=== PATIENT | female | born 1960 | race Caucasian/White ===

== ENCOUNTER 2017-03-23 19:05 | Inpatient (IN) | payer MEDICARE ==
[~2017-03-23] VITALS: Ht 157.5 cm; Wt 137.7 kg
[2017-03-23 19:13] VITALS: BP 172/90; PULSE 138; RESP 24; TEMP 102.1; O2SAT 93
[2017-03-23] MEDS ORDERED: SODIUM CHLOR 0.9% 1000 ML INJ 1,000 ML IV ONE ×3 (19:24)
[2017-03-23 19:26] VITALS: BP 145/75; PULSE 113; RESP 34; O2SAT 95
[2017-03-23] MEDS ORDERED: ACETAMINOPHEN 325 MG TAB PO ONE (19:30)
--- NOTE | 2017-03-23 19:32 | PD ---
HPI Chief Complaint: fever Time Seen by Provider: 19:15 Travel History International Travel<30 days: No Contact w/Intl Traveler<30days: No Traveled to known affect area: No History of Present Illness HPI the patient is a 57-year-old female who presents to the emergency department with her for fever and altered mental status. The states the patient symptoms started on Tuesday with lethargy, sleeping, and fever. The patient also had one episode of vomiting with several episodes of diarrhea. The states she has been no recent international travel, hospitalizations, or history of chronic infections. She did have similar symptoms 2 years ago per the 's report with the patient had low oxygen levels and had altered mental status. The patient does have a history of scleroderma and thyroid disorder. The patient also has a history of chronic pain secondary to scleroderma and chronic back pain for which she takes morphine and Dilaudid. The patient is seen by pain management as well as her primary physician who is located in [place], [place]. The states the patient's mental status seems to wax and wane over the last several days, she' ll be awake and alert, and that she will fall asleep and be slightly lethargic and confused. The patient denies any chest pain or shortness of breath. She does complain of abdominal pain over the skin secondary to her scleroderma. She also has a history of an open lesion secondary to scleroderma of the lateral left thigh which has been present for several years per the 's report. She denies any dysuria or frequency. Symptoms are moderate without any alleviating or exacerbating factors. [facility] Past Medical History Narrative Medical Scleroderma, thyroid disorder, chronic pain Past Surgical History Narrative Surgical Splenectomy Social History Tobacco Use: No (quit several years ago) Allergies-Medications (Allergen,Severity, Reaction): Coded Allergies: shellfish derived (Verified Allergy, Intermediate, 03/23/17) Review of Systems ROS Limitations: Clinical Condition Except as stated in HPI: all other systems reviewed are Neg General / Constitutional: Positive: Fever, Chills HENT: No: Headaches Cardiovascular: No: Chest Pain or Discomfort Respiratory: Positive: Shortness of Breath, No: Cough Gastrointestinal: Positive: Nausea, Vomiting, Diarrhea, Abdominal Pain Genitourinary: No: Dysuria Musculoskeletal: Positive: Weakness Skin: Positive Other (scleroderma with chronic draining wounds) Neurologic: Positive: Weakness Physical Exam Exam Limitations: Clinical Condition Narrative GENERAL: Awake, alert, slightly confused 57-year-old female appears her stated age and is in no acute respiratory distress. SKIN: Focused skin assessment warm/dry. Multiple circular scaly lesions on the lower external is bilateral. An open wound over the left lateral superior thigh with well demarcated age and tenderness. The patient's skin creases over the upper thighs and lower abdomen consistent with tinea. HEAD: Atraumatic. Normocephalic. EYES: Pupils equal and round. 3 mm bilateral and reactive. ENT: No nasal bleeding or discharge. Mucous membranes pink and moist. NECK: Trachea midline. No JVD. CARDIOVASCULAR: Regular, tachycardic with a heart rate 115. RESPIRATORY: No accessory muscle use. Diminished breath sounds in the bases bilateral. GASTROINTESTINAL: Abdomen soft, obese, no pinpoint tenderness, several subcutaneous nodules noted on exam. MUSCULOSKELETAL: No obvious deformities. No clubbing. No cyanosis. No edema. NEUROLOGICAL: Awake and alert. No obvious cranial nerve deficits. Motor grossly within normal limits. Normal speech. Patient is oriented to person, place, and , but does not know the current month or year. PSYCHIATRIC: Appears confused with delirium. Data Data Last Documented VS Vital Signs Date Time Temp Pulse Resp B/P (MAP) Pulse Ox O2 Delivery O2 Flow Rate FiO2 03/23/17 21:03 100 28 135/66 (89) 96 Nasal Cannula 2.00 03/23/17 19:13 102.1 Orders Orders Sepsis Workup Initiated (03/23/17 ) Electrocardiogram (03/23/17 19:24) Complete Blood Count With Diff (03/23/17 19:24) Comprehensive Metabolic Panel (03/23/17 19:24) Lactic Acid Sepsis Protocol (03/23/17 19:24) Magnesium (Mg) (03/23/17 19:24) Lipase (03/23/17 19:24) Ckmb (Isoenzyme) Profile (03/23/17 19:24) Troponin I (03/23/17 19:24) Urinalysis - C+S If Indicated (03/23/17 19:24) Influenzae A/B Antigen (03/23/17 19:24) Blood Culture (03/23/17 19:24) Chest, Single Ap (03/23/17 19:24) Blood Gas Venous (Vbg) (03/23/17 19:24) Blood Glucose (03/23/17 19:24) Ecg Monitoring (03/23/17 19:24) Iv Access Insert/Monitor (03/23/17 19:24) Cath For Specimen (03/23/17 19:24) Oximetry (03/23/17 19:24) Oxygen Administration (03/23/17 19:24) Acetaminophen (Tylenol) (03/23/17 19:30) Ct Abd/Pel W/O Iv Contrast (03/23/17 19:24) Ct Brain W/O Iv Contrast(Rout) (03/23/17 19:24) Sodium Chlor 0.9% 1000 Ml Inj (Ns 1000 M (03/23/17 19:24) Sodium Chlor 0.9% 1000 Ml Inj (Ns 1000 M (03/23/17 19:24) Sodium Chlor 0.9% 1000 Ml Inj (Ns 1000 M (03/23/17 19:24) C Diff Toxin Pcr (03/23/17 19:34) Enteric Path (Stool) (03/23/17 19:34) Piperacil-Tazo 4.5 Gm Premix (Zosyn 4.5 (03/23/17 20:30) Vancomycin Inj (Vancomycin Inj) (03/23/17 20:30) CKMB (03/23/17 19:45) CKMB% (03/23/17 19:45) Aspirin (Aspirin) (03/23/17 20:30) Urine Culture (03/23/17 19:58) Urinary Catheter Insert/Apply (03/23/17 21:51) Labs Laboratory Tests Test 03/23/17 19:45 03/23/17 19:58 03/23/17 20:04 White Blood Count 19.8 TH/MM3 Red Blood Count 5.16 MIL/MM3 Hemoglobin 14.1 GM/DL Hematocrit 44.0 % Mean Corpuscular Volume 85.2 FL Mean Corpuscular Hemoglobin 27.3 PG Mean Corpuscular Hemoglobin Concent 32.0 % Red Cell Distribution Width 14.8 % Platelet Count 163 TH/MM3 Mean Platelet Volume 10.5 FL Neutrophils (%) (Auto) 92.4 % Lymphocytes (%) (Auto) 4.2 % Monocytes (%) (Auto) 2.5 % Eosinophils (%) (Auto) 0.8 % Basophils (%) (Auto) 0.1 % Neutrophils # (Auto) 18.3 TH/MM3 Lymphocytes # (Auto) 0.8 TH/MM3 Monocytes # (Auto) 0.5 TH/MM3 Eosinophils # (Auto) 0.2 TH/MM3 Basophils # (Auto) 0.0 TH/MM3 CBC Comment AUTO DIFF Differential Total Cells Counted 100 Neutrophils % (Manual) 76 % Band Neutrophils % 18 % Lymphocytes % 1 % Monocytes % 4 % Neutrophils # (Manual) 18.8 TH/MM3 Metamyelocytes 1 % Differential Comment FINAL DIFF MANUAL Toxic Vacuolation PRESENT Dohle Bodies PRESENT Platelet Estimate NORMAL Platelet Morphology Comment ENLARGED [place]afa[place] Bodies PRESENT Blood Urea Nitrogen 37 MG/DL Creatinine 1.73 MG/DL Random Glucose 128 MG/DL Total Protein 10.2 GM/DL Albumin 1.8 GM/DL Calcium Level 8.5 MG/DL Magnesium Level 2.1 MG/DL Alkaline Phosphatase 130 U/L Aspartate Amino Transf (AST/SGOT) 322 U/L Alanine Aminotransferase (ALT/SGPT) 83 U/L Total Bilirubin 1.6 MG/DL Sodium Level 125 MEQ/L Potassium Level 4.1 MEQ/L Chloride Level 90 MEQ/L Carbon Dioxide Level 17.8 MEQ/L Anion Gap 17 MEQ/L Estimat Glomerular Filtration Rate 31 ML/MIN Lactic Acid Level 9.8 mmol/L Total Creatine Kinase 2170 U/L Creatine Kinase MB 26.1 NG/ML Creatine Kinase MB % 1.2 % Troponin I 15.20 NG/ML Lipase 442 U/L Urine Color DARK-YELLOW Urine Turbidity HAZY Urine pH 6.0 Urine Specific [place] 1.021 Urine Protein 100 mg/dL Urine Glucose (UA) NEG mg/dL Urine Ketones NEG mg/dL Urine Occult Blood LARGE Urine Nitrite NEG Urine Bilirubin NEG Urine Urobilinogen 2.0 MG/DL Urine Leukocyte Esterase TRACE Urine RBC 3 /hpf Urine WBC 12 /hpf Urine Squamous Epithelial Cells 1 /hpf Urine Bacteria RARE /hpf Urine Hyaline Casts 1 /lpf Urine Mucus FEW /lpf Microscopic Urinalysis Comment CULTURE INDICATED Blood Gas Puncture Site IV Blood Gas Patient Temperature 98.6 Venous Blood pH 7.35 Venous Blood Partial Pressure CO2 35 mmHg Venous Blood Partial Pressure O2 46 mmHg Venous Blood HCO3 19 mmol/L Venous Blood Oxygen Saturation 71 % Venous Blood Oxygen Content 13.2 Vol % Venous Blood Base Excess -6.0 mmol/L Oxygen Delivery Device NASAL CANNULA Blood Gas Liter Flow 3 L/M MDM Medical Decision Making Medical Screen Exam Complete: Yes Emergency Medical Condition: Yes Medical Record Reviewed: Yes Interpretation(s) EKG reveals sinus tachycardia with a heart rate of 113. Inverted T wave noted in lead 3. Chest x-ray reveals the lungs are clear. Cardiomegaly. Last Impressions Head CT 03/23/[id number] Signed Impressions: Service Date/Time: Thursday, March 23, 2017 20:45 - CONCLUSION: No acute findings in the brain. David Weiss MD Chest X-Ray 03/23/[id number] Signed Impressions: Service Date/Time: Thursday, March 23, 2017 19:49 - CONCLUSION: Cardiomegaly. The lungs are clear. David Weiss MD CT the abdomen and pelvis reveals multiple gallstones, some which are noncalcified. Spleen is not identified. Mildly prominent left inguinal nodes measuring up to 2 cm. Laboratory Tests Test 03/23/17 19:45 03/23/17 19:58 03/23/17 20:04 White Blood Count 19.8 TH/MM3 Red Blood Count 5.16 MIL/MM3 Hemoglobin 14.1 GM/DL Hematocrit 44.0 % Mean Corpuscular Volume 85.2 FL Mean Corpuscular Hemoglobin 27.3 PG Mean Corpuscular Hemoglobin Concent 32.0 % Red Cell Distribution Width 14.8 % Platelet Count 163 TH/MM3 Mean Platelet Volume 10.5 FL Neutrophils (%) (Auto) 92.4 % Lymphocytes (%) (Auto) 4.2 % Monocytes (%) (Auto) 2.5 % Eosinophils (%) (Auto) 0.8 % Basophils (%) (Auto) 0.1 % Neutrophils # (Auto) 18.3 TH/MM3 Lymphocytes # (Auto) 0.8 TH/MM3 Monocytes # (Auto) 0.5 TH/MM3 Eosinophils # (Auto) 0.2 TH/MM3 Basophils # (Auto) 0.0 TH/MM3 CBC Comment AUTO DIFF Differential Total Cells Counted 100 Neutrophils % (Manual) 76 % Band Neutrophils % 18 % Lymphocytes % 1 % Monocytes % 4 % Neutrophils # (Manual) 18.8 TH/MM3 Metamyelocytes 1 % Differential Comment FINAL DIFF MANUAL Toxic Vacuolation PRESENT Dohle Bodies PRESENT Platelet Estimate NORMAL Platelet Morphology Comment ENLARGED Mustafa-[place] Bodies PRESENT Blood Urea Nitrogen 37 MG/DL Creatinine 1.73 MG/DL Random Glucose 128 MG/DL Total Protein 10.2 GM/DL Albumin 1.8 GM/DL Calcium Level 8.5 MG/DL Magnesium Level 2.1 MG/DL Alkaline Phosphatase 130 U/L Aspartate Amino Transf (AST/SGOT) 322 U/L Alanine Aminotransferase (ALT/SGPT) 83 U/L Total Bilirubin 1.6 MG/DL Sodium Level 125 MEQ/L Potassium Level 4.1 MEQ/L Chloride Level 90 MEQ/L Carbon Dioxide Level 17.8 MEQ/L Anion Gap 17 MEQ/L Estimat Glomerular Filtration Rate 31 ML/MIN Lactic Acid Level 9.8 mmol/L Total Creatine Kinase 2170 U/L Creatine Kinase MB 26.1 NG/ML Creatine Kinase MB % 1.2 % Troponin I 15.20 NG/ML Lipase 442 U/L Urine Color DARK-YELLOW Urine Turbidity HAZY Urine pH 6.0 Urine Specific [place] 1.021 Urine Protein 100 mg/dL Urine Glucose (UA) NEG mg/dL Urine Ketones NEG mg/dL Urine Occult Blood LARGE Urine Nitrite NEG Urine Bilirubin NEG Urine Urobilinogen 2.0 MG/DL Urine Leukocyte Esterase TRACE Urine RBC 3 /hpf Urine WBC 12 /hpf Urine Squamous Epithelial Cells 1 /hpf Urine Bacteria RARE /hpf Urine Hyaline Casts 1 /lpf Urine Mucus FEW /lpf Microscopic Urinalysis Comment CULTURE INDICATED Blood Gas Puncture Site IV Blood Gas Patient Temperature 98.6 Venous Blood pH 7.35 Venous Blood Partial Pressure CO2 35 mmHg Venous Blood Partial Pressure O2 46 mmHg Venous Blood HCO3 19 mmol/L Venous Blood Oxygen Saturation 71 % Venous Blood Oxygen Content 13.2 Vol % Venous Blood Base Excess -6.0 mmol/L Oxygen Delivery Device NASAL CANNULA Blood Gas Liter Flow 3 L/M Differential Diagnosis Differential diagnosis includes sepsis, pneumonia, UTI, infected wound, cellulitis, encephalitis, meningitis, dehydration, electrolyte abnormality, intra-abdominal process, influenza, colitis. Narrative Course IV was established, labs are drawn and sent, and the patient was placed on cardiac telemetry monitoring and continuous pulse oximetry monitoring. CT of the brain and abdomen/pelvis were ordered. Straight catheter UA was ordered. Chest x-ray was obtained. The patient was administered IV fluids and Tylenol 650 mg orally. EKG was ordered and interpreted. The patient's chest x-ray reveals cardiomegaly, no evidence of pneumonia. Influenza screen was negative. The patient does have an open lesion on the lateral left thigh, therefore, was administered Zosyn and vancomycin. The patient's troponin was elevated at 15.2, CPK 2100, lactic acid was elevated at 9.8. Patient was resuscitated with 3 L of IV fluids. The patient does meet sepsis criteria will be admitted to the intensive care unit. CT of the abdomen and pelvis reveals enlarged lymph node a left inguinal area, may be secondary to the lateral left leg went, the patient will be admitted to the intensive care unit. I discussed the findings with the patient and at bedside. Critical Care Narrative Aggregate critical care time was 45 minutes. Time to perform other separately billable procedures was not included in the critical care time. My time did not include minutes spent treating any other patients simultaneously or on activities that did not directly contribute to the patient's treatment. The services I provided to this patient were to treat and/or prevent clinically significant deterioration that could result in: Sepsis, and organ damage, acute renal failure, myocardial infarction, . I provided critical care services requiring my management, as noted below: Chart data review, documentation time, medication orders and management, vital sign assessments/reviewing monitor data, ordering and reviewing lab tests, ordering and interpreting/reviewing x-rays and diagnostic studies, care of the patient and discussion of the patient with the admitting physicians. Sepsis Criteria SIRS Criteria (2 or more): Temp > 100.9 or < 96.8, Heart rate over 90, WBC > 93046, < 4000 or > 10% bands Severe Sepsis (+one): Organ Dysfunction Septic Shock Criteria: Lactic acid >=4 Criteria Outcome: Meets septic shock criteria Physician Communication Physician Communication The on-call digital retoucher was paged for admission. I discussed the patient with Dr. Garcia who agrees with admission. Diagnosis Primary Impression: Sepsis Qualified Codes: A41.9 - Sepsis, unspecified organism Additional Impressions: Elevated troponin Lactic acidosis Admitting Information Admitting Physician Requests: Admit Condition: Stable Elia Moss MD Mar 23, 2017 19:32
[2017-03-23 19:36] VITALS: O2SAT 95
[2017-03-23 20:01] LABS: AUTOMATED NEUTROPHIL # 18.3 TH/MM3 (1.8-7.7); BASOPHIL % 0.1 % (0.0-2.0); EOSINOPHIL # 0.2 TH/MM3 (0-0.4); EOSINOPHIL % 0.8 % (0.0-4.0); HEMOGLOBIN 14.1 GM/DL (11.6-15.3); LYMPH % 4.2 % (9.0-44.0); LYMPHOCYTE # 0.8 TH/MM3 (1.0-4.8); MEAN CELL VOLUME 85.2 FL (80.0-100.0); MEAN CORPUSCULAR HEMOGLOBIN 27.3 PG (27.0-34.0); MEAN PLATELET VOLUME 10.5 FL (7.0-11.0); MONO % 2.5 % (0.0-8.0); MONOCYTE # 0.5 TH/MM3 (0-0.9); NEUT % 92.4 % (16.0-70.0); PLATELET COUNT 163 TH/MM3 (150-450); RED BLOOD COUNT 5.16 MIL/MM3 (4.00-5.30); RED CELL DISTRIBUTION WIDTH 14.8 % (11.6-17.2); WHITE BLOOD COUNT 19.8 TH/MM3 (4.0-11.0)
[2017-03-23 20:16] LABS: ALBUMIN 1.8 GM/DL (3.4-5.0); ALT (GPT) 83 U/L (10-53); AST (GOT) 322 U/L (15-37); BICARBONATE 17.8 MEQ/L (21.0-32.0); BLOOD UREA NITROGEN 37 MG/DL (7-18); CALCIUM 8.5 MG/DL (8.5-10.1); CHLORIDE 90 MEQ/L (98-107); CREATININE 1.73 MG/DL (0.50-1.00); GLOMERULAR FILTRATION RATE 31 ML/MIN (>89); GLUCOSE,RANDOM 128 MG/DL (74-106); LIPASE 442 U/L (73-393); MAGNESIUM 2.1 MG/DL (1.5-2.5); SODIUM (NA) 125 MEQ/L (136-145)
--- NOTE | 2017-03-23 20:19 | RADRPT ---
EXAM DATE/TIME: 03/23/2017 19:49 [facility] COMPARISON: No previous studies available for comparison. INDICATIONS : Fever. MEDICAL HISTORY : None. SURGICAL HISTORY : None. ENCOUNTER: Initial ACUITY: 1 day PAIN SCORE: 0/10 LOCATION: Bilateral chest FINDINGS: A single view of the chest demonstrates the lungs to be symmetrically aerated without evidence of mas s, infiltrate or effusion. Heart is mildly enlarged. Central bronchopulmonary markings well delinea wayne. Osseous structures are intact. CONCLUSION: Cardiomegaly. The lungs are clear. David Weiss MD on March 23, 2017 at 20:16 Board Certified Radiologist. This report was verified electronically.
[2017-03-23 20:22] LABS: LACTIC ACID SEPSIS PROTOCOL 9.8 mmol/L (0.4-2.0)
[2017-03-23 20:26] LABS: ALKALINE PHOSPHATASE 130 U/L (45-117); TOTAL BILIRUBIN ADULT 1.6 MG/DL (0.2-1.0); TOTAL PROTEIN 10.2 GM/DL (6.4-8.2)
[2017-03-23 20:30] LABS: BANDS 18 % (0-6); LYMPHOCYTES 1 % (9-44); METAMYELOCYTES 1 % (0-1); MONOCYTES 4 % (0-8); NEUTROPHIL # MANUAL DIFF 18.8 TH/MM3 (1.8-7.7); POLYS (SEG NEUTROPHILS) 76 % (16-70)
[2017-03-23] MEDS ORDERED: PIPERACIL-TAZO 4.5 GM PREMIX 100 ML IV ONE (20:30)
[2017-03-23] MEDS ORDERED: ASPIRIN 325 MG TAB PO ONE (20:30)
[2017-03-23] MEDS ORDERED: VANCOMYCIN INJ 1,000 MG in SODIUM CHLOR 0.9% 250 ML INJ 250 ML IV ONE (20:30)
[2017-03-23 20:31] LABS: DOHLE BODIES PRESENT (NONE SEEN); HOWELL-JOLLY BODIES PRESENT (NONE SEEN); TOXIC VACUOLATION PRESENT (NONE SEEN)
[2017-03-23 20:46] LABS: BACTERIA, URINE RARE /hpf; BLOOD, URINE LARGE (NEG); GLUCOSE,URINE NEG (NEG); HYALINE CAST, URINE 1 /lpf (RARE); KETONE, URINE NEG (NEG); MUCUS URINE FEW /lpf (OCC); NITRITE,URINE NEG (NEG); SQUAMOUS EPITHELIAL CELL URINE 1 /hpf (0-5); URINE COLOR DARK-YELLOW (YELLW/STRAW); URINE LEUKOCYTE ESTERASE TRACE (NEG)
[2017-03-23 20:48] LABS: BILIRUBIN, URINE NEG (NEG)
[2017-03-23 21:03] VITALS: BP 135/66; PULSE 100; RESP 28; O2SAT 96
--- NOTE | 2017-03-23 21:40 | RADRPT ---
EXAM DATE/TIME: 03/23/2017 20:45 [facility] COMPARISON: No previous studies available for comparison. INDICATIONS : Altered mental status. RADIATION DOSE: 56.35 CTDIvol (mGy) MEDICAL HISTORY : Scleroderma SURGICAL HISTORY : None. ENCOUNTER: Initial ACUITY: 3 days PAIN SCALE: 0/10 LOCATION: cranial TECHNIQUE: Multiple contiguous axial images were obtained of the head. Using automated exposure control and adj ustment of the mA and/or kV according to patient size, radiation dose was kept as low as reasonably a chievable to obtain optimal diagnostic quality images. DICOM format image data is available electro nically for review and comparison. FINDINGS: CEREBRUM: The ventricles are normal for age. No evidence of midline shift, mass lesion, hemorrhage or acute in farction. No extra-axial fluid collections are seen. POSTERIOR FOSSA: The cerebellum and brainstem are intact. The 4th ventricle is midline. The cerebellopontine angle i s unremarkable. EXTRACRANIAL: The visualized portion of the orbits is intact. SKULL: The calvaria is intact. No evidence of skull fracture. Hyperostosis of the calvarium. CONCLUSION: No acute findings in the brain. David Weiss MD on March 23, 2017 at 21:37 Board Certified Radiologist. This report was verified electronically.
--- NOTE | 2017-03-23 21:56 | RADRPT ---
EXAM DATE/TIME: 03/23/2017 20:48 [facility] COMPARISON: No previous studies available for comparison. INDICATIONS : Fever, nausea, and vomiting. ORAL CONTRAST: No oral contrast ingested. RADIATION DOSE: 31.08 CTDIvol (mGy) ; Patient body habitus MEDICAL HISTORY : scleroderma SURGICAL HISTORY : None. ENCOUNTER: Initial ACUITY: 3 days PAIN SCALE: 0/10 LOCATION: abdomen TECHNIQUE: Volumetric scanning of the abdomen and pelvis was performed. Using automated exposure control and ad justment of the mA and/or kV according to patient size, radiation dose was kept as low as reasonably achievable to obtain optimal diagnostic quality images. DICOM format image data is available electro nically for review and comparison. FINDINGS: LOWER LUNGS: The visualized lower lungs are clear. LIVER: Homogeneous density without lesion for noncontrast technique. There is a solitary punctate calcifica tion within the central right lobe liver.. There is no dilation of the biliary tree. Multiple calci fied and noncalcified gallstones, the largest which contains gas.. SPLEEN: Not identified. PANCREAS: Within normal limits. KIDNEYS: Normal in size and shape. There is no mass, stone, or hydronephrosis. ADRENAL GLANDS: Within normal limits. VASCULAR: There is no aortic aneurysm. BOWEL/MESENTERY: The stomach, small bowel, and colon demonstrate no acute abnormality. There is no free intraperitone al air or fluid. ABDOMINAL WALL: Diffuse scattered subcutaneous calcifications Concentric about the abdominal pelvic wall. RETROPERITONEUM: There is no lymphadenopathy. BLADDER: Florez catheter in a nondistended bladder. REPRODUCTIVE: Within normal limits. INGUINAL: Mildly prominent left inguinal lymph nodes measuring up to 2 cm. MUSCULOSKELETAL: Within normal limits for patient age. CONCLUSION: 1. Multiple gallstones, some of which are noncalcified. 2. Spleen is not identified. 3. Mildly prominent left inguinal David Weiss MD on March 23, 2017 at 21:51 Board Certified Radiologist. This report was verified electronically.
[2017-03-23] MEDS ORDERED: ACETAMINOPHEN 325 MG TAB PO PRN (22:30)
[2017-03-23] MEDS ORDERED: ONDANSETRON HCL 4 MG/2 ML VIAL IV PUSH PRN (22:30)
[2017-03-23] MEDS ORDERED: SODIUM CHLORIDE 0.9% FLUSH 10 ML FLUSH IV FLUSH PRN ×2 (22:30→22:45)
[2017-03-23] MEDS ORDERED: LACTULOSE SYRUP 20 GM/30 ML CUP PO PRN (22:30)
[2017-03-23] MEDS ORDERED: CHLORHEXIDINE GLUCONATE 2 % 1 PACK (2 CLOTHS) TOP PRN (22:30)
[2017-03-23] MEDS ORDERED: ACETAMINOPHEN/HYDROcodone 325 MG/5 MG TAB PO PRN (22:30)
[2017-03-23] MEDS ORDERED: SENNOSIDES 8.6 MG TAB PO PRN (22:30)
[2017-03-23] MEDS ORDERED: HEPARIN SODIUM - SQ 10,000 UNITS/ML VIAL SQ SCH (22:30)
[2017-03-23] MEDS ORDERED: MAGNESIUM HYDROXIDE SUSP 30 ML CUP PO PRN (22:30)
[2017-03-23] MEDS ORDERED: BISACODYL 10 MG SUPP RECTAL PRN (22:30)
[2017-03-23] MEDS ORDERED: MISCELLANEOUS NURSING INFORMATION XX SCH (22:30)
--- NOTE | 2017-03-23 22:43 | HHI.HP ---
[facility] Service Critical Care Medicine Primary Care Physician Unknown Admission Diagnosis sepsis, left leg wound, lactic acidosis, elevated troponin Diagnosis: (1) Hyponatremia Diagnosis: Principal (2) Hypoalbuminemia Diagnosis: Principal (3) Transaminitis Diagnosis: Principal (4) Pyrexia Diagnosis: Principal (5) Acute kidney injury Diagnosis: Principal (6) Scleroderma Diagnosis: Secondary (7) Severe sepsis Diagnosis: Principal (8) Elevated troponin Diagnosis: Principal (9) Lactic acidosis Diagnosis: Principal (10) Left leg cellulitis Diagnosis: Principal (11) Hyperglycemia Diagnosis: Secondary (12) Rhabdomyolysis Diagnosis: Principal (13) Gallstones Diagnosis: Principal (14) BMI 50.0-59.9, adult Diagnosis: Principal (15) Chronic narcotic use Diagnosis: Principal (16) Chronic prescription benzodiazepine use Diagnosis: Principal (17) Depression Diagnosis: Secondary (18) Hypothyroidism Diagnosis: Principal Chief Complaint: Malaise 2-3 days Travel History International Travel<30 Days: No Contact w/Intl Traveler <30 Da: No Traveled to Known Affected Are: No Sepsis Criteria SIRS Criteria (2 or more): WBC > 80069, < 4000 or > 10% bands Sepsis Criteria (SIRS+source): Infect source susp/known Severe Sepsis (+one): Lactate >2 Septic Shock Criteria: Lactic acid >=4 Multiple Organ Dysfunction Syn: Evidence -2 organs failing Criteria Outcome: Meets multiple organ dys. criteria History of Present Illness This is a 57-year-old female. Admission 03/23/2017.past medical history includes scleroderma, thyroid disease, status post splenectomy in the past and elevated BMI. Initial presentation occurred Tuesday with lethargy, sleeping, and fever. The patient also had one episode of vomiting with several episodes of diarrhea. The states she has been no recent international travel, hospitalizations, or history of chronic infections. She did have similar symptoms 2 years ago per the 's report with the patient had low oxygen levels and had altered mental status. The patient is seen by pain management as well as her primary physician who is located in [place], [place]. Dr. Estrada The states the patient's mental status seems to wax and wane over the last several days, she'll be awake and alert, and that she will fall asleep and be slightly lethargic and confused. She will lie in bed for several days at a time. The patient denies any chest pain or shortness of breath. She does complain of abdominal pain over the skin secondary to her scleroderma. She also has a history of an open lesion secondary to scleroderma of the lateral left thigh which has been present for several years per the 's report. Received patient was treated with Humira for scleroderma however not taking for the past 5 months. She is on morphine and Dilaudid for chronic pain management from her Dr. Dominguez in [place] abdomen/12 revealed gallstones without obstruction. Status post splenectomy. Morbid obesity. Chest x-ray revealed no signs of pneumonia. CT brain negative. Patient received 2 L normal saline added ED. She was noted to have a elevated troponin of 15. Denies chest pain. EKG shows nonspecific ST-T changes. CPK 2100. Creatinine 1.7. Leukocytosis 20,000 and elevated transaminases with low sodium and albumin. Her febrile is abated. She is currently awake and oriented to person place and time. Review of Systems Constitutional: COMPLAINS OF: Fatigue, Fever, Weight gain, Chills Endocrine: DENIES: Polydipsia, Polyuria Eyes: DENIES: Blurred vision Ears, nose, mouth, throat: DENIES: Nasal discharge Respiratory: DENIES: Apneas Cardiovascular: DENIES: Chest pain Gastrointestinal: COMPLAINS OF: Diarrhea, Nausea, Vomiting, DENIES: Abdominal pain, Constipation Genitourinary: DENIES: Urinary frequency Musculoskeletal: DENIES: Joint pain Integumentary: COMPLAINS OF: Abnormal pigmentation, Rash, Nail changes Hematologic/lymphatic: COMPLAINS OF: Bruising Immunologic/allergic: COMPLAINS OF: Eczema Neurologic: COMPLAINS OF: Abnormal gait, DENIES: Headache Psychiatric: COMPLAINS OF: Anxiety, DENIES: Confusion Past Family Social History Allergies: Coded Allergies: shellfish derived (Verified Allergy, Intermediate, 03/23/17) Past Medical History Scleroderma unknown if localized versus systemic Thyroid disease unknown type Chronic pain syndrome Elevated BMI Past Surgical History 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 Not in EMR yet Active Ordered Medications Reviewed in EMR Family History Positive for diabetes and heart disease. Social History Quit tobacco 15 years ago. Social alcohol. Denies illicit drug use. Physical Exam Vital Signs Vital Signs Date Time Temp Pulse Resp B/P (MAP) Pulse Ox O2 Delivery O2 Flow Rate FiO2 03/23/17 21:03 100 28 135/66 (89) 96 Nasal Cannula 2.00 03/23/17 19:36 95 Nasal Cannula 2.00 03/23/17 19:36 95 Nasal Cannula 2.00 03/23/17 19:26 113 34 145/75 (98) 95 03/23/17 19:13 102.1 138 24 172/90 (117) 93 Room Air Physical Exam GENERAL: 57-year-old female currently resting in bed in no acute distress SKIN: Morphea. Several sclerotic hypopigmented areas upper and lower extremities. Tinea cruris. HEAD: Atraumatic. Normocephalic. EYES: Pupils equal and round about 3 mm bilaterally and reactive. No scleral icterus. No injection or drainage. ENT: No nasal bleeding or discharge. Mucous membranes pink and moist. NECK: Trachea midline. No JVD. CARDIOVASCULAR: Tachycardic RR. S1, S2. No S4. Without murmur RESPIRATORY: Diminished throughout. No wheezing rales or rhonchi. Breath sounds equal bilaterally. GASTROINTESTINAL: Abdomen soft, non-tender, nondistended. Hepatic and splenic margins not palpable. MUSCULOSKELETAL: Extremities with multiple open areas/calcifications bilateral lower extremities. Largest is in the left gluteal region about 6 x 8 cm. Stage II decubiti. See skin above. NEUROLOGICAL: Awake and alert. No obvious cranial nerve deficits. Motor grossly within normal limits. Five out of 5 muscle strength in the arms and legs. Normal speech. Laboratory Laboratory Tests Test 03/23/17 19:45 03/23/17 19:58 03/23/17 20:04 White Blood Count 19.8 Red Blood Count 5.16 Hemoglobin 14.1 Hematocrit 44.0 Mean Corpuscular Volume 85.2 Mean Corpuscular Hemoglobin 27.3 Mean Corpuscular Hemoglobin Concent 32.0 Red Cell Distribution Width 14.8 Platelet Count 163 Mean Platelet Volume 10.5 Neutrophils (%) (Auto) 92.4 Lymphocytes (%) (Auto) 4.2 Monocytes (%) (Auto) 2.5 Eosinophils (%) (Auto) 0.8 Basophils (%) (Auto) 0.1 Neutrophils # (Auto) 18.3 Lymphocytes # (Auto) 0.8 Monocytes # (Auto) 0.5 Eosinophils # (Auto) 0.2 Basophils # (Auto) 0.0 CBC Comment AUTO DIFF Differential Total Cells Counted 100 Neutrophils % (Manual) 76 Band Neutrophils % 18 Lymphocytes % 1 Monocytes % 4 Neutrophils # (Manual) 18.8 Metamyelocytes 1 Differential Comment FINAL DIFF MANUAL Toxic Vacuolation PRESENT Dohle Bodies PRESENT Platelet Estimate NORMAL Platelet Morphology Comment ENLARGED [place] Bodies PRESENT Blood Urea Nitrogen 37 Creatinine 1.73 Random Glucose 128 Total Protein 10.2 Albumin 1.8 Calcium Level 8.5 Magnesium Level 2.1 Alkaline Phosphatase 130 Aspartate Amino Transf (AST/SGOT) 322 Alanine Aminotransferase (ALT/SGPT) 83 Total Bilirubin 1.6 Sodium Level 125 Potassium Level 4.1 Chloride Level 90 Carbon Dioxide Level 17.8 Anion Gap 17 Estimat Glomerular Filtration Rate 31 Lactic Acid Level 9.8 Total Creatine Kinase 2170 Creatine Kinase MB 26.1 Creatine Kinase MB % 1.2 Troponin I 15.20 Lipase 442 Urine Color DARK-YELLOW Urine Turbidity HAZY Urine pH 6.0 Urine Specific [place] 1.021 Urine Protein 100 Urine Glucose (UA) NEG Urine Ketones NEG Urine Occult Blood LARGE Urine Nitrite NEG Urine Bilirubin NEG Urine Urobilinogen 2.0 Urine Leukocyte Esterase TRACE Urine RBC 3 Urine WBC 12 Urine Squamous Epithelial Cells 1 Urine Bacteria RARE Urine Hyaline Casts 1 Urine Mucus FEW Microscopic Urinalysis Comment CULTURE INDICATED Blood Gas Puncture Site IV Blood Gas Patient Temperature 98.6 Venous Blood pH 7.35 Venous Blood Partial Pressure CO2 35 Venous Blood Partial Pressure O2 46 Venous Blood HCO3 19 Venous Blood Oxygen Saturation 71 Venous Blood Oxygen Content 13.2 Venous Blood Base Excess -6.0 Oxygen Delivery Device NASAL CANNULA Blood Gas Liter Flow 3 Date/Time Source Procedure Growth Status 03/23/17 19:45 Blood Peripheral Aerobic Blood Culture Pending Received 03/23/17 19:45 Blood Peripheral Anaerobic Blood Culture Pending Received 03/23/17 19:49 Nasal Aspirate Influenza Types A,B Antigen (OLIVIA) - Final NEGATIVE FOR FLU A AND B ANTIGEN.... Complete 03/23/17 19:58 Urine Clean Catch Urine Culture Pending Received Result Diagram: 03/23/17194403/23/171944 Imaging Last Impressions Head CT 03/23/171923 Signed Impressions: Service Date/Time: Thursday, March 23, 2017 20:45 - CONCLUSION: No acute findings in the brain. David Weiss MD Chest X-Ray 03/23/171923 Signed Impressions: Service Date/Time: Thursday, March 23, 2017 19:49 - CONCLUSION: Cardiomegaly. The lungs are clear. David Weiss MD Abdomen/Pelvis CT 03/23/171923 Signed Impressions: Service Date/Time: Thursday, March 23, 2017 20:48 - CONCLUSION: 1. Multiple gallstones, some of which are noncalcified. 2. Spleen is not identified. 3. Mildly prominent left inguinal David Weiss MD Septic Shock Reassessment Septic shock perfusion: reassessment completed Caprini VTE Risk Assessment Caprini VTE Risk Assessment: Mod/High Risk (score >= 2) Caprini Risk Assessment Model Point Value = 1 Point Value = 2 Point Value = 3 Point Value = 5 Age 41-60 Minor surgery BMI > 25 kg/m2 Swollen legs Varicose veins or History of unexplained or recurrent spontaneous Oral contraceptives or hormone replacement Sepsis (< 1 month) Serious lung disease, including pneumonia (< 1 month) Abnormal pulmonary function Acute myocardial infarction Congestive heart failure (< 1 month) History of inflammatory bowel disease Medical patient at bed rest Age 61-74 Arthroscopic surgery Major open surgery (> 45 min) Laparoscopic surgery (> 45 min) Malignancy Confined to bed (> 72 hours) Immobilizing plaster cast Central venous access Age >= 75 History of VTE Family history of VTE Factor V Leiden Prothrombin [id number] Lupus anticoagulant Anticardiolipin antibodies Elevated serum homocysteine Heparin-induced thrombocytopenia Other congenital or acquired thrombophilia Stroke (< 1 month) Elective arthroplasty Hip, pelvis, or leg fracture Acute spinal cord injury (< 1 month) Prophylaxis Regimen Total Risk Factor Score Risk Level Prophylaxis Regimen 0-1 Low Early ambulation 2 Moderate Order ONE of the following: *Sequential Compression Device (SCD) *Heparin 5000 units SQ BID 3-4 Higher Order ONE of the following medications: *Heparin 5000 units SQ TID *Enoxaparin/Lovenox 40 mg SQ daily (WT < 150 kg, CrCl > 30 mL/min) *Enoxaparin/Lovenox 30 mg SQ daily (WT < 150 kg, CrCl > 10-29 mL/min) *Enoxaparin/Lovenox 30 mg SQ BID (WT < 150 kg, CrCl > 30 mL/min) AND/OR *Sequential Compression Device (SCD) 5 or more Highest Order ONE of the following medications: *Heparin 5000 units SQ TID (Preferred with Epidurals) *Enoxaparin/Lovenox 40 mg SQ daily (WT < 150 kg, CrCl > 30 mL/min) *Enoxaparin/Lovenox 30 mg SQ daily (WT < 150 kg, CrCl > 10-29 mL/min) *Enoxaparin/Lovenox 30 mg SQ BID (WT < 150 kg, CrCl > 30 mL/min) AND *Sequential Compression Device (SCD) Assessment and Plan Assessment and Plan Neuro/Psych: Chronic pain syndrome/low back pain Chronic narcotic use Depression Chronic benzodiazepine use Morphine sulfate 60 mg every 8 hours scheduled extended release Hydromorphone 4 mg by mouth every 6 hours when necessary pain Tizanidine 4 mill grams 3 times a day has been held Escitalopram 20 mg daily has been continued Lorazepam 0.5 mg twice a day has been continued Venlafaxine 37.5 mill grams daily has been continued CV: Severe sepsis with multisystem organ failure Elevated troponin Hypertension Lactic acidosis Currently received aspirin 325 mg in ED currently on 81 mg daily Lopressor 12.5 mg by mouth twice a day No lipid-lowering agents due to elevated transaminases Currently normal saline at 125 cc an hour Serial lactates until clear. Status post 2 L in ED. Resp: Acute respiratory insufficiency Nasal cannula to maintain saturations greater than equal to 92% Incentive spirometry while awake GI: Elevated transaminases/total bilirubin Hypoalbuminemia CT abdomen/pelvis revealed cholelithiasis, status post electric. No other acute findings. Monitor LFTs in a.m. Amylase, lipase and ammonia level pending : No indication for Florez catheter Endo/Rheum: Hyperglycemia Hypothyroidism Scleroderma - localized versus systemic Rheumatoid arthritis? Sliding-scale insulin to maintain euglycemia Check TSH continue levothyroxine 150 mg by mouth daily/home dose in the interim Awaiting rectification of home medication Renal: Acute kidney injury Monitor urine output Accurate I's and O's Currently normal saline at 84 cc an hour. Recheck BMP in a.m. Heme: Leukocytosis Monitor CBC daily. Follow trends. No indications for transfusion of blood products at this time Continue ferrous sulfate 325 mg by mouth daily ID: Severe sepsis Blood cultures 2 drawn. UA pending Piperacillin/tazobactam and vancomycin as been discontinued MSK: Lower extremity ulcerations BMI 55 Wound care evaluate and treat Weight loss encouraged PT evaluate and treat FEN: Hyponatremia Recess sodium in AM. Replace electrolytes as clinically indicated Access - Utilize peripheral IV. Central line if indicated Prophylaxis - GI - famotidine - DVT - SCD/heparin drip Critical Care: The total critical care time was 35 minutes. Time to perform other separately billable procedures was not included in the critical care time. Code Status Full code Discussed Condition With Patient's Rambo. Patient. Dr. Moss ED physician. Care plan discussed and all questions answered. Problem Qualifiers (1) Pyrexia: Qualified Codes: R50.9 - Fever, unspecified (2) Rhabdomyolysis: Qualified Codes: M62.82 - Rhabdomyolysis (3) Depression: Qualified Codes: F32.9 - Major depressive disorder, single episode, unspecified (4) Hypothyroidism: Qualified Codes: E03.9 - Hypothyroidism, unspecified Abdullahi Garcia MD Mar 23, 2017 22:43
[2017-03-23] MEDS ORDERED: Vancomycin Consult Pharmacy 1 EA OTHER SCH (22:45)
[2017-03-23 22:48] LABS: HEMATOCRIT 44.7 % (35.0-46.0); HEMOGLOBIN 14.1 GM/DL (11.6-15.3); MEAN CELL VOLUME 86.3 FL (80.0-100.0); MEAN CORPUSCULAR HEMOGLOBIN 27.1 PG (27.0-34.0); MEAN CORPUSCULAR HGB CONC 31.5 % (32.0-36.0); MEAN PLATELET VOLUME 11.4 FL (7.0-11.0); PLATELET COUNT 163 TH/MM3 (150-450); RED BLOOD COUNT 5.19 MIL/MM3 (4.00-5.30); RED CELL DISTRIBUTION WIDTH 14.6 % (11.6-17.2); WHITE BLOOD COUNT 20.4 TH/MM3 (4.0-11.0)
[2017-03-23] MEDS ORDERED: SODIUM CHLOR 0.45% 1000 ML INJ 1,000 ML IV ONE (23:00)
[2017-03-23 23:02] VITALS: BP 137/70; PULSE 110; RESP 24; O2SAT 97
[2017-03-23 23:09] LABS: INTERNATIONAL NORMALIZED RATIO 1.5 RATIO; PROTHROMBIN TIME - PATIENT 15.2 SEC (9.8-11.6)
[2017-03-23] MEDS ORDERED: VANCOMYCIN INJ 800 MG in SODIUM CHLOR 0.9% 250 ML INJ 250 ML IV SCH (23:30)
[2017-03-23 23:37] LABS: SODIUM,RANDOM URINE LESS THAN 5 MEQ/L
[2017-03-23] MEDS ORDERED: LEVO150T7 PO (23:42)
[2017-03-23] MEDS ORDERED: HYDR4TAB PO (23:42)
[2017-03-23] MEDS ORDERED: LORA0.5T PO (23:42)
[2017-03-23] MEDS ORDERED: VENL37.5 PO (23:42)
[2017-03-23] MEDS ORDERED: FERR325T18 PO (23:42)
[2017-03-23] MEDS ORDERED: GABA600T PO (23:42)
[2017-03-23] MEDS ORDERED: TIZA4CAP3 PO (23:42)
[2017-03-23] MEDS ORDERED: ESCI20TA PO (23:42)
[2017-03-23] MEDS ORDERED: MORP60TA61 PO (23:42)
[2017-03-24] VITALS (14 sets, daily range): BP systolic 93–135; BP diastolic 55–69; PULSE 91–108; RESP 20–56; TEMP 97.9–99.1; O2SAT 89–98
[2017-03-24] MEDS: SODIUM CHLOR 0.9% 1000 ML INJ 1,000 ML IV SCH ×2 (00:17→18:43)
[2017-03-24 00:36] LABS: OSMOLALITY,URINE 557 MOSM/KG (300-1300)
[2017-03-24] MEDS ORDERED: HYDROmorphone HCL 4 MG TAB PO PRN (00:45)
[2017-03-24 01:48] LABS: CORTISOL 42.8 MCG/DL
[2017-03-24] MEDS: RESP: ALBUTEROL 2.5 MG/IPRATROPIUM 0.5 MG NEB (SCH) INH ×4 (03:35→20:06)
[2017-03-24] MEDS: CHLORHEXIDINE GLUCONATE 2 % 1 PACK (2 CLOTHS) TOP SCH (03:47)
[2017-03-24] MEDS: PIPERACIL-TAZO 4.5 GM PREMIX 100 ML IV SCH ×3 (04:04→15:40)
[2017-03-24 04:48] LABS: AUTOMATED NEUTROPHIL # 22.5 TH/MM3 (1.8-7.7); BASOPHIL # 0.1 TH/MM3 (0-0.2); BASOPHIL % 0.4 % (0.0-2.0); EOSINOPHIL # 1.2 TH/MM3 (0-0.4); EOSINOPHIL % 4.4 % (0.0-4.0); HEMATOCRIT 38.4 % (35.0-46.0); HEMOGLOBIN 12.4 GM/DL (11.6-15.3); LYMPH % 5.6 % (9.0-44.0); LYMPHOCYTE # 1.5 TH/MM3 (1.0-4.8); MEAN CELL VOLUME 84.9 FL (80.0-100.0); MEAN CORPUSCULAR HEMOGLOBIN 27.4 PG (27.0-34.0); MEAN CORPUSCULAR HGB CONC 32.3 % (32.0-36.0); MEAN PLATELET VOLUME 10.7 FL (7.0-11.0); MONO % 4.4 % (0.0-8.0); MONOCYTE # 1.2 TH/MM3 (0-0.9); NEUT % 85.2 % (16.0-70.0); PLATELET COUNT 154 TH/MM3 (150-450); RED BLOOD COUNT 4.53 MIL/MM3 (4.00-5.30); RED CELL DISTRIBUTION WIDTH 14.6 % (11.6-17.2); WHITE BLOOD COUNT 26.4 TH/MM3 (4.0-11.0)
[2017-03-24 05:10] LABS: INTERNATIONAL NORMALIZED RATIO 1.5 RATIO; PROTHROMBIN TIME - PATIENT 15.5 SEC (9.8-11.6)
[2017-03-24 05:13] LABS: ALBUMIN 1.5 GM/DL (3.4-5.0); ALT (GPT) 72 U/L (10-53); AMYLASE 45 U/L (25-115); AST (GOT) 271 U/L (15-37); BLOOD UREA NITROGEN 33 MG/DL (7-18); CALCIUM 7.4 MG/DL (8.5-10.1); CHLORIDE 99 MEQ/L (98-107); CHOLESTEROL 82 MG/DL (120-200); GLOMERULAR FILTRATION RATE 52 ML/MIN (>89); GLUCOSE,RANDOM 95 MG/DL (74-106); LIPASE 122 U/L (73-393); MAGNESIUM 1.8 MG/DL (1.5-2.5); PHOSPHORUS 1.8 MG/DL (2.5-4.9); SODIUM (NA) 131 MEQ/L (136-145); TRIGLYCERIDES 200 MG/DL (42-150)
[2017-03-24 05:27] LABS: ALKALINE PHOSPHATASE 102 U/L (45-117); CHOLESTEROL/ HDL RATIO 7.06 RATIO; HDL CHOLESTEROL 11.6 MG/DL (40.0-60.0); LDL CHOLESTEROL 30 MG/DL (0-99); TOTAL BILIRUBIN ADULT 1.7 MG/DL (0.2-1.0); TOTAL PROTEIN 8.5 GM/DL (6.4-8.2)
[2017-03-24 05:47] LABS: TROPONIN I 9.15 NG/ML (0.02-0.05)
[2017-03-24] MEDS: LEVOTHYROXINE SODIUM 75 MCG TAB PO SCH (06:26)
[2017-03-24] MEDS: FAMOTIDINE 20 MG TAB PO SCH (06:27)
[2017-03-24 07:14] LABS: BANDS 23 % (0-6); LYMPHOCYTES 4 % (9-44); MONOCYTES 4 % (0-8); NEUTROPHIL # MANUAL DIFF 24.3 TH/MM3 (1.8-7.7); POLYS (SEG NEUTROPHILS) 69 % (16-70)
[2017-03-24 07:16] LABS: TOXIC VACUOLATION PRESENT (NONE SEEN)
[2017-03-24] MEDS: HEPARIN-D5W 25,000 U/250 ML 250 ML IV PRN (07:27)
[2017-03-24] MEDS ORDERED: SODIUM CHLORIDE 0.9% FLUSH 10 ML FLUSH IV FLUSH SCH (09:00)
[2017-03-24] MEDS: DOCUSATE SODIUM 50 MG/SENNA 8.6 MG TAB PO SCH ×2 (09:00→21:04)
[2017-03-24] MEDS: ARTIFICIAL TEARS OPTH SOLN 15 ML BTL EACH EYE SCH ×3 (09:00→17:49)
[2017-03-24] MEDS ORDERED: PNEUMOCOCCAL POLYVALENT INJ 25 MCG/0.5 ML SYR IM ONE (09:00)
[2017-03-24] MEDS: GABAPENTIN 300 MG CAP PO SCH ×3 (09:00→18:02)
[2017-03-24] MEDS: METOPROLOL TARTRATE 25 MG TAB PO SCH ×2 (09:00→21:06)
[2017-03-24] MEDS ORDERED: FAMOTIDINE 20 MG TAB PO SCH (09:00)
--- NOTE | 2017-03-24 09:18 | HHI.CCPN ---
Subjective Remarks/Hospital Course This is a 57-year-old female. Admission 03/23/2017.past medical history includes scleroderma, thyroid disease, status post splenectomy in the past and elevated BMI. Initial presentation occurred Lauri with lethargy, sleeping, and fever. The patient also had one episode of vomiting with several episodes of diarrhea. The states she has been no recent international travel, hospitalizations, or history of chronic infections. She did have similar symptoms 2 years ago per the 's report with the patient had low oxygen levels and had altered mental status. The patient is seen by pain management as well as her primary physician who is located in [place], [place]. Dr. Estrada The states the patient's mental status seems to wax and wane over the last several days, she'll be awake and alert, and that she will fall asleep and be slightly lethargic and confused. She will lie in bed for several days at a time. The patient denies any chest pain or shortness of breath. She does complain of abdominal pain over the skin secondary to her scleroderma. She also has a history of an open lesion secondary to scleroderma of the lateral left thigh which has been present for several years per the 's report. Received patient was treated with Humira for scleroderma however not taking for the past 5 months. She is on morphine and Dilaudid for chronic pain management from her Dr. Dominguez in [place] abdomen/ revealed gallstones without obstruction. Status post splenectomy. Morbid obesity. Chest x-ray revealed no signs of pneumonia. CT brain negative. Patient received 2 L normal saline added ED. She was noted to have a elevated troponin of 15. Denies chest pain. EKG shows nonspecific ST-T changes. CPK 2100. Creatinine 1.7. Leukocytosis 20,000 and elevated transaminases with low sodium and albumin. Her febrile is abated. She is currently awake and oriented to person place and time. 03/24 Patient is lying in bed in [facility]. Afebrile. Renal function is improving with Cr: 1.10 from 1.73. On Heparin drip for elevated trop. Objective Vital Signs Date Time Temp Pulse Resp B/P (MAP) Pulse Ox O2 Delivery O2 Flow Rate FiO2 03/24/17 06:00 101 03/24/17 05:19 97.9 30 103/57 (72) 98 03/24/17 03:40 Nasal Cannula 2.00 Intake and Output 03/24/17 03/24/17 03/25/17 08:00 16:00 00:00 Intake Total 1658 ml Balance 1658 ml Result Diagram: 03/24/17 0427 03/24/17 0427 Other Results Laboratory Tests Test 03/23/17 19:45 03/23/17 19:58 03/23/17 20:04 03/23/17 22:35 White Blood Count 19.8 TH/MM3 Red Blood Count 5.16 MIL/MM3 Hemoglobin 14.1 GM/DL Hematocrit 44.0 % Mean Corpuscular Volume 85.2 FL Mean Corpuscular Hemoglobin 27.3 PG Mean Corpuscular Hemoglobin Concent 32.0 % Red Cell Distribution Width 14.8 % Platelet Count 163 TH/MM3 Mean Platelet Volume 10.5 FL Neutrophils (%) (Auto) 92.4 % Lymphocytes (%) (Auto) 4.2 % Monocytes (%) (Auto) 2.5 % Eosinophils (%) (Auto) 0.8 % Basophils (%) (Auto) 0.1 % Neutrophils # (Auto) 18.3 TH/MM3 Lymphocytes # (Auto) 0.8 TH/MM3 Monocytes # (Auto) 0.5 TH/MM3 Eosinophils # (Auto) 0.2 TH/MM3 Basophils # (Auto) 0.0 TH/MM3 CBC Comment AUTO DIFF Differential Total Cells Counted 100 Neutrophils % (Manual) 76 % Band Neutrophils % 18 % Lymphocytes % 1 % Monocytes % 4 % Neutrophils # (Manual) 18.8 TH/MM3 Metamyelocytes 1 % Differential Comment FINAL DIFF MANUAL Toxic Vacuolation PRESENT [place]ohle Bodies PRESENT Platelet Estimate NORMAL Platelet Morphology Comment ENLARGED [place] Bodies PRESENT Blood Urea Nitrogen 37 MG/DL Creatinine 1.73 MG/DL Random Glucose 128 MG/DL Total Protein 10.2 GM/DL Albumin 1.8 GM/DL Calcium Level 8.5 MG/DL Magnesium Level 2.1 MG/DL Alkaline Phosphatase 130 U/L Aspartate Amino Transf (AST/SGOT) 322 U/L Alanine Aminotransferase (ALT/SGPT) 83 U/L Total Bilirubin 1.6 MG/DL Sodium Level 125 MEQ/L Potassium Level 4.1 MEQ/L Chloride Level 90 MEQ/L Carbon Dioxide Level 17.8 MEQ/L Anion Gap 17 MEQ/L Estimat Glomerular Filtration Rate 31 ML/MIN Lactic Acid Level 9.8 mmol/L 4.7 mmol/L Uric Acid 6.4 MG/DL Total Creatine Kinase 2170 U/L Creatine Kinase MB 26.1 NG/ML Creatine Kinase MB % 1.2 % Troponin I 15.20 NG/ML Lipase 442 U/L Urine Color DARK-YELLOW Urine Turbidity HAZY Urine pH 6.0 Urine Specific [place] 1.021 Urine Protein 100 mg/dL Urine Glucose (UA) NEG mg/dL Urine Ketones NEG mg/dL Urine Occult Blood LARGE Urine Nitrite NEG Urine Bilirubin NEG Urine Urobilinogen 2.0 MG/DL Urine Leukocyte Esterase TRACE Urine RBC 3 /hpf Urine WBC 12 /hpf Urine Squamous Epithelial Cells 1 /hpf Urine Bacteria RARE /hpf Urine Hyaline Casts 1 /lpf Urine Mucus FEW /lpf Microscopic Urinalysis Comment CULTURE INDICATED Urine Osmolality 557 MOSM/KG Urine Random Sodium LESS THAN 5 MEQ/L Blood Gas Puncture Site IV Blood Gas Patient Temperature 98.6 Venous Blood pH 7.35 Venous Blood Partial Pressure CO2 35 mmHg Venous Blood Partial Pressure O2 46 mmHg Venous Blood HCO3 19 mmol/L Venous Blood Oxygen Saturation 71 % Venous Blood Oxygen Content 13.2 Vol % Venous Blood Base Excess -6.0 mmol/L Oxygen Delivery Device NASAL CANNULA Blood Gas Liter Flow 3 L/M Test 03/23/17 22:39 03/24/17 00:58 03/24/17 04:27 03/24/17 04:42 White Blood Count 20.4 TH/MM3 26.4 TH/MM3 Red Blood Count 5.19 MIL/MM3 4.53 MIL/MM3 Hemoglobin 14.1 GM/DL 12.4 GM/DL Hematocrit 44.7 % 38.4 % Mean Corpuscular Volume 86.3 FL 84.9 FL Mean Corpuscular Hemoglobin 27.1 PG 27.4 PG Mean Corpuscular Hemoglobin Concent 31.5 % 32.3 % Red Cell Distribution Width 14.6 % 14.6 % Platelet Count 163 TH/MM3 154 TH/MM3 Mean Platelet Volume 11.4 FL 10.7 FL Prothrombin Time 15.2 SEC 15.5 SEC Prothromb Time International Ratio 1.5 RATIO 1.5 RATIO Activated Partial Thromboplast Time 37.6 SEC 40.3 SEC Serum Osmolality 286 MOSM/KG Random Cortisol 42.8 MCG/DL Neutrophils (%) (Auto) 85.2 % Lymphocytes (%) (Auto) 5.6 % Monocytes (%) (Auto) 4.4 % Eosinophils (%) (Auto) 4.4 % Basophils (%) (Auto) 0.4 % Neutrophils # (Auto) 22.5 TH/MM3 Lymphocytes # (Auto) 1.5 TH/MM3 Monocytes # (Auto) 1.2 TH/MM3 Eosinophils # (Auto) 1.2 TH/MM3 Basophils # (Auto) 0.1 TH/MM3 CBC Comment AUTO DIFF Differential Total Cells Counted 100 Neutrophils % (Manual) 69 % Band Neutrophils % 23 % Lymphocytes % 4 % Monocytes % 4 % Neutrophils # (Manual) 24.3 TH/MM3 Differential Comment FINAL DIFF MANUAL Toxic Vacuolation PRESENT Platelet Estimate NORMAL Platelet Morphology Comment ENLARGED Blood Urea Nitrogen 33 MG/DL Creatinine 1.10 MG/DL Random Glucose 95 MG/DL Total Protein 8.5 GM/DL Albumin 1.5 GM/DL Calcium Level 7.4 MG/DL Phosphorus Level 1.8 MG/DL Magnesium Level 1.8 MG/DL Alkaline Phosphatase 102 U/L Aspartate Amino Transf (AST/SGOT) 271 U/L Alanine Aminotransferase (ALT/SGPT) 72 U/L Total Bilirubin 1.7 MG/DL Sodium Level 131 MEQ/L Potassium Level 4.1 MEQ/L Chloride Level 99 MEQ/L Carbon Dioxide Level 23.0 MEQ/L Anion Gap 9 MEQ/L Estimat Glomerular Filtration Rate 52 ML/MIN Protein Corrected Calcium MG/DL Ammonia 19 MCMOL/L Total Creatine Kinase 1813 U/L Creatine Kinase MB 28.8 NG/ML Troponin I 9.15 NG/ML C-Reactive Protein 24.00 MG/DL Triglycerides Level 200 MG/DL Cholesterol Level 82 MG/DL LDL Cholesterol 30 MG/DL HDL Cholesterol 11.6 MG/DL Cholesterol/HDL Ratio 7.06 RATIO Amylase Level 45 U/L Lipase 122 U/L Thyroid Stimulating Hormone 3rd Gen 4.500 uIU/ML Lactic Acid Level 3.1 mmol/L Test 03/24/17 05:00 Nasal Screen MRSA (PCR) MRSA NOT DETECTED Imaging Last Impressions Head CT 03/23/171923 Signed Impressions: Service Date/Time: Thursday, March 23, 2017 20:45 - CONCLUSION: No acute findings in the brain. David Weiss MD Chest X-Ray 03/23/171923 Signed Impressions: Service Date/Time: Thursday, March 23, 2017 19:49 - CONCLUSION: Cardiomegaly. The lungs are clear. David Weiss MD Abdomen/Pelvis CT 03/23/171923 Signed Impressions: Service Date/Time: Thursday, March 23, 2017 20:48 - CONCLUSION: 1. Multiple gallstones, some of which are noncalcified. 2. Spleen is not identified. 3. Mildly prominent left inguinal David Weiss MD Objective Remarks GENERAL: 57-year-old female currently resting in bed in no acute distress SKIN: Morphea. Several sclerotic hypopigmented areas upper and lower extremities. Tinea cruris. HEAD: Atraumatic. Normocephalic. EYES: Pupils equal and round about 3 mm bilaterally and reactive. No scleral icterus. No injection or drainage. ENT: No nasal bleeding or discharge. Mucous membranes pink and moist. NECK: Trachea midline. No JVD. CARDIOVASCULAR: Tachycardic RR. S1, S2. No S4. Without murmur RESPIRATORY: Diminished throughout. No wheezing rales or rhonchi. Breath sounds equal bilaterally. GASTROINTESTINAL: Abdomen soft, non-tender, nondistended. Hepatic and splenic margins not palpable. MUSCULOSKELETAL: Extremities with multiple open areas/calcifications bilateral lower extremities. Largest is in the left gluteal region about 6 x 8 cm. Stage II decubiti. See skin above. NEUROLOGICAL: Awake and alert. No obvious cranial nerve deficits. Motor grossly within normal limits. Five out of 5 muscle strength in the arms and legs. Normal speech. A/P Assessment and Plan Neuro/Psych: Chronic pain syndrome/low back pain Chronic narcotic use Depression Chronic benzodiazepine use Morphine sulfate 60 mg every 8 hours scheduled extended release Hydromorphone 4 mg by mouth every 6 hours when necessary pain Tizanidine 4 mill grams 3 times a day has been held Escitalopram 20 mg daily has been continued Lorazepam 0.5 mg twice a day has been continued Venlafaxine 37.5 mill grams daily has been continued CV: Severe sepsis with multisystem organ failure Elevated troponin Hypertension Lactic acidosis.. trending down Monitor HR and BP keep MAP>65mmHg Received aspirin 325 mg in ED currently on 81 mg daily Lopressor 12.5 mg by mouth twice a day No lipid-lowering agents due to elevated transaminases Continue IVF Serial lactates until clear ( 3.1 today from 4.7). Status post 2 L in ED. Monitor CK/trop, for 2D echo, continue heparin drip. Cards consulted. Resp: Acute respiratory insufficiency Nasal cannula to maintain saturations greater than equal to 92% Incentive spirometry while awake Bronchodilators GI: Elevated transaminases/total bilirubin Hypoalbuminemia CT abdomen/pelvis revealed cholelithiasis. No other acute findings. Monitor LFTs in a.m. Check US liver. Follow up on Hepatitis profile. Lipase level 122, NH4 level 19. : NATTY Monitor renal function, I/O's, electrolytes replacement as needed Renal function is improving with Cr: 1.10 from 1.73. Decrease IVF NS@75ml/hr Endo/Rheum: Hyperglycemia Hypothyroidism Scleroderma - localized versus systemic Rheumatoid arthritis? Sliding-scale insulin to maintain euglycemia TSH level: 4.5, continue levothyroxine 150 mg by mouth daily/home dose in the interim Heme: Leukocytosis Monitor CBC daily. Follow trends. Continue ferrous sulfate 325 mg by mouth daily ID: Severe sepsis Continue with qbx ( Vanco, Zosyn) monitor for signs of infections ( Fever, WBC) Blood cultures 2 drawn. UA pending ID eval. MSK: Lower extremity ulcerations BMI 55 Wound care evaluate and treat Weight loss encouraged PT evaluate and treat Access - Utilize peripheral IV. Central line if indicated Prophylaxis - GI - famotidine - DVT - SCD/heparin drip Level 3 Reema Greene MD Mar 24, 2017 09:18
[2017-03-24] MEDS: SODIUM CHLORIDE 0.9% FLUSH 10 ML FLUSH IV FLUSH SCH ×2 (09:57→21:06)
[2017-03-24 10:20] LABS: HEPATITIS A AB IGM NEGATIVE (NEGATIVE); HEPATITIS B CORE AB IGM NEGATIVE (NEGATIVE); HEPATITIS B SURFACE ANTIGEN NEGATIVE (NEGATIVE); HEPATITIS C AB IgG NEGATIVE (NEGATIVE)
[2017-03-24] MEDS: ESCITALOPRAM OXALATE 20 MG TAB PO SCH (10:29)
[2017-03-24] MEDS: ASPIRIN EC 81 MG TABEC PO SCH (10:29)
[2017-03-24] MEDS: FERROUS SULFATE 325 MG (65 MG ELEMENTAL IRON) TAB PO SCH (10:31)
[2017-03-24] MEDS: MORPHINE SULFATE 60 MG CONTROLLED RELEASE TAB PO SCH ×3 (10:31→21:06)
[2017-03-24 11:20] LABS: TROPONIN I 7.89 NG/ML (0.02-0.05)
[2017-03-24] MEDS ORDERED: VANCOMYCIN INJ 2,000 MG in SODIUM CHLORID 0.9% 500 ML INJ 500 ML IV SCH (12:00)
[2017-03-24 13:16] LABS: TROPONIN I 7.37 NG/ML (0.02-0.05)
--- NOTE | 2017-03-24 13:20 | PD.WCN.NOT ---
Wound Consult Description: Order placed by for gluteal wounds Communicated with: Arianne SUGGS 5th floor , Dr. Jose CAPELLAN Recommendation: Patient will benefit from surgical removal of calcification areas. 1) Cleanse left Gluteal/Ischium area with warm soap and water rinse and pat dry. 2) Skin prep periwound, Maxsorb to Open areas cut to fit wound base.Then cover with dry dressing/ boarder gauze. 3) Change dressing every 3-5 days or as needed for drainage. Additional Information: Patient was seen today by keno writer / runner in 5th floor ICU, Arianne SUGGS 5th floor present with keno writer / runner for assistance. Patient alert in bed assisted patient to turn to right side. Left Gluteal / Ischium presents multiple areas or scar tissue . left proximal gluteal measures 8.0cm x 2.6cm x .2cm pink wound base with mild odor noted, scant serous drainage. Left medial gluteal measures 3cm x .8cm x .1cm pink wound base even wound margins scant drainage noted.Left lateral gluteal measures 2.7cm x 1.2cm x .1cm pink wound base no odor noted wound edges even with wound base.left Ischium wound measures 2.2cm x 1.6cm x .1cm pink wound base scant drainage noted.Patient had area of calcification with open area (.4cm x .4cm) cleansed with normal saline.Punch Machine Hand attempted to remove calcification with no success. Gluteal and Ischium wounds cleansed with normal saline skin prep to periwound Maxsorb cut to fit applied to wound base covered with dry dressing. Marcello Eubanks [facility] Mar 24, 2017 13:20
--- NOTE | 2017-03-24 13:38 | EKG ---
Date Performed: 03/23/2017 Time Performed: 19:24:44 PTAGE: 57 years EKG: SINUS TACHYCARDIA BORDERLINE RIGHT AXIS DEVIATION ABNORMAL RHYTHM ECG NO PREVIOUS TRACING DOCTOR: Tima Samaniego Interpretating Date/Time 03/24/2017 13:37:53
[2017-03-24 14:12] LABS: HEMOGLOBIN A1C 5.7 % (4.3-6.0)
--- NOTE | 2017-03-24 15:37 | ECHRPT ---
Indication: Heart failure, unspecified CONCLUSIONS estimated ejection fraction in the range of 60-65%. There is trace tricuspid valve regurgitation. Trace aortic valve regurgitation. [id number] mitral valve regurgitation. Very technically difficult study. BP: 103 / 57 HR: 102 Rhythm: MEASUREMENTS (Male / Female) Normal Values Technical Quality:Very technically difficult study 2D ECHO LV Diastolic Diameter PLAX 5.5 cm 4.2 - 5.9 / 3.9 - 5.3 cm LV Systolic Diameter PLAX 3.8 cm IVS Diastolic Thickness 1.3 cm 0.6 - 1.0 / 0.6 - 0.9 cm LVPW Diastolic Thickness 1.2 cm 0.6 - 1.0 / 0.6 - 0.9 cm LV Relative Wall Thickness 0.5 RV Internal Dim ED PLAX 2.6 cm LVOT Diameter 2.0 cm M-MODE Aortic Root Diameter MM 2.7 cm LA Systolic Diameter MM 4.9 cm LA Ao Ratio MM 1.8 AV Cusp Separation MM 0.9 cm DOPPLER AV Peak Velocity 302.0 cm/s AV Peak Gradient 36.5 mmHg AV Mean Gradient 22.0 mmHg AV Velocity Time Integral 48.5 cm LVOT Peak Velocity 144.0 cm/s LVOT Peak Gradient 8.3 mmHg LVOT Velocity Time Integral 27.7 cm LVOT Cardiac Index 3492.8 cm/minm AV Area Cont Eq vti 1.8 cm AV Area Cont Eq pk 1.5 cm Mitral E Point Velocity 169.0 cm/s Mitral A Point Velocity 102.0 cm/s Mitral E to A Ratio 1.7 LV E' Septal Velocity 9.6 cm/s Mitral E to LV E' Septal Ratio 17.7 FINDINGS LEFT VENTRICLE Normal left ventricular size and wall thickness. The left ventricular systolic function is normal wi th an estimated ejection fraction in the range of 60-65. Normal left ventricular size. Wall thickness is measured at the upper limits of normal. RIGHT VENTRICLE Normal right ventricular size and systolic function. LEFT ATRIUM The left atrial size is normal. RIGHT ATRIUM The right atrial size is normal. ATRIAL SEPTUM The interatrial septum not well visualized. AORTA The aortic root and proximal ascending aorta are normal in size on limited imaging. MITRAL VALVE [id number] mitral valve regurgitation. AORTIC VALVE Aortic valve sclerosis is present. Trace aortic valve regurgitation. TRICUSPID VALVE The tricuspid valve is not well visualized. There is trace tricuspid valve regurgitation. PULMONARY VALVE The pulmonary valve is not well visualized. VESSELS The inferior vena cava was not well visualized. PERICARDIUM No pericardial effusion. Bal Orozco MD (Electronically Signed) Final Date:24 March 2017 15:36
--- NOTE | 2017-03-24 15:40 | PD.ID.CON ---
History of Present Illness Service ID Consult Requested By Dr Esparza Reason for Consult leukocytosis, sepsis Primary Care Physician Unknown Diagnoses: History of Present Illness 57 yo F with h/o scleroderma, used to be on Humira, but off x 5 mos admitted yday for fever and altered mental status. She cant recall details, history obtained from the chart Patients symptoms started on Tuesday with lethargy, sleeping, and fever, she also had one episode of vomiting with several episodes of diarrhea. Patient's mental status seems to wax and wane over the last several days, she' ll be awake and alert, and that she will fall asleep and be slightly lethargic and confused. The patient denies any chest pain or shortness of breath. She also has a history of an open lesion secondary to scleroderma of the lateral left thigh which has been present for several years and is slightly draining She grew out MSSA in multiple blood clx (07/06) She has + troponiin 2 D eecho was negative for endocarditis No indwelling vascuilar devices Review of Systems Constitutional: COMPLAINS OF: Fever Integumentary: COMPLAINS OF: Abnormal pigmentation, Rash Except as stated in HPI: all other systems reviewed are Neg Past Family Social History Allergies: Coded Allergies: shellfish derived (Verified Allergy, Intermediate, 03/23/17) Past Medical History Scleroderma unknown if localized versus systemic Thyroid disease unknown type Chronic pain syndrome Elevated BMI Past Surgical History 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 Social History Quit tobacco 15 years ago. Social alcohol. Denies illicit drug use. Physical Exam Vital Signs Vital Signs Date Time Temp Pulse Resp B/P (MAP) Pulse Ox O2 Delivery O2 Flow Rate FiO2 03/24/17 12:00 99.1 100 35 109/59 (76) 89 03/24/17 09:17 95 Nasal Cannula 2.00 03/24/17 08:00 98.9 101 33 93/55 (68) 93 03/24/17 08:00 93 Nasal Cannula 2.00 03/24/17 06:00 101 03/24/17 05:19 97.9 102 30 103/57 (72) 98 03/24/17 05:01 03/24/17 05:00 104 03/24/17 03:40 95 Nasal Cannula 2.00 03/24/17 03:03 100 20 116/69 (85) 97 Room Air 2.00 03/24/17 01:19 98.7 104 24 135/60 (85) 97 Room Air 3.00 03/23/17 23:02 110 24 137/70 (92) 97 Nasal Cannula 3.00 03/23/17 21:03 100 28 135/66 (89) 96 Nasal Cannula 2.00 03/23/17 21:03 96 Nasal Cannula 2.00 03/23/17 19:36 95 Nasal Cannula 2.00 03/23/17 19:36 95 Nasal Cannula 2.00 03/23/17 19:26 113 34 145/75 (98) 95 03/23/17 19:13 102.1 138 24 172/90 (117) 93 Room Air Physical Exam CONSTITUTIONAL/GENERAL: This is an adequately nourished patient, in no apparent distress. TUBES/LINES/DRAINS: SKIN: + multiple SQ nodules, non healing chronic appearing wounds on L thigh, no purulence Maceraton in pannus skin folds Ecchymoses on upper extremities. No wounds seen anteriorly. Skin temperature appropriate. Not diaphoretic. EYES: Pupils equal and round and reactive. Extraocular motions intact. No scleral icterus. No injection or drainage. Fundi not examined. ENT: Hearing grossly normal. Nose without bleeding or purulent drainage. Throat without visible erythema, exudates, masses, or lesions. NECK: Trachea midline. Supple, nontender. No palpable thyroid enlargement or nodularity. CARDIOVASCULAR: Regular rate and rhythm + 2-3/6 harsh murmur, no gallops, or rubs. No JVD. Peripheral pulses symmetric. RESPIRATORY/CHEST: Symmetric, unlabored respirations. Clear to auscultation. Breath sounds equal bilaterally. No wheezes, rales, or rhonchi. GASTROINTESTINAL: Abdomen soft, non-tender, nondistended. No hepato-splenomegaly , or palpable masses. No guarding. Bowel sounds present. GENITOURINARY: Without palpable bladder distension. Florez catheter in place with clear yellow urine MUSCULOSKELETAL: Extremities without clubbing, cyanosis, or edema. No joint tenderness or effusion noted. No calf tenderness. No mottling or clubbing. LYMPHATICS: No palpable cervical or supraclavicular adenopathy. NEUROLOGICAL: Awake and alert. Motor and sensory grossly within normal limits. Follows commands. Clear speech. Moves all extremities. PSYCHIATRIC: No obvious anxiety/depression. no apparent hallucinations or other psychotic thought process. Laboratory Laboratory Tests Test 03/23/17 19:45 03/23/17 19:58 03/23/17 20:04 03/23/17 22:35 White Blood Count 19.8 Red Blood Count 5.16 Hemoglobin 14.1 Hematocrit 44.0 Mean Corpuscular Volume 85.2 Mean Corpuscular Hemoglobin 27.3 Mean Corpuscular Hemoglobin Concent 32.0 Red Cell Distribution Width 14.8 Platelet Count 163 Mean Platelet Volume 10.5 Neutrophils (%) (Auto) 92.4 Lymphocytes (%) (Auto) 4.2 Monocytes (%) (Auto) 2.5 Eosinophils (%) (Auto) 0.8 Basophils (%) (Auto) 0.1 Neutrophils # (Auto) 18.3 Lymphocytes # (Auto) 0.8 Monocytes # (Auto) 0.5 Eosinophils # (Auto) 0.2 Basophils # (Auto) 0.0 CBC Comment AUTO DIFF Differential Total Cells Counted 100 Neutrophils % (Manual) 76 Band Neutrophils % 18 Lymphocytes % 1 Monocytes % 4 Neutrophils # (Manual) 18.8 Metamyelocytes 1 Differential Comment FINAL DIFF MANUAL Toxic Vacuolation PRESENT Dohle Bodies PRESENT Platelet Estimate NORMAL Platelet Morphology Comment ENLARGED [place] Bodies PRESENT Blood Urea Nitrogen 37 Creatinine 1.73 Random Glucose 128 Total Protein 10.2 Albumin 1.8 Calcium Level 8.5 Magnesium Level 2.1 Alkaline Phosphatase 130 Aspartate Amino Transf (AST/SGOT) 322 Alanine Aminotransferase (ALT/SGPT) 83 Total Bilirubin 1.6 Sodium Level 125 Potassium Level 4.1 Chloride Level 90 Carbon Dioxide Level 17.8 Anion Gap 17 Estimat Glomerular Filtration Rate 31 Lactic Acid Level 9.8 4.7 Uric Acid 6.4 Total Creatine Kinase 2170 Creatine Kinase MB 26.1 Creatine Kinase MB % 1.2 Troponin I 15.20 Lipase 442 Urine Color DARK-YELLOW Urine Turbidity HAZY Urine pH 6.0 Urine Specific [place] 1.021 Urine Protein 100 Urine Glucose (UA) NEG Urine Ketones NEG Urine Occult Blood LARGE Urine Nitrite NEG Urine Bilirubin NEG Urine Urobilinogen 2.0 Urine Leukocyte Esterase TRACE Urine RBC 3 Urine WBC 12 Urine Squamous Epithelial Cells 1 Urine Bacteria RARE Urine Hyaline Casts 1 Urine Mucus FEW Microscopic Urinalysis Comment CULTURE INDICATED Urine Osmolality 557 Urine Random Sodium LESS THAN 5 Blood Gas Puncture Site IV Blood Gas Patient Temperature 98.6 Venous Blood pH 7.35 Venous Blood Partial Pressure CO2 35 Venous Blood Partial Pressure O2 46 Venous Blood HCO3 19 Venous Blood Oxygen Saturation 71 Venous Blood Oxygen Content 13.2 Venous Blood Base Excess -6.0 Oxygen Delivery Device NASAL CANNULA Blood Gas Liter Flow 3 Test 03/23/17 22:39 03/24/17 00:58 03/24/17 04:27 03/24/17 04:42 White Blood Count 20.4 26.4 Red Blood Count 5.19 4.53 Hemoglobin 14.1 12.4 Hematocrit 44.7 38.4 Mean Corpuscular Volume 86.3 84.9 Mean Corpuscular Hemoglobin 27.1 27.4 Mean Corpuscular Hemoglobin Concent 31.5 32.3 Red Cell Distribution Width 14.6 14.6 Platelet Count 163 154 Mean Platelet Volume 11.4 10.7 Prothrombin Time 15.2 15.5 Prothromb Time International Ratio 1.5 1.5 Activated Partial Thromboplast Time 37.6 40.3 Serum Osmolality 286 Random Cortisol 42.8 Neutrophils (%) (Auto) 85.2 Lymphocytes (%) (Auto) 5.6 Monocytes (%) (Auto) 4.4 Eosinophils (%) (Auto) 4.4 Basophils (%) (Auto) 0.4 Neutrophils # (Auto) 22.5 Lymphocytes # (Auto) 1.5 Monocytes # (Auto) 1.2 Eosinophils # (Auto) 1.2 Basophils # (Auto) 0.1 CBC Comment AUTO DIFF Differential Total Cells Counted 100 Neutrophils % (Manual) 69 Band Neutrophils % 23 Lymphocytes % 4 Monocytes % 4 Neutrophils # (Manual) 24.3 Differential Comment FINAL DIFF MANUAL Toxic Vacuolation PRESENT Platelet Estimate NORMAL Platelet Morphology Comment ENLARGED Blood Urea Nitrogen 33 Creatinine 1.10 Random Glucose 95 Total Protein 8.5 Albumin 1.5 Calcium Level 7.4 Phosphorus Level 1.8 Magnesium Level 1.8 Alkaline Phosphatase 102 Aspartate Amino Transf (AST/SGOT) 271 Alanine Aminotransferase (ALT/SGPT) 72 Total Bilirubin 1.7 Sodium Level 131 Potassium Level 4.1 Chloride Level 99 Carbon Dioxide Level 23.0 Anion Gap 9 Estimat Glomerular Filtration Rate 52 Hemoglobin A1c 5.7 Protein Corrected Calcium Ammonia 19 Total Creatine Kinase 1813 Creatine Kinase MB 28.8 Troponin I 9.15 C-Reactive Protein 24.00 Triglycerides Level 200 Cholesterol Level 82 LDL Cholesterol 30 HDL Cholesterol 11.6 Cholesterol/HDL Ratio 7.06 Amylase Level 45 Lipase 122 Thyroid Stimulating Hormone 3rd Gen 4.500 Lactic Acid Level 3.1 Hepatitis A IgM Antibody NEGATIVE Hepatitis B Surface Antigen NEGATIVE Hepatitis B Core IgM Antibody NEGATIVE Hepatitis C Antibody NEGATIVE Test 03/24/17 05:00 03/24/17 10:00 03/24/17 12:25 03/24/17 12:30 Nasal Screen MRSA (PCR) MRSA NOT DETECTED Total Creatine Kinase 1068 898 Creatine Kinase MB 22.2 18.9 Creatine Kinase MB % 2.1 2.1 Troponin I 7.89 7.37 Lactic Acid Level 2.2 Date/Time Source Procedure Growth Status 03/24/17 12:30 Blood Peripheral Aerobic Blood Culture Pending Received 03/24/17 12:30 Blood Peripheral Anaerobic Blood Culture Pending Received 03/23/17 19:49 Nasal Aspirate Influenza Types A,B Antigen (OLIVIA) - Final NEGATIVE FOR FLU A AND B ANTIGEN.... Complete 03/23/17 19:58 Urine Clean Catch Urine Culture - Preliminary Staphylococcus Aureus Resulted Result Diagram: 03/24/17 0427 03/24/17 0427 Imaging Last Impressions Head CT 03/23/171923 Signed Impressions: Service Date/Time: Thursday, March 23, 2017 20:45 - CONCLUSION: No acute findings in the brain. David Weiss MD Chest X-Ray 03/23/171923 Signed Impressions: Service Date/Time: Thursday, March 23, 2017 19:49 - CONCLUSION: Cardiomegaly. The lungs are clear. David Weiss MD Abdomen/Pelvis CT 03/23/171923 Signed Impressions: Service Date/Time: Thursday, March 23, 2017 20:48 - CONCLUSION: 1. Multiple gallstones, some of which are noncalcified. 2. Spleen is not identified. 3. Mildly prominent left inguinal David Weiss MD Assessment and Plan Assessment and Plan MSSA bacteremia, high grade MSSA bacteremia, likely 2/2 bacteriuria NSTEMI Scrleroderma Immunosuppresed (splenectomised) oxacillin Meenakshi Ruelas MD Mar 24, 2017 15:40
[2017-03-24 17:00] LABS: TROPONIN I 6.89 NG/ML (0.02-0.05)
[2017-03-24] MEDS: VENLAFAXINE HCL XR 37.5 MG CAP PO SCH (18:02)
--- NOTE | 2017-03-24 18:03 | RADRPT ---
EXAM DATE/TIME: 03/24/2017 16:41 [facility] COMPARISON: CT ABDOMEN & PELVIS W/O CONTRAST, March 23, 2017, 20:48. INDICATIONS : Increased lab values. MEDICAL HISTORY : Hypothyroidism. Chronic obstructive pulmonary disease. SURGICAL HISTORY : Splenectomy. ENCOUNTER: Initial ACUITY: 1 day PAIN SCORE: 7/10 LOCATION: Bilateral upper quadrant MEASUREMENTS: LIVER: 17.5 cm length COMMON DUCT: 6 mm RIGHT KIDNEY: 11.2 x 6.4 x 6.3 cm SPLEEN: Surgically removed. FINDINGS: Examination is extremely limited due to body habitus and patient's inability to tolerate the procedur e. LIVER: Diffusely heterogeneous echotexture and mildly enlarged. No gross hepatic mass or intrahepatic ductal dilatation. COMMON DUCT: Grossly unremarkable. GALLBLADDER: Not well demonstrated. PANCREAS: The visualized portions are within normal limits. RIGHT KIDNEY: No hydronephrosis, stone or mass. SPLEEN: Surgically removed. CONCLUSION: 1. Limited examination due to body habitus and patient's inability to tolerate the procedure. Unfortu nately, the gallbladder is not sufficiently visualized for further evaluation of abnormality noted on CT scan. If there is continued clinical concern regarding acute cholecystitis, consider HIDA scan to evaluate for cystic duct patency. 2. Diffusely heterogeneous and mildly enlarged liver consistent with hepatic steatosis versus medical liver disease. Shlomo Mesa MD on March 24, 2017 at 17:57 Board Certified Radiologist. This report was verified electronically.
[2017-03-24] MEDS: OXACILLIN INJ 2 GM in SODIUM CHLORIDE 0.9% INJ 100 ML IV SCH ×2 (18:42→21:07)
[2017-03-24 22:02] LABS: TROPONIN I 5.44 NG/ML (0.02-0.05)
[2017-03-25] VITALS (16 sets, daily range): BP systolic 106–121; BP diastolic 53–75; PULSE 90–117; RESP 18–22; TEMP 98.5–99.8; O2SAT 94–99
[2017-03-25] MEDS: OXACILLIN INJ 2 GM in SODIUM CHLORIDE 0.9% INJ 100 ML IV SCH ×6 (02:06→20:28)
[2017-03-25] MEDS: RESP: ALBUTEROL 2.5 MG/IPRATROPIUM 0.5 MG NEB (SCH) INH ×5 (03:03→19:57)
[2017-03-25] MEDS: CHLORHEXIDINE GLUCONATE 2 % 1 PACK (2 CLOTHS) TOP SCH (04:00)
[2017-03-25] MEDS: FAMOTIDINE 20 MG TAB PO SCH (04:48)
[2017-03-25] MEDS: MORPHINE SULFATE 60 MG CONTROLLED RELEASE TAB PO SCH ×3 (04:48→20:28)
[2017-03-25] MEDS: HEPARIN-D5W 25,000 U/250 ML 250 ML IV PRN (04:51)
[2017-03-25 05:42] LABS: AUTOMATED NEUTROPHIL # 19.9 TH/MM3 (1.8-7.7); BASOPHIL % 0.1 % (0.0-2.0); EOSINOPHIL # 0.6 TH/MM3 (0-0.4); EOSINOPHIL % 2.5 % (0.0-4.0); HEMATOCRIT 38.8 % (35.0-46.0); HEMOGLOBIN 12.4 GM/DL (11.6-15.3); LYMPH % 4.2 % (9.0-44.0); MEAN CELL VOLUME 84.5 FL (80.0-100.0); MEAN CORPUSCULAR HEMOGLOBIN 27.1 PG (27.0-34.0); MEAN PLATELET VOLUME 10.8 FL (7.0-11.0); MONO % 5.8 % (0.0-8.0); MONOCYTE # 1.3 TH/MM3 (0-0.9); NEUT % 87.4 % (16.0-70.0); PLATELET COUNT 147 TH/MM3 (150-450); RED BLOOD COUNT 4.59 MIL/MM3 (4.00-5.30); WHITE BLOOD COUNT 22.8 TH/MM3 (4.0-11.0)
[2017-03-25 06:14] LABS: ALBUMIN 1.5 GM/DL (3.4-5.0); ALKALINE PHOSPHATASE 100 U/L (45-117); ALT (GPT) 64 U/L (10-53); AST (GOT) 167 U/L (15-37); BICARBONATE 24.4 MEQ/L (21.0-32.0); BLOOD UREA NITROGEN 27 MG/DL (7-18); CHLORIDE 105 MEQ/L (98-107); CREATININE 0.81 MG/DL (0.50-1.00); GLOMERULAR FILTRATION RATE 73 ML/MIN (>89); GLUCOSE,RANDOM 105 MG/DL (74-106); MAGNESIUM 2.4 MG/DL (1.5-2.5); PHOSPHORUS 3.1 MG/DL (2.5-4.9); SODIUM (NA) 136 MEQ/L (136-145); TOTAL BILIRUBIN ADULT 2.3 MG/DL (0.2-1.0); TOTAL PROTEIN 8.4 GM/DL (6.4-8.2)
[2017-03-25] MEDS: LEVOTHYROXINE SODIUM 75 MCG TAB PO SCH (07:00)
[2017-03-25] MEDS ORDERED: MAGNESIUM OXIDE 400 MG TAB PO PRN (09:00)
[2017-03-25] MEDS ORDERED: SODIUM PHOSPHATE INJ 30 MMOL in SODIUM CHLOR 0.9% 250 ML INJ 240 ML IV PRN (09:00)
[2017-03-25] MEDS ORDERED: POTASSIUM CHLOR 40 MEQ PREMIX 100 ML IV PRN ×2 (09:00)
[2017-03-25] MEDS ORDERED: MAGNESIUM SULFATE INJ 4 GM in SODIUM CHLORIDE 0.9% INJ 92 ML IV PRN (09:00)
[2017-03-25] MEDS ORDERED: MAGNESIUM SULFATE INJ 2 GM in SODIUM CHLORIDE 0.9% INJ 96 ML IV PRN (09:00)
[2017-03-25] MEDS ORDERED: POTASSIUM PHOSPHATE INJ 30 MMOL in SODIUM CHLOR 0.9% 250 ML INJ 250 ML IV PRN (09:00)
[2017-03-25] MEDS ORDERED: POTASSIUM PHOSPHATE MONOBASIC 500 MG TAB PO/TUBE PRN (09:00)
[2017-03-25] MEDS ORDERED: POTASSIUM CHLOR 20 MEQ PREMIX 100 ML IV PRN (09:00)
[2017-03-25] MEDS ORDERED: POTASSIUM PHOSPHATE MONOBASIC 500 MG TAB PO PRN (09:00)
--- NOTE | 2017-03-25 09:08 | HHI.CCPN ---
Subjective Remarks/Hospital Course This is a 57-year-old female. Admission 03/23/2017.past medical history includes scleroderma, thyroid disease, status post splenectomy in the past and elevated BMI. Initial presentation occurred Tuesday with lethargy, sleeping, and fever. The patient also had one episode of vomiting with several episodes of diarrhea. The states she has been no recent international travel, hospitalizations, or history of chronic infections. She did have similar symptoms 2 years ago per the 's report with the patient had low oxygen levels and had altered mental status. The patient is seen by pain management as well as her primary physician who is located in [place], [place]. Dr. Estrada The states the patient's mental status seems to wax and wane over the last several days, she'll be awake and alert, and that she will fall asleep and be slightly lethargic and confused. She will lie in bed for several days at a time. The patient denies any chest pain or shortness of breath. She does complain of abdominal pain over the skin secondary to her scleroderma. She also has a history of an open lesion secondary to scleroderma of the lateral left thigh which has been present for several years per the 's report. Received patient was treated with Humira for scleroderma however not taking for the past 5 months. She is on morphine and Dilaudid for chronic pain management from her Dr. Dominguez in [place] CT abdomen/ revealed gallstones without obstruction. Status post splenectomy. Morbid obesity. Chest x-ray revealed no signs of pneumonia. CT brain negative. Patient received 2 L normal saline added ED. She was noted to have a elevated troponin of 15. Denies chest pain. EKG shows nonspecific ST-T changes. CPK 2100. Creatinine 1.7. Leukocytosis 20,000 and elevated transaminases with low sodium and albumin. Her febrile is abated. She is currently awake and oriented to person place and time. 03/24 Patient is lying in bed in NAD. Afebrile. Renal function is improving with Cr: 1.10 from 1.73. On Heparin drip for elevated trop. 03/25 No events overnight. Remains on Heparin drip. Renal function is now within normal. Afebrile. Objective Vital Signs Date Time Temp Pulse Resp B/P (MAP) Pulse Ox O2 Delivery O2 Flow Rate FiO2 03/25/17 06:00 96 12/22/17 04:00 98.7 121/75 (90) 95 03/25/17 00:00 22 03/24/17 20:09 Nasal Cannula 2.00 Intake and Output 03/25/17 03/25/17 03/25/17 07:59 15:59 23:59 Intake Total 800 ml Output Total 850 ml Balance -50 ml Result Diagram: 03/25/17 0424 03/25/17 0424 Other Results Laboratory Tests Test 03/24/17 10:00 03/24/17 12:25 03/24/17 12:30 03/24/17 15:29 Total Creatine Kinase 1068 U/L 898 U/L 672 U/L Creatine Kinase MB 22.2 NG/ML 18.9 NG/ML 16.5 NG/ML Creatine Kinase MB % 2.1 % 2.1 % 2.5 % Troponin I 7.89 NG/ML 7.37 NG/ML 6.89 NG/ML Lactic Acid Level 2.2 mmol/L Activated Partial Thromboplast Time 53.0 SEC Test 03/24/17 21:05 03/25/17 04:24 Total Creatine Kinase 458 U/L Creatine Kinase MB 12.4 NG/ML Creatine Kinase MB % 2.7 % Troponin I 5.44 NG/ML White Blood Count 22.8 TH/MM3 Red Blood Count 4.59 MIL/MM3 Hemoglobin 12.4 GM/DL Hematocrit 38.8 % Mean Corpuscular Volume 84.5 FL Mean Corpuscular Hemoglobin 27.1 PG Mean Corpuscular Hemoglobin Concent 32.0 % Red Cell Distribution Width 15.0 % Platelet Count 147 TH/MM3 Mean Platelet Volume 10.8 FL Neutrophils (%) (Auto) 87.4 % Lymphocytes (%) (Auto) 4.2 % Monocytes (%) (Auto) 5.8 % Eosinophils (%) (Auto) 2.5 % Basophils (%) (Auto) 0.1 % Neutrophils # (Auto) 19.9 TH/MM3 Lymphocytes # (Auto) 1.0 TH/MM3 Monocytes # (Auto) 1.3 TH/MM3 Eosinophils # (Auto) 0.6 TH/MM3 Basophils # (Auto) 0.0 TH/MM3 CBC Comment DIFF FINAL Differential Comment Activated Partial Thromboplast Time 51.5 SEC Blood Urea Nitrogen 27 MG/DL Creatinine 0.81 MG/DL Random Glucose 105 MG/DL Total Protein 8.4 GM/DL Albumin 1.5 GM/DL Calcium Level 8.0 MG/DL Phosphorus Level 3.1 MG/DL Magnesium Level 2.4 MG/DL Alkaline Phosphatase 100 U/L Aspartate Amino Transf (AST/SGOT) 167 U/L Alanine Aminotransferase (ALT/SGPT) 64 U/L Total Bilirubin 2.3 MG/DL Sodium Level 136 MEQ/L Potassium Level 3.4 MEQ/L Chloride Level 105 MEQ/L Carbon Dioxide Level 24.4 MEQ/L Anion Gap 7 MEQ/L Estimat Glomerular Filtration Rate 73 ML/MIN Imaging Last Impressions Liver Ultrasound 03/24/17 0000 Signed Impressions: Service Date/Time: March 16:41 - CONCLUSION: 1. Limited examination due to body habitus and patient's inability to tolerate the procedure. Unfortunately, the gallbladder is not sufficiently visualized for further evaluation of abnormality noted on CT scan. If there is continued clinical concern regarding acute cholecystitis, consider HIDA scan to evaluate for cystic duct patency. 2. Diffusely heterogeneous and mildly enlarged liver consistent with hepatic steatosis versus medical liver disease. Shlomo Mesa MD Head CT 03/23/171923 Signed Impressions: Service Date/Time: Thursday, March 23, 2017 20:45 - CONCLUSION: No acute findings in the brain. David Weiss MD Chest X-Ray 03/23/171923 Signed Impressions: Service Date/Time: Thursday, March 23, 2017 19:49 - CONCLUSION: Cardiomegaly. The lungs are clear. David Weiss MD Abdomen/Pelvis CT 03/23/171923 Signed Impressions: Service Date/Time: Thursday, March 23, 2017 20:48 - CONCLUSION: 1. Multiple gallstones, some of which are noncalcified. 2. Spleen is not identified. 3. Mildly prominent left inguinal David Weiss MD Objective Remarks GENERAL: 57-year-old female currently resting in bed in no acute distress SKIN: Morphea. Several sclerotic hypopigmented areas upper and lower extremities. Tinea cruris. HEAD: Atraumatic. Normocephalic. EYES: Pupils equal and round about 3 mm bilaterally and reactive. No scleral icterus. No injection or drainage. ENT: No nasal bleeding or discharge. Mucous membranes pink and moist. NECK: Trachea midline. No JVD. CARDIOVASCULAR: Tachycardic RR. S1, S2. No S4. Without murmur RESPIRATORY: Diminished throughout. No wheezing rales or rhonchi. Breath sounds equal bilaterally. GASTROINTESTINAL: Abdomen soft, non-tender, nondistended. Hepatic and splenic margins not palpable. MUSCULOSKELETAL: Extremities with multiple open areas/calcifications bilateral lower extremities. Largest is in the left gluteal region about 6 x 8 cm. Stage II decubiti. See skin above. NEUROLOGICAL: Awake and alert. No obvious cranial nerve deficits. Motor grossly within normal limits. Five out of 5 muscle strength in the arms and legs. Normal speech. A/P Assessment and Plan Neuro/Psych: Chronic pain syndrome/low back pain Chronic narcotic use Depression Chronic benzodiazepine use Morphine sulfate 60 mg every 8 hours scheduled extended release Hydromorphone 4 mg by mouth every 6 hours when necessary pain Tizanidine 4 mill grams 3 times a day has been held Escitalopram 20 mg daily has been continued Lorazepam 0.5 mg twice a day has been continued Venlafaxine 37.5 mill grams daily has been continued CV: Severe sepsis with multisystem organ failure Elevated troponin Hypertension Lactic acidosis.. trending down Monitor HR and BP keep MAP>65mmHg Received aspirin 325 mg in ED, on 81 mg daily Lopressor 12.5 mg by mouth twice a day No lipid-lowering agents due to elevated transaminases Continue IVF Serial lactates until clear ( 2.1 yesterday). Status post 2 L in ED. Monitor CK/trop, continue heparin drip. Cards is following-Dr. Newton Echo showed EF 60-65% Resp: Acute respiratory insufficiency- Nasal cannula to maintain saturations greater than equal to 92% Incentive spirometry while awake Bronchodilators GI: Elevated transaminases/total bilirubin Hypoalbuminemia CT abdomen/pelvis revealed cholelithiasis. No other acute findings. Monitor LFTs ( trending disease), Hepatitis profile is negative US Liver: Limited examination due to body habitus and patient's inability to tolerate the procedure. Unfortunately, the gallbladder is not sufficiently visualized. Diffusely heterogeneous and mildly enlarged liver consistent with hepatic steatosis versus medical liver disease. Lipase level 122, NH4 level 19. : NATTY - Resolved Monitor renal function, I/O's, electrolytes replacement as needed Renal function is resolving IVF NS@75ml/hr Endo/Rheum: Hyperglycemia Hypothyroidism Scleroderma - localized versus systemic Rheumatoid arthritis? Sliding-scale insulin to maintain euglycemia TSH level: 4.5, continue levothyroxine 150 mg by mouth daily/home dose in the interim Heme: Leukocytosis Monitor CBC daily. Follow trends. Continue ferrous sulfate 325 mg by mouth daily ID: Severe sepsis Staph Aureus Bacteremia UTI Continue abx per ID ( Oxacillin) monitor for signs of infections ( Fever, WBC) BC 03/23: Staph Aureus bacteremia. Might need MYRIAM r/o vegetations. Blood cultures 03/24: NGTD ID is following MSK: Lower extremity ulcerations BMI 55 Wound care evaluate and treat Weight loss encouraged PT evaluate and treat Access - Utilize peripheral IV. Prophylaxis - GI - famotidine - DVT - SCD/heparin drip Level 3 Reema Greene MD Mar 25, 2017 09:08
[2017-03-25] MEDS: VENLAFAXINE HCL XR 37.5 MG CAP PO SCH (09:19)
[2017-03-25] MEDS: FERROUS SULFATE 325 MG (65 MG ELEMENTAL IRON) TAB PO SCH (09:19)
[2017-03-25] MEDS: DOCUSATE SODIUM 50 MG/SENNA 8.6 MG TAB PO SCH ×2 (09:19→20:28)
[2017-03-25] MEDS: GABAPENTIN 300 MG CAP PO SCH ×3 (09:19→17:59)
[2017-03-25] MEDS: ASPIRIN EC 81 MG TABEC PO SCH (09:19)
[2017-03-25] MEDS: ESCITALOPRAM OXALATE 20 MG TAB PO SCH (09:20)
[2017-03-25] MEDS: METOPROLOL TARTRATE 25 MG TAB PO SCH ×2 (09:20→20:28)
--- NOTE | 2017-03-25 09:56 | MB ---
cc: MELITON VENTURA DATE OF CONSULTATION 03/24/2017 HISTORY OF PRESENT ILLNESS Ms. George is a 37-year-old white female with history of scleroderma, thyroid disease, splenectomy and morbid obesity. She presented with lethargy, fever, somnolence, diarrhea. She has not had any chest pain or shortness of breath. She has history of scleroderma. She is treated with Humira. The patient was hydrated with normal saline. Her troponin is elevated. PAST MEDICAL HISTORY 1. Positive for scleroderma. 2. Thyroid disease. 3. Chronic pain syndrome. 4. Morbid obesity. 5. History of splenectomy. 6. History of leukemia. MEDICATIONS 1. Tizanidine. 2. Iron. 3. Hydromorphone. 4. Morphine. 5. Gabapentin. 6. Escitalopram. 7. Venlafaxine. 8. Lorazepam. 9. Levothyroxine. ALLERGIES SHELLFISH. SOCIAL HISTORY The patient quit smoking 15 years ago. She drinks alcohol socially. FAMILY HISTORY Positive for heart disease. REVIEW OF SYSTEMS Otherwise negative. PHYSICAL EXAMINATION VITAL SIGNS: Blood pressure 103/57, pulse 102 and regular. HEENT: Negative. NECK: 2+ carotid upstrokes. No bruits. LUNGS: Decreased breath sounds heard earlier. HEART: Regular, tachycardic with no murmur, gallop or rub. ABDOMEN: Soft. No bruits. EXTREMITIES: Multiple wounds, edema. Decreased distal pulses. NEUROLOGIC: Grossly nonfocal. EKG Reviewed and showed tachycardia, borderline right axis, no acute changes. ECHOCARDIOGRAM The echocardiogram showed well-preserved left ventricular systolic function with an ejection fraction of 60-65% with no segmental abnormalities. LABORATORY DATA Hemoglobin 12.4. Potassium 4.1, creatinine 1.1. AST 271, ALT 72. Troponin 9 and 15.2 CK 257, 170. CK-MB 26. DIAGNOSES 1. Severe sepsis. 2. Acute respiratory insufficiency. 3. Elevated troponin. 4. Elevated liver function tests. 5. Morbid obesity. 6. Scleroderma. 7. Chronic pain syndrome. 8. Depression. DISPOSITION Mr. George presents with evidence of elevated troponin. Echocardiogram shows well-preserved left ventricular systolic function with no segmental wall motion abnormality. She has not had any angina. There is no evidence of acute coronary syndrome. She will be monitored in the ICU. I recommend to continue her current program. I recommend to continue aspirin and beta kathy. At this time she is on heparin drip as well. I will follow her for cardiology during her hospitalization. MD HIRAM Drew/SSB /5:58 PM /8:38 AM KARLOS
[2017-03-25 12:51] LABS: PHOSPHORUS 3.2 MG/DL (2.5-4.9)
[2017-03-25] MEDS: SODIUM CHLORIDE 0.9% FLUSH 10 ML FLUSH IV FLUSH SCH ×2 (12:56→21:00)
[2017-03-25 13:00] LABS: TROPONIN I 3.89 NG/ML (0.02-0.05)
--- NOTE | 2017-03-25 13:04 | PD.CARD.PN ---
Subjective Subjective Remarks Somnolent, no CP or SOB Objective Medications Current Medications Medications (Trade) Dose Ordered Sig/Bj Route Start Time Stop Time Status Last Admin Sodium Chloride 1,000 ml @ 75 mls/hr [id number] IV 03/23/17 22:27 03/24/17 18:43 (Tylenol) 650 mg Q6H PRN PO 03/23/17 22:30 ([place] 5-325 Mg) 1 tab Q4H PRN PO 03/23/17 22:30 (Tears Naturale Opth Soln) 1 drop TID EACH EYE 03/24/17 09:00 (Zofran Inj) 4 mg Q6H PRN IV PUSH 03/23/17 22:30 (Duoneb Neb) 1 ampule Q6HR NEB INH 03/24/17 04:00 03/25/17 09:27 (Albuterol Neb) 2.5 mg Q2HR NEB PRN INH 03/23/17 22:30 Miscellaneous Information 1 [id number] XX 03/23/17 22:30 (Chlorhexidine 2% Cloth) 3 pack Taper DAILY@04 TOP 03/24/17 04:00 03/20/18 03:59 03/25/17 04:00 (Chlorhexidine 2% Cloth) 3 pack UNSCH PRN TOP 03/23/17 22:30 (Mely-Colace) 1 tab BID PO 03/24/17 09:00 03/25/17 09:19 (Milk Of Magnesia Liq) 30 ml Q12H PRN PO 03/23/17 22:30 (Senokot) 17.2 mg Q12H PRN PO 03/23/17 22:30 (Dulcolax Supp) 10 mg DAILY PRN RECTAL 03/23/17 22:30 (Lactulose Liq) 30 ml DAILY PRN PO 03/23/17 22:30 Heparin Sodium/ Dextrose 250 ml @ 10 mls/hr TITRATE PRN IV 03/23/17 22:45 03/25/17 04:51 (NS Flush) 2 ml UNSCH PRN IV FLUSH 03/23/17 22:45 (NS Flush) 2 ml BID IV FLUSH 03/24/17 09:00 03/25/17 12:56 (Pepcid) 20 mg DAILY@0600 PO 03/24/17 06:00 03/25/17 04:48 (Ecotrin Ec) 81 mg DAILY PO 03/24/17 09:00 03/25/17 09:19 (Lopressor) 12.5 mg Q12HR PO 03/24/17 09:00 03/25/17 09:20 (Lexapro) 20 mg DAILY PO 03/24/17 09:00 03/25/17 09:20 (Ferrous Sulfate) 325 mg DAILY PO 03/24/17 09:00 03/25/17 09:19 (Neurontin) 600 mg TID PO 03/24/17 09:00 03/25/17 12:56 (Dilaudid) 4 mg Q6H PRN PO 03/24/17 00:45 03/24/17 10:30 (Synthroid) 150 mcg DAILY@0700 PO 03/24/17 07:00 03/24/17 06:26 (Ativan) 0.5 mg BID PRN PO 03/24/17 00:45 (Oramorph Sr) 60 mg Q8HR PO 03/24/17 06:00 03/25/17 12:56 (Effexor Xr) 37.5 mg DAILY PO 03/24/17 09:00 03/25/17 09:19 Oxacillin Sodium 2 gm/Sodium Chloride 100 ml @ 200 mls/hr Q4H IV 03/24/17 18:00 03/25/17 12:55 Potassium Chloride 100 ml @ 50 mls/hr Q2H PRN IV 03/25/17 09:00 Potassium Chloride 100 ml @ 50 mls/hr Q2H PRN IV 03/25/17 09:00 (K-Lyte Cl Eff) 50 meq UNSCH PRN PO 03/25/17 09:00 Potassium Chloride 100 ml @ 25 mls/hr UNSCH PRN IV 03/25/17 09:00 Potassium Chloride 100 ml @ 50 mls/hr Q2H PRN IV 03/25/17 09:00 Magnesium Sulfate 4 gm/Sodium Chloride 100 ml @ 50 mls/hr UNSCH PRN IV 03/25/17 09:00 (Mag-Ox) 800 mg UNSCH PRN PO 03/25/17 09:00 Magnesium Sulfate 2 gm/Sodium Chloride 100 ml @ 50 mls/hr UNSCH PRN IV 03/25/17 09:00 (K-Phos) 2,000 mg Q4H PRN PO 03/25/17 09:00 Sodium Phosphate 30 mmol/Sodium Chloride 250 ml @ 42 mls/hr UNSCH PRN IV 03/25/17 09:00 (K-Phos) 2,000 mg UNSCH PRN PO/TUBE 03/25/17 09:00 Potassium Phosphate 30 mmol/ Sodium Chloride 260 ml @ 42 mls/hr UNSCH PRN IV 03/25/17 09:00 Vital Signs / I&O Vital Signs Date Time Temp Pulse Resp B/P (MAP) Pulse Ox O2 Delivery O2 Flow Rate FiO2 03/25/17 09:27 95 Nasal Cannula 3.00 03/25/17 06:00 96 03/25/17 04:00 98.7 97 121/75 (90) 95 03/25/17 04:00 97 03/25/17 02:00 90 03/25/17 00:00 98.8 90 22 106/66 (79) 97 03/25/17 00:00 90 03/24/17 22:00 108 03/24/17 20:09 96 Nasal Cannula 2.00 03/24/17 20:00 96 03/24/17 20:00 98.6 96 29 124/58 (80) 94 03/24/17 19:00 96 03/24/17 19:00 91 Nasal Cannula 2.00 03/24/17 16:00 98.8 91 56 109/56 (73) 91 I/O 03/24/17 03/24/17 03/24/17 03/25/17 03/25/17 03/25/17 07:00 15:00 23:00 07:00 15:00 23:00 Intake Total 1658 ml 310 ml 2000 ml 800 ml Output Total 900 ml 750 ml 850 ml Balance 758 ml 310 ml 1250 ml -50 ml Intake Oral 50 ml 280 ml 250 ml IV Total 1608 ml 310 ml 1720 ml 550 ml Output Urine Total 900 ml 750 ml 850 ml Physical Exam GENERAL: In NAD SKIN: Warm and dry. HEAD: Normocephalic. EYES: No scleral icterus. No injection or drainage. NECK: Supple, trachea midline. No JVD or lymphadenopathy. CARDIOVASCULAR: Regular rate and rhythm without murmurs, gallops, or rubs. RESPIRATORY: Breath sounds equal bilaterally, distant. No accessory muscle use. GASTROINTESTINAL: Abdomen soft, non-tender, nondistended, obese MUSCULOSKELETAL: No cyanosis, LE edema. BACK: Nontender without obvious deformity. No CVA tenderness. Laboratory Laboratory Tests Test 03/24/17 15:29 03/24/17 21:05 03/25/17 04:24 03/25/17 12:15 Activated Partial Thromboplast Time 53.0 SEC 51.5 SEC Total Creatine Kinase 672 U/L 458 U/L Creatine Kinase MB 16.5 NG/ML 12.4 NG/ML Creatine Kinase MB % 2.5 % 2.7 % Troponin I 6.89 NG/ML 5.44 NG/ML White Blood Count 22.8 TH/MM3 Red Blood Count 4.59 MIL/MM3 Hemoglobin 12.4 GM/DL Hematocrit 38.8 % Mean Corpuscular Volume 84.5 FL Mean Corpuscular Hemoglobin 27.1 PG Mean Corpuscular Hemoglobin Concent 32.0 % Red Cell Distribution Width 15.0 % Platelet Count 147 TH/MM3 Mean Platelet Volume 10.8 FL Neutrophils (%) (Auto) 87.4 % Lymphocytes (%) (Auto) 4.2 % Monocytes (%) (Auto) 5.8 % Eosinophils (%) (Auto) 2.5 % Basophils (%) (Auto) 0.1 % Neutrophils # (Auto) 19.9 TH/MM3 Lymphocytes # (Auto) 1.0 TH/MM3 Monocytes # (Auto) 1.3 TH/MM3 Eosinophils # (Auto) 0.6 TH/MM3 Basophils # (Auto) 0.0 TH/MM3 CBC Comment DIFF FINAL Differential Comment Blood Urea Nitrogen 27 MG/DL Creatinine 0.81 MG/DL Random Glucose 105 MG/DL Total Protein 8.4 GM/DL Albumin 1.5 GM/DL Calcium Level 8.0 MG/DL Phosphorus Level 3.1 MG/DL 3.2 MG/DL Magnesium Level 2.4 MG/DL Alkaline Phosphatase 100 U/L Aspartate Amino Transf (AST/SGOT) 167 U/L Alanine Aminotransferase (ALT/SGPT) 64 U/L Total Bilirubin 2.3 MG/DL Sodium Level 136 MEQ/L Potassium Level 3.4 MEQ/L Chloride Level 105 MEQ/L Carbon Dioxide Level 24.4 MEQ/L Anion Gap 7 MEQ/L Estimat Glomerular Filtration Rate 73 ML/MIN Assessment and Plan Problem List: (1) Respiratory insufficiency ICD Codes: R06.89 - Other abnormalities of breathing (2) Sepsis ICD Codes: A41.9 - Sepsis, unspecified organism Status: Acute (3) Elevated troponin ICD Codes: R74.8 - Abnormal levels of other serum enzymes Status: Acute (4) Scleroderma ICD Codes: M34.9 - Systemic sclerosis, unspecified (5) Transaminitis ICD Codes: R74.0 - Nonspecific elevation of levels of transaminase and lactic acid dehydrogenase [LDH] (6) Acute kidney injury ICD Codes: N17.9 - Acute kidney failure, unspecified (7) Depression ICD Codes: F32.9 - Major depressive disorder, single episode, unspecified Assessment and Plan No angina or significant CHF. Continue ICU monitoring. Troponin elevated, but CK MB index nl.. Continue beta kathy and ASA. MYRIAM requested by anesthesia, will be done today. D/w pt and family. Problem Qualifiers (1) Sepsis: Qualified Codes: A41.9 - Sepsis, unspecified organism (2) Depression: Qualified Codes: F32.9 - Major depressive disorder, single episode, unspecified Kylie Newton MD Mar 25, 2017 13:04
[2017-03-25] MEDS ORDERED: MIDAZOLAM HCL 5 MG/ML VIAL (1 ML) ONE (13:24)
[2017-03-25] MEDS ORDERED: FUROSEMIDE 40 MG/4 ML VIAL IV PUSH ONE (14:00)
--- NOTE | 2017-03-25 16:14 | HHI.PR ---
Addendum to Inpatient Note Additional Information Seen around 1500 full note to follow dw Dr Reddy - small mitral veggetatiom - cont oxacillin - fu repeat clx Meenakshi Villegas MD Mar 25, 2017 16:14
[2017-03-25] MEDS: methylPREDNISolone SOD SUCC 40 MG/1 ML VIAL IV PUSH SCH ×2 (16:45→20:28)
[2017-03-25] MEDS: POTASSIUM CHLOR 20 MEQ PREMIX 100 ML IV PRN ×2 (17:02→20:27)
[2017-03-25] MEDS: ARTIFICIAL TEARS OPTH SOLN 15 ML BTL EACH EYE SCH (18:00)
[2017-03-25] MEDS: LORazepam 0.5 MG TAB PO PRN (20:28)
--- NOTE | 2017-03-25 23:18 | HHI.IDPN ---
Subjective Subjective Remarks delayed entry pt was seen earlier today pt is fabrile More + blood clx MYRIAM + for a small MV vegetation Antibiotics oxacillin Allergies: Coded Allergies: shellfish derived (Verified Allergy, Intermediate, 03/23/17) Objective . Vital Signs Date Time Temp Pulse Resp B/P (MAP) Pulse Ox O2 Delivery O2 Flow Rate FiO2 03/25/17 19:53 94 35 03/25/17 18:00 112 03/25/17 16:00 98 Bi-Pap 35 03/25/17 16:00 99.4 111 19 117/59 (78) 98 03/25/17 16:00 111 03/25/17 15:59 99 35 03/25/17 14:45 98 Bi-Pap 35 03/25/17 14:19 98 35 03/25/17 14:00 117 03/25/17 12:00 96 Nasal Cannula 3.00 03/25/17 12:00 111 03/25/17 12:00 98.5 111 18 119/67 (84) 96 03/25/17 10:00 110 03/25/17 09:27 95 Nasal Cannula 3.00 03/25/17 08:00 96 3.00 03/25/17 08:00 97 03/25/17 08:00 99.1 97 20 109/53 (71) 96 03/25/17 06:00 96 03/25/17 04:00 98.7 97 121/75 (90) 95 03/25/17 04:00 97 03/25/17 02:00 90 03/25/17 00:00 98.8 90 22 106/66 (79) 97 03/25/17 00:00 90 03/25/17 03/25/17 03/26/17 15:00 23:00 07:00 Intake Total 400 ml Output Total 2300 ml Balance -1900 ml Intake Oral 200 ml IV Total 200 ml Output Urine Total 2300 ml # Bowel Movements 0 . Laboratory Tests Test 03/24/17 04:27 03/25/17 04:24 White Blood Count 26.4 TH/MM3 22.8 TH/MM3 Red Blood Count 4.53 MIL/MM3 4.59 MIL/MM3 Hemoglobin 12.4 GM/DL 12.4 GM/DL Hematocrit 38.4 % 38.8 % Mean Corpuscular Volume 84.9 FL 84.5 FL Mean Corpuscular Hemoglobin 27.4 PG 27.1 PG Mean Corpuscular Hemoglobin Concent 32.3 % 32.0 % Red Cell Distribution Width 14.6 % 15.0 % Platelet Count 154 TH/MM3 147 TH/MM3 Mean Platelet Volume 10.7 FL 10.8 FL Neutrophils (%) (Auto) 85.2 % 87.4 % Lymphocytes (%) (Auto) 5.6 % 4.2 % Monocytes (%) (Auto) 4.4 % 5.8 % Eosinophils (%) (Auto) 4.4 % 2.5 % Basophils (%) (Auto) 0.4 % 0.1 % Neutrophils # (Auto) 22.5 TH/MM3 19.9 TH/MM3 Lymphocytes # (Auto) 1.5 TH/MM3 1.0 TH/MM3 Monocytes # (Auto) 1.2 TH/MM3 1.3 TH/MM3 Eosinophils # (Auto) 1.2 TH/MM3 0.6 TH/MM3 Basophils # (Auto) 0.1 TH/MM3 0.0 TH/MM3 CBC Comment AUTO DIFF DIFF FINAL Differential Total Cells Counted 100 Neutrophils % (Manual) 69 % Band Neutrophils % 23 % Lymphocytes % 4 % Monocytes % 4 % Neutrophils # (Manual) 24.3 TH/MM3 Differential Comment FINAL DIFF MANUAL Toxic Vacuolation PRESENT Platelet Estimate NORMAL Platelet Morphology Comment ENLARGED Laboratory Tests Test 03/24/17 00:58 03/24/17 04:27 03/24/17 04:42 03/24/17 10:00 Serum Osmolality 286 MOSM/KG Random Cortisol 42.8 MCG/DL Blood Urea Nitrogen 33 MG/DL Creatinine 1.10 MG/DL Random Glucose 95 MG/DL Total Protein 8.5 GM/DL Albumin 1.5 GM/DL Calcium Level 7.4 MG/DL Phosphorus Level 1.8 MG/DL Magnesium Level 1.8 MG/DL Alkaline Phosphatase 102 U/L Aspartate Amino Transf (AST/SGOT) 271 U/L Alanine Aminotransferase (ALT/SGPT) 72 U/L Total Bilirubin 1.7 MG/DL Sodium Level 131 MEQ/L Potassium Level 4.1 MEQ/L Chloride Level 99 MEQ/L Carbon Dioxide Level 23.0 MEQ/L Anion Gap 9 MEQ/L Estimat Glomerular Filtration Rate 52 ML/MIN Hemoglobin A1c 5.7 % Protein Corrected Calcium MG/DL Ammonia 19 MCMOL/L Total Creatine Kinase 1813 U/L 1068 U/L Creatine Kinase MB 28.8 NG/ML 22.2 NG/ML Troponin I 9.15 NG/ML 7.89 NG/ML C-Reactive Protein 24.00 MG/DL Triglycerides Level 200 MG/DL Cholesterol Level 82 MG/DL LDL Cholesterol 30 MG/DL HDL Cholesterol 11.6 MG/DL Cholesterol/HDL Ratio 7.06 RATIO Amylase Level 45 U/L Lipase 122 U/L Thyroid Stimulating Hormone 3rd Gen 4.500 uIU/ML Lactic Acid Level 3.1 mmol/L Creatine Kinase MB % 2.1 % Test 03/24/17 12:25 03/24/17 12:30 03/24/17 15:29 03/24/17 21:05 Total Creatine Kinase 898 U/L 672 U/L 458 U/L Creatine Kinase MB 18.9 NG/ML 16.5 NG/ML 12.4 NG/ML Creatine Kinase MB % 2.1 % 2.5 % 2.7 % Troponin I 7.37 NG/ML 6.89 NG/ML 5.44 NG/ML Lactic Acid Level 2.2 mmol/L Test 03/25/17 04:24 03/25/17 12:15 Blood Urea Nitrogen 27 MG/DL Creatinine 0.81 MG/DL Random Glucose 105 MG/DL Total Protein 8.4 GM/DL Albumin 1.5 GM/DL Calcium Level 8.0 MG/DL Phosphorus Level 3.1 MG/DL 3.2 MG/DL Magnesium Level 2.4 MG/DL Alkaline Phosphatase 100 U/L Aspartate Amino Transf (AST/SGOT) 167 U/L Alanine Aminotransferase (ALT/SGPT) 64 U/L Total Bilirubin 2.3 MG/DL Sodium Level 136 MEQ/L Potassium Level 3.4 MEQ/L Chloride Level 105 MEQ/L Carbon Dioxide Level 24.4 MEQ/L Anion Gap 7 MEQ/L Estimat Glomerular Filtration Rate 73 ML/MIN Lactic Acid Level 1.2 mmol/L Troponin I 3.89 NG/ML Microbiology Date/Time Source Procedure Growth Status 03/25/17 16:15 Blood Peripheral Aerobic Blood Culture Pending Received 03/25/17 16:15 Blood Peripheral Anaerobic Blood Culture Pending Received 03/25/17 16:10 Blood Peripheral Aerobic Blood Culture Pending Received 03/25/17 16:10 Blood Peripheral Anaerobic Blood Culture Pending Received 03/24/17 12:30 Blood Peripheral Aerobic Blood Culture - Preliminary Gram Positive Cocci Resulted 12/21/17 12:30 Blood Peripheral Anaerobic Blood Culture - Preliminary NO GROWTH IN 1 DAY Resulted 03/24/17 12:25 Blood Peripheral Aerobic Blood Culture - Preliminary Gram Positive Cocci Resulted 03/24/17 12:25 Blood Peripheral Anaerobic Blood Culture - Preliminary NO GROWTH IN 1 DAY Resulted 03/23/17 19:45 Blood Peripheral Aerobic Blood Culture - Preliminary Staphylococcus Aureus Resulted 03/23/17 19:45 Anaerobic Blood Culture - Preliminary Staphylococcus Aureus Resulted 03/23/17 19:40 Blood Peripheral Aerobic Blood Culture - Preliminary Staphylococcus Aureus Resulted 03/23/17 19:40 Anaerobic Blood Culture - Preliminary Staphylococcus Aureus Resulted 03/23/17 19:49 Nasal Aspirate Influenza Types A,B Antigen (OLIVIA) - Final NEGATIVE FOR FLU A AND B ANTIGEN.... Complete 03/23/17 19:58 Urine Clean Catch Urine Culture - Preliminary Staphylococcus Aureus Resulted Imaging Last Impressions Liver Ultrasound 03/24/17 0000 Signed Impressions: Service Date/Time: March 16:41 - CONCLUSION: 1. Limited examination due to body habitus and patient's inability to tolerate the procedure. Unfortunately, the gallbladder is not sufficiently visualized for further evaluation of abnormality noted on CT scan. If there is continued clinical concern regarding acute cholecystitis, consider HIDA scan to evaluate for cystic duct patency. 2. Diffusely heterogeneous and mildly enlarged liver consistent with hepatic steatosis versus medical liver disease. Shlomo Mesa MD Head CT [id number] Signed Impressions: Service Date/Time: Thursday, March 23, 2017 20:45 - CONCLUSION: No acute findings in the brain. David Weiss MD Chest X-Ray [id number]/[id number] Signed Impressions: Service Date/Time: Thursday, March 23, 2017 19:49 - CONCLUSION: Cardiomegaly. The lungs are clear. David Weiss MD Abdomen/Pelvis CT [id number]/[id number] Signed Impressions: Service Date/Time: Thursday, March 23, 2017 20:48 - CONCLUSION: 1. Multiple gallstones, some of which are noncalcified. 2. Spleen is not identified. 3. Mildly prominent left inguinal David Weiss MD Physical Exam CONSTITUTIONAL/GENERAL: This is an adequately nourished patient, in no apparent distress. TUBES/LINES/DRAINS: SKIN: + multiple SQ nodules, non healing chronic appearing wounds on L thigh, no purulence Maceraton in pannus skin folds Ecchymoses on upper extremities. No wounds seen anteriorly. Skin temperature appropriate. Not diaphoretic. EYES: Pupils equal and round and reactive. Extraocular motions intact. No scleral icterus. No injection or drainage. Fundi not examined. ENT: Hearing grossly normal. Nose without bleeding or purulent drainage. Throat without visible erythema, exudates, masses, or lesions. CARDIOVASCULAR: Regular rate and rhythm + 2-3/6 harsh murmur, no gallops, or rubs. No JVD. Peripheral pulses symmetric. RESPIRATORY/CHEST: Symmetric, unlabored respirations. Clear to auscultation. Breath sounds equal bilaterally. No wheezes, rales, or rhonchi. GASTROINTESTINAL: Abdomen soft, non-tender, nondistended. No hepato-splenomegaly , or palpable masses. No guarding. Bowel sounds present. GENITOURINARY: Without palpable bladder distension. Florez catheter in place with clear yellow urine MUSCULOSKELETAL: Extremities without clubbing, cyanosis, or edema. No joint tenderness or effusion noted. No calf tenderness. No mottling or clubbing. NEUROLOGICAL: Awake and alert. Motor and sensory grossly within normal limits. Follows commands. Clear speech. Moves all extremities. PSYCHIATRIC:calm , cooperative Assessment & Plan Remarks tejon valve endocarditis, clinically mitral valve - MYRIAM + MSSA bacteremia, high grade MSSA bacteremia, likely 2/2 bacteriuria NSTEMI Scrleroderma Immunosuppresed (splenectomised) cont oxacillin fu BC untill documented sterility, then RX x 6 weeks no PICC untill sterile blood clx x 3 days Meenakshi Villegas MD Mar 25, 2017 23:18
[2017-03-25] MEDS ORDERED: PHARMACY ORDERED LAB ONE (23:45)
[2017-03-26] VITALS (17 sets, daily range): BP systolic 85–112; BP diastolic 49–59; PULSE 91–100; RESP 15–22; TEMP 98.9–99.5; O2SAT 94–99
[2017-03-26] MEDS: RESP: ALBUTEROL 2.5 MG/IPRATROPIUM 0.5 MG NEB (SCH) INH ×6 (00:10→19:27)
[2017-03-26] MEDS: OXACILLIN INJ 2 GM in SODIUM CHLORIDE 0.9% INJ 100 ML IV SCH ×6 (02:14→22:12)
[2017-03-26] MEDS: methylPREDNISolone SOD SUCC 40 MG/1 ML VIAL IV PUSH SCH ×2 (02:15→08:22)
[2017-03-26] MEDS: CHLORHEXIDINE GLUCONATE 2 % 1 PACK (2 CLOTHS) TOP SCH (04:00)
[2017-03-26] MEDS: MORPHINE SULFATE 60 MG CONTROLLED RELEASE TAB PO SCH ×3 (06:16→22:11)
[2017-03-26] MEDS: FAMOTIDINE 20 MG TAB PO SCH (06:16)
[2017-03-26] MEDS: LEVOTHYROXINE SODIUM 75 MCG TAB PO SCH (06:16)
[2017-03-26] MEDS: HEPARIN-D5W 25,000 U/250 ML 250 ML IV PRN (06:47)
[2017-03-26 07:17] LABS: AUTOMATED NEUTROPHIL # 14.5 TH/MM3 (1.8-7.7); BASOPHIL % 0.3 % (0.0-2.0); EOSINOPHIL # 0.1 TH/MM3 (0-0.4); EOSINOPHIL % 0.9 % (0.0-4.0); HEMATOCRIT 39.2 % (35.0-46.0); HEMOGLOBIN 12.6 GM/DL (11.6-15.3); LYMPH % 4.7 % (9.0-44.0); LYMPHOCYTE # 0.8 TH/MM3 (1.0-4.8); MEAN CELL VOLUME 85.2 FL (80.0-100.0); MEAN CORPUSCULAR HEMOGLOBIN 27.4 PG (27.0-34.0); MEAN CORPUSCULAR HGB CONC 32.1 % (32.0-36.0); MEAN PLATELET VOLUME 11.2 FL (7.0-11.0); MONO % 3.7 % (0.0-8.0); MONOCYTE # 0.6 TH/MM3 (0-0.9); NEUT % 90.4 % (16.0-70.0); PLATELET COUNT 216 TH/MM3 (150-450); RED CELL DISTRIBUTION WIDTH 15.1 % (11.6-17.2)
[2017-03-26 07:25] LABS: ALBUMIN 1.4 GM/DL (3.4-5.0); AST (GOT) 109 U/L (15-37); BLOOD UREA NITROGEN 29 MG/DL (7-18); CHLORIDE 103 MEQ/L (98-107); CREATININE 0.86 MG/DL (0.50-1.00); GLOMERULAR FILTRATION RATE 69 ML/MIN (>89); GLUCOSE,RANDOM 123 MG/DL (74-106); SODIUM (NA) 139 MEQ/L (136-145)
[2017-03-26 07:26] LABS: ALT (GPT) 52 U/L (10-53)
[2017-03-26 07:30] LABS: ALKALINE PHOSPHATASE 128 U/L (45-117); TOTAL PROTEIN 8.7 GM/DL (6.4-8.2)
[2017-03-26] MEDS: VENLAFAXINE HCL XR 37.5 MG CAP PO SCH (08:22)
[2017-03-26] MEDS: ASPIRIN EC 81 MG TABEC PO SCH (08:22)
[2017-03-26] MEDS: GABAPENTIN 300 MG CAP PO SCH ×3 (08:22→18:09)
[2017-03-26] MEDS: ARTIFICIAL TEARS OPTH SOLN 15 ML BTL EACH EYE SCH ×3 (08:23→18:00)
[2017-03-26] MEDS: FERROUS SULFATE 325 MG (65 MG ELEMENTAL IRON) TAB PO SCH (08:23)
[2017-03-26] MEDS: ESCITALOPRAM OXALATE 20 MG TAB PO SCH (08:23)
[2017-03-26] MEDS: METOPROLOL TARTRATE 25 MG TAB PO SCH ×2 (08:23→22:10)
[2017-03-26] MEDS: SODIUM CHLORIDE 0.9% FLUSH 10 ML FLUSH IV FLUSH SCH ×2 (08:23→22:10)
[2017-03-26] MEDS: DOCUSATE SODIUM 50 MG/SENNA 8.6 MG TAB PO SCH ×2 (08:24→22:10)
--- NOTE | 2017-03-26 08:36 | HHI.CCPN ---
Subjective Remarks/Hospital Course This is a 57-year-old female. Admission 03/23/2017.past medical history includes scleroderma, thyroid disease, status post splenectomy in the past and elevated BMI. Initial presentation occurred Tuesday with lethargy, sleeping, and fever. The patient also had one episode of vomiting with several episodes of diarrhea. The states she has been no recent international travel, hospitalizations, or history of chronic infections. She did have similar symptoms 2 years ago per the 's report with the patient had low oxygen levels and had altered mental status. The patient is seen by pain management as well as her primary physician who is located in [place], [place]. Dr. Estrada The states the patient's mental status seems to wax and wane over the last several days, she'll be awake and alert, and that she will fall asleep and be slightly lethargic and confused. She will lie in bed for several days at a time. The patient denies any chest pain or shortness of breath. She does complain of abdominal pain over the skin secondary to her scleroderma. She also has a history of an open lesion secondary to scleroderma of the lateral left thigh which has been present for several years per the 's report. Received patient was treated with Humira for scleroderma however not taking for the past 5 months. She is on morphine and Dilaudid for chronic pain management from her Dr. Dominguez in [place] CT abdomen/ revealed gallstones without obstruction. Status post splenectomy. Morbid obesity. Chest x-ray revealed no signs of pneumonia. CT brain negative. Patient received 2 L normal saline added ED. She was noted to have a elevated troponin of 15. Denies chest pain. EKG shows nonspecific ST-T changes. CPK 2100. Creatinine 1.7. Leukocytosis 20,000 and elevated transaminases with low sodium and albumin. Her febrile is abated. She is currently awake and oriented to person place and time. 03/24 Patient is lying in bed in [facility]. Afebrile. Renal function is improving with Cr: 1.10 from 1.73. On Heparin drip for elevated trop. 03/25 No events overnight. Remains on Heparin drip. Renal function is now within normal. Afebrile. 03/26 s/p MYRIAM yesterday which shoed vegetation on mitral valve She was on BIPAP overnight now on 4L oxygen. Given Lasix 40mg x 1 yesterday with good response in UOP. Afebrile. off Heparin drip.. Objective Vital Signs Date Time Temp Pulse Resp B/P (MAP) Pulse Ox O2 Delivery O2 Flow Rate FiO2 03/26/17 07:24 94 Nasal Cannula 4.00 03/26/17 07:16 18 03/26/17 06:00 95 03/26/17 04:00 35 03/26/17 04:00 99.4 112/59 (76) Intake and Output 03/26/17 03/26/17 03/27/17 08:00 16:00 00:00 Intake Total 900 ml Output Total 1350 ml Balance -450 ml Result Diagram: 03/26/17 0559 03/26/17 0559 Other Results Laboratory Tests Test 03/25/17 12:15 03/25/17 14:00 03/25/17 15:45 03/26/17 05:59 Lactic Acid Level 1.2 mmol/L Phosphorus Level 3.2 MG/DL Troponin I 3.89 NG/ML Blood Gas Puncture Site LT RADIAL LT RADIAL Blood Gas Patient Temperature 98.6 98.6 Blood Gas HCO3 24 mmol/L 25 mmol/L Blood Gas Base Excess -2.1 mmol/L -0.6 mmol/L Blood Gas Oxygen Saturation 93 % 96 % Arterial Blood pH 7.26 7.30 Arterial Blood Partial Pressure CO2 55 mmHg 53 mmHg Arterial Blood Partial Pressure O2 83 mmHg 131 mmHg Arterial Blood Oxygen Content 16.6 Vol % 17.6 Vol % Arterial Blood Carboxyhemoglobin 1.1 % 1.0 % Arterial Blood Methemoglobin 1.2 % 1.2 % Blood Gas Hemoglobin 12.6 G/DL 12.8 G/DL Oxygen Delivery Device NASAL CANNULA BIPAP Blood Gas Liter Flow 3 L/M Blood Gas Ventilator Setting IPAP18/EPAP5 Blood Gas Inspired Oxygen 35 % White Blood Count 16.0 TH/MM3 Red Blood Count 4.60 MIL/MM3 Hemoglobin 12.6 GM/DL Hematocrit 39.2 % Mean Corpuscular Volume 85.2 FL Mean Corpuscular Hemoglobin 27.4 PG Mean Corpuscular Hemoglobin Concent 32.1 % Red Cell Distribution Width 15.1 % Platelet Count 216 TH/MM3 Mean Platelet Volume 11.2 FL Neutrophils (%) (Auto) 90.4 % Lymphocytes (%) (Auto) 4.7 % Monocytes (%) (Auto) 3.7 % Eosinophils (%) (Auto) 0.9 % Basophils (%) (Auto) 0.3 % Neutrophils # (Auto) 14.5 TH/MM3 Lymphocytes # (Auto) 0.8 TH/MM3 Monocytes # (Auto) 0.6 TH/MM3 Eosinophils # (Auto) 0.1 TH/MM3 Basophils # (Auto) 0.0 TH/MM3 CBC Comment DIFF FINAL Differential Comment Activated Partial Thromboplast Time 50.5 SEC Blood Urea Nitrogen 29 MG/DL Creatinine 0.86 MG/DL Random Glucose 123 MG/DL Total Protein 8.7 GM/DL Albumin 1.4 GM/DL Calcium Level 8.0 MG/DL Alkaline Phosphatase 128 U/L Aspartate Amino Transf (AST/SGOT) 109 U/L Alanine Aminotransferase (ALT/SGPT) 52 U/L Total Bilirubin 2.0 MG/DL Sodium Level 139 MEQ/L Potassium Level 4.0 MEQ/L Chloride Level 103 MEQ/L Carbon Dioxide Level 25.0 MEQ/L Anion Gap 11 MEQ/L Estimat Glomerular Filtration Rate 69 ML/MIN Imaging Last Impressions Liver Ultrasound 03/24/17 0000 Signed Impressions: Service Date/Time: March 16:41 - CONCLUSION: 1. Limited examination due to body habitus and patient's inability to tolerate the procedure. Unfortunately, the gallbladder is not sufficiently visualized for further evaluation of abnormality noted on CT scan. If there is continued clinical concern regarding acute cholecystitis, consider HIDA scan to evaluate for cystic duct patency. 2. Diffusely heterogeneous and mildly enlarged liver consistent with hepatic steatosis versus medical liver disease. Shlomo Mesa MD Head CT [id number]/[id number] Signed Impressions: Service Date/Time: Thursday, March 23, 2017 20:45 - CONCLUSION: No acute findings in the brain. David Weiss MD Chest X-Ray [id number]/[id number] Signed Impressions: Service Date/Time: Thursday, March 23, 2017 19:49 - CONCLUSION: Cardiomegaly. The lungs are clear. David Weiss MD Abdomen/Pelvis CT [id number]/[id number] Signed Impressions: Service Date/Time: Thursday, March 23, 2017 20:48 - CONCLUSION: 1. Multiple gallstones, some of which are noncalcified. 2. Spleen is not identified. 3. Mildly prominent left inguinal David Weiss MD Objective Remarks GENERAL: 57-year-old female currently resting in bed in no acute distress SKIN: Morphea. Several sclerotic hypopigmented areas upper and lower extremities. Tinea cruris. HEAD: Atraumatic. Normocephalic. EYES: Pupils equal and round about 3 mm bilaterally and reactive. No scleral icterus. No injection or drainage. ENT: No nasal bleeding or discharge. Mucous membranes pink and moist. NECK: Trachea midline. No JVD. CARDIOVASCULAR: Tachycardic RR. S1, S2. No S4. Without murmur RESPIRATORY: Diminished throughout. No wheezing rales or rhonchi. Breath sounds equal bilaterally. GASTROINTESTINAL: Abdomen soft, non-tender, nondistended. Hepatic and splenic margins not palpable. MUSCULOSKELETAL: Extremities with multiple open areas/calcifications bilateral lower extremities. Largest is in the left gluteal region about 6 x 8 cm. Stage II decubiti. See skin above. NEUROLOGICAL: Awake and alert. No obvious cranial nerve deficits. Motor grossly within normal limits. Five out of 5 muscle strength in the arms and legs. Normal speech. A/P Assessment and Plan Neuro/Psych: Chronic pain syndrome/low back pain Chronic narcotic use Depression Chronic benzodiazepine use Morphine sulfate 60 mg every 8 hours scheduled extended release Hydromorphone 4 mg by mouth every 6 hours when necessary pain Tizanidine 4 mill grams 3 times a day has been held Escitalopram 20 mg daily has been continued Lorazepam 0.5 mg twice a day has been continued Venlafaxine 37.5 mill grams daily has been continued CV: Severe sepsis with multisystem organ failure Elevated troponin Hypertension Lactic acidosis.. trending down Monitor HR and BP keep MAP>65mmHg Received aspirin 325 mg in ED, on 81 mg daily Lopressor 12.5 mg by mouth twice a day No lipid-lowering agents due to elevated transaminases Lactic acid cleared 1.2. Status post 2 L in ED. Monitor CK/trop, Cards is following-Dr. Newton Echo showed EF 60-65%. MYRIAM showed vegetation on MV, Resp: Acute respiratory insufficiency- Nasal cannula to maintain saturations greater than equal to 92% Incentive spirometry while awake Bronchodilators. NIPPV PRN for resp distress. Check ABG s/p short course steroids for wheezing ( 4 doses were given)., GI: Elevated transaminases/total bilirubin Hypoalbuminemia CT abdomen/pelvis revealed cholelithiasis. No other acute findings. Monitor LFTs ( trending disease), Hepatitis profile is negative US Liver: Limited examination due to body habitus and patient's inability to tolerate the procedure. Unfortunately, the gallbladder is not sufficiently visualized. Diffusely heterogeneous and mildly enlarged liver consistent with hepatic steatosis versus medical liver disease. Lipase level 122, NH4 level 19. : NATTY - Resolved Monitor renal function, I/O's, electrolytes replacement per protocol. Endo/Rheum: Hyperglycemia Hypothyroidism Scleroderma - localized versus systemic Rheumatoid arthritis? Sliding-scale insulin to maintain euglycemia TSH level: 4.5, continue levothyroxine 150 mg by mouth daily/home dose in the interim Heme: Leukocytosis Monitor CBC daily. Follow trends. Continue ferrous sulfate 325 mg by mouth daily ID: Severe sepsis Staph Aureus Bacteremia UTI Continue abx per ID ( Oxacillin) monitor for signs of infections ( Fever, WBC) Will need 6 weeks abx once BC is sterile. BC 03/23: Staph Aureus bacteremia. MYRIAM vegetation on MV Blood cultures 03/24: 2/4 bottles: GPC. BC 03/25: NGTD ID is following MSK: Lower extremity ulcerations BMI 55 Wound care evaluate and treat Weight loss encouraged PT evaluate and treat Access - Utilize peripheral IV. Prophylaxis - GI - famotidine - DVT - SCD/heparin SQ Level 3 Reema Greene MD Mar 26, 2017 08:36
[2017-03-26] MEDS: HEPARIN SODIUM - SQ 10,000 UNITS/ML VIAL SQ SCH ×2 (11:13→21:00)
--- NOTE | 2017-03-26 15:40 | PD.CARD.PN ---
Subjective Subjective Remarks Somnolent, no CP or SOB, MYRIAM with MV vegetation Objective Medications Current Medications Medications (Trade) Dose Ordered Sig/Bj Route Start Time Stop Time Status Last Admin (Tylenol) 650 mg Q6H PRN PO 03/23/17 22:30 ([place]akota 5-325 Mg) 1 tab Q4H PRN PO 03/23/17 22:30 (Tears Naturale Opth Soln) 1 drop TID EACH EYE 03/24/17 09:00 (Zofran Inj) 4 mg Q6H PRN IV PUSH 03/23/17 22:30 (Albuterol Neb) 2.5 mg Q2HR NEB PRN INH 03/23/17 22:30 Miscellaneous Information 1 Q361D XX 03/23/17 22:30 (Chlorhexidine 2% Cloth) 3 pack Taper DAILY@04 TOP 03/24/17 04:00 03/20/18 03:59 03/26/17 04:00 (Chlorhexidine 2% Cloth) 3 pack UNSCH PRN TOP 03/23/17 22:30 (Mely-Colace) 1 tab BID PO 03/24/17 09:00 03/25/17 20:28 (Milk Of Magnesia Liq) 30 ml Q12H PRN PO 03/23/17 22:30 (Senokot) 17.2 mg Q12H PRN PO 03/23/17 22:30 (Dulcolax Supp) 10 mg DAILY PRN RECTAL 03/23/17 22:30 (Lactulose Liq) 30 ml DAILY PRN PO 03/23/17 22:30 (NS Flush) 2 ml UNSCH PRN IV FLUSH 03/23/17 22:45 (NS Flush) 2 ml BID IV FLUSH 03/24/17 09:00 03/26/17 08:23 (Pepcid) 20 mg DAILY@0600 PO 03/24/17 06:00 03/26/17 06:16 (Ecotrin Ec) 81 mg DAILY PO 03/24/17 09:00 03/26/17 08:22 (Lopressor) 12.5 mg Q12HR PO 03/24/17 09:00 03/26/17 08:23 (Lexapro) 20 mg DAILY PO 03/24/17 09:00 03/26/17 08:23 (Ferrous Sulfate) 325 mg DAILY PO 03/24/17 09:00 03/26/17 08:23 (Neurontin) 600 mg TID PO 03/24/17 09:00 03/26/17 13:20 (Dilaudid) 4 mg Q6H PRN PO 03/24/17 00:45 03/24/17 10:30 (Synthroid) 150 mcg DAILY@0700 PO 03/24/17 07:00 03/26/17 06:16 (Ativan) 0.5 mg BID PRN PO 03/24/17 00:45 03/25/17 20:28 (Oramorph Sr) 60 mg Q8HR PO 03/24/17 06:00 03/26/17 13:21 (Effexor Xr) 37.5 mg DAILY PO 03/24/17 09:00 03/26/17 08:22 Oxacillin Sodium 2 gm/Sodium Chloride 100 ml @ 200 mls/hr Q4H IV 03/24/17 18:00 03/26/17 13:20 Potassium Chloride 100 ml @ 50 mls/hr Q2H PRN IV 03/25/17 09:00 Potassium Chloride 100 ml @ 50 mls/hr Q2H PRN IV 03/25/17 09:00 (K-Lyte Cl Eff) 50 meq UNSCH PRN PO 03/25/17 09:00 Potassium Chloride 100 ml @ 25 mls/hr UNSCH PRN IV 03/25/17 09:00 Potassium Chloride 100 ml @ 50 mls/hr Q2H PRN IV 03/25/17 09:00 03/25/17 20:27 Magnesium Sulfate 4 gm/Sodium Chloride 100 ml @ 50 mls/hr UNSCH PRN IV 03/25/17 09:00 (Mag-Ox) 800 mg UNSCH PRN PO 03/25/17 09:00 Magnesium Sulfate 2 gm/Sodium Chloride 100 ml @ 50 mls/hr UNSCH PRN IV 03/25/17 09:00 (K-Phos) 2,000 mg Q4H PRN PO 03/25/17 09:00 Sodium Phosphate 30 mmol/Sodium Chloride 250 ml @ 42 mls/hr UNSCH PRN IV 03/25/17 09:00 (K-Phos) 2,000 mg UNSCH PRN PO/TUBE 03/25/17 09:00 Potassium Phosphate 30 mmol/ Sodium Chloride 260 ml @ 42 mls/hr UNSCH PRN IV 03/25/17 09:00 (Duoneb Neb) 1 ampule Q4HR NEB INH 03/25/17 16:00 03/26/17 14:59 (Heparin Inj) 5,000 units Q12HR SQ 03/26/17 09:00 03/26/17 11:13 Vital Signs / I&O Vital Signs Date Time Temp Pulse Resp B/P (MAP) Pulse Ox O2 Delivery O2 Flow Rate FiO2 03/26/17 08:00 94 Nasal Cannula 5.00 03/26/17 07:24 94 Nasal Cannula 4.00 03/26/17 07:16 18 03/26/17 06:00 95 03/26/17 04:00 94 Bi-Pap 35 03/26/17 04:00 99.4 97 20 112/59 (76) 94 03/26/17 04:00 97 03/26/17 03:18 94 35 03/26/17 02:00 100 03/26/17 00:10 95 35 03/26/17 00:00 99.5 94 18 105/58 (74) 95 03/26/17 00:00 94 03/26/17 00:00 94 Bi-Pap 35 03/25/17 22:00 101 03/25/17 20:00 105 03/25/17 20:00 99.8 104 21 94 03/25/17 20:00 94 Bi-Pap 35 03/25/17 19:53 94 35 03/25/17 18:00 112 03/25/17 16:00 98 Bi-Pap 35 03/25/17 16:00 99.4 111 19 117/59 (78) 98 03/25/17 16:00 111 03/25/17 15:59 99 35 I/O 03/25/17 03/25/17 03/25/17 03/26/17 03/26/17 03/26/17 07:00 15:00 23:00 07:00 15:00 23:00 Intake Total 800 ml 400 ml 900 ml Output Total 850 ml 2300 ml 1350 ml Balance -50 ml -1900 ml -450 ml Intake Oral 250 ml 200 ml 250 ml IV Total 550 ml 200 ml 650 ml Output Urine Total 850 ml 2300 ml 1350 ml # Bowel Movements 0 0 Physical Exam GENERAL: In NAD SKIN: Warm and dry. HEAD: Normocephalic. EYES: No scleral icterus. No injection or drainage. NECK: Supple, trachea midline. No JVD or lymphadenopathy. CARDIOVASCULAR: Regular rate and rhythm without murmurs, gallops, or rubs. RESPIRATORY: Breath sounds equal bilaterally, distant. No accessory muscle use. GASTROINTESTINAL: Abdomen soft, non-tender, nondistended, obese MUSCULOSKELETAL: No cyanosis, LE edema. BACK: Nontender without obvious deformity. No CVA tenderness. Laboratory Laboratory Tests Test 03/25/17 15:45 03/26/17 05:59 03/26/17 12:20 Blood Gas Puncture Site LT RADIAL RT RADIAL Blood Gas Patient Temperature 98.6 98.6 Blood Gas HCO3 25 mmol/L 25 mmol/L Blood Gas Base Excess -0.6 mmol/L -0.2 mmol/L Blood Gas Oxygen Saturation 96 % 93 % Arterial Blood pH 7.30 7.32 Arterial Blood Partial Pressure CO2 53 mmHg 50 mmHg Arterial Blood Partial Pressure O2 131 mmHg 83 mmHg Arterial Blood Oxygen Content 17.6 Vol % 16.8 Vol % Arterial Blood Carboxyhemoglobin 1.0 % 0.8 % Arterial Blood Methemoglobin 1.2 % 1.3 % Blood Gas Hemoglobin 12.8 G/DL 12.7 G/DL Oxygen Delivery Device BIPAP NASAL CANNULA Blood Gas Ventilator Setting IPAP18/EPAP5 Blood Gas Inspired Oxygen 35 % White Blood Count 16.0 TH/MM3 Red Blood Count 4.60 MIL/MM3 Hemoglobin 12.6 GM/DL Hematocrit 39.2 % Mean Corpuscular Volume 85.2 FL Mean Corpuscular Hemoglobin 27.4 PG Mean Corpuscular Hemoglobin Concent 32.1 % Red Cell Distribution Width 15.1 % Platelet Count 216 TH/MM3 Mean Platelet Volume 11.2 FL Neutrophils (%) (Auto) 90.4 % Lymphocytes (%) (Auto) 4.7 % Monocytes (%) (Auto) 3.7 % Eosinophils (%) (Auto) 0.9 % Basophils (%) (Auto) 0.3 % Neutrophils # (Auto) 14.5 TH/MM3 Lymphocytes # (Auto) 0.8 TH/MM3 Monocytes # (Auto) 0.6 TH/MM3 Eosinophils # (Auto) 0.1 TH/MM3 Basophils # (Auto) 0.0 TH/MM3 CBC Comment DIFF FINAL Differential Comment Activated Partial Thromboplast Time 50.5 SEC Blood Urea Nitrogen 29 MG/DL Creatinine 0.86 MG/DL Random Glucose 123 MG/DL Total Protein 8.7 GM/DL Albumin 1.4 GM/DL Calcium Level 8.0 MG/DL Alkaline Phosphatase 128 U/L Aspartate Amino Transf (AST/SGOT) 109 U/L Alanine Aminotransferase (ALT/SGPT) 52 U/L Total Bilirubin 2.0 MG/DL Sodium Level 139 MEQ/L Potassium Level 4.0 MEQ/L Chloride Level 103 MEQ/L Carbon Dioxide Level 25.0 MEQ/L Anion Gap 11 MEQ/L Estimat Glomerular Filtration Rate 69 ML/MIN Blood Gas Liter Flow 4 L/M Assessment and Plan Problem List: (1) Respiratory insufficiency ICD Codes: R06.89 - Other abnormalities of breathing (2) Sepsis ICD Codes: A41.9 - Sepsis, unspecified organism Status: Acute (3) Elevated troponin ICD Codes: R74.8 - Abnormal levels of other serum enzymes Status: Acute (4) Scleroderma ICD Codes: M34.9 - Systemic sclerosis, unspecified (5) Transaminitis ICD Codes: R74.0 - Nonspecific elevation of levels of transaminase and lactic acid dehydrogenase [LDH] (6) Acute kidney injury ICD Codes: N17.9 - Acute kidney failure, unspecified (7) Depression ICD Codes: F32.9 - Major depressive disorder, single episode, unspecified (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 Continue ICU monitoring. Troponin elevated, but CK MB index nl.. Continue beta kathy and ASA. MYRIAM showed MV vegetation. ID evaluation. Problem Qualifiers (1) Sepsis: Qualified Codes: A41.9 - Sepsis, unspecified organism (2) Depression: Qualified Codes: F32.9 - Major depressive disorder, single episode, unspecified Kylie Newton MD Mar 26, 2017 15:40
--- NOTE | 2017-03-26 19:20 | HHI.IDPN ---
Subjective Subjective Remarks All clx are positive! Hypotensive trend noted no fever Antibiotics oxacillin Allergies: Coded Allergies: shellfish derived (Verified Allergy, Intermediate, 03/23/17) Objective . Vital Signs Date Time Temp Pulse Resp B/P (MAP) Pulse Ox O2 Delivery O2 Flow Rate FiO2 03/26/17 18:00 94 03/26/17 17:15 98 35 03/26/17 16:00 96 Nasal Cannula 5.00 03/26/17 16:00 98.9 96 15 100/50 (67) 97 03/26/17 16:00 96 03/26/17 14:00 95 03/26/17 12:00 99.1 97 22 85/49 (61) 95 03/26/17 12:00 96 Nasal Cannula 5.00 03/26/17 12:00 97 03/26/17 10:00 91 03/26/17 08:00 93 03/26/17 08:00 94 Nasal Cannula 5.00 03/26/17 08:00 99.0 93 22 98/54 (69) 94 03/26/17 07:24 94 Nasal Cannula 4.00 03/26/17 07:16 18 03/26/17 06:00 95 03/26/17 04:00 94 Bi-Pap 35 03/26/17 04:00 99.4 97 20 112/59 (76) 94 03/26/17 04:00 97 03/26/17 03:18 94 35 03/26/17 02:00 100 03/26/17 00:10 95 35 03/26/17 00:00 99.5 94 18 105/58 (74) 95 03/26/17 00:00 94 03/26/17 00:00 94 Bi-Pap 35 03/25/17 22:00 101 03/25/17 20:00 105 03/25/17 20:00 99.8 104 21 94 03/25/17 20:00 94 Bi-Pap 35 03/25/17 19:53 94 35 03/26/17 03/26/17 03/27/17 15:00 23:00 07:00 Intake Total 240 ml Output Total 750 ml Balance -510 ml Intake Oral 240 ml Output Urine Total 750 ml # Bowel Movements 0 . Laboratory Tests Test 03/25/17 04:24 03/26/17 05:59 White Blood Count 22.8 TH/MM3 16.0 TH/MM3 Red Blood Count 4.59 MIL/MM3 4.60 MIL/MM3 Hemoglobin 12.4 GM/DL 12.6 GM/DL Hematocrit 38.8 % 39.2 % Mean Corpuscular Volume 84.5 FL 85.2 FL Mean Corpuscular Hemoglobin 27.1 PG 27.4 PG Mean Corpuscular Hemoglobin Concent 32.0 % 32.1 % Red Cell Distribution Width 15.0 % 15.1 % Platelet Count 147 TH/MM3 216 TH/MM3 Mean Platelet Volume 10.8 FL 11.2 FL Neutrophils (%) (Auto) 87.4 % 90.4 % Lymphocytes (%) (Auto) 4.2 % 4.7 % Monocytes (%) (Auto) 5.8 % 3.7 % Eosinophils (%) (Auto) 2.5 % 0.9 % Basophils (%) (Auto) 0.1 % 0.3 % Neutrophils # (Auto) 19.9 TH/MM3 14.5 TH/MM3 Lymphocytes # (Auto) 1.0 TH/MM3 0.8 TH/MM3 Monocytes # (Auto) 1.3 TH/MM3 0.6 TH/MM3 Eosinophils # (Auto) 0.6 TH/MM3 0.1 TH/MM3 Basophils # (Auto) 0.0 TH/MM3 0.0 TH/MM3 CBC Comment DIFF FINAL DIFF FINAL Differential Comment Laboratory Tests Test 03/24/17 21:05 03/25/17 04:24 03/25/17 12:15 03/26/17 05:59 Total Creatine Kinase 458 U/L Creatine Kinase MB 12.4 NG/ML Creatine Kinase MB % 2.7 % Troponin I 5.44 NG/ML 3.89 NG/ML Blood Urea Nitrogen 27 MG/DL 29 MG/DL Creatinine 0.81 MG/DL 0.86 MG/DL Random Glucose 105 MG/DL 123 MG/DL Total Protein 8.4 GM/DL 8.7 GM/DL Albumin 1.5 GM/DL 1.4 GM/DL Calcium Level 8.0 MG/DL 8.0 MG/DL Phosphorus Level 3.1 MG/DL 3.2 MG/DL Magnesium Level 2.4 MG/DL Alkaline Phosphatase 100 U/L 128 U/L Aspartate Amino Transf (AST/SGOT) 167 U/L 109 U/L Alanine Aminotransferase (ALT/SGPT) 64 U/L 52 U/L Total Bilirubin 2.3 MG/DL 2.0 MG/DL Sodium Level 136 MEQ/L 139 MEQ/L Potassium Level 3.4 MEQ/L 4.0 MEQ/L Chloride Level 105 MEQ/L 103 MEQ/L Carbon Dioxide Level 24.4 MEQ/L 25.0 MEQ/L Anion Gap 7 MEQ/L 11 MEQ/L Estimat Glomerular Filtration Rate 73 ML/MIN 69 ML/MIN Lactic Acid Level 1.2 mmol/L Microbiology Date/Time Source Procedure Growth Status 03/25/17 16:15 Blood Peripheral Aerobic Blood Culture - Preliminary Gram Positive Cocci Resulted 03/25/17 16:15 Blood Peripheral Anaerobic Blood Culture - Preliminary NO GROWTH IN 1 DAY Resulted 03/25/17 16:10 Blood Peripheral Aerobic Blood Culture - Preliminary Gram Positive Cocci Resulted 03/25/17 16:10 Blood Peripheral Anaerobic Blood Culture - Preliminary NO GROWTH IN 1 DAY Resulted 03/24/17 12:30 Blood Peripheral Aerobic Blood Culture - Final Staphylococcus Aureus Resulted 03/24/17 12:30 Blood Peripheral Anaerobic Blood Culture - Preliminary NO GROWTH IN 2 DAYS Resulted 03/24/17 12:25 Blood Peripheral Aerobic Blood Culture - Final Staphylococcus Aureus Resulted 03/24/17 12:25 Blood Peripheral Anaerobic Blood Culture - Preliminary NO GROWTH IN 2 DAYS Resulted 03/23/17 19:45 Blood Peripheral Aerobic Blood Culture - Final Staphylococcus Aureus Complete 03/23/17 19:45 Anaerobic Blood Culture - Final Staphylococcus Aureus Complete 03/23/17 19:40 Blood Peripheral Aerobic Blood Culture - Final Staphylococcus Aureus Complete 03/23/17 19:40 Anaerobic Blood Culture - Final Staphylococcus Aureus Complete 03/23/17 19:49 Nasal Aspirate Influenza Types A,B Antigen (OLIVIA) - Final NEGATIVE FOR FLU A AND B ANTIGEN.... Complete 03/23/17 19:58 Urine Clean Catch Urine Culture - Final Staphylococcus Aureus Complete Imaging Last Impressions Liver Ultrasound 03/24/17 0000 Signed Impressions: Service Date/Time: March 16:41 - CONCLUSION: 1. Limited examination due to body habitus and patient's inability to tolerate the procedure. Unfortunately, the gallbladder is not sufficiently visualized for further evaluation of abnormality noted on CT scan. If there is continued clinical concern regarding acute cholecystitis, consider HIDA scan to evaluate for cystic duct patency. 2. Diffusely heterogeneous and mildly enlarged liver consistent with hepatic steatosis versus medical liver disease. Shlomo Mesa MD Head CT 03/23/171923 Signed Impressions: Service Date/Time: Thursday, March 23, 2017 20:45 - CONCLUSION: No acute findings in the brain. David Weiss MD Chest X-Ray 03/23/171923 Signed Impressions: Service Date/Time: Thursday, March 23, 2017 19:49 - CONCLUSION: Cardiomegaly. The lungs are clear. aDvid Weiss MD Abdomen/Pelvis CT 03/23/171923 Signed Impressions: Service Date/Time: Thursday, March 23, 2017 20:48 - CONCLUSION: 1. Multiple gallstones, some of which are noncalcified. 2. Spleen is not identified. 3. Mildly prominent left inguinal David Weiss MD Physical Exam CONSTITUTIONAL/GENERAL: This is an adequately nourished patient, in no apparent distress. TUBES/LINES/DRAINS: SKIN: + multiple SQ nodules, non healing chronic appearing wounds on L thigh, no purulence Maceraton in pannus skin folds Ecchymoses on upper extremities. No wounds seen anteriorly. Skin temperature appropriate. Not diaphoretic. EYES: Pupils equal and round and reactive. Extraocular motions intact. No scleral icterus. No injection or drainage. Fundi not examined. ENT: Hearing grossly normal. Nose without bleeding or purulent drainage. Throat without visible erythema, exudates, masses, or lesions. CARDIOVASCULAR: Regular rate and rhythm + 2-3/6 harsh murmur, no gallops, or rubs. No JVD. Peripheral pulses symmetric. RESPIRATORY/CHEST: Symmetric, unlabored respirations. Clear to auscultation. Breath sounds equal bilaterally. No wheezes, rales, or rhonchi. GASTROINTESTINAL: Abdomen soft, non-tender, nondistended. No hepato-splenomegaly , or palpable masses. No guarding. Bowel sounds present. GENITOURINARY: Without palpable bladder distension. Florez catheter in place with clear yellow urine MUSCULOSKELETAL: Extremities without clubbing, cyanosis, or edema. No joint tenderness or effusion noted. No calf tenderness. No mottling or clubbing. NEUROLOGICAL: Lethargic Motor and sensory grossly within normal limits. Follows commands. . PSYCHIATRIC:calm , cooperative Assessment & Plan Remarks unga valve endocarditis, clinically mitral valve - MYRIAM + MSSA bacteremia, high grade MSSA bacteremia, likely 2/2 bacteriuria NSTEMI Scrleroderma Immunosuppresed (splenectomised) cont oxacillin repeat BC if persistent bactermeia will need to start looking for metastattic infx foci fu BC untill documented sterility, then RX x 6 weeks no PICC untill sterile blood clx x 3 days Meenakshi Villegas MD Mar 26, 2017 19:20
[2017-03-27] VITALS (18 sets, daily range): BP systolic 105–152; BP diastolic 52–75; PULSE 97–120; RESP 17–31; TEMP 98.2–99.4; O2SAT 86–100
[2017-03-27] MEDS: RESP: ALBUTEROL 2.5 MG/IPRATROPIUM 0.5 MG NEB (SCH) INH ×6 (01:08→19:35)
[2017-03-27] MEDS: OXACILLIN INJ 2 GM in SODIUM CHLORIDE 0.9% INJ 100 ML IV SCH ×6 (02:38→23:30)
[2017-03-27] MEDS: CHLORHEXIDINE GLUCONATE 2 % 1 PACK (2 CLOTHS) TOP SCH (02:38)
[2017-03-27 04:32] LABS: AUTOMATED NEUTROPHIL # 14.6 TH/MM3 (1.8-7.7); BASOPHIL % 0.1 % (0.0-2.0); EOSINOPHIL % 0.1 % (0.0-4.0); HEMATOCRIT 38.6 % (35.0-46.0); HEMOGLOBIN 12.4 GM/DL (11.6-15.3); LYMPH % 4.6 % (9.0-44.0); LYMPHOCYTE # 0.8 TH/MM3 (1.0-4.8); MEAN CELL VOLUME 84.5 FL (80.0-100.0); MEAN CORPUSCULAR HEMOGLOBIN 27.1 PG (27.0-34.0); MEAN CORPUSCULAR HGB CONC 32.1 % (32.0-36.0); MEAN PLATELET VOLUME 10.1 FL (7.0-11.0); MONO % 9.2 % (0.0-8.0); MONOCYTE # 1.6 TH/MM3 (0-0.9); PLATELET COUNT 295 TH/MM3 (150-450); RED BLOOD COUNT 4.57 MIL/MM3 (4.00-5.30); WHITE BLOOD COUNT 16.9 TH/MM3 (4.0-11.0)
[2017-03-27 04:58] LABS: ALBUMIN 1.4 GM/DL (3.4-5.0); ALT (GPT) 51 U/L (10-53); AST (GOT) 91 U/L (15-37); BICARBONATE 27.6 MEQ/L (21.0-32.0); BLOOD UREA NITROGEN 43 MG/DL (7-18); CALCIUM 8.4 MG/DL (8.5-10.1); CHLORIDE 106 MEQ/L (98-107); CREATININE 0.89 MG/DL (0.50-1.00); GLOMERULAR FILTRATION RATE 66 ML/MIN (>89); GLUCOSE,RANDOM 125 MG/DL (74-106); SODIUM (NA) 139 MEQ/L (136-145)
[2017-03-27 05:02] LABS: ALKALINE PHOSPHATASE 158 U/L (45-117); TOTAL BILIRUBIN ADULT 1.4 MG/DL (0.2-1.0); TOTAL PROTEIN 8.8 GM/DL (6.4-8.2)
[2017-03-27] MEDS: FAMOTIDINE 20 MG TAB PO SCH (05:48)
[2017-03-27] MEDS: LEVOTHYROXINE SODIUM 75 MCG TAB PO SCH (05:48)
[2017-03-27] MEDS: MORPHINE SULFATE 60 MG CONTROLLED RELEASE TAB PO SCH ×3 (05:48→20:58)
--- NOTE | 2017-03-27 08:07 | HHI.CCPN ---
Subjective Remarks/Hospital Course This is a 57-year-old female. Admission 03/23/2017.past medical history includes scleroderma, thyroid disease, status post splenectomy in the past and elevated BMI. Initial presentation occurred Tuesday with lethargy, sleeping, and fever. The patient also had one episode of vomiting with several episodes of diarrhea. The states she has been no recent international travel, hospitalizations, or history of chronic infections. She did have similar symptoms 2 years ago per the 's report with the patient had low oxygen levels and had altered mental status. The patient is seen by pain management as well as her primary physician who is located in [place], [place]. Dr. Estrada The states the patient's mental status seems to wax and wane over the last several days, she'll be awake and alert, and that she will fall asleep and be slightly lethargic and confused. She will lie in bed for several days at a time. The patient denies any chest pain or shortness of breath. She does complain of abdominal pain over the skin secondary to her scleroderma. She also has a history of an open lesion secondary to scleroderma of the lateral left thigh which has been present for several years per the 's report. Received patient was treated with Humira for scleroderma however not taking for the past 5 months. She is on morphine and Dilaudid for chronic pain management from her Dr. Dominguez in [place] abdomen/ revealed gallstones without obstruction. Status post splenectomy. Morbid obesity. Chest x-ray revealed no signs of pneumonia. CT brain negative. Patient received 2 L normal saline added ED. She was noted to have a elevated troponin of 15. Denies chest pain. EKG shows nonspecific ST-T changes. CPK 2100. Creatinine 1.7. Leukocytosis 20,000 and elevated transaminases with low sodium and albumin. Her febrile is abated. She is currently awake and oriented to person place and time. 03/24 Patient is lying in bed in [facility]. Afebrile. Renal function is improving with Cr: 1.10 from 1.73. On Heparin drip for elevated trop. 03/25 No events overnight. Remains on Heparin drip. Renal function is now within normal. Afebrile. 03/26 s/p MYRIAM yesterday which shoed vegetation on mitral valve She was on BIPAP overnight now on 4L oxygen. Given Lasix 40mg x 1 yesterday with good response in UOP. Afebrile. off Heparin drip.. 03/27 No events overnight. On BIPAP 16/08 with 35% FIO2 overnight. Afebrile. Objective Vital Signs Date Time Temp Pulse Resp B/P (MAP) Pulse Ox O2 Delivery O2 Flow Rate FiO2 03/27/17 07:55 94 Nasal Cannula 4.00 36 03/27/17 06:00 99 03/27/17 04:00 98.9 19 123/61 (81) 121/62 (81) Intake and Output 03/27/17 03/27/17 03/28/17 08:00 16:00 00:00 Intake Total 450 ml Output Total 700 ml Balance -250 ml Result Diagram: 03/27/17 0358 03/27/17 0358 Other Results Laboratory Tests Test 03/26/17 12:20 03/27/17 03:58 Blood Gas Puncture Site RT RADIAL Blood Gas Patient Temperature 98.6 Blood Gas HCO3 25 mmol/L Blood Gas Base Excess -0.2 mmol/L Blood Gas Oxygen Saturation 93 % Arterial Blood pH 7.32 Arterial Blood Partial Pressure CO2 50 mmHg Arterial Blood Partial Pressure O2 83 mmHg Arterial Blood Oxygen Content 16.8 Vol % Arterial Blood Carboxyhemoglobin 0.8 % Arterial Blood Methemoglobin 1.3 % Blood Gas Hemoglobin 12.7 G/DL Oxygen Delivery Device NASAL CANNULA Blood Gas Liter Flow 4 L/M White Blood Count 16.9 TH/MM3 Red Blood Count 4.57 MIL/MM3 Hemoglobin 12.4 GM/DL Hematocrit 38.6 % Mean Corpuscular Volume 84.5 FL Mean Corpuscular Hemoglobin 27.1 PG Mean Corpuscular Hemoglobin Concent 32.1 % Red Cell Distribution Width 15.0 % Platelet Count 295 TH/MM3 Mean Platelet Volume 10.1 FL Neutrophils (%) (Auto) 86.0 % Lymphocytes (%) (Auto) 4.6 % Monocytes (%) (Auto) 9.2 % Eosinophils (%) (Auto) 0.1 % Basophils (%) (Auto) 0.1 % Neutrophils # (Auto) 14.6 TH/MM3 Lymphocytes # (Auto) 0.8 TH/MM3 Monocytes # (Auto) 1.6 TH/MM3 Eosinophils # (Auto) 0.0 TH/MM3 Basophils # (Auto) 0.0 TH/MM3 CBC Comment DIFF FINAL Differential Comment Activated Partial Thromboplast Time 37.1 SEC Blood Urea Nitrogen 43 MG/DL Creatinine 0.89 MG/DL Random Glucose 125 MG/DL Total Protein 8.8 GM/DL Albumin 1.4 GM/DL Calcium Level 8.4 MG/DL Alkaline Phosphatase 158 U/L Aspartate Amino Transf (AST/SGOT) 91 U/L Alanine Aminotransferase (ALT/SGPT) 51 U/L Total Bilirubin 1.4 MG/DL Sodium Level 139 MEQ/L Potassium Level 4.1 MEQ/L Chloride Level 106 MEQ/L Carbon Dioxide Level 27.6 MEQ/L Anion Gap 5 MEQ/L Estimat Glomerular Filtration Rate 66 ML/MIN Imaging Last Impressions Liver Ultrasound 03/24/17 0000 Signed Impressions: Service Date/Time: March 16:41 - CONCLUSION: 1. Limited examination due to body habitus and patient's inability to tolerate the procedure. Unfortunately, the gallbladder is not sufficiently visualized for further evaluation of abnormality noted on CT scan. If there is continued clinical concern regarding acute cholecystitis, consider HIDA scan to evaluate for cystic duct patency. 2. Diffusely heterogeneous and mildly enlarged liver consistent with hepatic steatosis versus medical liver disease. Shlomo Mesa MD Head CT 03/23/171923 Signed Impressions: Service Date/Time: Thursday, March 23, 2017 20:45 - CONCLUSION: No acute findings in the brain. Daivd Weiss MD Chest X-Ray 03/23/171923 Signed Impressions: Service Date/Time: Thursday, March 23, 2017 19:49 - CONCLUSION: Cardiomegaly. The lungs are clear. David Weiss MD Abdomen/Pelvis CT 03/23/171923 Signed Impressions: Service Date/Time: Thursday, March 23, 2017 20:48 - CONCLUSION: 1. Multiple gallstones, some of which are noncalcified. 2. Spleen is not identified. 3. Mildly prominent left inguinal David Weiss MD Objective Remarks GENERAL: 57-year-old female currently resting in bed in no acute distress SKIN: Morphea. Several sclerotic hypopigmented areas upper and lower extremities. Tinea cruris. HEAD: Atraumatic. Normocephalic. EYES: Pupils equal and round about 3 mm bilaterally and reactive. No scleral icterus. No injection or drainage. ENT: No nasal bleeding or discharge. Mucous membranes pink and moist. NECK: Trachea midline. No JVD. CARDIOVASCULAR: Tachycardic RR. S1, S2. No S4. Without murmur RESPIRATORY: Diminished throughout. No wheezing rales or rhonchi. Breath sounds equal bilaterally. GASTROINTESTINAL: Abdomen soft, non-tender, nondistended. Hepatic and splenic margins not palpable. MUSCULOSKELETAL: Extremities with multiple open areas/calcifications bilateral lower extremities. Largest is in the left gluteal region about 6 x 8 cm. Stage II decubiti. See skin above. NEUROLOGICAL: Awake and alert. No obvious cranial nerve deficits. Motor grossly within normal limits. Five out of 5 muscle strength in the arms and legs. Normal speech. A/P Assessment and Plan Neuro/Psych: Chronic pain syndrome/low back pain Chronic narcotic use Depression Chronic benzodiazepine use Morphine sulfate 60 mg every 8 hours scheduled extended release Hydromorphone 4 mg by mouth every 6 hours when necessary pain Tizanidine 4 mill grams 3 times a day has been held Escitalopram 20 mg daily has been continued Lorazepam 0.5 mg twice a day has been continued Venlafaxine 37.5 mill grams daily has been continued CV: Severe sepsis with multisystem organ failure Elevated troponin Hypertension Lactic acidosis.. trending down Monitor HR and BP keep MAP>65mmHg Received aspirin 325 mg in ED, on 81 mg daily Lopressor 12.5 mg by mouth twice a day No lipid-lowering agents due to elevated transaminases Lactic acid cleared 1.2. Status post 2 L in ED. Monitor CK/trop, Cards is following-Dr. Newton Echo showed EF 60-65%. MYRIAM showed vegetation on MV, Resp: Acute respiratory insufficiency- Continue with oxygen keep sat> 92% Incentive spirometry while awake Bronchodilators. NIPPV PRN for resp distress. s/p short course steroids for wheezing ( 4 doses were given)., GI: Elevated transaminases/total bilirubin Hypoalbuminemia CT abdomen/pelvis revealed cholelithiasis. No other acute findings. Monitor LFTs ( trending disease), Hepatitis profile is negative US Liver: Limited examination due to body habitus and patient's inability to tolerate the procedure. Unfortunately, the gallbladder is not sufficiently visualized. Diffusely heterogeneous and mildly enlarged liver consistent with hepatic steatosis vs medical liver disease. Lipase level 122, NH4 level 19. : NATTY - Resolved Monitor renal function, I/O's, electrolytes replacement per protocol. Endo/Rheum: Hyperglycemia Hypothyroidism Scleroderma - localized versus systemic Rheumatoid arthritis? Sliding-scale insulin to maintain euglycemia TSH level: 4.5, continue levothyroxine 150 mg by mouth daily/home dose in the interim Heme: Leukocytosis Monitor CBC daily. Follow trends. Continue ferrous sulfate 325 mg by mouth daily ID: Severe sepsis Staph Aureus Bacteremia UTI Continue abx per ID ( Oxacillin) monitor for signs of infections ( Fever, WBC) Will need 6 weeks abx once BC is sterile. BC 03/23, 03/24: Staph Aureus bacteremia. MYRIAM vegetation on MV Blood cultures 03/25: 2/4 bottles: GPC. BC 03/27: NGTD ID is following MSK: Lower extremity ulcerations BMI 55 Wound care evaluate and treat Weight loss encouraged PT evaluate and treat Access - Utilize peripheral IV. Prophylaxis - GI - famotidine - DVT - SCD/heparin SQ Level 3 Reema Greene MD Mar 27, 2017 08:07
[2017-03-27] MEDS: DOCUSATE SODIUM 50 MG/SENNA 8.6 MG TAB PO SCH ×2 (09:00→20:59)
[2017-03-27] MEDS: ARTIFICIAL TEARS OPTH SOLN 15 ML BTL EACH EYE SCH ×3 (09:00→18:00)
[2017-03-27] MEDS: SODIUM CHLORIDE 0.9% FLUSH 10 ML FLUSH IV FLUSH SCH ×2 (09:00→20:58)
[2017-03-27] MEDS: HEPARIN SODIUM - SQ 10,000 UNITS/ML VIAL SQ SCH ×2 (09:35→20:58)
[2017-03-27] MEDS: METOPROLOL TARTRATE 25 MG TAB PO SCH ×2 (09:35→20:59)
[2017-03-27] MEDS: FERROUS SULFATE 325 MG (65 MG ELEMENTAL IRON) TAB PO SCH (09:35)
[2017-03-27] MEDS: GABAPENTIN 300 MG CAP PO SCH ×3 (09:35→18:00)
[2017-03-27] MEDS: ESCITALOPRAM OXALATE 20 MG TAB PO SCH (09:35)
[2017-03-27] MEDS: VENLAFAXINE HCL XR 37.5 MG CAP PO SCH (09:35)
[2017-03-27] MEDS: ASPIRIN EC 81 MG TABEC PO SCH (09:36)
--- NOTE | 2017-03-27 15:28 | RADRPT ---
EXAM DATE/TIME: 03/27/2017 14:54 [facility] COMPARISON: CHEST SINGLE AP, March 23, 2017, 19:49. INDICATIONS : Short of Breath. MEDICAL HISTORY : Hypothyroidism. Chronic obstructive pulmonary disease. SURGICAL HISTORY : Splenectomy. ENCOUNTER: Initial ACUITY: 1 day PAIN SCORE: Non-responsive. LOCATION: Bilateral chest FINDINGS: 2 AP views of the chest. Moderate severity diffuse cardiac silhouette enlargement unchanged. New bila teral diffuse pulmonary opacity with pulmonary vasculature indistinctness. Finding likely represents pulmonary edema. No evidence of pleural effusion or pneumothorax. CONCLUSION: Persistent cardiac silhouette enlargement with new bilateral diffuse pulmonary opacity primarily inte rstitial likely representing pulmonary edema. Ronnie Max MD on March 27, 2017 at 15:26 Board Certified Radiologist. This report was verified electronically.
--- NOTE | 2017-03-27 16:44 | PD.CARD.PN ---
Subjective Subjective Remarks Somnolent, no CP or SOB Objective Medications Current Medications Medications (Trade) Dose Ordered Sig/Bj Route Start Time Stop Time Status Last Admin (Tylenol) 650 mg Q6H PRN PO 03/23/17 22:30 (Hudson 5-325 Mg) 1 tab Q4H PRN PO 03/23/17 22:30 (Tears Naturale Opth Soln) 1 drop TID EACH EYE 03/24/17 09:00 03/27/17 13:00 (Zofran Inj) 4 mg Q6H PRN IV PUSH 03/23/17 22:30 (Albuterol Neb) 2.5 mg Q2HR NEB PRN INH 03/23/17 22:30 Miscellaneous Information 1 [id number] XX 03/23/17 22:30 (Chlorhexidine 2% Cloth) 3 pack Taper DAILY@04 TOP 03/24/17 04:00 03/20/18 03:59 03/27/17 02:38 (Chlorhexidine 2% Cloth) 3 pack UNSCH PRN TOP 03/23/17 22:30 (Mely-Colace) 1 tab BID PO 03/24/17 09:00 03/26/17 22:10 (Milk Of Magnesia Liq) 30 ml Q12H PRN PO 03/23/17 22:30 (Senokot) 17.2 mg Q12H PRN PO 03/23/17 22:30 (Dulcolax Supp) 10 mg DAILY PRN RECTAL 03/23/17 22:30 (Lactulose Liq) 30 ml DAILY PRN PO 03/23/17 22:30 (NS Flush) 2 ml UNSCH PRN IV FLUSH 03/23/17 22:45 (NS Flush) 2 ml BID IV FLUSH 03/24/17 09:00 03/26/17 22:10 (Pepcid) 20 mg DAILY@0600 PO 03/24/17 06:00 03/27/17 05:48 (Ecotrin Ec) 81 mg DAILY PO 03/24/17 09:00 03/27/17 09:36 (Lopressor) 12.5 mg Q12HR PO 03/24/17 09:00 03/27/17 09:35 (Lexapro) 20 mg DAILY PO 03/24/17 09:00 03/27/17 09:35 (Ferrous Sulfate) 325 mg DAILY PO 03/24/17 09:00 03/27/17 09:35 (Neurontin) 600 mg TID PO 03/24/17 09:00 03/27/17 09:35 (Dilaudid) 4 mg Q6H PRN PO 03/24/17 00:45 03/24/17 10:30 (Synthroid) 150 mcg DAILY@0700 PO 03/24/17 07:00 03/27/17 05:48 (Ativan) 0.5 mg BID PRN PO 03/24/17 00:45 03/25/17 20:28 (Oramorph Sr) 60 mg Q8HR PO 03/24/17 06:00 03/27/17 05:48 (Effexor Xr) 37.5 mg DAILY PO 03/24/17 09:00 03/27/17 09:35 Oxacillin Sodium 2 gm/Sodium Chloride 100 ml @ 200 mls/hr Q4H IV 03/24/17 18:00 03/27/17 14:24 Potassium Chloride 100 ml @ 50 mls/hr Q2H PRN IV 03/25/17 09:00 Potassium Chloride 100 ml @ 50 mls/hr Q2H PRN IV 03/25/17 09:00 (K-Lyte Cl Eff) 50 meq UNSCH PRN PO 03/25/17 09:00 Potassium Chloride 100 ml @ 25 mls/hr UNSCH PRN IV 03/25/17 09:00 Potassium Chloride 100 ml @ 50 mls/hr Q2H PRN IV 03/25/17 09:00 03/25/17 20:27 Magnesium Sulfate 4 gm/Sodium Chloride 100 ml @ 50 mls/hr UNSCH PRN IV 03/25/17 09:00 (Mag-Ox) 800 mg UNSCH PRN PO 03/25/17 09:00 Magnesium Sulfate 2 gm/Sodium Chloride 100 ml @ 50 mls/hr UNSCH PRN IV 03/25/17 09:00 (K-Phos) 2,000 mg Q4H PRN PO 03/25/17 09:00 Sodium Phosphate 30 mmol/Sodium Chloride 250 ml @ 42 mls/hr UNSCH PRN IV 03/25/17 09:00 (K-Phos) 2,000 mg UNSCH PRN PO/TUBE 03/25/17 09:00 Potassium Phosphate 30 mmol/ Sodium Chloride 260 ml @ 42 mls/hr UNSCH PRN IV 03/25/17 09:00 (Duoneb Neb) 1 ampule Q4HR NEB INH 03/25/17 16:00 03/27/17 15:07 (Heparin Inj) 5,000 units Q12HR SQ 03/26/17 09:00 03/27/17 09:35 Vital Signs / I&O Vital Signs Date Time Temp Pulse Resp B/P (MAP) Pulse Ox O2 Delivery O2 Flow Rate FiO2 03/27/17 16:29 99.4 106 20 99 03/27/17 16:00 110 03/27/17 16:00 100 Bi-Pap 03/27/17 15:08 97 35 03/27/17 14:00 110 03/27/17 12:00 Nasal Cannula 4.00 03/27/17 12:00 110 03/27/17 12:00 99.4 120 31 152/75 (100) 86 152/75 (100) 03/27/17 10:00 109 03/27/17 08:00 98.2 109 28 136/70 (92) 99 134/70 (91) 03/27/17 08:00 109 03/27/17 08:00 Nasal Cannula 4.00 03/27/17 07:55 94 Nasal Cannula 4.00 36 03/27/17 06:00 99 03/27/17 04:05 98 35 03/27/17 04:00 98.9 100 19 123/61 (81) 99 121/62 (81) 03/27/17 04:00 100 Bi-Pap 03/27/17 04:00 100 03/27/17 02:00 99 03/27/17 01:08 100 35 03/27/17 00:00 99.0 97 17 107/59 (75) 99 107/59 (75) 03/27/17 00:00 98 Bi-Pap 03/27/17 00:00 97 03/26/17 22:00 100 03/26/17 20:00 97 03/26/17 20:00 99.3 97 15 103/56 (72) 99 103/56 (72) 03/26/17 20:00 97 Bi-Pap 03/26/17 19:27 99 35 03/26/17 18:00 94 03/26/17 17:15 98 35 I/O 03/26/17 03/26/17 03/26/17 03/27/17 03/27/17 03/27/17 07:00 15:00 23:00 07:00 15:00 23:00 Intake Total 900 ml 240 ml 450 ml Output Total 1350 ml 750 ml 700 ml Balance -450 ml -510 ml -250 ml Intake Oral 250 ml 240 ml 150 ml IV Total 650 ml 300 ml Output Urine Total 1350 ml 750 ml 700 ml # Bowel Movements 0 0 0 Physical Exam GENERAL: In NAD, somnolent SKIN: Warm and dry. HEAD: Normocephalic. EYES: No scleral icterus. No injection or drainage. NECK: Supple, trachea midline. No JVD or lymphadenopathy. CARDIOVASCULAR: Regular rate and rhythm without murmurs, gallops, or rubs. RESPIRATORY: Breath sounds equal bilaterally, distant. No accessory muscle use. GASTROINTESTINAL: Abdomen soft, non-tender, nondistended, obese MUSCULOSKELETAL: No cyanosis, bilat LE edema. Laboratory Laboratory Tests Test 03/27/17 03:58 03/27/17 14:09 White Blood Count 16.9 TH/MM3 Red Blood Count 4.57 MIL/MM3 Hemoglobin 12.4 GM/DL Hematocrit 38.6 % Mean Corpuscular Volume 84.5 FL Mean Corpuscular Hemoglobin 27.1 PG Mean Corpuscular Hemoglobin Concent 32.1 % Red Cell Distribution Width 15.0 % Platelet Count 295 TH/MM3 Mean Platelet Volume 10.1 FL Neutrophils (%) (Auto) 86.0 % Lymphocytes (%) (Auto) 4.6 % Monocytes (%) (Auto) 9.2 % Eosinophils (%) (Auto) 0.1 % Basophils (%) (Auto) 0.1 % Neutrophils # (Auto) 14.6 TH/MM3 Lymphocytes # (Auto) 0.8 TH/MM3 Monocytes # (Auto) 1.6 TH/MM3 Eosinophils # (Auto) 0.0 TH/MM3 Basophils # (Auto) 0.0 TH/MM3 CBC Comment DIFF FINAL Differential Comment Activated Partial Thromboplast Time 37.1 SEC Blood Urea Nitrogen 43 MG/DL Creatinine 0.89 MG/DL Random Glucose 125 MG/DL Total Protein 8.8 GM/DL Albumin 1.4 GM/DL Calcium Level 8.4 MG/DL Alkaline Phosphatase 158 U/L Aspartate Amino Transf (AST/SGOT) 91 U/L Alanine Aminotransferase (ALT/SGPT) 51 U/L Total Bilirubin 1.4 MG/DL Sodium Level 139 MEQ/L Potassium Level 4.1 MEQ/L Chloride Level 106 MEQ/L Carbon Dioxide Level 27.6 MEQ/L Anion Gap 5 MEQ/L Estimat Glomerular Filtration Rate 66 ML/MIN Blood Gas Puncture Site RT RADIAL Blood Gas Patient Temperature 98.6 Blood Gas HCO3 26 mmol/L Blood Gas Base Excess 1.3 mmol/L Blood Gas Oxygen Saturation 91 % Arterial Blood pH 7.37 Arterial Blood Partial Pressure CO2 46 mmHg Arterial Blood Partial Pressure O2 68 mmHg Arterial Blood Oxygen Content 16.3 Vol % Arterial Blood Carboxyhemoglobin 1.0 % Arterial Blood Methemoglobin 1.3 % Blood Gas Hemoglobin 12.8 G/DL Oxygen Delivery Device NASAL CANNULA Blood Gas Liter Flow 4 L/M Imaging Last 24 hours Impressions Chest X-Ray 03/27/17 0000 Signed Impressions: Service Date/Time: Monday, March 27, 2017 14:54 - CONCLUSION: Persistent cardiac silhouette enlargement with new bilateral diffuse pulmonary opacity primarily interstitial likely representing pulmonary edema. Ronnie Max MD Assessment and Plan Problem List: (1) Respiratory insufficiency ICD Codes: R06.89 - Other abnormalities of breathing (2) Sepsis ICD Codes: A41.9 - Sepsis, unspecified organism Status: Acute (3) Elevated troponin ICD Codes: R74.8 - Abnormal levels of other serum enzymes Status: Acute (4) Scleroderma ICD Codes: M34.9 - Systemic sclerosis, unspecified (5) Transaminitis ICD Codes: R74.0 - Nonspecific elevation of levels of transaminase and lactic acid dehydrogenase [LDH] (6) Acute kidney injury ICD Codes: N17.9 - Acute kidney failure, unspecified (7) Depression ICD Codes: F32.9 - Major depressive disorder, single episode, unspecified (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 No angina or CHF symptoms. Continue ICU monitoring. Troponin elevated, but CK MB index nl.. Continue beta kathy and ASA. MYRIAM showed MV vegetation. ID evaluation. Increase activity, PT. Problem Qualifiers (1) Sepsis: Qualified Codes: A41.9 - Sepsis, unspecified organism (2) Depression: Qualified Codes: F32.9 - Major depressive disorder, single episode, unspecified Kylie Newton MD Mar 27, 2017 16:44
--- NOTE | 2017-03-27 18:22 | HHI.IDPN ---
Subjective Subjective Remarks All clx remain positive! Back on BIPAP Mixed hypoxic/hypercapnic resp failure on gas + low grade fever 99.4 ax difficult to arouse pt denies headach or back pain Antibiotics oxacillin Allergies: Coded Allergies: shellfish derived (Verified Allergy, Intermediate, 03/23/17) Objective . Vital Signs Date Time Temp Pulse Resp B/P (MAP) Pulse Ox O2 Delivery O2 Flow Rate FiO2 03/27/17 16:29 99.4 106 20 99 03/27/17 16:00 110 03/27/17 16:00 100 Bi-Pap 03/27/17 15:08 97 35 03/27/17 14:00 110 03/27/17 12:00 Nasal Cannula 4.00 03/27/17 12:00 110 03/27/17 12:00 99.4 120 31 152/75 (100) 86 152/75 (100) 03/27/17 10:00 109 03/27/17 08:00 98.2 109 28 136/70 (92) 99 134/70 (91) 03/27/17 08:00 109 03/27/17 08:00 Nasal Cannula 4.00 03/27/17 07:55 94 Nasal Cannula 4.00 36 03/27/17 06:00 99 03/27/17 04:05 98 35 03/27/17 04:00 98.9 100 19 123/61 (81) 99 121/62 (81) 03/27/17 04:00 100 Bi-Pap 03/27/17 04:00 100 03/27/17 02:00 99 03/27/17 01:08 100 35 03/27/17 00:00 99.0 97 17 107/59 (75) 99 107/59 (75) 03/27/17 00:00 98 Bi-Pap 03/27/17 00:00 97 03/26/17 22:00 100 03/26/17 20:00 97 03/26/17 20:00 99.3 97 15 103/56 (72) 99 103/56 (72) 03/26/17 20:00 97 Bi-Pap 03/26/17 19:27 99 35 . Laboratory Tests Test 03/26/17 05:59 03/27/17 03:58 White Blood Count 16.0 TH/MM3 16.9 TH/MM3 Red Blood Count 4.60 MIL/MM3 4.57 MIL/MM3 Hemoglobin 12.6 GM/DL 12.4 GM/DL Hematocrit 39.2 % 38.6 % Mean Corpuscular Volume 85.2 FL 84.5 FL Mean Corpuscular Hemoglobin 27.4 PG 27.1 PG Mean Corpuscular Hemoglobin Concent 32.1 % 32.1 % Red Cell Distribution Width 15.1 % 15.0 % Platelet Count 216 TH/MM3 295 TH/MM3 Mean Platelet Volume 11.2 FL 10.1 FL Neutrophils (%) (Auto) 90.4 % 86.0 % Lymphocytes (%) (Auto) 4.7 % 4.6 % Monocytes (%) (Auto) 3.7 % 9.2 % Eosinophils (%) (Auto) 0.9 % 0.1 % Basophils (%) (Auto) 0.3 % 0.1 % Neutrophils # (Auto) 14.5 TH/MM3 14.6 TH/MM3 Lymphocytes # (Auto) 0.8 TH/MM3 0.8 TH/MM3 Monocytes # (Auto) 0.6 TH/MM3 1.6 TH/MM3 Eosinophils # (Auto) 0.1 TH/MM3 0.0 TH/MM3 Basophils # (Auto) 0.0 TH/MM3 0.0 TH/MM3 CBC Comment DIFF FINAL DIFF FINAL Differential Comment Laboratory Tests Test 03/26/17 05:59 03/27/17 03:58 Blood Urea Nitrogen 29 MG/DL 43 MG/DL Creatinine 0.86 MG/DL 0.89 MG/DL Random Glucose 123 MG/DL 125 MG/DL Total Protein 8.7 GM/DL 8.8 GM/DL Albumin 1.4 GM/DL 1.4 GM/DL Calcium Level 8.0 MG/DL 8.4 MG/DL Alkaline Phosphatase 128 U/L 158 U/L Aspartate Amino Transf (AST/SGOT) 109 U/L 91 U/L Alanine Aminotransferase (ALT/SGPT) 52 U/L 51 U/L Total Bilirubin 2.0 MG/DL 1.4 MG/DL Sodium Level 139 MEQ/L 139 MEQ/L Potassium Level 4.0 MEQ/L 4.1 MEQ/L Chloride Level 103 MEQ/L 106 MEQ/L Carbon Dioxide Level 25.0 MEQ/L 27.6 MEQ/L Anion Gap 11 MEQ/L 5 MEQ/L Estimat Glomerular Filtration Rate 69 ML/MIN 66 ML/MIN Microbiology Date/Time Source Procedure Growth Status 03/27/17 03:58 Blood Peripheral Aerobic Blood Culture Pending Received 03/27/17 03:58 Blood Peripheral Anaerobic Blood Culture Pending Received 03/27/17 03:51 Blood Peripheral Aerobic Blood Culture Pending Received 03/27/17 03:51 Blood Peripheral Anaerobic Blood Culture Pending Received 03/25/17 16:15 Blood Peripheral Aerobic Blood Culture - Final Staphylococcus Aureus Resulted 03/25/17 16:15 Blood Peripheral Anaerobic Blood Culture - Preliminary NO GROWTH IN 2 DAYS Resulted 03/25/17 16:10 Blood Peripheral Aerobic Blood Culture - Final Staphylococcus Aureus Resulted 03/25/17 16:10 Blood Peripheral Anaerobic Blood Culture - Preliminary NO GROWTH IN 2 DAYS Resulted Imaging Last Impressions Chest X-Ray 03/27/17 0000 Signed Impressions: Service Date/Time: Monday, March 27, 2017 14:54 - CONCLUSION: Persistent cardiac silhouette enlargement with new bilateral diffuse pulmonary opacity primarily interstitial likely representing pulmonary edema. Ronnie Max MD Liver Ultrasound 03/24/17 0000 Signed Impressions: Service Date/Time: March 16:41 - CONCLUSION: 1. Limited examination due to body habitus and patient's inability to tolerate the procedure. Unfortunately, the gallbladder is not sufficiently visualized for further evaluation of abnormality noted on CT scan. If there is continued clinical concern regarding acute cholecystitis, consider HIDA scan to evaluate for cystic duct patency. 2. Diffusely heterogeneous and mildly enlarged liver consistent with hepatic steatosis versus medical liver disease. Shlomo Mesa MD Head CT [id number] Signed Impressions: Service Date/Time: Thursday, March 23, 2017 20:45 - CONCLUSION: No acute findings in the brain. David Weiss MD Abdomen/Pelvis CT [id number]/[id number] Signed Impressions: Service Date/Time: Thursday, March 23, 2017 20:48 - CONCLUSION: 1. Multiple gallstones, some of which are noncalcified. 2. Spleen is not identified. 3. Mildly prominent left inguinal David Weiss MD Physical Exam CONSTITUTIONAL/GENERAL: This is an adequately nourished patient, in no apparent distress. TUBES/LINES/DRAINS: SKIN: + multiple SQ nodules, non healing chronic appearing wounds on L thigh, no purulence Ecchymoses on upper extremities. No wounds seen anteriorly. Skin temperature appropriate. Not diaphoretic. EYES: Pupils equal and round and reactive. Extraocular motions intact. No scleral icterus. No injection or drainage. Fundi not examined. ENT: Hearing grossly normal. Nose without bleeding or purulent drainage. Throat without visible erythema, exudates, masses, or lesions. CARDIOVASCULAR: Regular rate and rhythm + 2-3/6 harsh murmur, no gallops, or rubs. No JVD. Peripheral pulses symmetric. RESPIRATORY/CHEST: Symmetric, unlabored respirations. Clear to auscultation. Breath sounds equal bilaterally. No wheezes, rales, or rhonchi. GASTROINTESTINAL: Abdomen soft, non-tender, nondistended. No hepato-splenomegaly , or palpable masses. No guarding. Bowel sounds present. GENITOURINARY: Without palpable bladder distension. Florez catheter in place with clear yellow urine MUSCULOSKELETAL: Extremities without clubbing, cyanosis, or edema. No joint tenderness or effusion noted. No calf tenderness. No mottling or clubbing. NEUROLOGICAL: Lethargic Motor and sensory grossly within normal limits. Follows commands. She is oriented x 2 , moves all 4 extremieties PSYCHIATRIC:calm , cooperative Assessment & Plan Remarks c[place] dehe valve endocarditis, clinically mitral valve - MYRIAM + MSSA bacteremia, high grade MSSA bacteremia, likely 2/2 bacteriuria NSTEMI Scrleroderma Immunosuppresed (splenectomised) cont oxacillin fu repeat BC if cont to have persistent bactermeia will need to start looking for metastattic infx foci (MRI spine, abd /pel CT) if worse MS will get MRI brain fu BC untill documented sterility, then RX x 6 weeks no PICC untill sterile blood clx x 3 days dw family @ b/s Meenakshi Villegas MD Mar 27, 2017 18:22
[2017-03-27] MEDS: LORazepam 0.5 MG TAB PO PRN (20:59)
[2017-03-28] VITALS (20 sets, daily range): BP systolic 121–146; BP diastolic 58–79; PULSE 101–127; RESP 24–35; TEMP 98.9–102.2; O2SAT 92–96
[2017-03-28] MEDS: RESP: ALBUTEROL 2.5 MG/IPRATROPIUM 0.5 MG NEB (SCH) INH ×7 (00:07→23:24)
[2017-03-28] MEDS: OXACILLIN INJ 2 GM in SODIUM CHLORIDE 0.9% INJ 100 ML IV SCH ×6 (02:16→19:50)
[2017-03-28] MEDS: CHLORHEXIDINE GLUCONATE 2 % 1 PACK (2 CLOTHS) TOP SCH (02:16)
[2017-03-28] MEDS: FAMOTIDINE 20 MG TAB PO SCH (06:10)
[2017-03-28] MEDS: MORPHINE SULFATE 60 MG CONTROLLED RELEASE TAB PO SCH ×3 (06:10→19:51)
[2017-03-28] MEDS: LEVOTHYROXINE SODIUM 75 MCG TAB PO SCH (06:10)
[2017-03-28 06:47] LABS: AUTOMATED NEUTROPHIL # 15.1 TH/MM3 (1.8-7.7); BASOPHIL % 0.1 % (0.0-2.0); HEMATOCRIT 36.8 % (35.0-46.0); HEMOGLOBIN 11.9 GM/DL (11.6-15.3); LYMPH % 6.7 % (9.0-44.0); LYMPHOCYTE # 1.2 TH/MM3 (1.0-4.8); MEAN CELL VOLUME 83.6 FL (80.0-100.0); MEAN CORPUSCULAR HEMOGLOBIN 26.9 PG (27.0-34.0); MEAN CORPUSCULAR HGB CONC 32.2 % (32.0-36.0); MEAN PLATELET VOLUME 9.8 FL (7.0-11.0); MONO % 7.1 % (0.0-8.0); MONOCYTE # 1.2 TH/MM3 (0-0.9); NEUT % 86.1 % (16.0-70.0); PLATELET COUNT 329 TH/MM3 (150-450); RED CELL DISTRIBUTION WIDTH 14.4 % (11.6-17.2); WHITE BLOOD COUNT 17.5 TH/MM3 (4.0-11.0)
[2017-03-28 07:33] LABS: ALBUMIN 1.5 GM/DL (3.4-5.0); ALT (GPT) 48 U/L (10-53); AST (GOT) 109 U/L (15-37); BICARBONATE 26.2 MEQ/L (21.0-32.0); BLOOD UREA NITROGEN 40 MG/DL (7-18); CALCIUM 8.4 MG/DL (8.5-10.1); CHLORIDE 109 MEQ/L (98-107); CREATININE 0.93 MG/DL (0.50-1.00); GLOMERULAR FILTRATION RATE 63 ML/MIN (>89); GLUCOSE,RANDOM 94 MG/DL (74-106); MAGNESIUM 2.1 MG/DL (1.5-2.5); PHOSPHORUS 1.8 MG/DL (2.5-4.9); SODIUM (NA) 143 MEQ/L (136-145)
[2017-03-28 07:35] LABS: ALKALINE PHOSPHATASE 172 U/L (45-117); TOTAL BILIRUBIN ADULT 1.9 MG/DL (0.2-1.0); TOTAL PROTEIN 8.5 GM/DL (6.4-8.2)
[2017-03-28] MEDS: ARTIFICIAL TEARS OPTH SOLN 15 ML BTL EACH EYE SCH ×3 (09:00→18:25)
[2017-03-28] MEDS: VENLAFAXINE HCL XR 37.5 MG CAP PO SCH (09:00)
[2017-03-28] MEDS: ESCITALOPRAM OXALATE 20 MG TAB PO SCH (09:00)
[2017-03-28] MEDS: GABAPENTIN 300 MG CAP PO SCH ×3 (09:00→18:00)
[2017-03-28] MEDS: DOCUSATE SODIUM 50 MG/SENNA 8.6 MG TAB PO SCH ×2 (09:00→19:50)
[2017-03-28] MEDS: FERROUS SULFATE 325 MG (65 MG ELEMENTAL IRON) TAB PO SCH (09:00)
[2017-03-28] MEDS: ASPIRIN EC 81 MG TABEC PO SCH (09:00)
[2017-03-28] MEDS: HEPARIN SODIUM - SQ 10,000 UNITS/ML VIAL SQ SCH ×2 (11:48→19:49)
[2017-03-28] MEDS: SODIUM CHLORIDE 0.9% FLUSH 10 ML FLUSH IV FLUSH SCH ×2 (11:48→19:51)
--- NOTE | 2017-03-28 13:07 | HHI.IDPN ---
Subjective Subjective Remarks Again positive blood clx! Remains critical on BIPAP Obtunded fever up to 100 Antibiotics oxacillin Allergies: Coded Allergies: shellfish derived (Verified Allergy, Intermediate, 03/23/17) Objective . Vital Signs Date Time Temp Pulse Resp B/P (MAP) Pulse Ox O2 Delivery O2 Flow Rate FiO2 03/28/17 12:00 95 Bi-Pap 35 03/28/17 12:00 100.0 113 28 121/58 (79) 95 03/28/17 11:14 93 40 03/28/17 10:00 106 03/28/17 08:00 92 Bi-Pap 35 03/28/17 08:00 99.8 110 32 127/62 (83) 92 03/28/17 07:24 93 40 03/28/17 06:00 113 03/28/17 04:00 99.0 117 35 146/79 (101) 95 03/28/17 04:00 117 03/28/17 04:00 95 Bi-Pap 03/28/17 03:35 93 35 03/28/17 02:00 101 03/28/17 00:08 96 35 03/28/17 00:00 98.9 104 24 130/66 (87) 96 03/28/17 00:00 96 Bi-Pap 03/28/17 00:00 104 03/27/17 22:00 110 03/27/17 20:00 98 Bi-Pap 03/27/17 20:00 98.9 111 19 105/52 (69) 98 105/52 (69) 03/27/17 20:00 111 03/27/17 19:30 99 35 03/27/17 18:00 110 03/27/17 16:29 99.4 106 20 99 03/27/17 16:00 110 03/27/17 16:00 100 Bi-Pap 03/27/17 15:08 97 35 03/27/17 14:00 110 03/28/17 03/28/17 03/29/17 15:00 23:00 07:00 Intake Total 100 ml Balance 100 ml IV Total 100 ml . Laboratory Tests Test 03/27/17 03:58 03/28/17 05:10 White Blood Count 16.9 TH/MM3 17.5 TH/MM3 Red Blood Count 4.57 MIL/MM3 4.40 MIL/MM3 Hemoglobin 12.4 GM/DL 11.9 GM/DL Hematocrit 38.6 % 36.8 % Mean Corpuscular Volume 84.5 FL 83.6 FL Mean Corpuscular Hemoglobin 27.1 PG 26.9 PG Mean Corpuscular Hemoglobin Concent 32.1 % 32.2 % Red Cell Distribution Width 15.0 % 14.4 % Platelet Count 295 TH/MM3 329 TH/MM3 Mean Platelet Volume 10.1 FL 9.8 FL Neutrophils (%) (Auto) 86.0 % 86.1 % Lymphocytes (%) (Auto) 4.6 % 6.7 % Monocytes (%) (Auto) 9.2 % 7.1 % Eosinophils (%) (Auto) 0.1 % 0.0 % Basophils (%) (Auto) 0.1 % 0.1 % Neutrophils # (Auto) 14.6 TH/MM3 15.1 TH/MM3 Lymphocytes # (Auto) 0.8 TH/MM3 1.2 TH/MM3 Monocytes # (Auto) 1.6 TH/MM3 1.2 TH/MM3 Eosinophils # (Auto) 0.0 TH/MM3 0.0 TH/MM3 Basophils # (Auto) 0.0 TH/MM3 0.0 TH/MM3 CBC Comment DIFF FINAL DIFF FINAL Differential Comment Laboratory Tests Test 03/27/17 03:58 03/28/17 06:00 Blood Urea Nitrogen 43 MG/DL 40 MG/DL Creatinine 0.89 MG/DL 0.93 MG/DL Random Glucose 125 MG/DL 94 MG/DL Total Protein 8.8 GM/DL 8.5 GM/DL Albumin 1.4 GM/DL 1.5 GM/DL Calcium Level 8.4 MG/DL 8.4 MG/DL Alkaline Phosphatase 158 U/L 172 U/L Aspartate Amino Transf (AST/SGOT) 91 U/L 109 U/L Alanine Aminotransferase (ALT/SGPT) 51 U/L 48 U/L Total Bilirubin 1.4 MG/DL 1.9 MG/DL Sodium Level 139 MEQ/L 143 MEQ/L Potassium Level 4.1 MEQ/L 3.9 MEQ/L Chloride Level 106 MEQ/L 109 MEQ/L Carbon Dioxide Level 27.6 MEQ/L 26.2 MEQ/L Anion Gap 5 MEQ/L 8 MEQ/L Estimat Glomerular Filtration Rate 66 ML/MIN 63 ML/MIN Phosphorus Level 1.8 MG/DL Magnesium Level 2.1 MG/DL Microbiology Date/Time Source Procedure Growth Status 03/27/17 03:58 Blood Peripheral Aerobic Blood Culture - Preliminary Gram Positive Cocci Resulted 03/27/17 03:58 Blood Peripheral Anaerobic Blood Culture - Preliminary NO GROWTH IN 1 DAY Resulted 03/27/17 03:51 Blood Peripheral Aerobic Blood Culture - Preliminary Staphylococcus Aureus Resulted 03/27/17 03:51 Blood Peripheral Anaerobic Blood Culture - Preliminary NO GROWTH IN 1 DAY Resulted 03/25/17 16:15 Blood Peripheral Aerobic Blood Culture - Final Staphylococcus Aureus Resulted 03/25/17 16:15 Blood Peripheral Anaerobic Blood Culture - Preliminary NO GROWTH IN 3 DAYS Resulted 03/25/17 16:10 Blood Peripheral Aerobic Blood Culture - Final Staphylococcus Aureus Resulted 03/25/17 16:10 Blood Peripheral Anaerobic Blood Culture - Preliminary NO GROWTH IN 3 DAYS Resulted Imaging Last Impressions Chest X-Ray 03/27/17 0000 Signed Impressions: Service Date/Time: Monday, March 27, 2017 14:54 - CONCLUSION: Persistent cardiac silhouette enlargement with new bilateral diffuse pulmonary opacity primarily interstitial likely representing pulmonary edema. Ronnie Max MD Liver Ultrasound 03/24/17 0000 Signed Impressions: Service Date/Time: March 16:41 - CONCLUSION: 1. Limited examination due to body habitus and patient's inability to tolerate the procedure. Unfortunately, the gallbladder is not sufficiently visualized for further evaluation of abnormality noted on CT scan. If there is continued clinical concern regarding acute cholecystitis, consider HIDA scan to evaluate for cystic duct patency. 2. Diffusely heterogeneous and mildly enlarged liver consistent with hepatic steatosis versus medical liver disease. Shlomo Mesa MD Head CT [id number]/23/[id number] Signed Impressions: Service Date/Time: Thursday, March 23, 2017 20:45 - CONCLUSION: No acute findings in the brain. David Weiss MD Abdomen/Pelvis CT 03/23/[id number] Signed Impressions: Service Date/Time: Thursday, March 23, 2017 20:48 - CONCLUSION: 1. Multiple gallstones, some of which are noncalcified. 2. Spleen is not identified. 3. Mildly prominent left inguinal David Weiss MD Physical Exam CONSTITUTIONAL/GENERAL: This is an adequately nourished patient, in no apparent distress. TUBES/LINES/DRAINS: SKIN: + multiple SQ nodules, non healing chronic appearing wounds on L thigh, no purulence Ecchymoses on upper extremities. No wounds seen anteriorly. Skin temperature appropriate. Not diaphoretic. EYES: Pupils equal and round and reactive. Extraocular motions intact. No scleral icterus. No injection or drainage. Fundi not examined. NECK: supple ENT: Hearing grossly normal. Nose without bleeding or purulent drainage. Throat without visible erythema, exudates, masses, or lesions. CARDIOVASCULAR: Regular rate and rhythm + 2-3/6 harsh murmur, no gallops, or rubs. No JVD. Peripheral pulses symmetric. RESPIRATORY/CHEST: Symmetric, unlabored respirations. Clear to auscultation. Breath sounds equal bilaterally. No wheezes, rales, or rhonchi. GASTROINTESTINAL: Abdomen soft, non-tender, nondistended. No hepato-splenomegaly , or palpable masses. No guarding. Bowel sounds present. GENITOURINARY: Without palpable bladder distension. Florez catheter in place with clear yellow urine MUSCULOSKELETAL: Extremities without clubbing, cyanosis, or edema. No joint tenderness or effusion noted. No calf tenderness. No mottling or clubbing. NEUROLOGICAL: Lethargic to obtunded. Did not arousae for me. RN was able to wake her up and she was ansewering questions Motor and sensory grossly within normal limits. Followed commands for RN earlier today, not for me She is oriented x 3 , moves all 4 extremieties - per consumer attorney PSYCHIATRIC:unable to assess Assessment & Plan Remarks [place] valve endocarditis, clinically mitral valve - MYRIAM + MSSA bacteremia, high grade MSSA bacteremia, likely 2/2 bacteriuria NSTEMI Scrleroderma Immunosuppresed (splenectomised) Prgressively declining MS Citically ill, unstable cont oxacillin repeat BC if cont to have persistent bactermeia will need to start looking for metastattic infx foci (MRI spine, abd /pel CT) will get MRI brain CT LLE Wait untill BC document sterility, then RX x 6 weeks no PICC untill sterile blood clx x 3 days dw Meenakshi Taylor MD Mar 28, 2017 13:07
--- NOTE | 2017-03-28 14:54 | HHI.CCPN ---
Subjective Remarks/Hospital Course This is a 57-year-old female. Admission 03/23/2017.past medical history includes scleroderma, thyroid disease, status post splenectomy in the past and elevated BMI. Initial presentation occurred Tuesday with lethargy, sleeping, and fever. The patient also had one episode of vomiting with several episodes of diarrhea. The states she has been no recent international travel, hospitalizations, or history of chronic infections. She did have similar symptoms 2 years ago per the 's report with the patient had low oxygen levels and had altered mental status. The patient is seen by pain management as well as her primary physician who is located in [place], [place]. Dr. Estrada The states the patient's mental status seems to wax and wane over the last several days, she'll be awake and alert, and that she will fall asleep and be slightly lethargic and confused. She will lie in bed for several days at a time. The patient denies any chest pain or shortness of breath. She does complain of abdominal pain over the skin secondary to her scleroderma. She also has a history of an open lesion secondary to scleroderma of the lateral left thigh which has been present for several years per the 's report. Received patient was treated with Humira for scleroderma however not taking for the past 5 months. She is on morphine and Dilaudid for chronic pain management from her Dr. Dominguez [place] abdomen/ revealed gallstones without obstruction. Status post splenectomy. Morbid obesity. Chest x-ray revealed no signs of pneumonia. CT brain negative. Patient received 2 L normal saline added ED. She was noted to have a elevated troponin of 15. Denies chest pain. EKG shows nonspecific ST-T changes. CPK 2100. Creatinine 1.7. Leukocytosis 20,000 and elevated transaminases with low sodium and albumin. Her febrile is abated. She is currently awake and oriented to person place and time. 03/24 Patient is lying in bed in [facility]. Afebrile. Renal function is improving with Cr: 1.10 from 1.73. On Heparin drip for elevated trop. 03/25 No events overnight. Remains on Heparin drip. Renal function is now within normal. Afebrile. 03/26 s/p MYRIAM yesterday which shoed vegetation on mitral valve She was on BIPAP overnight now on 4L oxygen. Given Lasix 40mg x 1 yesterday with good response in UOP. Afebrile. off Heparin drip.. 03/27 No events overnight. On BIPAP 16/08 with 35% FIO2 overnight. Afebrile. 03/28: Remains on BiPAP with full facemask. Objective Vital Signs Date Time Temp Pulse Resp B/P (MAP) Pulse Ox O2 Delivery O2 Flow Rate FiO2 03/28/17 14:12 95 40 03/28/17 12:00 113 03/28/17 12:00 Bi-Pap 03/28/17 12:00 100.0 28 121/58 (79) 03/27/17 12:00 4.00 Intake and Output 03/28/17 03/28/17 03/29/17 08:00 16:00 00:00 Intake Total 400 ml Output Total 800 ml Balance -400 ml Result Diagram: 03/28/17 0510 03/28/17 0600 Imaging Last Impressions Liver Ultrasound 03/24/17 0000 Signed Impressions: Service Date/Time: March 16:41 - CONCLUSION: 1. Limited examination due to body habitus and patient's inability to tolerate the procedure. Unfortunately, the gallbladder is not sufficiently visualized for further evaluation of abnormality noted on CT scan. If there is continued clinical concern regarding acute cholecystitis, consider HIDA scan to evaluate for cystic duct patency. 2. Diffusely heterogeneous and mildly enlarged liver consistent with hepatic steatosis versus medical liver disease. Shlomo Mesa MD Head CT 03/23/171923 Signed Impressions: Service Date/Time: Thursday, March 23, 2017 20:45 - CONCLUSION: No acute findings in the brain. David Weiss MD Chest X-Ray 03/23/171923 Signed Impressions: Service Date/Time: Thursday, March 23, 2017 19:49 - CONCLUSION: Cardiomegaly. The lungs are clear. David Weiss MD Abdomen/Pelvis CT 03/23/171923 Signed Impressions: Service Date/Time: Thursday, March 23, 2017 20:48 - CONCLUSION: 1. Multiple gallstones, some of which are noncalcified. 2. Spleen is not identified. 3. Mildly prominent left inguinal David Weiss MD Objective Remarks GENERAL: 57-year-old female currently resting in bed on BiPAP with full facemask SKIN: Morphea. Several sclerotic hypopigmented areas upper and lower extremities. Tinea cruris. HEAD: Atraumatic. Normocephalic. EYES: Pupils equal and round about 3 mm bilaterally and reactive. No scleral icterus. No injection or drainage. ENT: No nasal bleeding or discharge. Mucous membranes pink and moist. NECK: Trachea midline. No JVD. CARDIOVASCULAR: Tachycardic RR. S1, S2. No S4. Without murmur RESPIRATORY: On BiPAP with full facemask, Diminished throughout. No wheezing rales or rhonchi. Breath sounds equal bilaterally. GASTROINTESTINAL: Abdomen soft, non-tender, nondistended. Hepatic and splenic margins not palpable. MUSCULOSKELETAL: Extremities with multiple open areas/calcifications bilateral lower extremities. Largest is in the left gluteal region about 6 x 8 cm. Stage II decubiti. See skin above. NEUROLOGICAL: Drowsy, easily arousable. No obvious cranial nerve deficits. Motor grossly within normal limits. Five out of 5 muscle strength in the arms and legs. Normal speech. A/P Assessment and Plan Neuro/Psych: Chronic pain syndrome/low back pain Chronic narcotic use Depression Chronic benzodiazepine use Morphine sulfate 60 mg every 8 hours scheduled extended release Hydromorphone 4 mg by mouth every 6 hours when necessary pain Tizanidine 4 mill grams 3 times a day has been held Escitalopram 20 mg daily has been continued Lorazepam 0.5 mg twice a day has been continued Venlafaxine 37.5 mill grams daily has been continued CV: Severe sepsis with multisystem organ failure Mitral valve endocarditis Elevated troponin Hypertension Lactic acidosis.. trending down Monitor HR and BP keep MAP>65mmHg Received aspirin 325 mg in ED, on 81 mg daily Lopressor 12.5 mg by mouth twice a day No lipid-lowering agents due to elevated transaminases Lactic acid cleared 1.2. Status post 2 L in ED. Monitor CK/trop, Cards is following-Dr. Newton Echo showed EF 60-65%. MYRIAM showed vegetation on MV, Resp: Acute respiratory failure requiring BiPAP Continue with oxygen keep sat> 92% Incentive spirometry while awake Bronchodilators. NIPPV PRN for resp distress. s/p short course steroids for wheezing ( 4 doses were given)., GI: Elevated transaminases/total bilirubin Hypoalbuminemia CT abdomen/pelvis revealed cholelithiasis. No other acute findings. Monitor LFTs ( trending disease), Hepatitis profile is negative US Liver: Limited examination due to body habitus and patient's inability to tolerate the procedure. Unfortunately, the gallbladder is not sufficiently visualized. Diffusely heterogeneous and mildly enlarged liver consistent with hepatic steatosis vs medical liver disease. Lipase level 122, NH4 level 19. : NATTY - Resolved Monitor renal function, I/O's, electrolytes replacement per protocol. Endo/Rheum: Hyperglycemia Hypothyroidism Scleroderma - localized versus systemic Rheumatoid arthritis? Sliding-scale insulin to maintain euglycemia TSH level: 4.5, continue levothyroxine 150 mg by mouth daily/home dose in the interim Heme: Leukocytosis Monitor CBC daily. Follow trends. Continue ferrous sulfate 325 mg by mouth daily ID: Severe sepsis Staph Aureus Bacteremia Mitral valve endocarditis UTI Continue abx per ID ( Oxacillin) monitor for signs of infections ( Fever, WBC) Will need 6 weeks abx once BC is sterile. BC 03/23, 03/24: Staph Aureus bacteremia. MYRIAM vegetation on MV Blood cultures 03/25: 2/4 bottles: GPC. BC 03/27: NGTD ID is following MSK: Lower extremity ulcerations BMI 55 Wound care evaluate and treat Weight loss encouraged PT evaluate and treat Access - Utilize peripheral IV. Prophylaxis - GI - famotidine - DVT - SCD/heparin SQ Discussed with ID Dr. Villegas on 03/28. Level 3 Usman Vazquez MD Mar 28, 2017 14:54
[2017-03-28] MEDS: METOPROLOL TARTRATE 25 MG TAB PO SCH ×2 (18:44→19:50)
--- NOTE | 2017-03-28 19:34 | PD.CARD.PN ---
Subjective Subjective Remarks Somnolent most of the time, no CP or SOB Objective Medications Current Medications Medications (Trade) Dose Ordered Sig/Bj Route Start Time Stop Time Status Last Admin (Tylenol) 650 mg Q6H PRN PO 03/23/17 22:30 (Draper 5-325 Mg) 1 tab Q4H PRN PO 03/23/17 22:30 (Tears Naturale Opth Soln) 1 drop TID EACH EYE 03/24/17 09:00 03/28/17 18:25 (Zofran Inj) 4 mg Q6H PRN IV PUSH 03/23/17 22:30 (Albuterol Neb) 2.5 mg Q2HR NEB PRN INH 03/23/17 22:30 Miscellaneous Information 1 Q361D XX 03/23/17 22:30 (Chlorhexidine 2% Cloth) 3 pack Taper DAILY@04 TOP 03/24/17 04:00 03/20/18 03:59 03/28/17 02:16 (Chlorhexidine 2% Cloth) 3 pack UNSCH PRN TOP 03/23/17 22:30 (Mely-Colace) 1 tab BID PO 03/24/17 09:00 03/27/17 20:59 (Milk Of Magnesia Liq) 30 ml Q12H PRN PO 03/23/17 22:30 (Senokot) 17.2 mg Q12H PRN PO 03/23/17 22:30 (Dulcolax Supp) 10 mg DAILY PRN RECTAL 03/23/17 22:30 (Lactulose Liq) 30 ml DAILY PRN PO 03/23/17 22:30 (NS Flush) 2 ml UNSCH PRN IV FLUSH 03/23/17 22:45 (NS Flush) 2 ml BID IV FLUSH 03/24/17 09:00 03/28/17 11:48 (Pepcid) 20 mg DAILY@0600 PO 03/24/17 06:00 03/28/17 06:10 (Ecotrin Ec) 81 mg DAILY PO 03/24/17 09:00 03/27/17 09:36 (Lopressor) 12.5 mg Q12HR PO 03/24/17 09:00 03/27/17 20:59 (Lexapro) 20 mg DAILY PO 03/24/17 09:00 03/27/17 09:35 (Ferrous Sulfate) 325 mg DAILY PO 03/24/17 09:00 03/27/17 09:35 (Neurontin) 600 mg TID PO 03/24/17 09:00 03/27/17 09:35 (Dilaudid) 4 mg Q6H PRN PO 03/24/17 00:45 03/24/17 10:30 (Synthroid) 150 mcg DAILY@0700 PO 03/24/17 07:00 03/28/17 06:10 (Ativan) 0.5 mg BID PRN PO 03/24/17 00:45 03/27/17 20:59 (Oramorph Sr) 60 mg Q8HR PO 03/24/17 06:00 03/28/17 06:10 (Effexor Xr) 37.5 mg DAILY PO 03/24/17 09:00 03/27/17 09:35 Oxacillin Sodium 2 gm/Sodium Chloride 100 ml @ 200 mls/hr Q4H IV 03/24/17 18:00 03/28/17 18:24 Potassium Chloride 100 ml @ 50 mls/hr Q2H PRN IV 03/25/17 09:00 Potassium Chloride 100 ml @ 50 mls/hr Q2H PRN IV 03/25/17 09:00 (K-Lyte Cl Eff) 50 meq UNSCH PRN PO 03/25/17 09:00 Potassium Chloride 100 ml @ 25 mls/hr UNSCH PRN IV 03/25/17 09:00 Potassium Chloride 100 ml @ 50 mls/hr Q2H PRN IV 03/25/17 09:00 03/25/17 20:27 Magnesium Sulfate 4 gm/Sodium Chloride 100 ml @ 50 mls/hr UNSCH PRN IV 03/25/17 09:00 (Mag-Ox) 800 mg UNSCH PRN PO 03/25/17 09:00 Magnesium Sulfate 2 gm/Sodium Chloride 100 ml @ 50 mls/hr UNSCH PRN IV 03/25/17 09:00 (K-Phos) 2,000 mg Q4H PRN PO 03/25/17 09:00 Sodium Phosphate 30 mmol/Sodium Chloride 250 ml @ 42 mls/hr UNSCH PRN IV 03/25/17 09:00 03/28/17 11:50 (K-Phos) 2,000 mg UNSCH PRN PO/TUBE 03/25/17 09:00 Potassium Phosphate 30 mmol/ Sodium Chloride 260 ml @ 42 mls/hr UNSCH PRN IV 03/25/17 09:00 (Duoneb Neb) 1 ampule Q4HR NEB INH 03/25/17 16:00 03/28/17 15:28 (Heparin Inj) 5,000 units Q12HR SQ 03/26/17 09:00 03/28/17 11:48 Vital Signs / I&O Vital Signs Date Time Temp Pulse Resp B/P (MAP) Pulse Ox O2 Delivery O2 Flow Rate FiO2 03/28/17 18:00 114 03/28/17 17:46 92 40 03/28/17 16:00 112 03/28/17 16:00 100.2 112 32 121/61 (81) 92 03/28/17 14:12 95 40 03/28/17 14:00 114 03/28/17 12:00 113 03/28/17 12:00 95 Bi-Pap 35 03/28/17 12:00 100.0 113 28 121/58 (79) 95 03/28/17 11:14 93 40 03/28/17 10:00 106 03/28/17 08:00 92 Bi-Pap 35 03/28/17 08:00 99.8 110 32 127/62 (83) 92 03/28/17 07:24 93 40 03/28/17 06:00 113 03/28/17 04:00 99.0 117 35 146/79 (101) 95 03/28/17 04:00 117 03/28/17 04:00 95 Bi-Pap 03/28/17 03:35 93 35 03/28/17 02:00 101 03/28/17 00:08 96 35 03/28/17 00:00 98.9 104 24 130/66 (87) 96 03/28/17 00:00 96 Bi-Pap 03/28/17 00:00 104 03/27/17 22:00 110 03/27/17 20:00 98 Bi-Pap 03/27/17 20:00 98.9 111 19 105/52 (69) 98 105/52 (69) 03/27/17 20:00 111 I/O 03/27/17 03/27/17 03/27/17 03/28/17 03/28/1703/28/17 07:00 15:00 23:00 07:00 15:00 23:00 Intake Total 450 ml 520 ml 300 ml 100 ml Output Total 700 ml 1001 ml 800 ml 1350 ml Balance -250 ml -481 ml -500 ml 100 ml -1350 ml Intake Oral 150 ml 120 ml 100 ml IV Total 300 ml 400 ml 200 ml 100 ml Output Urine Total 700 ml 1000 ml 800 ml 1350 ml Stool Total 1 ml # Bowel Movements 0 0 Physical Exam GENERAL: In NAD, somnolent SKIN: Warm and dry. HEAD: Normocephalic. EYES: No scleral icterus. No injection or drainage. NECK: Supple, trachea midline. No JVD or lymphadenopathy. CARDIOVASCULAR: Regular rate and rhythm without murmurs, gallops, or rubs. RESPIRATORY: Breath sounds equal bilaterally, distant. No accessory muscle use. GASTROINTESTINAL: Abdomen soft, non-tender, nondistended, obese MUSCULOSKELETAL: No cyanosis, bilat LE edema. Laboratory Laboratory Tests Test 03/28/17 05:10 03/28/17 06:00 White Blood Count 17.5 TH/MM3 Red Blood Count 4.40 MIL/MM3 Hemoglobin 11.9 GM/DL Hematocrit 36.8 % Mean Corpuscular Volume 83.6 FL Mean Corpuscular Hemoglobin 26.9 PG Mean Corpuscular Hemoglobin Concent 32.2 % Red Cell Distribution Width 14.4 % Platelet Count 329 TH/MM3 Mean Platelet Volume 9.8 FL Neutrophils (%) (Auto) 86.1 % Lymphocytes (%) (Auto) 6.7 % Monocytes (%) (Auto) 7.1 % Eosinophils (%) (Auto) 0.0 % Basophils (%) (Auto) 0.1 % Neutrophils # (Auto) 15.1 TH/MM3 Lymphocytes # (Auto) 1.2 TH/MM3 Monocytes # (Auto) 1.2 TH/MM3 Eosinophils # (Auto) 0.0 TH/MM3 Basophils # (Auto) 0.0 TH/MM3 CBC Comment DIFF FINAL Differential Comment Activated Partial Thromboplast Time 33.4 SEC Blood Urea Nitrogen 40 MG/DL Creatinine 0.93 MG/DL Random Glucose 94 MG/DL Total Protein 8.5 GM/DL Albumin 1.5 GM/DL Calcium Level 8.4 MG/DL Phosphorus Level 1.8 MG/DL Magnesium Level 2.1 MG/DL Alkaline Phosphatase 172 U/L Aspartate Amino Transf (AST/SGOT) 109 U/L Alanine Aminotransferase (ALT/SGPT) 48 U/L Total Bilirubin 1.9 MG/DL Sodium Level 143 MEQ/L Potassium Level 3.9 MEQ/L Chloride Level 109 MEQ/L Carbon Dioxide Level 26.2 MEQ/L Anion Gap 8 MEQ/L Estimat Glomerular Filtration Rate 63 ML/MIN Assessment and Plan Problem List: (1) Respiratory insufficiency ICD Codes: R06.89 - Other abnormalities of breathing (2) Sepsis ICD Codes: A41.9 - Sepsis, unspecified organism Status: Acute (3) Elevated troponin ICD Codes: R74.8 - Abnormal levels of other serum enzymes Status: Acute (4) Scleroderma ICD Codes: M34.9 - Systemic sclerosis, unspecified (5) Transaminitis ICD Codes: R74.0 - Nonspecific elevation of levels of transaminase and lactic acid dehydrogenase [LDH] (6) Acute kidney injury ICD Codes: N17.9 - Acute kidney failure, unspecified (7) Depression ICD Codes: F32.9 - Major depressive disorder, single episode, unspecified (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 No angina or CHF symptoms. Continue ICU monitoring. Troponin elevated, but CK MB index nl.. Continue beta kathy and ASA. MYRIAM showed MV vegetation. ID evaluation and management for suspected endocarditis. Remains very somnolent. Problem Qualifiers (1) Sepsis: Qualified Codes: A41.9 - Sepsis, unspecified organism (2) Depression: Qualified Codes: F32.9 - Major depressive disorder, single episode, unspecified Kylie Newton MD Mar 28, 2017 19:34
[2017-03-28] MEDS: ACETAMINOPHEN 1000 MG/100 ML 100 ML IV PRN (20:00)
[2017-03-29] VITALS (22 sets, daily range): BP systolic 102–131; BP diastolic 56–60; PULSE 90–118; RESP 19–32; TEMP 100–102.3; O2SAT 92–100
[2017-03-29] MEDS: OXACILLIN INJ 2 GM in SODIUM CHLORIDE 0.9% INJ 100 ML IV SCH ×6 (02:35→19:44)
[2017-03-29] MEDS: ACETAMINOPHEN 1000 MG/100 ML 100 ML IV PRN ×2 (02:35→14:49)
[2017-03-29] MEDS: RESP: ALBUTEROL 2.5 MG/IPRATROPIUM 0.5 MG NEB (SCH) INH ×3 (03:23→11:32)
[2017-03-29] MEDS: CHLORHEXIDINE GLUCONATE 2 % 1 PACK (2 CLOTHS) TOP SCH (04:00)
[2017-03-29] MEDS: MORPHINE SULFATE 60 MG CONTROLLED RELEASE TAB PO SCH (06:00)
[2017-03-29] MEDS: FAMOTIDINE 20 MG TAB PO SCH (06:00)
[2017-03-29] MEDS: LEVOTHYROXINE SODIUM 75 MCG TAB PO SCH (06:06)
[2017-03-29 06:13] LABS: HEMATOCRIT 33.1 % (35.0-46.0); MEAN CELL VOLUME 83.3 FL (80.0-100.0); MEAN CORPUSCULAR HEMOGLOBIN 27.6 PG (27.0-34.0); MEAN CORPUSCULAR HGB CONC 33.1 % (32.0-36.0); PLATELET COUNT 339 TH/MM3 (150-450); RED BLOOD COUNT 3.97 MIL/MM3 (4.00-5.30); RED CELL DISTRIBUTION WIDTH 14.2 % (11.6-17.2); WHITE BLOOD COUNT 19.2 TH/MM3 (4.0-11.0)
--- NOTE | 2017-03-29 07:57 | CF ---
cc: KYLIE NEWTON PROCEDURE PERFORMED: Transesophageal echocardiogram. DATE 03/25/2017 INDICATION: Sepsis, MSSA bacteremia, high-grade. Patient is immunosuppressed. PROCEDURE PERFORMED Transesophageal echocardiogram. After the patient was sedated by Anesthesia, transesophageal probe was placed without difficulty. Tomographic images were obtained. Left atrial appendage was visualized and there was no evidence of left atrial thrombus. Left ventricular function was well-preserved. Estimated ejection fraction of 60-65% with no segmental wall motion abnormalities. The mitral valve was mildly thickened. There was evidence of mobile vegetation attached to the anterior leaflet of the mitral valve measuring 0.5 x 0.7 cm. There was evidence of moderate mitral regurgitation with a posterior direction of the jet. There was no evidence of mitral stenosis. The aortic valve was thickened and calcified. There was evidence of moderate aortic insufficiency. There was no evidence of aortic stenosis. The tricuspid valve was structurally normal; there was evidence of mild tricuspid regurgitation. There was no evidence of pulmonary insufficiency. DIAGNOSES: 1. Mitral valve vegetation. 2. Well preserved left ventricular systolic function with no segmental wall motion abnormalities. 3. Mitral sclerosis. 4. Moderate mitral regurgitation. 5. Aortic sclerosis without stenosis. 6. Moderate aortic insufficiency. 7. Mild tricuspid regurgitation. IMPRESSION Mitral valve endocarditis. Kylie Newton MD OMario/SSB /1:31 PM /7:28 AM [email or web address]
[2017-03-29] MEDS ORDERED: fentaNYL CITRATE 250 MCG/5 ML AMP IV ONE (09:00)
[2017-03-29] MEDS ORDERED: ETOMIDATE 20 MG/10 ML VIAL IVP ONE (09:00)
[2017-03-29] MEDS: SODIUM CHLORIDE 0.9% FLUSH 10 ML FLUSH IV FLUSH SCH ×2 (09:00→19:41)
[2017-03-29] MEDS ORDERED: SUCCINYLCHOLINE CHLORIDE 200 MG/10 ML VIAL IV ONE (09:00)
[2017-03-29] MEDS ORDERED: NOREPINEPHRINE-DEXTROSE DRIP 250 ML IV ONE (09:08)
[2017-03-29] MEDS: PROPOFOL 1000 MG/100 ML INJ 100 ML IV PRN ×5 (09:45→20:57)
[2017-03-29] MEDS: fentaNYL DRIP 250 ML IV PRN (09:45)
[2017-03-29] MEDS: HEPARIN SODIUM - SQ 10,000 UNITS/ML VIAL SQ SCH ×2 (10:03→19:40)
--- NOTE | 2017-03-29 10:56 | RADRPT ---
EXAM DATE/TIME: 03/29/2017 09:57 [facility] COMPARISON: CHEST SINGLE AP, March 27, 2017, 14:54. INDICATIONS : Post intubation MEDICAL HISTORY : Hypothyroidism. Chronic obstructive pulmonary disease. SURGICAL HISTORY : Splenectomy. ENCOUNTER: Subsequent ACUITY: 3 days PAIN SCORE: Non-responsive. LOCATION: Bilateral chest FINDINGS: A single view of the chest demonstrates extensive bilateral airspace disease. Endotracheal and nasogastric tubes have been inserted and appears to be in appropriate position. Heart is mildly enlarged. CONCLUSION: Satisfactory position of endotracheal and nasogastric tubes. Extensive bilateral airspace disease. Kurt Hairston MD on March 29, 2017 at 10:54 Board Certified Radiologist. This report was verified electronically.
[2017-03-29] MEDS: GABAPENTIN 300 MG CAP PO SCH ×3 (12:30→17:35)
[2017-03-29] MEDS ORDERED: ACETAMINOPHEN 500 MG CPLT PO PRN (12:30)
--- NOTE | 2017-03-29 12:31 | HHI.IDPN ---
Subjective Subjective Remarks ID COVERAGE 57 yo F with h/o scleroderma, used to be on Humira, but off x 5 mos Admitted for fever and altered mental status. Has had multiple (+) BC with MSSA TTE negative, but MYRIAM with vegetation in MV, and also with AI Was on BIPAP for respiratory issues, but required intubation today Febrile in last 24 hours BP ok, not on pressors Sedated BC (+) 03/23-03/27 BC 03/28 negative so far Antibiotics oxacillin Lines PIV Past Medical History Scleroderma unknown if localized versus systemic Thyroid disease unknown type Chronic pain syndrome Elevated BMI Past Surgical History Status post splenectomy Allergies: Coded Allergies: shellfish derived (Verified Allergy, Intermediate, 03/23/17) Objective . Vital Signs Date Time Temp Pulse Resp B/P (MAP) Pulse Ox O2 Delivery O2 Flow Rate FiO2 03/29/17 11:32 96 60 03/29/17 09:26 94 90 03/29/17 09:15 70 03/29/17 08:00 106 03/29/17 08:00 92 Bi-Pap 40 03/29/17 08:00 100.0 106 30 129/59 (82) 95 03/29/17 07:49 92 40 03/29/17 06:00 108 03/29/17 04:00 109 03/29/17 04:00 95 Bi-Pap 35 03/29/17 04:00 100.4 110 32 131/60 (83) 92 03/29/17 03:25 95 40 03/29/17 02:00 112 03/29/17 00:00 93 Bi-Pap 35 03/29/17 00:00 112 03/29/17 00:00 100.8 111 32 93 03/28/17 23:25 94 40 03/28/17 22:00 127 03/28/17 20:00 93 Bi-Pap 35 03/28/17 20:00 102.2 112 33 124/65 (84) 93 03/28/17 20:00 110 03/28/17 19:32 93 40 03/28/17 18:00 114 03/28/17 17:46 92 40 03/28/17 16:00 112 03/28/17 16:00 100.2 112 32 121/61 (81) 92 03/28/17 14:12 95 40 03/28/17 14:00 114 . Laboratory Tests Test 03/28/17 05:10 03/29/17 04:48 White Blood Count 17.5 TH/MM3 19.2 TH/MM3 Red Blood Count 4.40 MIL/MM3 3.97 MIL/MM3 Hemoglobin 11.9 GM/DL 11.0 GM/DL Hematocrit 36.8 % 33.1 % Mean Corpuscular Volume 83.6 FL 83.3 FL Mean Corpuscular Hemoglobin 26.9 PG 27.6 PG Mean Corpuscular Hemoglobin Concent 32.2 % 33.1 % Red Cell Distribution Width 14.4 % 14.2 % Platelet Count 329 TH/MM3 339 TH/MM3 Mean Platelet Volume 9.8 FL 10.0 FL Neutrophils (%) (Auto) 86.1 % Lymphocytes (%) (Auto) 6.7 % Monocytes (%) (Auto) 7.1 % Eosinophils (%) (Auto) 0.0 % Basophils (%) (Auto) 0.1 % Neutrophils # (Auto) 15.1 TH/MM3 Lymphocytes # (Auto) 1.2 TH/MM3 Monocytes # (Auto) 1.2 TH/MM3 Eosinophils # (Auto) 0.0 TH/MM3 Basophils # (Auto) 0.0 TH/MM3 CBC Comment DIFF FINAL Differential Comment Laboratory Tests Test 03/28/17 06:00 Blood Urea Nitrogen 40 MG/DL Creatinine 0.93 MG/DL Random Glucose 94 MG/DL Total Protein 8.5 GM/DL Albumin 1.5 GM/DL Calcium Level 8.4 MG/DL Phosphorus Level 1.8 MG/DL Magnesium Level 2.1 MG/DL Alkaline Phosphatase 172 U/L Aspartate Amino Transf (AST/SGOT) 109 U/L Alanine Aminotransferase (ALT/SGPT) 48 U/L Total Bilirubin 1.9 MG/DL Sodium Level 143 MEQ/L Potassium Level 3.9 MEQ/L Chloride Level 109 MEQ/L Carbon Dioxide Level 26.2 MEQ/L Anion Gap 8 MEQ/L Estimat Glomerular Filtration Rate 63 ML/MIN Microbiology Date/Time Source Procedure Growth Status 03/28/17 15:20 Blood Peripheral Aerobic Blood Culture - Preliminary NO GROWTH IN 1 DAY Resulted 03/28/17 15:20 Blood Peripheral Anaerobic Blood Culture - Preliminary NO GROWTH IN 1 DAY Resulted 03/28/17 15:15 Blood Peripheral Aerobic Blood Culture - Preliminary NO GROWTH IN 1 DAY Resulted 03/28/17 15:15 Blood Peripheral Anaerobic Blood Culture - Preliminary NO GROWTH IN 1 DAY Resulted 03/27/17 03:58 Blood Peripheral Aerobic Blood Culture - Preliminary Staphylococcus Aureus Resulted 03/27/17 03:58 Blood Peripheral Anaerobic Blood Culture - Preliminary NO GROWTH IN 2 DAYS Resulted 03/27/17 03:51 Blood Peripheral Aerobic Blood Culture - Preliminary Staphylococcus Aureus Resulted 03/27/17 03:51 Blood Peripheral Anaerobic Blood Culture - Preliminary NO GROWTH IN 2 DAYS Resulted Imaging Chest X-Ray 03/29/17 0000 Signed Impressions: Service Date/Time: Wednesday, March 29, 2017 09:57 - CONCLUSION: Satisfactory position of endotracheal and nasogastric tubes. Extensive bilateral airspace disease. Kurt Hairston MD Chest X-Ray 03/27/17 0000 Signed Impressions: Service Date/Time: Monday, March 27, 2017 14:54 - CONCLUSION: Persistent cardiac silhouette enlargement with new bilateral diffuse pulmonary opacity primarily interstitial likely representing pulmonary edema. Ronnie Max MD Chest X-Ray 03/27/17 0000 Signed Impressions: Service Date/Time: Monday, March 27, 2017 14:54 - CONCLUSION: Persistent cardiac silhouette enlargement with new bilateral diffuse pulmonary opacity primarily interstitial likely representing pulmonary edema. Ronnie Max MD Liver Ultrasound 03/24/17 0000 Signed Impressions: Service Date/Time: March 16:41 - CONCLUSION: 1. Limited examination due to body habitus and patient's inability to tolerate the procedure. Unfortunately, the gallbladder is not sufficiently visualized for further evaluation of abnormality noted on CT scan. If there is continued clinical concern regarding acute cholecystitis, consider HIDA scan to evaluate for cystic duct patency. 2. Diffusely heterogeneous and mildly enlarged liver consistent with hepatic steatosis versus medical liver disease. Shlomo Mesa MD Head CT 03/23/171923 Signed Impressions: Service Date/Time: Thursday, March 23, 2017 20:45 - CONCLUSION: No acute findings in the brain. David Weiss MD Abdomen/Pelvis CT 03/23/171923 Signed Impressions: Service Date/Time: Thursday, March 23, 2017 20:48 - CONCLUSION: 1. Multiple gallstones, some of which are noncalcified. 2. Spleen is not identified. 3. Mildly prominent left inguinal David Weiss MD Physical Exam GENERAL: Sedated on the vent, NAD SKIN: multiple SQ nodules, non healing chronic appearing wounds on L thigh, no purulence. Has dry scabs on both LE, not infected. warm, dry EYES: Pupils equal and round and reactive. Extraocular motions intact. No scleral icterus. No injection or drainage. NECK: supple ENT: Nose without bleeding or purulent drainage. Orally intubated CARDIOVASCULAR: Regular rate and rhythm. + 2-3/6 harsh murmur L precordium RESPIRATORY/CHEST: Symmetric, unlabored respirations. Clear to auscultation. Breath sounds equal bilaterally. No wheezes, rales, or rhonchi. GASTROINTESTINAL: Abdomen soft, no reaction to palpation. No hepato- splenomegaly, or palpable masses. Bowel sounds present. GENITOURINARY: Without palpable bladder distension. Florez catheter in place with clear yellow urine MUSCULOSKELETAL: Extremities without clubbing, cyanosis, or edema. No mottling or clubbing. NEUROLOGICAL: Sedated PSYCHIATRIC: unable to assess : Florez in place LINE: NO evidence of infection Assessment & Plan Remarks [place] valve endocarditis, MV - MYRIAM + - also withbn AI MSSA bacteremia, high grade NSTEMI Scleroderma Immunosuppressed S/P splenectomy Respiratory failuire New fevers PLAN: Repeat BC Sputum C/S UA and C/S Continue oxacillin for MSSA Add Cefepime - empiric GNR since she is febrile Add empiric Diflucan If cont to have persistent bacteremia will need to start looking for metastatic foci (MRI spine, abd /pel CT) Follow new C/S Monitor temps Monitor progress D/W Haven Thomas MD Mar 29, 2017 12:31
[2017-03-29] MEDS: ARTIFICIAL TEARS OPTH SOLN 15 ML BTL EACH EYE SCH ×2 (14:00→18:00)
[2017-03-29] MEDS: VENLAFAXINE HCL XR 37.5 MG CAP PO SCH (14:00)
[2017-03-29] MEDS: METOPROLOL TARTRATE 25 MG TAB PO SCH ×2 (14:00→19:40)
[2017-03-29] MEDS: DOCUSATE SODIUM 50 MG/SENNA 8.6 MG TAB PO SCH ×2 (14:00→19:41)
[2017-03-29] MEDS: ASPIRIN EC 81 MG TABEC PO SCH (14:00)
[2017-03-29] MEDS: ESCITALOPRAM OXALATE 20 MG TAB PO SCH (14:00)
[2017-03-29] MEDS: FERROUS SULFATE 325 MG (65 MG ELEMENTAL IRON) TAB PO SCH (14:00)
[2017-03-29] MEDS ORDERED: GADODIAMIDE PF 287 MG/ML 10 ML VIAL (for RAD MRI) IVCONTRAST ONE (14:04)
--- NOTE | 2017-03-29 14:42 | HHI.CCPN ---
Subjective Remarks/Hospital Course This is a 57-year-old female. Admission 03/23/2017.past medical history includes scleroderma, thyroid disease, status post splenectomy in the past and elevated BMI. Initial presentation occurred Tuesday with lethargy, sleeping, and fever. The patient also had one episode of vomiting with several episodes of diarrhea. The states she has been no recent international travel, hospitalizations, or history of chronic infections. She did have similar symptoms 2 years ago per the 's report with the patient had low oxygen levels and had altered mental status. The patient is seen by pain management as well as her primary physician who is located in [place], [place]. Dr. Estrada The states the patient's mental status seems to wax and wane over the last several days, she'll be awake and alert, and that she will fall asleep and be slightly lethargic and confused. She will lie in bed for several days at a time. The patient denies any chest pain or shortness of breath. She does complain of abdominal pain over the skin secondary to her scleroderma. She also has a history of an open lesion secondary to scleroderma of the lateral left thigh which has been present for several years per the 's report. Received patient was treated with Humira for scleroderma however not taking for the past 5 months. She is on morphine and Dilaudid for chronic pain management from her Dr. Dominguez in [place] CT abdomen/ revealed gallstones without obstruction. Status post splenectomy. Morbid obesity. Chest x-ray revealed no signs of pneumonia. CT brain negative. Patient received 2 L normal saline added ED. She was noted to have a elevated troponin of 15. Denies chest pain. EKG shows nonspecific ST-T changes. CPK 2100. Creatinine 1.7. Leukocytosis 20,000 and elevated transaminases with low sodium and albumin. Her febrile is abated. She is currently awake and oriented to person place and time. 03/24 Patient is lying in bed in [facility]. Afebrile. Renal function is improving with Cr: 1.10 from 1.73. On Heparin drip for elevated trop. 03/25 No events overnight. Remains on Heparin drip. Renal function is now within normal. Afebrile. 03/26 s/p MYRIAM yesterday which shoed vegetation on mitral valve She was on BIPAP overnight now on 4L oxygen. Given Lasix 40mg x 1 yesterday with good response in UOP. Afebrile. off Heparin drip.. 03/27 No events overnight. On BIPAP 16/08 with 35% FIO2 overnight. Afebrile. 03/28: Remains on BiPAP with full facemask. 03/29: Patient was intubated and placed on mechanical ventilation as she was requiring BiPAP and continued to have increased work of breathing and needed to get imaging studies for further evaluation. Objective Vital Signs Date Time Temp Pulse Resp B/P (MAP) Pulse Ox O2 Delivery O2 Flow Rate FiO2 03/29/17 12:00 109 03/29/17 11:32 96 60 03/29/17 08:00 Bi-Pap 03/29/17 08:00 100.0 30 129/59 (82) 03/27/17 12:00 4.00 Intake and Output 03/29/17 03/29/17 03/30/17 08:00 16:00 00:00 Output Total 1000 ml Balance -1000 ml Result Diagram: 03/29/17 0448 03/28/17 0600 Other Results Laboratory Tests Test 03/29/17 10:34 Blood Gas Puncture Site RT RADIAL Blood Gas Patient Temperature 98.6 Blood Gas HCO3 28 mmol/L (22-26) Blood Gas Base Excess 3.6 mmol/L (-2-2) Blood Gas Oxygen Saturation 95 % (90-100) Arterial Blood pH 7.44 (7.380-7.420) Arterial Blood Partial Pressure CO2 41 mmHg (38-42) Arterial Blood Partial Pressure O2 87 mmHg (61-120) Arterial Blood Oxygen Content 15.0 Vol % (12.0-20.0) Arterial Blood Carboxyhemoglobin 1.0 % (0-4) Arterial Blood Methemoglobin 0.4 % (0-2) Blood Gas Hemoglobin 11.2 G/DL (12.0-16.0) Oxygen Delivery Device VENTILATOR Blood Gas Ventilator Setting PRVC/AC Blood Gas Inspired Oxygen 70 % Imaging Last Impressions Liver Ultrasound 03/24/17 0000 Signed Impressions: Service Date/Time: March 16:41 - CONCLUSION: 1. Limited examination due to body habitus and patient's inability to tolerate the procedure. Unfortunately, the gallbladder is not sufficiently visualized for further evaluation of abnormality noted on CT scan. If there is continued clinical concern regarding acute cholecystitis, consider HIDA scan to evaluate for cystic duct patency. 2. Diffusely heterogeneous and mildly enlarged liver consistent with hepatic steatosis versus medical liver disease. Shlomo Mesa MD Head CT 03/23/171923 Signed Impressions: Service Date/Time: Thursday, March 23, 2017 20:45 - CONCLUSION: No acute findings in the brain. David Weiss MD Chest X-Ray 03/23/171923 Signed Impressions: Service Date/Time: Thursday, March 23, 2017 19:49 - CONCLUSION: Cardiomegaly. The lungs are clear. David Weiss MD Abdomen/Pelvis CT 03/23/171923 Signed Impressions: Service Date/Time: Thursday, March 23, 2017 20:48 - CONCLUSION: 1. Multiple gallstones, some of which are noncalcified. 2. Spleen is not identified. 3. Mildly prominent left inguinal David Weiss MD Objective Remarks GENERAL: 57-year-old female laying in bed, orally intubated on mechanical ventilation SKIN: Morphea. Several sclerotic hypopigmented areas upper and lower extremities. Tinea cruris. HEAD: Atraumatic. Normocephalic. EYES: Pupils equal and round about 3 mm bilaterally and reactive. No scleral icterus. No injection or drainage. ENT: No nasal bleeding or discharge. Mucous membranes pink and moist. Orally intubated NECK: Trachea midline. No JVD. CARDIOVASCULAR: Tachycardic RR. S1, S2. No S4. Without murmur RESPIRATORY: Orally intubated on mechanical ventilation, Breath sounds equal bilaterally. Scattered rhonchi bilaterally, no wheezing GASTROINTESTINAL: Abdomen soft, non-tender, nondistended. Hepatic and splenic margins not palpable. MUSCULOSKELETAL: Extremities with multiple open areas/calcifications bilateral lower extremities. Largest is in the left gluteal region about 6 x 8 cm. Stage II decubiti. See skin above. NEUROLOGICAL: Sedated, orally intubated on mechanical ventilation, moves all 4 extremities. A/P Assessment and Plan Neuro/Psych: Chronic pain syndrome/low back pain Chronic narcotic use Depression Chronic benzodiazepine use Propofol/fentanyl for sedation/analgesia while intubated with daily sedation vacation Morphine sulfate 60 mg every 8 hours scheduled extended release changed to Morphine 20mg liguid via OGT Q4hrly on 03/29 Hydromorphone 4 mg by mouth every 6 hours when necessary pain Tizanidine 4 mill grams 3 times a day has been held Escitalopram 20 mg daily has been continued Lorazepam 0.5 mg twice a day has been continued Venlafaxine 37.5 mill grams daily has been continued CV: Severe sepsis with multisystem organ failure Mitral valve endocarditis Elevated troponin Hypertension Lactic acidosis.. trending down Monitor HR and BP keep MAP>65mmHg Received aspirin 325 mg in ED, on 81 mg daily Lopressor 12.5 mg by mouth twice a day No lipid-lowering agents due to elevated transaminases Lactic acid cleared 1.2. Status post 2 L in ED. Monitor CK/trop, Cards is following-Dr. Newton Echo showed EF 60-65%. MYRIAM showed vegetation on MV, Resp: Acute respiratory failure on mechanical ventilation Bronchodilators. Intubated and placed on mechanical ventilation on 03/29 s/p short course steroids for wheezing ( 4 doses were given)., Vent bundle, daily C Pap trials GI: Elevated transaminases/total bilirubin Hypoalbuminemia CT abdomen/pelvis revealed cholelithiasis. No other acute findings. Monitor LFTs ( trending disease), Hepatitis profile is negative US Liver: Limited examination due to body habitus and patient's inability to tolerate the procedure. Unfortunately, the gallbladder is not sufficiently visualized. Diffusely heterogeneous and mildly enlarged liver consistent with hepatic steatosis vs medical liver disease. Lipase level 122, NH4 level 19. : NATTY - Resolved Monitor renal function, I/O's, electrolytes replacement per protocol. Endo/Rheum: Hyperglycemia Hypothyroidism Scleroderma - localized versus systemic Rheumatoid arthritis? Sliding-scale insulin to maintain euglycemia TSH level: 4.5, continue levothyroxine 150 mg by mouth daily/home dose in the interim Heme: Leukocytosis Monitor CBC daily. Follow trends. Continue ferrous sulfate 325 mg by mouth daily ID: Severe sepsis Staph Aureus Bacteremia Mitral valve endocarditis UTI Continue abx per ID ( Oxacillin) monitor for signs of infections ( Fever, WBC) Will need 6 weeks abx once BC is sterile. BC 03/23, 03/24: Staph Aureus bacteremia. MYRIAM vegetation on MV Blood cultures 03/25: 2/4 bottles: S aureus BC 03/27: S aureus ID is following. Patient has persistent staph aureus bacteremia despite antibiotics. Awaiting imaging studies including MRI brain and spine as well as CT chest to evaluate for seeding and septic emboli. Discussed with Dr. Villegas on 03/29 AM prior to intubation. MAy require CT surgery evaluation if bacteremia not clearing to evaluate for valve replacement. MSK: Lower extremity ulcerations BMI 55 Wound care evaluate and treat Weight loss encouraged PT evaluate and treat Access - Utilize peripheral IV. Prophylaxis - GI - famotidine - DVT - SCD/heparin SQ Discussed with ID Dr. Villegas on 03/28, 03/29. Time spent on critical care excluding procedures 40 minutes Usman Vazquez MD Mar 29, 2017 14:42
[2017-03-29] MEDS: MORPHINE SULFATE ORAL SOLN 10 MG/0.5 ML SYRINGE OG-TUBE SCH ×2 (15:00→18:48)
--- NOTE | 2017-03-29 15:01 | PD.PROCEDR ---
Procedure Note Procedure Procedure: Endotracheal intubation Preop diagnosis: Acute respiratory failure, sepsis, endocarditis Postop diagnosis: Same Sedation used: Etomidate 35 mg, fentanyl 200 mcg, succinylcholine 180 mg IV Procedure: Patient was preoxygenated with 100% oxygen via Ambu bag with bag mask ventilation, following induction of sedation and neuromuscular blockade, direct laryngoscopy was performed using a Mac 4 blade with good visualization of vocal cords. An 8 Guinean ET tube was passed through the vocal cords under direct visualization up to the [] centimeter lizeth and after inflating cuff of ET tube, correct placement was confirmed using bagging with good color change on CO2 detector, 5 point auscultation and chest rise with ventilation. Patient was connected to mechanical ventilation. Patient tolerated the procedure well with no immediate complications noted. Postprocedure chest x-ray was ordered. Usman Vazquez MD Mar 29, 2017 15:01
[2017-03-29] MEDS: CEFEPIME INJ 2,000 MG in SODIUM CHLORIDE 0.9% INJ 100 ML IV SCH (15:17)
--- NOTE | 2017-03-29 16:04 | RADRPT ---
EXAM DATE/TIME: 03/29/2017 13:04 [facility] COMPARISON: CT BRAIN W/O CONTRAST, March 23, 2017, 20:45. INDICATIONS : Altered mental status. Fever. CONTRAST: 28 cc Omniscan (gadodiamide) IV MEDICAL HISTORY : Chronic obstructive pulmonary disease. Scleroderma. SURGICAL HISTORY : Splenectomy. ENCOUNTER: Subsequent ACUITY: 4-6 days PAIN SCORE: Nonresponsive. LOCATION: head. TECHNIQUE: Multiplanar, multisequence MRI of the brain was performed both prior to and following the administrat ion of paramagnetic contrast. FINDINGS: There are tiny areas of focally restricted diffusion in the left lentiform nucleus and in the periven tricular white matter adjacent to the trigone of the right lateral ventricle consistent with small ar eas of subacute infarction. Elsewhere, there scattered areas of nonspecific white matter T2 prolongat ion which may be related to demyelinization, most notably in the high convexity left frontal region. There is no evidence of intracranial mass or hemorrhage. The ventricles are symmetric and normal. The extracranial structures are benign and intact. There is no abnormal parenchymal brain enhancement id entified. Normal enhancement is present in the intracranial vascular structures. CONCLUSION: Tiny bilateral areas of probable subacute lacunar infarction. Patchy mild nonspecific white matter si gnal changes. Gerson Vegas MD on March 29, 2017 at 15:45 Board Certified Radiologist. This report was verified electronically.
[2017-03-29] MEDS: FLUCONAZOLE 100 MG PREMIX BAG 50 ML IV SCH (16:15)
--- NOTE | 2017-03-29 16:42 | RADRPT ---
EXAM DATE/TIME: 03/29/2017 13:04 [facility] COMPARISON: No previous studies available for comparison. INDICATIONS : Osteomyelitis. Scleroderma. Wound on left thigh on lateral posterior area on glutium peter and thigh junction. Fever. CONTRAST: 28 cc Omniscan (gadodiamide) IV MEDICAL HISTORY : Chronic obstructive pulmonary disease. Scleroderma. SURGICAL HISTORY : Splenectomy. ENCOUNTER: Subsequent ACUITY: 4-6 months PAIN SCORE: Nonresponsive. LOCATION: Left thigh TECHNIQUE: Multiplanar multisequence MRI examination of the thigh was performed with and without contrast. FINDINGS: BONE/CARTILAGE: Bone marrow signal is homogeneous. Articular cartilage signal is within normal limits. MUSCLES/TENDONS: Cutaneous soft tissue thickening is seen along the left lateral and posterior gluteal region. Shallow penetrating ulcerations are identified along the inferior crease of the left gluteus. There is no ev idence of deep muscular involvement. There is no evidence of focal abscess formation. MISCELLANEOUS: Neurovascular structures are within normal limits. POST-CONTRAST: There are no abnormal areas of enhancement on the post-contrast images. CONCLUSION: Cellulitis and shallow ulcerations in the left gluteal region and proximal thigh. No evidence of deep muscular involvement, abscess formation or bone marrow edema. Kurt Hairston MD on March 29, 2017 at 16:35 Board Certified Radiologist. This report was verified electronically.
[2017-03-29 18:39] LABS: BACTERIA, URINE OCC /hpf; BILIRUBIN, URINE NEG (NEG); BLOOD, URINE SMALL (NEG); GLUCOSE,URINE NEG (NEG); KETONE, URINE NEG (NEG); MUCUS URINE FEW /lpf (OCC); NITRITE,URINE NEG (NEG); RENAL EPITHELIAL CELLS <1 /hpf; URINE COLOR YELLOW (YELLW/STRAW); URINE LEUKOCYTE ESTERASE NEG (NEG)
[2017-03-29] MEDS: CHLORHEXIDINE 0.12% (ORAL KIT) 15 ML CUP MT SCH (19:45)
--- NOTE | 2017-03-29 19:46 | PD.CARD.PN ---
Subjective Subjective Remarks Intubated, sedated Objective Medications Current Medications Medications (Trade) Dose Ordered Sig/Bj Route Start Time Stop Time Status Last Admin (Tylenol) 650 mg Q6H PRN PO 03/23/17 22:30 ([place] 5-325 Mg) 1 tab Q4H PRN PO 03/23/17 22:30 (Tears Naturale Opth Soln) 1 drop TID EACH EYE 03/24/17 09:00 03/28/17 18:25 (Zofran Inj) 4 mg Q6H PRN IV PUSH 03/23/17 22:30 (Albuterol Neb) 2.5 mg Q2HR NEB PRN INH 03/23/17 22:30 Miscellaneous Information 1 [id number] XX 03/23/17 22:30 (Chlorhexidine 2% Cloth) Taper DAILY@04 TOP 03/24/17 04:00 03/20/18 03:59 03/28/17 02:16 (Chlorhexidine 2% Cloth) 3 pack UNSCH PRN TOP 03/23/17 22:30 (Mely-Colace) 1 tab BID PO 03/24/17 09:00 03/27/17 20:59 (Milk Of Magnesia Liq) 30 ml Q12H PRN PO 03/23/17 22:30 (Senokot) 17.2 mg Q12H PRN PO 03/23/17 22:30 (Dulcolax Supp) 10 mg DAILY PRN RECTAL 03/23/17 22:30 (Lactulose Liq) 30 ml DAILY PRN PO 03/23/17 22:30 (NS Flush) 2 ml UNSCH PRN IV FLUSH 03/23/17 22:45 (NS Flush) 2 ml BID IV FLUSH 03/24/17 09:00 03/29/17 09:00 (Pepcid) 20 mg DAILY@0600 PO 03/24/17 06:00 03/28/17 06:10 (Ecotrin Ec) 81 mg DAILY PO 03/24/17 09:00 03/27/17 09:36 (Lopressor) 12.5 mg Q12HR PO 03/24/17 09:00 03/27/17 20:59 (Lexapro) 20 mg DAILY PO 03/24/17 09:00 03/27/17 09:35 (Ferrous Sulfate) 325 mg DAILY PO 03/24/17 09:00 03/27/17 09:35 (Neurontin) 600 mg TID PO 03/24/17 09:00 03/29/17 17:35 (Dilaudid) 4 mg Q6H PRN PO 03/24/17 00:45 03/24/17 10:30 (Synthroid) 150 mcg DAILY@0700 PO 03/24/17 07:00 03/28/17 06:10 (Ativan) 0.5 mg BID PRN PO 03/24/17 00:45 03/27/17 20:59 (Oramorph Sr) 60 mg Q8HR PO 03/24/17 06:00 Future Hold 03/28/17 06:10 (Effexor Xr) 37.5 mg DAILY PO 03/24/17 09:00 03/27/17 09:35 Oxacillin Sodium 2 gm/Sodium Chloride 100 ml @ 200 mls/hr Q4H IV 03/24/17 18:00 03/29/17 17:26 Potassium Chloride 100 ml @ 50 mls/hr Q2H PRN IV 03/25/17 09:00 Potassium Chloride 100 ml @ 50 mls/hr Q2H PRN IV 03/25/17 09:00 (K-Lyte Cl Eff) 50 meq UNSCH PRN PO 03/25/17 09:00 Potassium Chloride 100 ml @ 25 mls/hr UNSCH PRN IV 03/25/17 09:00 Potassium Chloride 100 ml @ 50 mls/hr Q2H PRN IV 03/25/17 09:00 03/25/17 20:27 Magnesium Sulfate 4 gm/Sodium Chloride 100 ml @ 50 mls/hr UNSCH PRN IV 03/25/17 09:00 (Mag-Ox) 800 mg UNSCH PRN PO 03/25/17 09:00 Magnesium Sulfate 2 gm/Sodium Chloride 100 ml @ 50 mls/hr UNSCH PRN IV 03/25/17 09:00 (K-Phos) 2,000 mg Q4H PRN PO 03/25/17 09:00 Sodium Phosphate 30 mmol/Sodium Chloride 250 ml @ 42 mls/hr UNSCH PRN IV 03/25/17 09:00 03/28/17 11:50 (K-Phos) 2,000 mg UNSCH PRN PO/TUBE 03/25/17 09:00 Potassium Phosphate 30 mmol/ Sodium Chloride 260 ml @ 42 mls/hr UNSCH PRN IV 03/25/17 09:00 (Heparin Inj) 5,000 units Q12HR SQ 03/26/17 09:00 03/29/17 10:03 Acetaminophen 100 ml @ 400 mls/hr Q6H PRN IV 03/28/17 20:00 03/29/17 14:49 (Peridex 0.12% Liq) 15 ml BID@08,20 MT 03/29/17 20:00 Propofol 100 ml @ 4.173 mls/ hr TITRATE PRN IV 03/29/17 09:00 03/29/17 18:02 Fentanyl Citrate 250 ml @ 5 mls/hr TITRATE PRN IV 03/29/17 09:00 03/29/17 09:45 Cefepime HCl 2000 mg/Sodium Chloride 100 ml @ 200 mls/hr Q12H IV 03/29/17 13:00 03/29/17 15:17 Fluconazole/ Sodium Chloride 50 ml @ 50 mls/hr Q24H IV 03/29/17 14:00 03/29/17 16:15 (Tylenol) 500 mg Q4H PRN PO 03/29/17 12:30 (Roxanol Liq) 20 mg Q4H OG-TUBE 03/29/17 15:00 Vital Signs / I&O Vital Signs Date Time Temp Pulse Resp B/P (MAP) Pulse Ox O2 Delivery O2 Flow Rate FiO2 03/29/17 18:00 103 03/29/17 16:09 100 50 03/29/17 16:00 101.2 109 22 102/56 (71) 100 03/29/17 16:00 60 03/29/17 16:00 109 03/29/17 14:33 98 60 03/29/17 14:31 96 60 03/29/17 14:30 102.3 114 22 114/59 (77) 93 03/29/17 12:00 60 03/29/17 12:00 100.8 109 21 110/58 (75) 94 03/29/17 12:00 109 03/29/17 12:00 96 Mechanical Ventilator 60 03/29/17 11:32 96 60 03/29/17 10:00 118 03/29/17 09:26 94 90 03/29/17 09:15 70 03/29/17 08:00 106 03/29/17 08:00 92 Bi-Pap 40 03/29/17 08:00 100.0 106 30 129/59 (82) 95 03/29/17 07:49 92 40 03/29/17 06:00 108 03/29/17 04:00 109 03/29/17 04:00 95 Bi-Pap 35 03/29/17 04:00 100.4 110 32 131/60 (83) 92 03/29/17 03:25 95 40 03/29/17 02:00 112 03/29/17 00:00 93 Bi-Pap 35 03/29/17 00:00 112 03/29/17 00:00 100.8 111 32 93 03/28/17 23:25 94 40 03/28/17 22:00 127 03/28/17 20:00 93 Bi-Pap 35 03/28/17 20:00 102.2 112 33 124/65 (84) 93 03/28/17 20:00 110 I/O 03/28/17 03/28/17 03/28/17 03/29/17 03/29/17 03/29/17 07:00 15:00 23:00 07:00 15:00 23:00 Intake Total 300 ml 300 ml 450 ml 83.3 ml 450 ml Output Total 800 ml 1350 ml 1000 ml 600 ml Balance -500 ml 300 ml -900 ml -1000 ml 83.3 ml -150 ml Intake Oral 100 ml IV Total 200 ml 300 ml 450 ml 83.3 ml 450 ml Output Urine Total 800 ml 1350 ml 1000 ml 600 ml # Bowel Movements 0 0 Physical Exam GENERAL: Intubated, sedated SKIN: Warm and dry. HEAD: Normocephalic. EYES: No scleral icterus. No injection or drainage. NECK: Supple, trachea midline. No JVD or lymphadenopathy. CARDIOVASCULAR: Regular rate and rhythm without murmurs, gallops, or rubs. RESPIRATORY: Breath sounds equal bilaterally, distant. No accessory muscle use. GASTROINTESTINAL: Abdomen soft, non-tender, nondistended, obese MUSCULOSKELETAL: No cyanosis, bilat LE edema. Laboratory Laboratory Tests Test 03/29/17 04:48 03/29/17 10:34 03/29/17 16:15 White Blood Count 19.2 TH/MM3 Red Blood Count 3.97 MIL/MM3 Hemoglobin 11.0 GM/DL Hematocrit 33.1 % Mean Corpuscular Volume 83.3 FL Mean Corpuscular Hemoglobin 27.6 PG Mean Corpuscular Hemoglobin Concent 33.1 % Red Cell Distribution Width 14.2 % Platelet Count 339 TH/MM3 Mean Platelet Volume 10.0 FL Activated Partial Thromboplast Time 33.4 SEC Blood Gas Puncture Site RT RADIAL Blood Gas Patient Temperature 98.6 Blood Gas HCO3 28 mmol/L Blood Gas Base Excess 3.6 mmol/L Blood Gas Oxygen Saturation 95 % Arterial Blood pH 7.44 Arterial Blood Partial Pressure CO2 41 mmHg Arterial Blood Partial Pressure O2 87 mmHg Arterial Blood Oxygen Content 15.0 Vol % Arterial Blood Carboxyhemoglobin 1.0 % Arterial Blood Methemoglobin 0.4 % Blood Gas Hemoglobin 11.2 G/DL Oxygen Delivery Device VENTILATOR Blood Gas Ventilator Setting PRVC/AC Blood Gas Inspired Oxygen 70 % Urine Color YELLOW Urine Turbidity CLEAR Urine pH 6.0 Urine Specific [place] 1.043 Urine Protein 30 mg/dL Urine Glucose (UA) NEG mg/dL Urine Ketones NEG mg/dL Urine Occult Blood SMALL Urine Nitrite NEG Urine Bilirubin NEG Urine Urobilinogen LESS THAN 2.0 MG/DL Urine Leukocyte Esterase NEG Urine RBC 3 /hpf Urine WBC 6 /hpf Urine Renal Epithelial Cells <1 /hpf Urine Bacteria OCC /hpf Urine Mucus FEW /lpf Microscopic Urinalysis Comment CATH-CULTURE IND Imaging Last 24 hours Impressions Lower Extremity MRI 03/29/17 0000 Signed Impressions: Service Date/Time: Wednesday, March 29, 2017 13:04 - CONCLUSION: Cellulitis and shallow ulcerations in the left gluteal region and proximal thigh. No evidence of deep muscular involvement, abscess formation or bone marrow edema. Kurt Hairston MD Chest X-Ray 03/29/17 0000 Signed Impressions: Service Date/Time: Wednesday, March 29, 2017 09:57 - CONCLUSION: Satisfactory position of endotracheal and nasogastric tubes. Extensive bilateral airspace disease. Kurt Hairston MD Brain MRI 03/29/17 0000 Signed Impressions: Service Date/Time: Wednesday, March 29, 2017 13:04 - CONCLUSION: Tiny bilateral areas of probable subacute lacunar infarction. Patchy mild nonspecific white matter signal changes. Gerson Vegas MD Assessment and Plan Problem List: (1) Respiratory insufficiency ICD Codes: R06.89 - Other abnormalities of breathing (2) Sepsis ICD Codes: A41.9 - Sepsis, unspecified organism Status: Acute (3) Elevated troponin ICD Codes: R74.8 - Abnormal levels of other serum enzymes Status: Acute (4) Scleroderma ICD Codes: M34.9 - Systemic sclerosis, unspecified (5) Transaminitis ICD Codes: R74.0 - Nonspecific elevation of levels of transaminase and lactic acid dehydrogenase [LDH] (6) Acute kidney injury ICD Codes: N17.9 - Acute kidney failure, unspecified (7) Depression ICD Codes: F32.9 - Major depressive disorder, single episode, unspecified (8) Mitral valve vegetation ICD Codes: I33.0 - Acute and subacute infective endocarditis Assessment and Plan Continue ICU monitoring. Troponin elevated, but CK MB index nl.. Continue beta kathy and ASA. MYRIAM showed MV vegetation. ID evaluation and management for suspected endocarditis. Continue vent support, wean as tolerated. D/w pt's family. Problem Qualifiers (1) Sepsis: Qualified Codes: A41.9 - Sepsis, unspecified organism (2) Depression: Qualified Codes: F32.9 - Major depressive disorder, single episode, unspecified Kylie Newton MD Mar 29, 2017 19:46
--- NOTE | 2017-03-29 23:43 | RADRPT ---
EXAM DATE/TIME: 03/29/2017 23:31 [facility] COMPARISON: No previous studies available for comparison. INDICATIONS : Respiratory distress. RADIATION DOSE: 19.58 CTDIvol (mGy) MEDICAL HISTORY : Chronic obstructive pulmonary disease. SURGICAL HISTORY : None. ENCOUNTER: Initial ACUITY: 1 day PAIN SCALE: Non-responsive LOCATION: Bilateral chest TECHNIQUE: Volumetric scanning of the chest was performed. Using automated exposure control and adjustment of t he mA and/or kV according to patient size, radiation dose was kept as low as reasonably achievable to obtain optimal diagnostic quality images. DICOM format image data is available electronically for r eview and comparison. Follow-up recommendations for detected pulmonary nodules are based at a minimum on nodule size and pa tient risk factors according to Fleischner Society Guidelines. FINDINGS: There is dense fluffy airspace consolidation bilaterally worse in the lower lungs to a significant de gree. Coronary artery calcifications are seen typically seen with CAD and need to be evaluated clinic ally. There is no pleural effusion. No appreciable pathological adenopathy is seen within the medias tinum. CONCLUSION: Extensive air space process bilaterally could represent pulmonary edema, however pneu monia is not excluded. Marquise Leonardo MD on March 29, 2017 at 23:38 Board Certified Radiologist. This report was verified electronically.
[2017-03-30] VITALS (19 sets, daily range): BP systolic 107–123; BP diastolic 55–68; PULSE 90–110; RESP 18–31; TEMP 98.7–101.5; O2SAT 93–100
[2017-03-30] MEDS: fentaNYL DRIP 250 ML IV PRN (00:03)
[2017-03-30] MEDS: PROPOFOL 1000 MG/100 ML INJ 100 ML IV PRN ×4 (00:03→07:25)
[2017-03-30] MEDS: MORPHINE SULFATE ORAL SOLN 10 MG/0.5 ML SYRINGE OG-TUBE SCH ×7 (00:04→20:06)
[2017-03-30] MEDS: CEFEPIME INJ 2,000 MG in SODIUM CHLORIDE 0.9% INJ 100 ML IV SCH ×2 (00:10→12:40)
[2017-03-30] MEDS: OXACILLIN INJ 2 GM in SODIUM CHLORIDE 0.9% INJ 100 ML IV SCH ×6 (02:00→20:06)
[2017-03-30] MEDS: CHLORHEXIDINE GLUCONATE 2 % 1 PACK (2 CLOTHS) TOP SCH (04:00)
[2017-03-30] MEDS: LEVOTHYROXINE SODIUM 75 MCG TAB PO SCH (05:39)
[2017-03-30] MEDS: FAMOTIDINE 20 MG TAB PO SCH (05:39)
[2017-03-30 08:18] LABS: HEMATOCRIT 34.6 % (35.0-46.0); HEMOGLOBIN 10.7 GM/DL (11.6-15.3); MEAN CELL VOLUME 86.2 FL (80.0-100.0); MEAN CORPUSCULAR HEMOGLOBIN 26.7 PG (27.0-34.0); MEAN PLATELET VOLUME 10.1 FL (7.0-11.0); PLATELET COUNT 303 TH/MM3 (150-450); RED BLOOD COUNT 4.01 MIL/MM3 (4.00-5.30); RED CELL DISTRIBUTION WIDTH 14.9 % (11.6-17.2); WHITE BLOOD COUNT 24.1 TH/MM3 (4.0-11.0)
[2017-03-30 08:51] LABS: ALBUMIN 1.3 GM/DL (3.4-5.0); ALKALINE PHOSPHATASE 111 U/L (45-117); ALT (GPT) 34 U/L (10-53); AST (GOT) 80 U/L (15-37); BICARBONATE 25.2 MEQ/L (21.0-32.0); BLOOD UREA NITROGEN 36 MG/DL (7-18); CALCIUM 7.5 MG/DL (8.5-10.1); CHLORIDE 116 MEQ/L (98-107); CREATININE 1.05 MG/DL (0.50-1.00); GLOMERULAR FILTRATION RATE 54 ML/MIN (>89); GLUCOSE,RANDOM 135 MG/DL (74-106); SODIUM (NA) 150 MEQ/L (136-145); TOTAL BILIRUBIN ADULT 1.4 MG/DL (0.2-1.0); TOTAL PROTEIN 8.1 GM/DL (6.4-8.2)
[2017-03-30] MEDS: VENLAFAXINE HCL XR 37.5 MG CAP PO SCH (09:00)
[2017-03-30] MEDS: METOPROLOL TARTRATE 25 MG TAB PO SCH ×2 (09:00→20:05)
[2017-03-30 09:24] LABS: BANDS 8 % (0-6); CORRECTED NUCLEATED RBC 3 /100 WBC (0-0); MONOCYTES 1 % (0-8); NEUTROPHIL # MANUAL DIFF 22.9 TH/MM3 (1.8-7.7); NUCLEATED RED BLOOD CELL 3 (0-0); POLYS (SEG NEUTROPHILS) 87 % (16-70)
[2017-03-30 09:25] LABS: LYMPHOCYTES 4 % (9-44); OVALOCYTES 1+ (NORMAL); TARGET CELLS 1+ (NORMAL); TOXIC VACUOLATION PRESENT (NONE SEEN)
[2017-03-30] MEDS: FERROUS SULFATE 300 MG /5ML UDC OG-TUBE SCH (09:33)
[2017-03-30] MEDS: ESCITALOPRAM OXALATE 20 MG TAB PO SCH (09:34)
[2017-03-30] MEDS: HEPARIN SODIUM - SQ 10,000 UNITS/ML VIAL SQ SCH ×2 (09:34→20:05)
[2017-03-30] MEDS: GABAPENTIN 300 MG CAP PO SCH ×3 (09:35→17:46)
[2017-03-30] MEDS: ASPIRIN 81 MG CHEW TAB OG-TUBE SCH (09:35)
[2017-03-30] MEDS: DOCUSATE SODIUM 50 MG/SENNA 8.6 MG TAB PO SCH ×2 (09:35→20:05)
[2017-03-30] MEDS: CHLORHEXIDINE 0.12% (ORAL KIT) 15 ML CUP MT SCH ×2 (09:38→19:20)
--- NOTE | 2017-03-30 10:22 | HHI.CCPN ---
Subjective Remarks/Hospital Course This is a 57-year-old female. Admission 03/23/2017.past medical history includes scleroderma, thyroid disease, status post splenectomy in the past and elevated BMI. Initial presentation occurred Tuesday with lethargy, sleeping, and fever. The patient also had one episode of vomiting with several episodes of diarrhea. The states she has been no recent international travel, hospitalizations, or history of chronic infections. She did have similar symptoms 2 years ago per the 's report with the patient had low oxygen levels and had altered mental status. The patient is seen by pain management as well as her primary physician who is located in [place], [place]. Dr. Estrada The states the patient's mental status seems to wax and wane over the last several days, she'll be awake and alert, and that she will fall asleep and be slightly lethargic and confused. She will lie in bed for several days at a time. The patient denies any chest pain or shortness of breath. She does complain of abdominal pain over the skin secondary to her scleroderma. She also has a history of an open lesion secondary to scleroderma of the lateral left thigh which has been present for several years per the 's report. Received patient was treated with Humira for scleroderma however not taking for the past 5 months. She is on morphine and Dilaudid for chronic pain management from her Dr. Dominguez in [place] CT abdomen/ revealed gallstones without obstruction. Status post splenectomy. Morbid obesity. Chest x-ray revealed no signs of pneumonia. CT brain negative. Patient received 2 L normal saline added ED. She was noted to have a elevated troponin of 15. Denies chest pain. EKG shows nonspecific ST-T changes. CPK 2100. Creatinine 1.7. Leukocytosis 20,000 and elevated transaminases with low sodium and albumin. Her febrile is abated. She is currently awake and oriented to person place and time. 03/24 Patient is lying in bed in [facility]. Afebrile. Renal function is improving with Cr: 1.10 from 1.73. On Heparin drip for elevated trop. 03/25 No events overnight. Remains on Heparin drip. Renal function is now within normal. Afebrile. 03/26 s/p MYRIAM yesterday which shoed vegetation on mitral valve She was on BIPAP overnight now on 4L oxygen. Given Lasix 40mg x 1 yesterday with good response in UOP. Afebrile. off Heparin drip.. 03/27 No events overnight. On BIPAP 16/08 with 35% FIO2 overnight. Afebrile. 03/28: Remains on BiPAP with full facemask. 03/29: Patient was intubated and placed on mechanical ventilation as she was requiring BiPAP and continued to have increased work of breathing and needed to get imaging studies for further evaluation. 03/30: Remains sedated, orally intubated on mechanical ventilation. Head CT done on 03/29 revealed small lacunar infarcts (probably secondary to septic emboli). Objective Vital Signs Date Time Temp Pulse Resp B/P (MAP) Pulse Ox O2 Delivery O2 Flow Rate FiO2 03/30/17 07:42 95 50 03/30/17 06:00 99 03/30/17 04:00 99.1 18 107/55 (72) 03/30/17 01:19 Ventilator 03/27/17 12:00 4.00 Intake and Output 03/30/17 03/30/17 03/31/17 08:00 16:00 00:00 Intake Total 981 ml Output Total 1500 ml Balance -519 ml Result Diagram: 03/30/17 0702 03/30/17 0702 Other Results Laboratory Tests Test 03/29/17 10:34 Blood Gas Puncture Site RT RADIAL Blood Gas Patient Temperature 98.6 Blood Gas HCO3 28 mmol/L (22-26) Blood Gas Base Excess 3.6 mmol/L (-2-2) Blood Gas Oxygen Saturation 95 % (90-100) Arterial Blood pH 7.44 (7.380-7.420) Arterial Blood Partial Pressure CO2 41 mmHg (38-42) Arterial Blood Partial Pressure O2 87 mmHg (61-120) Arterial Blood Oxygen Content 15.0 Vol % (12.0-20.0) Arterial Blood Carboxyhemoglobin 1.0 % (0-4) Arterial Blood Methemoglobin 0.4 % (0-2) Blood Gas Hemoglobin 11.2 G/DL (12.0-16.0) Oxygen Delivery Device VENTILATOR Blood Gas Ventilator Setting PRVC/AC Blood Gas Inspired Oxygen 70 % Imaging Last Impressions Liver Ultrasound 03/24/17 0000 Signed Impressions: Service Date/Time: March 16:41 - CONCLUSION: 1. Limited examination due to body habitus and patient's inability to tolerate the procedure. Unfortunately, the gallbladder is not sufficiently visualized for further evaluation of abnormality noted on CT scan. If there is continued clinical concern regarding acute cholecystitis, consider HIDA scan to evaluate for cystic duct patency. 2. Diffusely heterogeneous and mildly enlarged liver consistent with hepatic steatosis versus medical liver disease. Shlomo Mesa MD Head CT [id number]/23/[id number] Signed Impressions: Service Date/Time: Thursday, March 23, 2017 20:45 - CONCLUSION: No acute findings in the brain. David Weiss MD Chest X-Ray [id number]/23/[id number] Signed Impressions: Service Date/Time: Thursday, March 23, 2017 19:49 - CONCLUSION: Cardiomegaly. The lungs are clear. David Weiss MD Abdomen/Pelvis CT 03/23/171923 Signed Impressions: Service Date/Time: Thursday, March 23, 2017 20:48 - CONCLUSION: 1. Multiple gallstones, some of which are noncalcified. 2. Spleen is not identified. 3. Mildly prominent left inguinal David Weiss MD Objective Remarks GENERAL: 57-year-old female laying in bed, orally intubated on mechanical ventilation SKIN: Morphea. Several sclerotic hypopigmented areas upper and lower extremities. Tinea cruris. HEAD: Atraumatic. Normocephalic. EYES: Pupils equal and round about 3 mm bilaterally and reactive. No scleral icterus. No injection or drainage. ENT: No nasal bleeding or discharge. Mucous membranes pink and moist. Orally intubated NECK: Trachea midline. No JVD. CARDIOVASCULAR: Tachycardic RR. S1, S2. No S4. Without murmur RESPIRATORY: Orally intubated on mechanical ventilation, Breath sounds equal bilaterally. Scattered rhonchi bilaterally, no wheezing GASTROINTESTINAL: Abdomen soft, non-tender, nondistended. Hepatic and splenic margins not palpable. MUSCULOSKELETAL: Extremities with multiple open areas/calcifications bilateral lower extremities. Largest is in the left gluteal region about 6 x 8 cm. Stage II decubiti. See skin above. NEUROLOGICAL: Sedated, orally intubated on mechanical ventilation, moves all 4 extremities. A/P Assessment and Plan Neuro/Psych: Encephalopathy Multiple lacunar infarcts Chronic pain syndrome/low back pain Chronic narcotic use Depression Chronic benzodiazepine use Propofol/fentanyl for sedation/analgesia while intubated with daily sedation vacation Morphine sulfate 60 mg every 8 hours scheduled extended release changed to Morphine 20mg liquid via OGT Q4hrly on 03/29 Hydromorphone 4 mg by mouth every 6 hours when necessary pain Tizanidine 4 mill grams 3 times a day has been held Escitalopram 20 mg daily has been continued Lorazepam 0.5 mg twice a day has been continued Venlafaxine 37.5 mill grams daily has been continued CV: Severe sepsis with multisystem organ failure Mitral valve endocarditis Elevated troponin Hypertension Lactic acidosis (resolved) Monitor HR and BP keep MAP>65mmHg ASA 81 mg daily Lopressor 12.5 mg by mouth twice a day No lipid-lowering agents due to elevated transaminases Cards is following-Dr. Newton Echo showed EF 60-65%. MYRIAM showed vegetation on MV Resp: Acute respiratory failure on mechanical ventilation ALI Bronchodilators. Intubated and placed on mechanical ventilation on 03/29 s/p short course steroids for wheezing ( 4 doses were given). CT chest with bilateral airspace disease with infiltrates - probably acute lung injury pattern from sepsis and possible pneumonia Vent bundle, daily C Pap trials GI: Elevated transaminases/total bilirubin Hypoalbuminemia CT abdomen/pelvis revealed cholelithiasis. No other acute findings. Monitor LFTs ( trending disease), Hepatitis profile is negative US Liver: Limited examination due to body habitus and patient's inability to tolerate the procedure. Unfortunately, the gallbladder is not sufficiently visualized. Diffusely heterogeneous and mildly enlarged liver consistent with hepatic steatosis vs medical liver disease. Lipase level 122, NH4 level 19. / Renal: NATTY - Resolved Hypernatremia Monitor renal function, I/O's, electrolytes replacement per protocol. Free water for hypernatremia started 03/30 Endo/Rheum: Hyperglycemia Hypothyroidism Scleroderma - localized versus systemic Rheumatoid arthritis? Sliding-scale insulin to maintain euglycemia TSH level: 4.5, continue levothyroxine 150 mg by mouth daily/home dose in the interim Heme: Leukocytosis Monitor CBC daily. Follow trends. Continue ferrous sulfate 325 mg by mouth daily ID: Severe sepsis Staph Aureus Bacteremia Mitral valve endocarditis UTI Continue abx per ID ( Oxacillin) monitor for signs of infections ( Fever, WBC) Will need 6 weeks abx once BC is sterile. BC 03/23, 03/24: Staph Aureus bacteremia. MYRIAM vegetation on MV Blood cultures 03/25: 2/4 bottles: S aureus BC 03/27: S aureus ID is following. Patient has persistent staph aureus bacteremia despite antibiotics. MRI brain with multiple lacunar infarcts possibly secondary to septic emboli. CT chest with bilateral airspace disease/infiltrates. Discussed with Dr. Villegas on 03/29 AM prior to intubation. May require CT surgery evaluation if bacteremia not clearing to evaluate for valve replacement. MSK: Lower extremity ulcerations BMI 55 Wound care evaluate and treat Weight loss encouraged PT evaluate and treat Access - Utilize peripheral IV. Prophylaxis - GI - famotidine - DVT - SCD/heparin SQ Discussed with ID Dr. Villegas on 03/28, 03/29. Time spent on critical care excluding procedures 40 minutes Usman Vazquez MD Mar 30, 2017 10:22
[2017-03-30] MEDS: SODIUM CHLORIDE 0.9% FLUSH 10 ML FLUSH IV FLUSH SCH ×2 (10:28→20:05)
[2017-03-30] MEDS: FREE WATER G-TUBE SCH ×4 (10:28→23:23)
[2017-03-30] MEDS: ARTIFICIAL TEARS OPTH SOLN 15 ML BTL EACH EYE SCH ×3 (10:29→17:49)
--- NOTE | 2017-03-30 12:34 | PD.CARD.PN ---
Subjective Subjective Remarks Intubated, sedated Objective Medications Current Medications Medications (Trade) Dose Ordered Sig/Bj Route Start Time Stop Time Status Last Admin (Tylenol) 650 mg Q6H PRN PO 03/23/17 22:30 ([place] 5-325 Mg) 1 tab Q4H PRN PO 03/23/17 22:30 (Tears Naturale Opth Soln) 1 drop TID EACH EYE 03/24/17 09:00 03/30/17 10:29 (Zofran Inj) 4 mg Q6H PRN IV PUSH 03/23/17 22:30 (Albuterol Neb) 2.5 mg Q2HR NEB PRN INH 03/23/17 22:30 Miscellaneous Information 1 Q361D XX 03/23/17 22:30 (Chlorhexidine 2% Cloth) Taper DAILY@04 TOP 03/24/17 04:00 03/20/18 03:59 03/28/17 02:16 (Chlorhexidine 2% Cloth) 3 pack UNSCH PRN TOP 03/23/17 22:30 (Mely-Colace) 1 tab BID PO 03/24/17 09:00 03/30/17 09:35 (Milk Of Magnesia Liq) 30 ml Q12H PRN PO 03/23/17 22:30 (Senokot) 17.2 mg Q12H PRN PO 03/23/17 22:30 (Dulcolax Supp) 10 mg DAILY PRN RECTAL 03/23/17 22:30 (Lactulose Liq) 30 ml DAILY PRN PO 03/23/17 22:30 (NS Flush) 2 ml UNSCH PRN IV FLUSH 03/23/17 22:45 (NS Flush) 2 ml BID IV FLUSH 03/24/17 09:00 03/30/17 10:28 (Pepcid) 20 mg DAILY@0600 PO 03/24/17 06:00 03/30/17 05:39 (Lopressor) 12.5 mg Q12HR PO 03/24/17 09:00 03/27/17 20:59 (Lexapro) 20 mg DAILY PO 03/24/17 09:00 03/30/17 09:34 (Neurontin) 600 mg TID PO 03/24/17 09:00 03/30/17 09:35 (Dilaudid) 4 mg Q6H PRN PO 03/24/17 00:45 03/24/17 10:30 (Synthroid) 150 mcg DAILY@0700 PO 03/24/17 07:00 03/30/17 05:39 (Ativan) 0.5 mg BID PRN PO 03/24/17 00:45 03/27/17 20:59 (Oramorph Sr) 60 mg Q8HR PO 03/24/17 06:00 Future Hold 03/28/17 06:10 (Effexor Xr) 37.5 mg DAILY PO 03/24/17 09:00 03/27/17 09:35 Oxacillin Sodium 2 gm/Sodium Chloride 100 ml @ 200 mls/hr Q4H IV 03/24/17 18:00 03/30/17 10:28 Potassium Chloride 100 ml @ 50 mls/hr Q2H PRN IV 03/25/17 09:00 Potassium Chloride 100 ml @ 50 mls/hr Q2H PRN IV 03/25/17 09:00 (K-Lyte Cl Eff) 50 meq UNSCH PRN PO 03/25/17 09:00 Potassium Chloride 100 ml @ 25 mls/hr UNSCH PRN IV 03/25/17 09:00 Potassium Chloride 100 ml @ 50 mls/hr Q2H PRN IV 03/25/17 09:00 03/25/17 20:27 Magnesium Sulfate 4 gm/Sodium Chloride 100 ml @ 50 mls/hr UNSCH PRN IV 03/25/17 09:00 (Mag-Ox) 800 mg UNSCH PRN PO 03/25/17 09:00 Magnesium Sulfate 2 gm/Sodium Chloride 100 ml @ 50 mls/hr UNSCH PRN IV 03/25/17 09:00 (K-Phos) 2,000 mg Q4H PRN PO 03/25/17 09:00 Sodium Phosphate 30 mmol/Sodium Chloride 250 ml @ 42 mls/hr UNSCH PRN IV 03/25/17 09:00 03/28/17 11:50 (K-Phos) 2,000 mg UNSCH PRN PO/TUBE 03/25/17 09:00 Potassium Phosphate 30 mmol/ Sodium Chloride 260 ml @ 42 mls/hr UNSCH PRN IV 03/25/17 09:00 (Heparin Inj) 5,000 units Q12HR SQ 03/26/17 09:00 03/30/17 09:34 Acetaminophen 100 ml @ 400 mls/hr Q6H PRN IV 03/28/17 20:00 03/29/17 14:49 (Peridex 0.12% Liq) 15 ml BID@08,20 MT 03/29/17 20:00 03/30/17 09:38 Propofol 100 ml @ 4.173 mls/ hr TITRATE PRN IV 03/29/17 09:00 03/30/17 07:25 Fentanyl Citrate 250 ml @ 5 mls/hr TITRATE PRN IV 03/29/17 09:00 03/30/17 00:03 Cefepime HCl 2000 mg/Sodium Chloride 100 ml @ 200 mls/hr Q12H IV 03/29/17 13:00 03/30/17 00:10 Fluconazole/ Sodium Chloride 50 ml @ 50 mls/hr Q24H IV 03/29/17 14:00 03/29/17 16:15 (Tylenol) 500 mg Q4H PRN PO 03/29/17 12:30 (Roxanol Liq) 20 mg Q4H OG-TUBE 03/29/17 15:00 03/30/17 10:29 (Aspirin Chew) 81 mg DAILY OG-TUBE 03/30/17 09:00 03/30/17 09:35 (Ferrous Sulfate Liq) 300 mg DAILY OG-TUBE 03/30/17 09:00 03/30/17 09:33 (Free Water) 200 ml Q6HR G-TUBE 03/30/17 10:00 04/01/17 09:59 03/30/17 10:28 Vital Signs / I&O Vital Signs Date Time Temp Pulse Resp B/P (MAP) Pulse Ox O2 Delivery O2 Flow Rate FiO2 03/30/17 11:15 100 40 03/30/17 10:00 109 03/30/17 08:00 98.7 101 19 109/68 (82) 94 Manual Cuff/Auscultation 03/30/17 08:00 40 03/30/17 08:00 101 03/30/17 07:42 95 50 03/30/17 06:00 99 03/30/17 04:15 100 50 03/30/17 04:00 92 03/30/17 04:00 99.1 91 18 107/55 (72) 100 03/30/17 04:00 50 03/30/17 02:00 90 03/30/17 01:19 100 50 03/30/17 01:19 100 Ventilator 50 03/30/17 00:00 50 03/30/17 00:00 99.1 93 21 123/63 (83) 100 03/30/17 00:00 92 03/29/17 23:25 98 100 03/29/17 22:26 100 50 03/29/17 22:00 90 03/29/17 20:00 91 03/29/17 20:00 50 03/29/17 20:00 100.9 97 19 110/58 (75) 100 03/29/17 19:55 100 50 03/29/17 18:00 103 03/29/17 16:09 100 50 03/29/17 16:00 101.2 109 22 102/56 (71) 100 03/29/17 16:00 60 03/29/17 16:00 109 03/29/17 14:33 98 60 03/29/17 14:31 96 60 03/29/17 14:30 102.3 114 22 114/59 (77) 93 I/O 03/29/17 03/29/17 03/29/17 03/30/17 03/30/17 03/30/17 07:00 15:00 23:00 07:00 15:00 23:00 Intake Total 83.3 ml 650 ml 981 ml Output Total 1000 ml 600 ml 1500 ml Balance -1000 ml 83.3 ml 50 ml -519 ml IV Total 83.3 ml 650 ml 550 ml Tube Feeding 231 ml Other 200 ml Output Urine Total 1000 ml 600 ml 1500 ml # Bowel Movements 0 3 Physical Exam GENERAL: Intubated, sedated SKIN: Warm and dry. HEAD: Normocephalic. EYES: No scleral icterus. No injection or drainage. NECK: Supple, trachea midline. No JVD or lymphadenopathy. CARDIOVASCULAR: Regular rate and rhythm without murmurs, gallops, or rubs. RESPIRATORY: Breath sounds equal bilaterally, distant. No accessory muscle use. GASTROINTESTINAL: Abdomen soft, non-tender, nondistended, obese MUSCULOSKELETAL: No cyanosis, bilat LE edema. Laboratory Laboratory Tests Test 03/29/17 16:15 03/30/17 07:02 Urine Color YELLOW Urine Turbidity CLEAR Urine pH 6.0 Urine Specific [place] 1.043 Urine Protein 30 mg/dL Urine Glucose (UA) NEG mg/dL Urine Ketones NEG mg/dL Urine Occult Blood SMALL Urine Nitrite NEG Urine Bilirubin NEG Urine Urobilinogen LESS THAN 2.0 MG/DL Urine Leukocyte Esterase NEG Urine RBC 3 /hpf Urine WBC 6 /hpf Urine Renal Epithelial Cells <1 /hpf Urine Bacteria OCC /hpf Urine Mucus FEW /lpf Microscopic Urinalysis Comment CATH-CULTURE IND White Blood Count 24.1 TH/MM3 Red Blood Count 4.01 MIL/MM3 Hemoglobin 10.7 GM/DL Hematocrit 34.6 % Mean Corpuscular Volume 86.2 FL Mean Corpuscular Hemoglobin 26.7 PG Mean Corpuscular Hemoglobin Concent 31.0 % Red Cell Distribution Width 14.9 % Platelet Count 303 TH/MM3 Mean Platelet Volume 10.1 FL CBC Comment AUTO DIFF Differential Total Cells Counted 100 Neutrophils % (Manual) 87 % Band Neutrophils % 8 % Lymphocytes % 4 % Monocytes % 1 % Neutrophils # (Manual) 22.9 TH/MM3 Nucleated Red Blood Cells 3 /100 WBC Differential Comment FINAL DIFF MANUAL Atypical Lymphocytes % Toxic Vacuolation PRESENT Platelet Estimate NORMAL Platelet Morphology Comment NORMAL Target Cells 1+ Ovalocytes 1+ Activated Partial Thromboplast Time 30.5 SEC Blood Urea Nitrogen 36 MG/DL Creatinine 1.05 MG/DL Random Glucose 135 MG/DL Total Protein 8.1 GM/DL Albumin 1.3 GM/DL Calcium Level 7.5 MG/DL Alkaline Phosphatase 111 U/L Aspartate Amino Transf (AST/SGOT) 80 U/L Alanine Aminotransferase (ALT/SGPT) 34 U/L Total Bilirubin 1.4 MG/DL Sodium Level 150 MEQ/L Potassium Level 4.1 MEQ/L Chloride Level 116 MEQ/L Carbon Dioxide Level 25.2 MEQ/L Anion Gap 9 MEQ/L Estimat Glomerular Filtration Rate 54 ML/MIN Assessment and Plan Problem List: (1) Respiratory insufficiency ICD Codes: R06.89 - Other abnormalities of breathing (2) Sepsis ICD Codes: A41.9 - Sepsis, unspecified organism Status: Acute (3) Elevated troponin ICD Codes: R74.8 - Abnormal levels of other serum enzymes Status: Acute (4) Scleroderma ICD Codes: M34.9 - Systemic sclerosis, unspecified (5) Transaminitis ICD Codes: R74.0 - Nonspecific elevation of levels of transaminase and lactic acid dehydrogenase [LDH] (6) Acute kidney injury ICD Codes: N17.9 - Acute kidney failure, unspecified (7) Depression ICD Codes: F32.9 - Major depressive disorder, single episode, unspecified (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 Troponin elevated, but CK MB index nl.. Continue beta kathy and ASA. MYRIAM showed MV vegetation. ID evaluation and management for suspected endocarditis. Continue vent support, wean as tolerated. Continue current program with ICU monitoring. Problem Qualifiers (1) Sepsis: Qualified Codes: A41.9 - Sepsis, unspecified organism (2) Depression: Qualified Codes: F32.9 - Major depressive disorder, single episode, unspecified Kylie Newton MD Mar 30, 2017 12:34
--- NOTE | 2017-03-30 12:36 | HHI.IDPN ---
Subjective Subjective Remarks ID COVERAGE 57 yo F with h/o scleroderma, used to be on Humira, but off x 5 mos Admitted for fever and altered mental status. Has had multiple (+) BC with MSSA TTE negative, but MYRIAM with vegetation in MV, and also with AI Was on BIPAP for respiratory issues, but required intubation 03/29 Notes reviewed D/W RN Sedated on the vent Temps better trhis morning BP ok, not on pressors BC (+) 03/23-03/27 BC 03/28 negative so far Sputum with GNR WBC rising Antibiotics Current Medications oxacillin Cefepime Diflucan Medications (Trade) Dose Ordered Sig/Bj Route Start Time Stop Time Status Last Admin (Tylenol) 650 mg Q6H PRN PO 03/23/17 22:30 ([place] 5-325 Mg) 1 tab Q4H PRN PO 03/23/17 22:30 (Tears Naturale Opth Soln) 1 drop TID EACH EYE 03/24/17 09:00 03/30/17 10:29 (Zofran Inj) 4 mg Q6H PRN IV PUSH 03/23/17 22:30 (Albuterol Neb) 2.5 mg Q2HR NEB PRN INH 03/23/17 22:30 Miscellaneous Information 1 Q361D XX 03/23/17 22:30 (Chlorhexidine 2% Cloth) Taper DAILY@04 TOP 03/24/17 04:00 03/20/18 03:59 03/28/17 02:16 (Chlorhexidine 2% Cloth) 3 pack UNSCH PRN TOP 03/23/17 22:30 (Mely-Colace) 1 tab BID PO 03/24/17 09:00 03/30/17 09:35 (Milk Of Magnesia Liq) 30 ml Q12H PRN PO 03/23/17 22:30 (Senokot) 17.2 mg Q12H PRN PO 03/23/17 22:30 (Dulcolax Supp) 10 mg DAILY PRN RECTAL 03/23/17 22:30 (Lactulose Liq) 30 ml DAILY PRN PO 03/23/17 22:30 (NS Flush) 2 ml UNSCH PRN IV FLUSH 03/23/17 22:45 (NS Flush) 2 ml BID IV FLUSH 03/24/17 09:00 03/30/17 10:28 (Pepcid) 20 mg DAILY@0600 PO 03/24/17 06:00 03/30/17 05:39 (Lopressor) 12.5 mg Q12HR PO 03/24/17 09:00 03/27/17 20:59 (Lexapro) 20 mg DAILY PO 03/24/17 09:00 03/30/17 09:34 (Neurontin) 600 mg TID PO 03/24/17 09:00 03/30/17 09:35 (Dilaudid) 4 mg Q6H PRN PO 03/24/17 00:45 03/24/17 10:30 (Synthroid) 150 mcg DAILY@0700 PO 03/24/17 07:00 03/30/17 05:39 (Ativan) 0.5 mg BID PRN PO 03/24/17 00:45 03/27/17 20:59 (Oramorph Sr) 60 mg Q8HR PO 03/24/17 06:00 Future Hold 03/28/17 06:10 (Effexor Xr) 37.5 mg DAILY PO 03/24/17 09:00 03/27/17 09:35 Oxacillin Sodium 2 gm/Sodium Chloride 100 ml @ 200 mls/hr Q4H IV 03/24/17 18:00 03/30/17 10:28 Potassium Chloride 100 ml @ 50 mls/hr Q2H PRN IV 03/25/17 09:00 Potassium Chloride 100 ml @ 50 mls/hr Q2H PRN IV 03/25/17 09:00 (K-Lyte Cl Eff) 50 meq UNSCH PRN PO 03/25/17 09:00 Potassium Chloride 100 ml @ 25 mls/hr UNSCH PRN IV 03/25/17 09:00 Potassium Chloride 100 ml @ 50 mls/hr Q2H PRN IV 03/25/17 09:00 03/25/17 20:27 Magnesium Sulfate 4 gm/Sodium Chloride 100 ml @ 50 mls/hr UNSCH PRN IV 03/25/17 09:00 (Mag-Ox) 800 mg UNSCH PRN PO 03/25/17 09:00 Magnesium Sulfate 2 gm/Sodium Chloride 100 ml @ 50 mls/hr UNSCH PRN IV 03/25/17 09:00 (K-Phos) 2,000 mg Q4H PRN PO 03/25/17 09:00 Sodium Phosphate 30 mmol/Sodium Chloride 250 ml @ 42 mls/hr UNSCH PRN IV 03/25/17 09:00 03/28/17 11:50 (K-Phos) 2,000 mg UNSCH PRN PO/TUBE 03/25/17 09:00 Potassium Phosphate 30 mmol/ Sodium Chloride 260 ml @ 42 mls/hr UNSCH PRN IV 03/25/17 09:00 (Heparin Inj) 5,000 units Q12HR SQ 03/26/17 09:00 03/30/17 09:34 Acetaminophen 100 ml @ 400 mls/hr Q6H PRN IV 03/28/17 20:00 03/29/17 14:49 (Peridex 0.12% Liq) 15 ml BID@08,20 MT 03/29/17 20:00 03/30/17 09:38 Propofol 100 ml @ 4.173 mls/ hr TITRATE PRN IV 03/29/17 09:00 03/30/17 07:25 Fentanyl Citrate 250 ml @ 5 mls/hr TITRATE PRN IV 03/29/17 09:00 03/30/17 00:03 Cefepime HCl 2000 mg/Sodium Chloride 100 ml @ 200 mls/hr Q12H IV 03/29/17 13:00 03/30/17 00:10 Fluconazole/ Sodium Chloride 50 ml @ 50 mls/hr Q24H IV 03/29/17 14:00 03/29/17 16:15 (Tylenol) 500 mg Q4H PRN PO 03/29/17 12:30 (Roxanol Liq) 20 mg Q4H OG-TUBE 03/29/17 15:00 03/30/17 10:29 (Aspirin Chew) 81 mg DAILY OG-TUBE 03/30/17 09:00 03/30/17 09:35 (Ferrous Sulfate Liq) 300 mg DAILY OG-TUBE 03/30/17 09:00 03/30/17 09:33 (Free Water) 200 ml Q6HR G-TUBE 03/30/17 10:00 04/01/17 09:59 03/30/17 10:28 Lines PIV Past Medical History Scleroderma unknown if localized versus systemic Thyroid disease unknown type Chronic pain syndrome Elevated BMI Past Surgical History Status post splenectomy Allergies: Coded Allergies: shellfish derived (Verified Allergy, Intermediate, 03/23/17) Objective . Vital Signs Date Time Temp Pulse Resp B/P (MAP) Pulse Ox O2 Delivery O2 Flow Rate FiO2 03/30/17 11:15 100 40 03/30/17 10:00 109 03/30/17 08:00 98.7 101 19 109/68 (82) 94 Manual Cuff/Auscultation 03/30/17 08:00 40 03/30/17 08:00 101 03/30/17 07:42 95 50 03/30/17 06:00 99 03/30/17 04:15 100 50 03/30/17 04:00 92 03/30/17 04:00 99.1 91 18 107/55 (72) 100 03/30/17 04:00 50 03/30/17 02:00 90 03/30/17 01:19 100 50 03/30/17 01:19 100 Ventilator 50 03/30/17 00:00 50 03/30/17 00:00 99.1 93 21 123/63 (83) 100 03/30/17 00:00 92 03/29/17 23:25 98 100 03/29/17 22:26 100 50 03/29/17 22:00 90 03/29/17 20:00 91 03/29/17 20:00 50 03/29/17 20:00 100.9 97 19 110/58 (75) 100 03/29/17 19:55 100 50 03/29/17 18:00 103 03/29/17 16:09 100 50 03/29/17 16:00 101.2 109 22 102/56 (71) 100 03/29/17 16:00 60 03/29/17 16:00 109 03/29/17 14:33 98 60 03/29/17 14:31 96 60 03/29/17 14:30 102.3 114 22 114/59 (77) 93 . Laboratory Tests Test 03/29/17 04:48 03/30/17 07:02 White Blood Count 19.2 TH/MM3 24.1 TH/MM3 Red Blood Count 3.97 MIL/MM3 4.01 MIL/MM3 Hemoglobin 11.0 GM/DL 10.7 GM/DL Hematocrit 33.1 % 34.6 % Mean Corpuscular Volume 83.3 FL 86.2 FL Mean Corpuscular Hemoglobin 27.6 PG 26.7 PG Mean Corpuscular Hemoglobin Concent 33.1 % 31.0 % Red Cell Distribution Width 14.2 % 14.9 % Platelet Count 339 TH/MM3 303 TH/MM3 Mean Platelet Volume 10.0 FL 10.1 FL CBC Comment AUTO DIFF Differential Total Cells Counted 100 Neutrophils % (Manual) 87 % Band Neutrophils % 8 % Lymphocytes % 4 % Monocytes % 1 % Neutrophils # (Manual) 22.9 TH/MM3 Nucleated Red Blood Cells 3 /100 WBC Differential Comment FINAL DIFF MANUAL Atypical Lymphocytes % Toxic Vacuolation PRESENT Platelet Estimate NORMAL Platelet Morphology Comment NORMAL Target Cells 1+ Ovalocytes 1+ Laboratory Tests Test 03/30/17 07:02 Blood Urea Nitrogen 36 MG/DL Creatinine 1.05 MG/DL Random Glucose 135 MG/DL Total Protein 8.1 GM/DL Albumin 1.3 GM/DL Calcium Level 7.5 MG/DL Alkaline Phosphatase 111 U/L Aspartate Amino Transf (AST/SGOT) 80 U/L Alanine Aminotransferase (ALT/SGPT) 34 U/L Total Bilirubin 1.4 MG/DL Sodium Level 150 MEQ/L Potassium Level 4.1 MEQ/L Chloride Level 116 MEQ/L Carbon Dioxide Level 25.2 MEQ/L Anion Gap 9 MEQ/L Estimat Glomerular Filtration Rate 54 ML/MIN Microbiology Date/Time Source Procedure Growth Status 03/29/17 16:04 Blood Peripheral Aerobic Blood Culture - Preliminary NO GROWTH IN 1 DAY Resulted 03/29/17 16:04 Blood Peripheral Anaerobic Blood Culture - Preliminary NO GROWTH IN 1 DAY Resulted 03/29/17 15:58 Blood Peripheral Aerobic Blood Culture - Preliminary NO GROWTH IN 1 DAY Resulted 03/29/17 15:58 Blood Peripheral Anaerobic Blood Culture - Preliminary NO GROWTH IN 1 DAY Resulted 03/28/17 15:20 Blood Peripheral Aerobic Blood Culture - Preliminary NO GROWTH IN 2 DAYS Resulted 03/28/17 15:20 Blood Peripheral Anaerobic Blood Culture - Preliminary NO GROWTH IN 2 DAYS Resulted 03/28/17 15:15 Blood Peripheral Aerobic Blood Culture - Preliminary NO GROWTH IN 2 DAYS Resulted 03/28/17 15:15 Blood Peripheral Anaerobic Blood Culture - Preliminary NO GROWTH IN 2 DAYS Resulted 03/29/17 10:30 Sputum Endotracheal Gram Stain - Final Resulted 03/29/17 10:30 Sputum Culture - Preliminary Gram Negative Eliseo Resulted 03/29/17 16:15 Urine Catheterized Urine Urine Culture - Preliminary NO GROWTH IN 24 HOURS. Resulted Imaging Chest X-Ray 03/29/17 Signed Impressions: Service Date/Time: Wednesday, March 29, 2017 09:57 - CONCLUSION: Satisfactory position of endotracheal and nasogastric tubes. Extensive bilateral airspace disease. Kurt Hairston MD Chest X-Ray 03/27/17 Signed Impressions: Service Date/Time: Monday, March 27, 2017 14:54 - CONCLUSION: Persistent cardiac silhouette enlargement with new bilateral diffuse pulmonary opacity primarily interstitial likely representing pulmonary edema. Ronnie Max MD Chest X-Ray 03/27/17 Signed Impressions: Service Date/Time: Monday, March 27, 2017 14:54 - CONCLUSION: Persistent cardiac silhouette enlargement with new bilateral diffuse pulmonary opacity primarily interstitial likely representing pulmonary edema. Ronnie Max MD Liver Ultrasound 03/24/17 Signed Impressions: Service Date/Time: March 16:41 - CONCLUSION: 1. Limited examination due to body habitus and patient's inability to tolerate the procedure. Unfortunately, the gallbladder is not sufficiently visualized for further evaluation of abnormality noted on CT scan. If there is continued clinical concern regarding acute cholecystitis, consider HIDA scan to evaluate for cystic duct patency. 2. Diffusely heterogeneous and mildly enlarged liver consistent with hepatic steatosis versus medical liver disease. Shlomo Mesa MD Head CT [id number] Signed Impressions: Service Date/Time: Thursday, March 23, 2017 20:45 - CONCLUSION: No acute findings in the brain. David Weiss MD Abdomen/Pelvis CT [id number] Signed Impressions: Service Date/Time: Thursday, March 23, 2017 20:48 - CONCLUSION: 1. Multiple gallstones, some of which are noncalcified. 2. Spleen is not identified. 3. Mildly prominent left inguinal David Weiss MD Physical Exam GENERAL: Sedated on the vent, NAD SKIN: multiple SQ nodules, non healing chronic appearing wounds on L thigh, no purulence. Has dry scabs on both LE, not infected. warm, dry EYES: Pupils equal and round and reactive. Extraocular motions intact. No scleral icterus. No injection or drainage. NECK: supple ENT: Nose without bleeding or purulent drainage. Orally intubated CARDIOVASCULAR: Regular rate and rhythm. + 2-3/6 harsh murmur L precordium RESPIRATORY/CHEST: Symmetric, unlabored respirations. Clear to auscultation. Breath sounds equal bilaterally. No wheezes, rales, or rhonchi. GASTROINTESTINAL: Abdomen soft, no reaction to palpation. No hepato- splenomegaly, or palpable masses. Bowel sounds present. GENITOURINARY: Without palpable bladder distension. Florez catheter in place with clear yellow urine MUSCULOSKELETAL: Extremities without clubbing, cyanosis, or edema. No mottling or clubbing. NEUROLOGICAL: Sedated PSYCHIATRIC: unable to assess : Florez in place LINE: NO evidence of infection Assessment & Plan Remarks IMPRESSION [place] valve endocarditis, MV - MYRIAM + - also with AI MSSA bacteremia, high grade NSTEMI Scleroderma Immunosuppressed S/P splenectomy Respiratory failuire New fevers, likely due to GNR PNA PLAN: Follow new C/S Continue oxacillin for MSSA Continue Cefepime - for GNR Continue Diflucan If cont to have persistent bacteremia will need to start looking for metastatic foci (MRI spine, abd /pel CT) Monitor temps Monitor progress D/W Haven Thomas MD Mar 30, 2017 12:36
[2017-03-30] MEDS: FLUCONAZOLE 100 MG PREMIX BAG 50 ML IV SCH (12:39)
[2017-03-30] MEDS: ACETAMINOPHEN 1000 MG/100 ML 100 ML IV PRN (16:44)
[2017-03-30] MEDS: RESP: ALBUTEROL 2.5 MG/3 ML NEB (PRN) INH (20:46)
[2017-03-31] VITALS (17 sets, daily range): BP systolic 94–131; BP diastolic 56–68; PULSE 98–112; RESP 11–19; TEMP 100–101.2; O2SAT 92–98
[2017-03-31] MEDS: CHLORHEXIDINE GLUCONATE 2 % 1 PACK (2 CLOTHS) TOP SCH ×2 (00:39→20:01)
[2017-03-31] MEDS: OXACILLIN INJ 2 GM in SODIUM CHLORIDE 0.9% INJ 100 ML IV SCH ×6 (01:50→19:55)
[2017-03-31] MEDS: CEFEPIME INJ 2,000 MG in SODIUM CHLORIDE 0.9% INJ 100 ML IV SCH (01:50)
[2017-03-31] MEDS: MORPHINE SULFATE ORAL SOLN 10 MG/0.5 ML SYRINGE OG-TUBE SCH ×2 (02:30→05:38)
[2017-03-31] MEDS: FREE WATER G-TUBE SCH ×5 (04:51→23:14)
[2017-03-31] MEDS: FAMOTIDINE 20 MG TAB PO SCH (05:37)
[2017-03-31] MEDS: LEVOTHYROXINE SODIUM 75 MCG TAB PO SCH (05:37)
[2017-03-31] MEDS: ASPIRIN 81 MG CHEW TAB OG-TUBE SCH (07:58)
[2017-03-31] MEDS: METOPROLOL TARTRATE 25 MG TAB PO SCH ×2 (07:58→19:54)
[2017-03-31] MEDS: FERROUS SULFATE 300 MG /5ML UDC OG-TUBE SCH (07:58)
[2017-03-31] MEDS: VENLAFAXINE HCL XR 37.5 MG CAP PO SCH (07:58)
[2017-03-31] MEDS: HEPARIN SODIUM - SQ 10,000 UNITS/ML VIAL SQ SCH ×2 (07:59→19:54)
[2017-03-31] MEDS: GABAPENTIN 300 MG CAP PO SCH ×3 (07:59→17:38)
[2017-03-31] MEDS: CHLORHEXIDINE 0.12% (ORAL KIT) 15 ML CUP MT SCH ×2 (07:59→19:38)
[2017-03-31] MEDS: ESCITALOPRAM OXALATE 20 MG TAB PO SCH (07:59)
[2017-03-31] MEDS: SODIUM CHLORIDE 0.9% FLUSH 10 ML FLUSH IV FLUSH SCH ×2 (07:59→19:38)
[2017-03-31] MEDS: ARTIFICIAL TEARS OPTH SOLN 15 ML BTL EACH EYE SCH ×3 (08:00→17:38)
[2017-03-31] MEDS: DOCUSATE SODIUM 50 MG/SENNA 8.6 MG TAB PO SCH ×2 (08:01→19:54)
--- NOTE | 2017-03-31 09:37 | HHI.IDPN ---
Subjective Subjective Remarks ID COVERAGE 57 yo F with h/o scleroderma, used to be on Humira, but off x 5 mos Admitted for fever and altered mental status. Has had multiple (+) BC with MSSA TTE negative, but MYRIAM with vegetation in MV, and also with AI Was on BIPAP for respiratory issues, but required intubation 03/29 Notes reviewed On CPAP Did not wake up for me Brain MRI with lacunar infarcts No new (+) BC Sputum with Enterobacter WBC rising UC negative BP ok, not on pressors BC (+) 03/23-03/27 BC 03/28 negative so far Antibiotics Current Medications oxacillin Cefepime Diflucan Medications (Trade) Dose Ordered Sig/Bj Route Start Time Stop Time Status Last Admin (Tylenol) 650 mg Q6H PRN PO 03/23/17 22:30 ([place] 5-325 Mg) 1 tab Q4H PRN PO 03/23/17 22:30 (Tears Naturale Opth Soln) 1 drop TID EACH EYE 03/24/17 09:00 03/31/17 08:00 (Zofran Inj) 4 mg Q6H PRN IV PUSH 03/23/17 22:30 (Albuterol Neb) 2.5 mg Q2HR NEB PRN INH 03/23/17 22:30 03/30/17 20:46 Miscellaneous Information 1 Q361D XX 03/23/17 22:30 (Chlorhexidine 2% Cloth) Taper DAILY@04 TOP 03/24/17 04:00 03/20/18 03:59 03/28/17 02:16 (Chlorhexidine 2% Cloth) 3 pack UNSCH PRN TOP 03/23/17 22:30 (Mely-Colace) 1 tab BID PO 03/24/17 09:00 03/31/17 08:01 (Milk Of Magnesia Liq) 30 ml Q12H PRN PO 03/23/17 22:30 (Senokot) 17.2 mg Q12H PRN PO 03/23/17 22:30 (Dulcolax Supp) 10 mg DAILY PRN RECTAL 03/23/17 22:30 (Lactulose Liq) 30 ml DAILY PRN PO 03/23/17 22:30 (NS Flush) 2 ml UNSCH PRN IV FLUSH 03/23/17 22:45 (NS Flush) 2 ml BID IV FLUSH 03/24/17 09:00 03/31/17 07:59 (Pepcid) 20 mg DAILY@0600 PO 03/24/17 06:00 03/31/17 05:37 (Lopressor) 12.5 mg Q12HR PO 03/24/17 09:00 03/31/17 07:58 (Lexapro) 20 mg DAILY PO 03/24/17 09:00 03/31/17 07:59 (Neurontin) 600 mg TID PO 03/24/17 09:00 03/31/17 07:59 (Dilaudid) 4 mg Q6H PRN PO 03/24/17 00:45 03/24/17 10:30 (Synthroid) 150 mcg DAILY@0700 PO 03/24/17 07:00 03/31/17 05:37 (Ativan) 0.5 mg BID PRN PO 03/24/17 00:45 03/27/17 20:59 (Oramorph Sr) 60 mg Q8HR PO 03/24/17 06:00 Future Hold 03/28/17 06:10 (Effexor Xr) 37.5 mg DAILY PO 03/24/17 09:00 03/27/17 09:35 Oxacillin Sodium 2 gm/Sodium Chloride 100 ml @ 200 mls/hr Q4H IV 03/24/17 18:00 03/31/17 05:37 Potassium Chloride 100 ml @ 50 mls/hr Q2H PRN IV 03/25/17 09:00 Potassium Chloride 100 ml @ 50 mls/hr Q2H PRN IV 03/25/17 09:00 (K-Lyte Cl Eff) 50 meq UNSCH PRN PO 03/25/17 09:00 Potassium Chloride 100 ml @ 25 mls/hr UNSCH PRN IV 03/25/17 09:00 Potassium Chloride 100 ml @ 50 mls/hr Q2H PRN IV 03/25/17 09:00 03/25/17 20:27 Magnesium Sulfate 4 gm/Sodium Chloride 100 ml @ 50 mls/hr UNSCH PRN IV 03/25/17 09:00 (Mag-Ox) 800 mg UNSCH PRN PO 03/25/17 09:00 Magnesium Sulfate 2 gm/Sodium Chloride 100 ml @ 50 mls/hr UNSCH PRN IV 03/25/17 09:00 (K-Phos) 2,000 mg Q4H PRN PO 03/25/17 09:00 Sodium Phosphate 30 mmol/Sodium Chloride 250 ml @ 42 mls/hr UNSCH PRN IV 03/25/17 09:00 03/28/17 11:50 (K-Phos) 2,000 mg UNSCH PRN PO/TUBE 03/25/17 09:00 Potassium Phosphate 30 mmol/ Sodium Chloride 260 ml @ 42 mls/hr UNSCH PRN IV 03/25/17 09:00 (Heparin Inj) 5,000 units Q12HR SQ 03/26/17 09:00 03/31/17 07:59 Acetaminophen 100 ml @ 400 mls/hr Q6H PRN IV 03/28/17 20:00 03/30/17 16:44 (Peridex 0.12% Liq) 15 ml BID@08,20 MT 03/29/17 20:00 03/31/17 07:59 Propofol 100 ml @ 4.173 mls/ hr TITRATE PRN IV 03/29/17 09:00 03/30/17 07:25 Fentanyl Citrate 250 ml @ 5 mls/hr TITRATE PRN IV 03/29/17 09:00 03/30/17 00:03 Cefepime HCl 2000 mg/Sodium Chloride 100 ml @ 200 mls/hr Q12H IV 03/29/17 13:00 03/31/17 01:50 Fluconazole/ Sodium Chloride 50 ml @ 50 mls/hr Q24H IV 03/29/17 14:00 03/30/17 12:39 (Tylenol) 500 mg Q4H PRN PO 03/29/17 12:30 (Roxanol Liq) 20 mg Q4H OG-TUBE 03/29/17 15:00 03/31/17 05:38 (Aspirin Chew) 81 mg DAILY OG-TUBE 03/30/17 09:00 03/31/17 07:58 (Ferrous Sulfate Liq) 300 mg DAILY OG-TUBE 03/30/17 09:00 03/31/17 07:58 (Free Water) 200 ml Q6HR G-TUBE 03/30/17 10:00 04/01/17 09:59 03/31/17 04:51 Lines PIV Past Medical History Scleroderma unknown if localized versus systemic Thyroid disease unknown type Chronic pain syndrome Elevated BMI Past Surgical History Status post splenectomy Allergies: Coded Allergies: shellfish derived (Verified Allergy, Intermediate, 03/23/17) Objective . Vital Signs Date Time Temp Pulse Resp B/P (MAP) Pulse Ox O2 Delivery O2 Flow Rate FiO2 03/31/17 08:22 94 40 03/31/17 08:22 40 03/31/17 08:00 40 03/31/17 06:00 110 03/31/17 04:03 98 40 03/31/17 04:00 110 03/31/17 04:00 40 03/31/17 04:00 100.0 110 19 111/56 (74) 96 03/31/17 02:00 110 03/31/17 00:00 108 03/31/17 00:00 40 03/31/17 00:00 100.5 108 19 118/66 (83) 94 03/30/17 23:39 93 40 03/30/17 22:00 106 03/30/17 20:37 95 40 03/30/17 20:00 100.3 104 18 112/60 (77) 95 03/30/17 20:00 104 03/30/17 20:00 40 03/30/17 18:00 109 03/30/17 16:00 101.5 105 23 113/68 (83) 99 03/30/17 16:00 40 03/30/17 16:00 105 03/30/17 15:23 100 40 03/30/17 14:00 102 03/30/17 12:00 106 03/30/17 12:00 40 03/30/17 12:00 100.4 110 31 119/56 (77) 100 03/30/17 11:30 20 03/30/17 11:15 100 40 03/30/17 10:00 109 . Laboratory Tests Test 03/30/17 07:02 White Blood Count 24.1 TH/MM3 Red Blood Count 4.01 MIL/MM3 Hemoglobin 10.7 GM/DL Hematocrit 34.6 % Mean Corpuscular Volume 86.2 FL Mean Corpuscular Hemoglobin 26.7 PG Mean Corpuscular Hemoglobin Concent 31.0 % Red Cell Distribution Width 14.9 % Platelet Count 303 TH/MM3 Mean Platelet Volume 10.1 FL CBC Comment AUTO DIFF Differential Total Cells Counted 100 Neutrophils % (Manual) 87 % Band Neutrophils % 8 % Lymphocytes % 4 % Monocytes % 1 % Neutrophils # (Manual) 22.9 TH/MM3 Nucleated Red Blood Cells 3 /100 WBC Differential Comment FINAL DIFF MANUAL Atypical Lymphocytes % Toxic Vacuolation PRESENT Platelet Estimate NORMAL Platelet Morphology Comment NORMAL Target Cells 1+ Ovalocytes 1+ Laboratory Tests Test 03/30/17 07:02 Blood Urea Nitrogen 36 MG/DL Creatinine 1.05 MG/DL Random Glucose 135 MG/DL Total Protein 8.1 GM/DL Albumin 1.3 GM/DL Calcium Level 7.5 MG/DL Alkaline Phosphatase 111 U/L Aspartate Amino Transf (AST/SGOT) 80 U/L Alanine Aminotransferase (ALT/SGPT) 34 U/L Total Bilirubin 1.4 MG/DL Sodium Level 150 MEQ/L Potassium Level 4.1 MEQ/L Chloride Level 116 MEQ/L Carbon Dioxide Level 25.2 MEQ/L Anion Gap 9 MEQ/L Estimat Glomerular Filtration Rate 54 ML/MIN Microbiology Date/Time Source Procedure Growth Status 03/29/17 16:04 Blood Peripheral Aerobic Blood Culture - Preliminary NO GROWTH IN 1 DAY Resulted 03/29/17 16:04 Blood Peripheral Anaerobic Blood Culture - Preliminary NO GROWTH IN 1 DAY Resulted 03/29/17 15:58 Blood Peripheral Aerobic Blood Culture - Preliminary NO GROWTH IN 1 DAY Resulted 03/29/17 15:58 Blood Peripheral Anaerobic Blood Culture - Preliminary NO GROWTH IN 1 DAY Resulted 03/28/17 15:20 Blood Peripheral Aerobic Blood Culture - Preliminary NO GROWTH IN 2 DAYS Resulted 03/28/17 15:20 Blood Peripheral Anaerobic Blood Culture - Preliminary NO GROWTH IN 2 DAYS Resulted 03/28/17 15:15 Blood Peripheral Aerobic Blood Culture - Preliminary NO GROWTH IN 2 DAYS Resulted 03/28/17 15:15 Blood Peripheral Anaerobic Blood Culture - Preliminary NO GROWTH IN 2 DAYS Resulted 03/29/17 10:30 Sputum Endotracheal Gram Stain - Final Complete 03/29/17 10:30 Sputum Culture - Final Enterobacter Cloacae Complete 03/29/17 16:15 Urine Catheterized Urine Urine Culture - Preliminary NO GROWTH IN 24 HOURS. Resulted Imaging Lower Extremity MRI 03/29/17 0000 Signed Impressions: Service Date/Time: Wednesday, March 29, 2017 13:04 - CONCLUSION: Cellulitis and shallow ulcerations in the left gluteal region and proximal thigh. No evidence of deep muscular involvement, abscess formation or bone marrow edema. Kurt Hairston MD Chest X-Ray 03/29/17 0000 Signed Impressions: Service Date/Time: Wednesday, March 29, 2017 09:57 - CONCLUSION: Satisfactory position of endotracheal and nasogastric tubes. Extensive bilateral airspace disease. Kurt Hairston MD Chest CT 03/29/17 0000 Signed Impressions: Service Date/Time: Wednesday, March 29, 2017 23:31 - CONCLUSION: Extensive air space process bilaterally could represent pulmonary edema, however pneumonia is not excluded. Marquise Leonardo MD Brain MRI 03/29/17 0000 Signed Impressions: Service Date/Time: Wednesday, March 29, 2017 13:04 - CONCLUSION: Tiny bilateral areas of probable subacute lacunar infarction. Patchy mild nonspecific white matter signal changes. Gerson Vegas MD Liver Ultrasound 03/24/17 0000 Signed Impressions: Service Date/Time: March 16:41 - CONCLUSION: 1. Limited examination due to body habitus and patient's inability to tolerate the procedure. Unfortunately, the gallbladder is not sufficiently visualized for further evaluation of abnormality noted on CT scan. If there is continued clinical concern regarding acute cholecystitis, consider HIDA scan to evaluate for cystic duct patency. 2. Diffusely heterogeneous and mildly enlarged liver consistent with hepatic steatosis versus medical liver disease. Shlomo eMsa MD Head CT 03/23/171923 Signed Impressions: Service Date/Time: Thursday, March 23, 2017 20:45 - CONCLUSION: No acute findings in the brain. David Weiss MD Abdomen/Pelvis CT 03/23/171923 Signed Impressions: Service Date/Time: Thursday, March 23, 2017 20:48 - CONCLUSION: 1. Multiple gallstones, some of which are noncalcified. 2. Spleen is not identified. 3. Mildly prominent left inguinal David Weiss MD Chest X-Ray 03/29/17 0000 Signed Impressions: Service Date/Time: Wednesday, March 29, 2017 09:57 - CONCLUSION: Satisfactory position of endotracheal and nasogastric tubes. Extensive bilateral airspace disease. Kurt Hairston MD Chest X-Ray 03/27/17 0000 Signed Impressions: Service Date/Time: Monday, March 27, 2017 14:54 - CONCLUSION: Persistent cardiac silhouette enlargement with new bilateral diffuse pulmonary opacity primarily interstitial likely representing pulmonary edema. Ronnie Max MD Chest X-Ray 03/27/17 0000 Signed Impressions: Service Date/Time: Monday, March 27, 2017 14:54 - CONCLUSION: Persistent cardiac silhouette enlargement with new bilateral diffuse pulmonary opacity primarily interstitial likely representing pulmonary edema. Ronnie Max MD Liver Ultrasound 03/24/17 0000 Signed Impressions: Service Date/Time: March 16:41 - CONCLUSION: 1. Limited examination due to body habitus and patient's inability to tolerate the procedure. Unfortunately, the gallbladder is not sufficiently visualized for further evaluation of abnormality noted on CT scan. If there is continued clinical concern regarding acute cholecystitis, consider HIDA scan to evaluate for cystic duct patency. 2. Diffusely heterogeneous and mildly enlarged liver consistent with hepatic steatosis versus medical liver disease. Shlomo Mesa MD Head CT 03/23/171923 Signed Impressions: Service Date/Time: Thursday, March 23, 2017 20:45 - CONCLUSION: No acute findings in the brain. David Weiss MD Abdomen/Pelvis CT 03/23/171923 Signed Impressions: Service Date/Time: Thursday, March 23, 2017 20:48 - CONCLUSION: 1. Multiple gallstones, some of which are noncalcified. 2. Spleen is not identified. 3. Mildly prominent left inguinal David Weiss MD Physical Exam GENERAL: NAD, on CPAP SKIN: multiple SQ nodules, chronic appearing wounds on L thigh, no purulence. Has dry scabs on both LE, not infected. warm, dry EYES: Pupils equal and round and reactive. Extraocular motions intact. No scleral icterus. No injection or drainage. NECK: supple ENT: Nose without bleeding or purulent drainage. Orally intubated CARDIOVASCULAR: Regular rate and rhythm. + 2-3/6 harsh murmur L precordium RESPIRATORY/CHEST: Symmetric, unlabored respirations. Clear to auscultation. Breath sounds equal bilaterally. No wheezes, rales, or rhonchi. GASTROINTESTINAL: Abdomen soft, no reaction to palpation. No hepato- splenomegaly, or palpable masses. Bowel sounds present. GENITOURINARY: Florez catheter in place with clear yellow urine MUSCULOSKELETAL: Extremities without clubbing, cyanosis, or edema. No mottling or clubbing. NEUROLOGICAL: Not responding PSYCHIATRIC: unable to assess : Florez in place LINE: NO evidence of infection Assessment & Plan Remarks IMPRESSION [place] valve endocarditis, MV - MYRIAM + - also with AI MSSA bacteremia, high grade NSTEMI Scleroderma Immunosuppressed S/P splenectomy Respiratory failuire Enterobacter PNA Persistent fevers and worsening leukocytosis Multiple lacunar infarcts of MRI PLAN: Continue oxacillin for MSSA Change Cefepime to Levaquin to cover Enterobacter Continue Diflucan Monitor temps Monitor progress Follow CBC Weaning per CCM Haven Abreu MD Mar 31, 2017 09:37
--- NOTE | 2017-03-31 10:24 | HHI.CCPN ---
Subjective Remarks/Hospital Course This is a 57-year-old female. Admission 03/23/2017.past medical history includes scleroderma, thyroid disease, status post splenectomy in the past and elevated BMI. Initial presentation occurred Tuesday with lethargy, sleeping, and fever. The patient also had one episode of vomiting with several episodes of diarrhea. The states she has been no recent international travel, hospitalizations, or history of chronic infections. She did have similar symptoms 2 years ago per the 's report with the patient had low oxygen levels and had altered mental status. The patient is seen by pain management as well as her primary physician who is located in [place], [place]. Dr. Estrada The states the patient's mental status seems to wax and wane over the last several days, she'll be awake and alert, and that she will fall asleep and be slightly lethargic and confused. She will lie in bed for several days at a time. The patient denies any chest pain or shortness of breath. She does complain of abdominal pain over the skin secondary to her scleroderma. She also has a history of an open lesion secondary to scleroderma of the lateral left thigh which has been present for several years per the 's report. Received patient was treated with Humira for scleroderma however not taking for the past 5 months. She is on morphine and Dilaudid for chronic pain management from her Dr. Dominguez in [place] abdomen/ revealed gallstones without obstruction. Status post splenectomy. Morbid obesity. Chest x-ray revealed no signs of pneumonia. CT brain negative. Patient received 2 L normal saline added ED. She was noted to have a elevated troponin of 15. Denies chest pain. EKG shows nonspecific ST-T changes. CPK 2100. Creatinine 1.7. Leukocytosis 20,000 and elevated transaminases with low sodium and albumin. Her febrile is abated. She is currently awake and oriented to person place and time. 03/24 Patient is lying in bed in [facility]. Afebrile. Renal function is improving with Cr: 1.10 from 1.73. On Heparin drip for elevated trop. 03/25 No events overnight. Remains on Heparin drip. Renal function is now within normal. Afebrile. 03/26 s/p MYRIAM yesterday which shoed vegetation on mitral valve She was on BIPAP overnight now on 4L oxygen. Given Lasix 40mg x 1 yesterday with good response in UOP. Afebrile. off Heparin drip.. 03/27 No events overnight. On BIPAP 15 with 35% FIO2 overnight. Afebrile. 03/28: Remains on BiPAP with full facemask. 03/29: Patient was intubated and placed on mechanical ventilation as she was requiring BiPAP and continued to have increased work of breathing and needed to get imaging studies for further evaluation. 03/30: Remains sedated, orally intubated on mechanical ventilation. Head CT done on 03/29 revealed small lacunar infarcts (probably secondary to septic emboli). 03/31: remains febrile. intubated. blood cultures 03/29 NGTD still. follows commands. off sedation. on PSV 20/10/40%, but does not tolerate weaning of pressure support. CXR with persistent pulmonary edema. Objective Vital Signs Date Time Temp Pulse Resp B/P (MAP) Pulse Ox O2 Delivery O2 Flow Rate FiO2 03/31/17 10:00 99 03/31/17 08:22 94 40 03/31/17 08:00 100.7 18 131/68 (89) 03/30/17 01:19 Ventilator 03/27/17 12:00 4.00 Intake and Output 03/31/17 03/31/17 04/01/17 08:00 16:00 00:00 Intake Total 300 ml Output Total 900 ml Balance -600 ml Result Diagram: 03/30/17 0702 03/30/17 0702 Other Results Microbiology Date/Time Source Procedure Growth Status 03/29/17 10:30 Sputum Endotracheal Gram Stain - Final Complete 03/29/17 10:30 Sputum Culture - Final Enterobacter Cloacae Complete 03/29/17 16:15 Urine Catheterized Urine Urine Culture - Final NO GROWTH IN 48 HOURS. Complete Imaging Last Impressions Liver Ultrasound 03/24/17 0000 Signed Impressions: Service Date/Time: March 16:41 - CONCLUSION: 1. Limited examination due to body habitus and patient's inability to tolerate the procedure. Unfortunately, the gallbladder is not sufficiently visualized for further evaluation of abnormality noted on CT scan. If there is continued clinical concern regarding acute cholecystitis, consider HIDA scan to evaluate for cystic duct patency. 2. Diffusely heterogeneous and mildly enlarged liver consistent with hepatic steatosis versus medical liver disease. Shlomo eMsa MD Head CT 03/23/171923 Signed Impressions: Service Date/Time: Thursday, March 23, 2017 20:45 - CONCLUSION: No acute findings in the brain. David Weiss MD Chest X-Ray 03/23/171923 Signed Impressions: Service Date/Time: Thursday, March 23, 2017 19:49 - CONCLUSION: Cardiomegaly. The lungs are clear. David Weiss MD Abdomen/Pelvis CT 03/23/171923 Signed Impressions: Service Date/Time: Thursday, March 23, 2017 20:48 - CONCLUSION: 1. Multiple gallstones, some of which are noncalcified. 2. Spleen is not identified. 3. Mildly prominent left inguinal David Weiss MD Objective Remarks GENERAL: 57-year-old female laying in bed, orally intubated on mechanical ventilation HEAD: Atraumatic. Normocephalic. EYES: Pupils equal and round about 3 mm bilaterally and reactive. No scleral icterus. No injection or drainage. ENT: No nasal bleeding or discharge. Mucous membranes pink and moist. Orally intubated NECK: Trachea midline. No JVD. CARDIOVASCULAR: Tachycardic RR. sinus by tele. RESPIRATORY: Orally intubated on mechanical ventilation, Breath sounds equal bilaterally. GASTROINTESTINAL: morbidly obese, abdomen soft, non-tender, nondistended. no guarding. MUSCULOSKELETAL: Extremities with multiple open areas/calcifications bilateral lower extremities. Largest is in the left gluteal region about 6 x 8 cm. Stage II decubiti. NEUROLOGICAL: Sedated, orally intubated on mechanical ventilation, moves all 4 extremities. follows commands. A/P Assessment and Plan Assessment: 57yF with mitral valve endocarditis, healthcare associated pneumonia , persistent fevers, clinical decline. remains critically ill without any improvement in any organ system today. continue forced diuresis for pulmonary edema, despite rising Cr. Neuro/Psych: Encephalopathy Multiple lacunar infarcts Chronic pain syndrome/low back pain Chronic narcotic use Depression Chronic benzodiazepine use Propofol/fentanyl for sedation/analgesia while intubated with daily sedation vacation consolidate pain meds: d/c morphine and dilaudid. start oxycodone 20mg per tube q4h scheduled. Tizanidine 4 mg 3 times a day has been held Escitalopram 20 mg daily has been continued Lorazepam 0.5 mg twice a day has been continued Venlafaxine 37.5 mg daily has been continued CV: Severe sepsis with multisystem organ failure Mitral valve endocarditis Moderate Mitral regurgitation Moderate Aortic Regurgitation Mild Tricuspid regurgitation Elevated troponin Hypertension Lactic acidosis (resolved) Monitor HR and BP keep MAP>65mmHg ASA 81 mg daily Lopressor 12.5 mg by mouth twice a day No lipid-lowering agents due to elevated transaminases Cards is following-Dr. Newton Echo showed EF 60-65%. MYRIAM showed vegetation on MV Resp: Acute hypoxic respiratory failure on mechanical ventilation ALI Pulmonary Edema Bronchodilators. Intubated and placed on mechanical ventilation on 03/29 s/p short course steroids for wheezing ( 4 doses were given). CT chest with bilateral airspace disease with infiltrates - probably acute lung injury pattern from sepsis and possible pneumonia Vent bundle, daily C Pap trials forced diuresis with lasix 40mg iv x 1. GI: Elevated transaminases/total bilirubin Hypoalbuminemia CT abdomen/pelvis revealed cholelithiasis. No other acute findings. Monitor LFTs ( trending disease), Hepatitis profile is negative US Liver: Limited examination due to body habitus and patient's inability to tolerate the procedure. Unfortunately, the gallbladder is not sufficiently visualized. Diffusely heterogeneous and mildly enlarged liver consistent with hepatic steatosis vs medical liver disease. Lipase level 122, NH4 level 19. / Renal: NATTY Hypernatremia Free water deficit Acute intravascular volume overload Monitor renal function, I/O's, electrolytes replacement per protocol. Free water for hypernatremia started 03/30, increase to 300mL q4h. lasix 40mg iv x 1. Endo/Rheum: Hyperglycemia Hypothyroidism Scleroderma - localized versus systemic Rheumatoid arthritis? Sliding-scale insulin to maintain euglycemia TSH level: 4.5, continue levothyroxine 150 mg by mouth daily/home dose in the interim Heme: Leukocytosis Monitor CBC daily. Follow trends. Continue ferrous sulfate 325 mg by mouth daily ID: Severe sepsis Staph Aureus Bacteremia Mitral valve endocarditis UTI Enterobacter HCAP pneumonia Continue abx per ID ( Oxacillin) monitor for signs of infections ( Fever, WBC) Will need 6 weeks abx once BC is sterile. BC 03/23, 03/24: Staph Aureus bacteremia. MYRIAM vegetation on MV Blood cultures 03/25: 2/4 bottles: S aureus BC 03/27: S aureus ID is following. Patient has persistent staph aureus bacteremia despite antibiotics. MRI brain with multiple lacunar infarcts possibly secondary to septic emboli. CT chest with bilateral airspace disease/infiltrates. Discussed with Dr. Villegas on 03/29 AM prior to intubation. May require CT surgery evaluation if bacteremia not clearing to evaluate for valve replacement. MSK: Lower extremity ulcerations BMI 55 Wound care evaluate and treat Weight loss encouraged PT evaluate and treat Access - Utilize peripheral IV. Prophylaxis - GI - famotidine - DVT - SCD/heparin SQ Critical care time: 45 minutes, exclusive of separately billable procedures. Andrea Newman MD Mar 31, 2017 10:24
[2017-03-31] MEDS: LEVOFLOXACIN 750 MG PREMIX INJ 150 ML IV SCH (10:54)
[2017-03-31] MEDS: oxyCODONE HCL ORAL CONC 5 MG/0.25 ML SYRINGE PO SCH ×4 (10:55→22:04)
[2017-03-31] MEDS ORDERED: FUROSEMIDE 40 MG/4 ML VIAL IV PUSH ONE (11:00)
[2017-03-31] MEDS: FLUCONAZOLE 100 MG PREMIX BAG 50 ML IV SCH (15:19)
--- NOTE | 2017-03-31 15:40 | PD.CARD.PN ---
Subjective Subjective Remarks Intubated, sedated, mild ST Objective Medications Current Medications Medications (Trade) Dose Ordered Sig/Bj Route Start Time Stop Time Status Last Admin (Tylenol) 650 mg Q6H PRN PO 03/23/17 22:30 (Tears Naturale Opth Soln) 1 drop TID EACH EYE 03/24/17 09:00 03/31/17 12:45 (Zofran Inj) 4 mg Q6H PRN IV PUSH 03/23/17 22:30 (Albuterol Neb) 2.5 mg Q2HR NEB PRN INH 03/23/17 22:30 03/30/17 20:46 Miscellaneous Information 1 Q361D XX 03/23/17 22:30 (Chlorhexidine 2% Cloth) Taper DAILY@04 TOP 03/24/17 04:00 03/20/18 03:59 03/28/17 02:16 (Chlorhexidine 2% Cloth) 3 pack UNSCH PRN TOP 03/23/17 22:30 (Mely-Colace) 1 tab BID PO 03/24/17 09:00 03/31/17 08:01 (Milk Of Magnesia Liq) 30 ml Q12H PRN PO 03/23/17 22:30 (Senokot) 17.2 mg Q12H PRN PO 03/23/17 22:30 (Dulcolax Supp) 10 mg DAILY PRN RECTAL 03/23/17 22:30 (Lactulose Liq) 30 ml DAILY PRN PO 03/23/17 22:30 (NS Flush) 2 ml UNSCH PRN IV FLUSH 03/23/17 22:45 (NS Flush) 2 ml BID IV FLUSH 03/24/17 09:00 03/31/17 07:59 (Pepcid) 20 mg DAILY@0600 PO 03/24/17 06:00 03/31/17 05:37 (Lopressor) 12.5 mg Q12HR PO 03/24/17 09:00 03/31/17 07:58 (Lexapro) 20 mg DAILY PO 03/24/17 09:00 03/31/17 07:59 (Neurontin) 600 mg TID PO 03/24/17 09:00 03/31/17 12:44 (Synthroid) 150 mcg DAILY@0700 PO 03/24/17 07:00 03/31/17 05:37 (Ativan) 0.5 mg BID PRN PO 03/24/17 00:45 03/27/17 20:59 (Oramorph Sr) 60 mg Q8HR PO 03/24/17 06:00 Future Hold 03/28/17 06:10 (Effexor Xr) 37.5 mg DAILY PO 03/24/17 09:00 03/27/17 09:35 Oxacillin Sodium 2 gm/Sodium Chloride 100 ml @ 200 mls/hr Q4H IV 03/24/17 18:00 03/31/17 13:37 Potassium Chloride 100 ml @ 50 mls/hr Q2H PRN IV 03/25/17 09:00 Potassium Chloride 100 ml @ 50 mls/hr Q2H PRN IV 03/25/17 09:00 (K-Lyte Cl Eff) 50 meq UNSCH PRN PO 03/25/17 09:00 Potassium Chloride 100 ml @ 25 mls/hr UNSCH PRN IV 03/25/17 09:00 Potassium Chloride 100 ml @ 50 mls/hr Q2H PRN IV 03/25/17 09:00 03/25/17 20:27 Magnesium Sulfate 4 gm/Sodium Chloride 100 ml @ 50 mls/hr UNSCH PRN IV 03/25/17 09:00 (Mag-Ox) 800 mg UNSCH PRN PO 03/25/17 09:00 Magnesium Sulfate 2 gm/Sodium Chloride 100 ml @ 50 mls/hr UNSCH PRN IV 03/25/17 09:00 (K-Phos) 2,000 mg Q4H PRN PO 03/25/17 09:00 Sodium Phosphate 30 mmol/Sodium Chloride 250 ml @ 42 mls/hr UNSCH PRN IV 03/25/17 09:00 03/28/17 11:50 (K-Phos) 2,000 mg UNSCH PRN PO/TUBE 03/25/17 09:00 Potassium Phosphate 30 mmol/ Sodium Chloride 260 ml @ 42 mls/hr UNSCH PRN IV 03/25/17 09:00 (Heparin Inj) 5,000 units Q12HR SQ 03/26/17 09:00 03/31/17 07:59 Acetaminophen 100 ml @ 400 mls/hr Q6H PRN IV 03/28/17 20:00 03/30/17 16:44 (Peridex 0.12% Liq) 15 ml BID@08,20 MT 03/29/17 20:00 03/31/17 07:59 Propofol 100 ml @ 4.173 mls/ hr TITRATE PRN IV 03/29/17 09:00 03/30/17 07:25 Fentanyl Citrate 250 ml @ 5 mls/hr TITRATE PRN IV 03/29/17 09:00 03/30/17 00:03 Fluconazole/ Sodium Chloride 50 ml @ 50 mls/hr Q24H IV 03/29/17 14:00 03/31/17 15:19 (Tylenol) 500 mg Q4H PRN PO 03/29/17 12:30 (Aspirin Chew) 81 mg DAILY OG-TUBE 03/30/17 09:00 03/31/17 07:58 (Ferrous Sulfate Liq) 300 mg DAILY OG-TUBE 03/30/17 09:00 03/31/17 07:58 Levofloxacin/ Dextrose 150 ml @ 100 mls/hr Q24H IV 03/31/17 10:00 03/31/17 10:54 (Free Water) 300 ml Q4HR G-TUBE 03/31/17 12:00 03/31/17 15:27 (Roxicodone Intensol Liq) 20 mg Q4H PO 03/31/17 11:00 03/31/17 15:27 Vital Signs / I&O Vital Signs Date Time Temp Pulse Resp B/P (MAP) Pulse Ox O2 Delivery O2 Flow Rate FiO2 03/31/17 14:00 112 03/31/17 12:00 40 03/31/17 12:00 102 03/31/17 12:00 100.0 102 13 117/65 (82) 98 03/31/17 11:43 98 40 03/31/17 10:00 99 03/31/17 10:00 100.0 99 12 115/63 (80) 97 03/31/17 08:22 94 40 03/31/17 08:22 40 03/31/17 08:00 40 03/31/17 08:00 110 03/31/17 08:00 100.7 110 18 131/68 (89) 93 03/31/17 06:00 110 03/31/17 04:03 98 40 03/31/17 04:00 110 03/31/17 04:00 40 03/31/17 04:00 100.0 110 19 111/56 (74) 96 03/31/17 02:00 110 03/31/17 00:00 108 03/31/17 00:00 40 03/31/17 00:00 100.5 108 19 118/66 (83) 94 03/30/17 23:39 93 40 03/30/17 22:00 106 03/30/17 20:37 95 40 03/30/17 20:00 100.3 104 18 112/60 (77) 95 03/30/17 20:00 104 03/30/17 20:00 40 03/30/17 18:00 109 03/30/17 16:00 101.5 105 23 113/68 (83) 99 03/30/17 16:00 40 03/30/17 16:00 105 I/O 03/30/17 03/30/17 03/30/17 03/31/17 03/31/17 03/31/17 07:00 15:00 23:00 07:00 15:00 23:00 Intake Total 981 ml 1148 ml 300 ml 550 ml 300 ml Output Total 1500 ml 550 ml 900 ml 1800 ml 800 ml Balance -519 ml 598 ml -600 ml -1250 ml -500 ml IV Total 550 ml 350 ml 300 ml 250 ml Tube Feeding 231 ml 558 ml Other 200 ml 240 ml 300 ml 300 ml Output Urine Total 1500 ml 550 ml 900 ml 1800 ml 800 ml # Bowel Movements 3 Physical Exam GENERAL: Intubated, sedated SKIN: Warm and dry. HEAD: Normocephalic. EYES: No scleral icterus. No injection or drainage. NECK: Supple, trachea midline. No JVD or lymphadenopathy. CARDIOVASCULAR: Regular rate and rhythm without murmurs, gallops, or rubs. RESPIRATORY: Breath sounds equal bilaterally, distant. No accessory muscle use. GASTROINTESTINAL: Abdomen soft, non-tender, nondistended, obese MUSCULOSKELETAL: No cyanosis, bilat LE edema. Laboratory Laboratory Tests Test 03/31/17 06:05 Activated Partial Thromboplast Time 26.8 SEC Assessment and Plan Problem List: (1) Respiratory insufficiency ICD Codes: R06.89 - Other abnormalities of breathing (2) Sepsis ICD Codes: A41.9 - Sepsis, unspecified organism Status: Acute (3) Elevated troponin ICD Codes: R74.8 - Abnormal levels of other serum enzymes Status: Acute (4) Scleroderma ICD Codes: M34.9 - Systemic sclerosis, unspecified (5) Transaminitis ICD Codes: R74.0 - Nonspecific elevation of levels of transaminase and lactic acid dehydrogenase [LDH] (6) Acute kidney injury ICD Codes: N17.9 - Acute kidney failure, unspecified (7) Depression ICD Codes: F32.9 - Major depressive disorder, single episode, unspecified (8) Mitral valve vegetation ICD Codes: I33.0 - Acute and subacute infective endocarditis Assessment and Plan Intubated, on the vent in the ICU. No new cardiac issues. Tele with mild ST. Troponin was elevated, but CK MB index nl. MYRIAM showed MV vegetation. ID evaluation and management for suspected endocarditis. Continue vent support, wean as tolerated. Continue current program with ICU monitoring. Problem Qualifiers (1) Sepsis: Qualified Codes: A41.9 - Sepsis, unspecified organism (2) Depression: Qualified Codes: F32.9 - Major depressive disorder, single episode, unspecified Kylie Newton MD Mar 31, 2017 15:40
[2017-03-31] MEDS: ACETAMINOPHEN 1000 MG/100 ML 100 ML IV PRN (16:23)
[2017-04-01] VITALS (19 sets, daily range): BP systolic 109–136; BP diastolic 58–73; PULSE 99–111; RESP 16–27; TEMP 100–102.3; O2SAT 93–100
[2017-04-01] MEDS: OXACILLIN INJ 2 GM in SODIUM CHLORIDE 0.9% INJ 100 ML IV SCH ×2 (01:41→05:17)
[2017-04-01] MEDS: oxyCODONE HCL ORAL CONC 5 MG/0.25 ML SYRINGE PO SCH ×6 (01:42→22:42)
[2017-04-01] MEDS: ACETAMINOPHEN 1000 MG/100 ML 100 ML IV PRN (01:55)
[2017-04-01] MEDS: FREE WATER G-TUBE SCH ×6 (03:29→23:11)
[2017-04-01] MEDS: FAMOTIDINE 20 MG TAB PO SCH (05:16)
[2017-04-01] MEDS: LEVOTHYROXINE SODIUM 75 MCG TAB PO SCH (05:17)
[2017-04-01 07:01] LABS: HEMATOCRIT 32.7 % (35.0-46.0); HEMOGLOBIN 10.3 GM/DL (11.6-15.3); MEAN CELL VOLUME 87.4 FL (80.0-100.0); MEAN CORPUSCULAR HEMOGLOBIN 27.4 PG (27.0-34.0); MEAN CORPUSCULAR HGB CONC 31.4 % (32.0-36.0); MEAN PLATELET VOLUME 11.3 FL (7.0-11.0); PLATELET COUNT 263 TH/MM3 (150-450); RED BLOOD COUNT 3.74 MIL/MM3 (4.00-5.30); RED CELL DISTRIBUTION WIDTH 14.6 % (11.6-17.2); WHITE BLOOD COUNT 23.1 TH/MM3 (4.0-11.0)
[2017-04-01 07:24] LABS: BICARBONATE 31.4 MEQ/L (21.0-32.0); CALCIUM 7.9 MG/DL (8.5-10.1); CREATININE 1.19 MG/DL (0.50-1.00)
[2017-04-01] MEDS: NYSTATIN 100,000 U/GM PWD 15 GM BTL TOPICAL SCH ×2 (08:13→20:34)
[2017-04-01] MEDS: DOCUSATE SODIUM 50 MG/SENNA 8.6 MG TAB PO SCH ×2 (08:13→20:33)
[2017-04-01] MEDS: FERROUS SULFATE 300 MG /5ML UDC OG-TUBE SCH (08:13)
[2017-04-01] MEDS: GABAPENTIN 300 MG CAP PO SCH ×3 (08:14→17:33)
[2017-04-01] MEDS: METOPROLOL TARTRATE 25 MG TAB PO SCH ×2 (08:14→20:33)
[2017-04-01] MEDS: ESCITALOPRAM OXALATE 20 MG TAB PO SCH (08:14)
[2017-04-01] MEDS: ASPIRIN 81 MG CHEW TAB OG-TUBE SCH (08:14)
[2017-04-01] MEDS: VENLAFAXINE HCL XR 37.5 MG CAP PO SCH (08:14)
[2017-04-01] MEDS: SODIUM CHLORIDE 0.9% FLUSH 10 ML FLUSH IV FLUSH SCH ×2 (08:14→20:33)
[2017-04-01] MEDS: HEPARIN SODIUM - SQ 10,000 UNITS/ML VIAL SQ SCH ×2 (08:15→20:34)
[2017-04-01] MEDS: CHLORHEXIDINE 0.12% (ORAL KIT) 15 ML CUP MT SCH ×2 (08:15→19:27)
--- NOTE | 2017-04-01 08:29 | HHI.CCPN ---
Subjective Remarks/Hospital Course This is a 57-year-old female. Admission 03/23/2017.past medical history includes scleroderma, thyroid disease, status post splenectomy in the past and elevated BMI. Initial presentation occurred Tuesday with lethargy, sleeping, and fever. The patient also had one episode of vomiting with several episodes of diarrhea. The states she has been no recent international travel, hospitalizations, or history of chronic infections. She did have similar symptoms 2 years ago per the 's report with the patient had low oxygen levels and had altered mental status. The patient is seen by pain management as well as her primary physician who is located in [place], [place]. Dr. Estrada The states the patient's mental status seems to wax and wane over the last several days, she'll be awake and alert, and that she will fall asleep and be slightly lethargic and confused. She will lie in bed for several days at a time. The patient denies any chest pain or shortness of breath. She does complain of abdominal pain over the skin secondary to her scleroderma. She also has a history of an open lesion secondary to scleroderma of the lateral left thigh which has been present for several years per the 's report. Received patient was treated with Humira for scleroderma however not taking for the past 5 months. She is on morphine and Dilaudid for chronic pain management from her Dr. Dominguez in [place] CT abdomen/ revealed gallstones without obstruction. Status post splenectomy. Morbid obesity. Chest x-ray revealed no signs of pneumonia. CT brain negative. Patient received 2 L normal saline added ED. She was noted to have a elevated troponin of 15. Denies chest pain. EKG shows nonspecific ST-T changes. CPK 2100. Creatinine 1.7. Leukocytosis 20,000 and elevated transaminases with low sodium and albumin. Her febrile is abated. She is currently awake and oriented to person place and time. 03/24 Patient is lying in bed in [facility]. Afebrile. Renal function is improving with Cr: 1.10 from 1.73. On Heparin drip for elevated trop. 03/25 No events overnight. Remains on Heparin drip. Renal function is now within normal. Afebrile. 03/26 s/p MYRIAM yesterday which shoed vegetation on mitral valve She was on BIPAP overnight now on 4L oxygen. Given Lasix 40mg x 1 yesterday with good response in UOP. Afebrile. off Heparin drip.. 03/27 No events overnight. On BIPAP 15 with 35% FIO2 overnight. Afebrile. 03/28: Remains on BiPAP with full facemask. 03/29: Patient was intubated and placed on mechanical ventilation as she was requiring BiPAP and continued to have increased work of breathing and needed to get imaging studies for further evaluation. 03/30: Remains sedated, orally intubated on mechanical ventilation. Head CT done on 03/29 revealed small lacunar infarcts (probably secondary to septic emboli). 03/31: remains febrile. intubated. blood cultures 03/29 NGTD still. follows commands. off sedation. on PSV 20/10/40%, but does not tolerate weaning of pressure support. CXR with persistent pulmonary edema. 04/01: remains febrile. wbc still elevated. blood cultures from 03/29 still NGTD. still not tolerating weaning attempts. Cr rising with diuresis, although still appears volume overloaded on exam and with valvular lesions, will need aggressive diuresis. Objective Vital Signs Date Time Temp Pulse Resp B/P (MAP) Pulse Ox O2 Delivery O2 Flow Rate FiO2 04/01/17 07:38 40 04/01/17 06:00 111 04/01/17 04:00 100.0 16 131/73 (92) 95 03/30/17 01:19 Ventilator Intake and Output 04/01/17 04/01/17 04/02/17 08:00 16:00 00:00 Intake Total 1288 ml Output Total 950 ml Balance 338 ml Result Diagram: 04/01/17 0534 04/01/17 0534 Other Results Microbiology Date/Time Source Procedure Growth Status 03/29/17 10:30 Sputum Endotracheal Gram Stain - Final Complete 03/29/17 10:30 Sputum Culture - Final Enterobacter Cloacae Complete 03/29/17 16:15 Urine Catheterized Urine Urine Culture - Final NO GROWTH IN 48 HOURS. Complete Imaging Last Impressions Liver Ultrasound 03/24/17 0000 Signed Impressions: Service Date/Time: March 16:41 - CONCLUSION: 1. Limited examination due to body habitus and patient's inability to tolerate the procedure. Unfortunately, the gallbladder is not sufficiently visualized for further evaluation of abnormality noted on CT scan. If there is continued clinical concern regarding acute cholecystitis, consider HIDA scan to evaluate for cystic duct patency. 2. Diffusely heterogeneous and mildly enlarged liver consistent with hepatic steatosis versus medical liver disease. Shlomo Mesa MD Head CT 03/23/171923 Signed Impressions: Service Date/Time: Thursday, March 23, 2017 20:45 - CONCLUSION: No acute findings in the brain. David Weiss MD Chest X-Ray 03/23/171923 Signed Impressions: Service Date/Time: Thursday, March 23, 2017 19:49 - CONCLUSION: Cardiomegaly. The lungs are clear. David Weiss MD Abdomen/Pelvis CT 03/23/171923 Signed Impressions: Service Date/Time: Thursday, March 23, 2017 20:48 - CONCLUSION: 1. Multiple gallstones, some of which are noncalcified. 2. Spleen is not identified. 3. Mildly prominent left inguinal David Weiss MD Objective Remarks GENERAL: 57-year-old female laying in bed, orally intubated on mechanical ventilation HEAD: Atraumatic. Normocephalic. EYES: Pupils equal and round about 3 mm bilaterally and reactive. No scleral icterus. No injection or drainage. ENT: No nasal bleeding or discharge. Mucous membranes pink and moist. Orally intubated NECK: Trachea midline. No JVD. CARDIOVASCULAR: Tachycardic RR. sinus by tele. RESPIRATORY: Orally intubated on mechanical ventilation, Breath sounds equal bilaterally. GASTROINTESTINAL: morbidly obese, abdomen soft, non-tender, nondistended. no guarding. MUSCULOSKELETAL: Extremities with multiple open areas/calcifications bilateral lower extremities. Largest is in the left gluteal region about 6 x 8 cm. Stage II decubiti. NEUROLOGICAL: Sedated, orally intubated on mechanical ventilation, moves all 4 extremities. follows commands. A/P Assessment and Plan Assessment: 57yF with mitral valve endocarditis, healthcare associated pneumonia , persistent fevers, clinical decline. remains critically ill without any improvement in any organ system today. continue forced diuresis for pulmonary edema, despite rising Cr. fevers and leukocytosis are concerning. may need to consider MRI spine. remains critically ill without improvements, off pathway, at risk of and with ongoing major organ failure. Neuro/Psych: Encephalopathy Multiple lacunar infarcts Chronic pain syndrome/low back pain Chronic narcotic use Depression Chronic benzodiazepine use Propofol/fentanyl for sedation/analgesia while intubated with daily sedation vacation consolidate pain meds: d/c morphine and dilaudid. start oxycodone 20mg per tube q4h scheduled. Tizanidine 4 mg 3 times a day has been held Escitalopram 20 mg daily has been continued Lorazepam 0.5 mg twice a day has been continued Venlafaxine 37.5 mg daily has been continued CV: Severe sepsis with multisystem organ failure Mitral valve endocarditis Moderate Mitral regurgitation Moderate Aortic Regurgitation Mild Tricuspid regurgitation Elevated troponin Hypertension Lactic acidosis (resolved) Monitor HR and BP keep MAP>65mmHg ASA 81 mg daily Lopressor 12.5 mg by mouth twice a day No lipid-lowering agents due to elevated transaminases Cards is following-Dr. Newton Echo showed EF 60-65%. MYRIAM showed vegetation on MV Resp: Acute hypoxic respiratory failure on mechanical ventilation ALI Pulmonary Edema Bronchodilators. Intubated and placed on mechanical ventilation on 03/29 s/p short course steroids for wheezing ( 4 doses were given). CT chest with bilateral airspace disease with infiltrates - probably acute lung injury pattern from sepsis and possible pneumonia Vent bundle, daily C Pap trials GI: Elevated transaminases/total bilirubin Hypoalbuminemia CT abdomen/pelvis revealed cholelithiasis. No other acute findings. Monitor LFTs ( trending disease), Hepatitis profile is negative US Liver: Limited examination due to body habitus and patient's inability to tolerate the procedure. Unfortunately, the gallbladder is not sufficiently visualized. Diffusely heterogeneous and mildly enlarged liver consistent with hepatic steatosis vs medical liver disease. Lipase level 122, NH4 level 19. / Renal: NATTY Hypernatremia Free water deficit Acute intravascular volume overload Monitor renal function, I/O's, electrolytes replacement per protocol. Free water for hypernatremia started 03/30, increase to 300mL q4h. diamox 500mg iv q8h x 3 doses albumin 25% iv q8h start d5w @ 75cc/hr. recheck sodium at 1500. Endo/Rheum: Hyperglycemia Hypothyroidism Scleroderma - localized versus systemic Rheumatoid arthritis? Sliding-scale insulin to maintain euglycemia TSH level: 4.5, continue levothyroxine 150 mg by mouth daily/home dose in the interim Heme: Leukocytosis Monitor CBC daily. Follow trends. Continue ferrous sulfate 325 mg by mouth daily ID: Severe sepsis Staph Aureus Bacteremia Mitral valve endocarditis UTI Enterobacter HCAP pneumonia Continue abx per ID ( Oxacillin) monitor for signs of infections ( Fever, WBC) Will need 6 weeks abx once BC is sterile. BC 03/23, 03/24: Staph Aureus bacteremia. MYRIAM vegetation on MV Blood cultures 03/25: 2/ bottles: S aureus BC 03/27: S aureus ID is following. Patient has persistent staph aureus bacteremia despite antibiotics. MRI brain with multiple lacunar infarcts possibly secondary to septic emboli. CT chest with bilateral airspace disease/infiltrates. Discussed with Dr. Villegas on 03/29 AM prior to intubation. May require CT surgery evaluation if bacteremia not clearing to evaluate for valve replacement. MSK: Lower extremity ulcerations BMI 55 Wound care evaluate and treat Weight loss encouraged PT evaluate and treat Access - Utilize peripheral IV. Prophylaxis - GI - famotidine - DVT - SCD/heparin SQ Critical care time: 37 minutes, exclusive of separately billable procedures. Andrea Newman MD Apr 01, 2017 08:29
--- NOTE | 2017-04-01 08:38 | HHI.IDPN ---
Subjective Subjective Remarks ID COVERAGE 57 yo F with h/o scleroderma, used to be on Humira, but off x 5 mos Admitted for fever and altered mental status. Has had multiple (+) BC with MSSA TTE negative, but MYRIAM with vegetation in MV, and also with AI Was on BIPAP for respiratory issues, but required intubation 03/29 Notes reviewed D/W RN On CPAP Awake and focusing, seems to be tracking Looks comfortable on CPAP Brain MRI with lacunar infarcts No new (+) BC Sputum with Enterobacter WBC still elevated UC negative BP ok, not on pressors BC (+) 03/23-03/27 BC 03/28 negative so far Antibiotics Current Medications oxacillin Levaquin Diflucan Medications (Trade) Dose Ordered Sig/Bj Route Start Time Stop Time Status Last Admin (Tylenol) 650 mg Q6H PRN PO 03/23/17 22:30 (Tears Naturale Opth Soln) 1 drop TID EACH EYE 03/24/17 09:00 03/31/17 17:38 (Zofran Inj) 4 mg Q6H PRN IV PUSH 03/23/17 22:30 (Albuterol Neb) 2.5 mg Q2HR NEB PRN INH 03/23/17 22:30 03/30/17 20:46 Miscellaneous Information 1 Q361D XX 03/23/17 22:30 (Chlorhexidine 2% Cloth) Taper DAILY@04 TOP 03/24/17 04:00 03/20/18 03:59 03/28/17 02:16 (Chlorhexidine 2% Cloth) 3 pack UNSCH PRN TOP 03/23/17 22:30 (Mely-Colace) 1 tab BID PO 03/24/17 09:00 04/01/17 08:13 (Milk Of Magnesia Liq) 30 ml Q12H PRN PO 03/23/17 22:30 (Senokot) 17.2 mg Q12H PRN PO 03/23/17 22:30 (Dulcolax Supp) 10 mg DAILY PRN RECTAL 03/23/17 22:30 (Lactulose Liq) 30 ml DAILY PRN PO 03/23/17 22:30 (NS Flush) 2 ml UNSCH PRN IV FLUSH 03/23/17 22:45 (NS Flush) 2 ml BID IV FLUSH 03/24/17 09:00 04/01/17 08:14 (Pepcid) 20 mg DAILY@0600 PO 03/24/17 06:00 04/01/17 05:16 (Lopressor) 12.5 mg Q12HR PO 03/24/17 09:00 04/01/17 08:14 (Lexapro) 20 mg DAILY PO 03/24/17 09:00 04/01/17 08:14 (Neurontin) 600 mg TID PO 03/24/17 09:00 04/01/17 08:14 (Synthroid) 150 mcg DAILY@0700 PO 03/24/17 07:00 04/01/17 05:17 (Ativan) 0.5 mg BID PRN PO 03/24/17 00:45 03/27/17 20:59 (Oramorph Sr) 60 mg Q8HR PO 03/24/17 06:00 Future Hold 03/28/17 06:10 (Effexor Xr) 37.5 mg DAILY PO 03/24/17 09:00 03/27/17 09:35 Oxacillin Sodium 2 gm/Sodium Chloride 100 ml @ 200 mls/hr Q4H IV 03/24/17 18:00 04/01/17 05:17 Potassium Chloride 100 ml @ 50 mls/hr Q2H PRN IV 03/25/17 09:00 Potassium Chloride 100 ml @ 50 mls/hr Q2H PRN IV 03/25/17 09:00 (K-Lyte Cl Eff) 50 meq UNSCH PRN PO 03/25/17 09:00 Potassium Chloride 100 ml @ 25 mls/hr UNSCH PRN IV 03/25/17 09:00 Potassium Chloride 100 ml @ 50 mls/hr Q2H PRN IV 03/25/17 09:00 03/25/17 20:27 Magnesium Sulfate 4 gm/Sodium Chloride 100 ml @ 50 mls/hr UNSCH PRN IV 03/25/17 09:00 (Mag-Ox) 800 mg UNSCH PRN PO 03/25/17 09:00 Magnesium Sulfate 2 gm/Sodium Chloride 100 ml @ 50 mls/hr UNSCH PRN IV 03/25/17 09:00 (K-Phos) 2,000 mg Q4H PRN PO 03/25/17 09:00 Sodium Phosphate 30 mmol/Sodium Chloride 250 ml @ 42 mls/hr UNSCH PRN IV 03/25/17 09:00 03/28/17 11:50 (K-Phos) 2,000 mg UNSCH PRN PO/TUBE 03/25/17 09:00 Potassium Phosphate 30 mmol/ Sodium Chloride 260 ml @ 42 mls/hr UNSCH PRN IV 03/25/17 09:00 (Heparin Inj) 5,000 units Q12HR SQ 03/26/17 09:00 04/01/17 08:15 Acetaminophen 100 ml @ 400 mls/hr Q6H PRN IV 03/28/17 20:00 04/01/17 01:55 (Peridex 0.12% Liq) 15 ml BID@08,20 MT 03/29/17 20:00 04/01/17 08:15 Fentanyl Citrate 250 ml @ 5 mls/hr TITRATE PRN IV 03/29/17 09:00 03/30/17 00:03 Fluconazole/ Sodium Chloride 50 ml @ 50 mls/hr Q24H IV 03/29/17 14:00 03/31/17 15:19 (Tylenol) 500 mg Q4H PRN PO 03/29/17 12:30 04/01/17 08:22 (Aspirin Chew) 81 mg DAILY OG-TUBE 03/30/17 09:00 04/01/17 08:14 (Ferrous Sulfate Liq) 300 mg DAILY OG-TUBE 03/30/17 09:00 04/01/17 08:13 Levofloxacin/ Dextrose 150 ml @ 100 mls/hr Q24H IV 03/31/17 10:00 03/31/17 10:54 (Free Water) 300 ml Q4HR G-TUBE 03/31/17 12:00 04/01/17 08:00 (Roxicodone Intensol Liq) 20 mg Q4H PO 03/31/17 11:00 04/01/17 08:14 (Mycostatin Powder) 1 applic BID TOPICAL 04/01/17 09:00 04/01/17 08:13 Dextrose 1,000 ml @ 75 mls/hr [id number] IV 04/01/17 08:30 UNV Albumin Human 100 ml @ 12.5 mls/hr Q8H IV 04/01/17 08:30 UNV (Diamox Inj) 500 mg Q8H IV PUSH 04/01/17 08:30 04/02/17 00:31 UNV Lines PIV Past Medical History Scleroderma unknown if localized versus systemic Thyroid disease unknown type Chronic pain syndrome Elevated BMI Past Surgical History Status post splenectomy Allergies: Coded Allergies: shellfish derived (Verified Allergy, Intermediate, 03/23/17) Objective . Vital Signs Date Time Temp Pulse Resp B/P (MAP) Pulse Ox O2 Delivery O2 Flow Rate FiO2 04/01/17 07:38 40 04/01/17 06:00 111 04/01/17 04:00 110 04/01/17 04:00 100.0 110 16 131/73 (92) 95 04/01/17 04:00 40 04/01/17 03:39 96 40 04/01/17 02:00 109 04/01/17 00:42 93 40 04/01/17 00:00 102 04/01/17 00:00 40 04/01/17 00:00 100.3 102 18 109/58 (75) 94 03/31/17 22:00 101 03/31/17 20:36 92 40 03/31/17 20:00 40 03/31/17 20:00 101.0 98 11 94/58 (70) 94 03/31/17 20:00 98 03/31/17 18:00 101 03/31/17 16:00 40 03/31/17 16:00 106 03/31/17 16:00 101.2 106 18 110/61 (77) 94 03/31/17 15:38 94 40 03/31/17 14:00 112 03/31/17 12:00 40 03/31/17 12:00 102 03/31/17 12:00 100.0 102 13 117/65 (82) 98 03/31/17 11:43 98 40 03/31/17 10:00 99 03/31/17 10:00 100.0 99 12 115/63 (80) 97 . Laboratory Tests Test 04/01/17 05:34 White Blood Count 23.1 TH/MM3 Red Blood Count 3.74 MIL/MM3 Hemoglobin 10.3 GM/DL Hematocrit 32.7 % Mean Corpuscular Volume 87.4 FL Mean Corpuscular Hemoglobin 27.4 PG Mean Corpuscular Hemoglobin Concent 31.4 % Red Cell Distribution Width 14.6 % Platelet Count 263 TH/MM3 Mean Platelet Volume 11.3 FL Laboratory Tests Test 04/01/17 05:34 Blood Urea Nitrogen 44 MG/DL Creatinine 1.19 MG/DL Random Glucose 124 MG/DL Calcium Level 7.9 MG/DL Sodium Level 156 MEQ/L Potassium Level 4.0 MEQ/L Chloride Level 117 MEQ/L Carbon Dioxide Level 31.4 MEQ/L Anion Gap 8 MEQ/L Estimat Glomerular Filtration Rate 47 ML/MIN Microbiology Date/Time Source Procedure Growth Status 03/29/17 16:04 Blood Peripheral Aerobic Blood Culture - Preliminary NO GROWTH IN 2 DAYS Resulted 03/29/17 16:04 Blood Peripheral Anaerobic Blood Culture - Preliminary NO GROWTH IN 2 DAYS Resulted 03/29/17 15:58 Blood Peripheral Aerobic Blood Culture - Preliminary NO GROWTH IN 2 DAYS Resulted 03/29/17 15:58 Blood Peripheral Anaerobic Blood Culture - Preliminary NO GROWTH IN 2 DAYS Resulted 03/29/17 10:30 Sputum Endotracheal Gram Stain - Final Complete 03/29/17 10:30 Sputum Culture - Final Enterobacter Cloacae Complete 03/29/17 16:15 Urine Catheterized Urine Urine Culture - Final NO GROWTH IN 48 HOURS. Complete Imaging Lower Extremity MRI 03/29/17 0000 Signed Impressions: Service Date/Time: Wednesday, March 29, 2017 13:04 - CONCLUSION: Cellulitis and shallow ulcerations in the left gluteal region and proximal thigh. No evidence of deep muscular involvement, abscess formation or bone marrow edema. Kurt Hairston MD Chest X-Ray 03/29/17 0000 Signed Impressions: Service Date/Time: Wednesday, March 29, 2017 09:57 - CONCLUSION: Satisfactory position of endotracheal and nasogastric tubes. Extensive bilateral airspace disease. Kurt Hairston MD Chest CT 03/29/17 0000 Signed Impressions: Service Date/Time: Wednesday, March 29, 2017 23:31 - CONCLUSION: Extensive air space process bilaterally could represent pulmonary edema, however pneumonia is not excluded. Marquise Leonardo MD Brain MRI 03/29/17 0000 Signed Impressions: Service Date/Time: Wednesday, March 29, 2017 13:04 - CONCLUSION: Tiny bilateral areas of probable subacute lacunar infarction. Patchy mild nonspecific white matter signal changes. Gerson Vegas MD Liver Ultrasound 03/24/17 0000 Signed Impressions: Service Date/Time: March 16:41 - CONCLUSION: 1. Limited examination due to body habitus and patient's inability to tolerate the procedure. Unfortunately, the gallbladder is not sufficiently visualized for further evaluation of abnormality noted on CT scan. If there is continued clinical concern regarding acute cholecystitis, consider HIDA scan to evaluate for cystic duct patency. 2. Diffusely heterogeneous and mildly enlarged liver consistent with hepatic steatosis versus medical liver disease. Shlomo Mesa MD Head CT [id number] Signed Impressions: Service Date/Time: Thursday, March 23, 2017 20:45 - CONCLUSION: No acute findings in the brain. David Weiss MD Abdomen/Pelvis CT [id number] Signed Impressions: Service Date/Time: Thursday, March 23, 2017 20:48 - CONCLUSION: 1. Multiple gallstones, some of which are noncalcified. 2. Spleen is not identified. 3. Mildly prominent left inguinal David Weiss MD Chest X-Ray 03/29/17 0000 Signed Impressions: Service Date/Time: Wednesday, March 29, 2017 09:57 - CONCLUSION: Satisfactory position of endotracheal and nasogastric tubes. Extensive bilateral airspace disease. Kurt Hairston MD Chest X-Ray 03/27/17 0000 Signed Impressions: Service Date/Time: Monday, March 27, 2017 14:54 - CONCLUSION: Persistent cardiac silhouette enlargement with new bilateral diffuse pulmonary opacity primarily interstitial likely representing pulmonary edema. Ronnie Max MD Chest X-Ray 03/27/17 0000 Signed Impressions: Service Date/Time: Monday, March 27, 2017 14:54 - CONCLUSION: Persistent cardiac silhouette enlargement with new bilateral diffuse pulmonary opacity primarily interstitial likely representing pulmonary edema. Ronnie Max MD Liver Ultrasound 03/24/17 0000 Signed Impressions: Service Date/Time: March 16:41 - CONCLUSION: 1. Limited examination due to body habitus and patient's inability to tolerate the procedure. Unfortunately, the gallbladder is not sufficiently visualized for further evaluation of abnormality noted on CT scan. If there is continued clinical concern regarding acute cholecystitis, consider HIDA scan to evaluate for cystic duct patency. 2. Diffusely heterogeneous and mildly enlarged liver consistent with hepatic steatosis versus medical liver disease. Shlomo Mesa MD Head CT [id number] Signed Impressions: Service Date/Time: Thursday, March 23, 2017 20:45 - CONCLUSION: No acute findings in the brain. David Weiss MD Abdomen/Pelvis CT [id number] Signed Impressions: Service Date/Time: Thursday, March 23, 2017 20:48 - CONCLUSION: 1. Multiple gallstones, some of which are noncalcified. 2. Spleen is not identified. 3. Mildly prominent left inguinal David Weiss MD Physical Exam GENERAL: NAD, on CPAP. Awake, seems to be tracking, focusing SKIN: multiple SQ nodules, chronic appearing wounds on L thigh. Has dry scabs on both LE, not infected. warm, dry EYES: Pupils equal and round and reactive. Extraocular motions intact. No scleral icterus. No injection or drainage. NECK: supple ENT: Nose without bleeding or purulent drainage. Orally intubated CARDIOVASCULAR: Regular rate and rhythm. + 2-3/6 harsh murmur L precordium RESPIRATORY/CHEST: Symmetric, unlabored respirations. Clear to auscultation. Breath sounds equal bilaterally. No wheezes, rales, or rhonchi. GASTROINTESTINAL: Abdomen soft, obese, not tender. Bowel sounds present. GENITOURINARY: Florez catheter in place with clear yellow urine MUSCULOSKELETAL: Extremities without clubbing, cyanosis, or edema. No mottling or clubbing. 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
[2017-04-01] MEDS: ceFAZolin 2 GM PREMIX 50 ML IV SCH ×3 (08:41→20:34)
[2017-04-01] MEDS: ALBUMIN 25% INJ 100 ML IV SCH ×2 (08:41→16:41)
[2017-04-01] MEDS: DEXTROSE 5% IN WATE 1000ML INJ 1,000 ML IV SCH ×2 (08:42→22:48)
[2017-04-01] MEDS: LEVOFLOXACIN 750 MG PREMIX INJ 150 ML IV SCH (10:28)
[2017-04-01] MEDS: ARTIFICIAL TEARS OPTH SOLN 15 ML BTL EACH EYE SCH (13:00)
[2017-04-01] MEDS: FLUCONAZOLE 100 MG PREMIX BAG 50 ML IV SCH (13:54)
--- NOTE | 2017-04-01 15:43 | PD.CARD.PN ---
Subjective Subjective Remarks Intubated, sedated, no change Objective Medications Current Medications Medications (Trade) Dose Ordered Sig/Bj Route Start Time Stop Time Status Last Admin (Tylenol) 650 mg Q6H PRN PO 03/23/17 22:30 (Tears Naturale Opth Soln) 1 drop TID EACH EYE 03/24/17 09:00 03/31/17 17:38 (Zofran Inj) 4 mg Q6H PRN IV PUSH 03/23/17 22:30 (Albuterol Neb) 2.5 mg Q2HR NEB PRN INH 03/23/17 22:30 03/30/17 20:46 Miscellaneous Information 1 Q361D XX 03/23/17 22:30 (Chlorhexidine 2% Cloth) Taper DAILY@04 TOP 03/24/17 04:00 03/20/18 03:59 03/28/17 02:16 (Chlorhexidine 2% Cloth) 3 pack UNSCH PRN TOP 03/23/17 22:30 (Mely-Colace) 1 tab BID PO 03/24/17 09:00 04/01/17 08:13 (Milk Of Magnesia Liq) 30 ml Q12H PRN PO 03/23/17 22:30 (Senokot) 17.2 mg Q12H PRN PO 03/23/17 22:30 (Dulcolax Supp) 10 mg DAILY PRN RECTAL 03/23/17 22:30 (Lactulose Liq) 30 ml DAILY PRN PO 03/23/17 22:30 (NS Flush) 2 ml UNSCH PRN IV FLUSH 03/23/17 22:45 (NS Flush) 2 ml BID IV FLUSH 03/24/17 09:00 04/01/17 08:14 (Pepcid) 20 mg DAILY@0600 PO 03/24/17 06:00 04/01/17 05:16 (Lopressor) 12.5 mg Q12HR PO 03/24/17 09:00 04/01/17 08:14 (Lexapro) 20 mg DAILY PO 03/24/17 09:00 04/01/17 08:14 (Neurontin) 600 mg TID PO 03/24/17 09:00 04/01/17 13:53 (Synthroid) 150 mcg DAILY@0700 PO 03/24/17 07:00 04/01/17 05:17 (Ativan) 0.5 mg BID PRN PO 03/24/17 00:45 03/27/17 20:59 (Oramorph Sr) 60 mg Q8HR PO 03/24/17 06:00 Future Hold 03/28/17 06:10 (Effexor Xr) 37.5 mg DAILY PO 03/24/17 09:00 03/27/17 09:35 Potassium Chloride 100 ml @ 50 mls/hr Q2H PRN IV 03/25/17 09:00 Potassium Chloride 100 ml @ 50 mls/hr Q2H PRN IV 03/25/17 09:00 (K-Lyte Cl Eff) 50 meq UNSCH PRN PO 03/25/17 09:00 Potassium Chloride 100 ml @ 25 mls/hr UNSCH PRN IV 03/25/17 09:00 Potassium Chloride 100 ml @ 50 mls/hr Q2H PRN IV 03/25/17 09:00 03/25/17 20:27 Magnesium Sulfate 4 gm/Sodium Chloride 100 ml @ 50 mls/hr UNSCH PRN IV 03/25/17 09:00 (Mag-Ox) 800 mg UNSCH PRN PO 03/25/17 09:00 Magnesium Sulfate 2 gm/Sodium Chloride 100 ml @ 50 mls/hr UNSCH PRN IV 03/25/17 09:00 (K-Phos) 2,000 mg Q4H PRN PO 03/25/17 09:00 Sodium Phosphate 30 mmol/Sodium Chloride 250 ml @ 42 mls/hr UNSCH PRN IV 03/25/17 09:00 03/28/17 11:50 (K-Phos) 2,000 mg UNSCH PRN PO/TUBE 03/25/17 09:00 Potassium Phosphate 30 mmol/ Sodium Chloride 260 ml @ 42 mls/hr UNSCH PRN IV 03/25/17 09:00 (Heparin Inj) 5,000 units Q12HR SQ 03/26/17 09:00 04/01/17 08:15 Acetaminophen 100 ml @ 400 mls/hr Q6H PRN IV 03/28/17 20:00 04/01/17 01:55 (Peridex 0.12% Liq) 15 ml BID@08,20 MT 03/29/17 20:00 04/01/17 08:15 Fentanyl Citrate 250 ml @ 5 mls/hr TITRATE PRN IV 03/29/17 09:00 03/30/17 00:03 Fluconazole/ Sodium Chloride 50 ml @ 50 mls/hr Q24H IV 03/29/17 14:00 04/01/17 13:54 (Tylenol) 500 mg Q4H PRN PO 03/29/17 12:30 04/01/17 08:22 (Aspirin Chew) 81 mg DAILY OG-TUBE 03/30/17 09:00 04/01/17 08:14 (Ferrous Sulfate Liq) 300 mg DAILY OG-TUBE 03/30/17 09:00 04/01/17 08:13 Levofloxacin/ Dextrose 150 ml @ 100 mls/hr Q24H IV 03/31/17 10:00 04/01/17 10:28 (Free Water) 300 ml Q4HR G-TUBE 03/31/17 12:00 04/01/17 14:36 (Roxicodone Intensol Liq) 20 mg Q4H PO 03/31/17 11:00 04/01/17 14:36 (Mycostatin Powder) 1 applic BID TOPICAL 04/01/17 09:00 04/01/17 08:13 Dextrose 1,000 ml @ 75 mls/hr [id number] IV 04/01/17 08:30 04/01/17 08:42 Albumin Human 100 ml @ 12.5 mls/hr Q8H IV 04/01/17 09:00 04/01/17 08:41 (Diamox Inj) 500 mg Q8H IV PUSH 04/01/17 09:00 04/02/17 01:01 04/01/17 08:41 Cefazolin Sodium/ Dextrose 50 ml @ 100 mls/hr Q6H IV 04/01/17 09:00 04/01/17 14:35 Vital Signs / I&O Vital Signs Date Time Temp Pulse Resp B/P (MAP) Pulse Ox O2 Delivery O2 Flow Rate FiO2 04/01/17 14:00 103 04/01/17 13:10 95 40 04/01/17 12:00 105 04/01/17 12:00 40 04/01/17 12:00 102.3 105 27 118/60 (79) 95 04/01/17 10:00 99 04/01/17 09:47 40 04/01/17 09:43 95 40 04/01/17 08:00 101.3 111 23 131/70 (90) 94 04/01/17 08:00 111 04/01/17 08:00 40 04/01/17 07:38 40 04/01/17 06:00 111 04/01/17 04:00 110 04/01/17 04:00 100.0 110 16 131/73 (92) 95 04/01/17 04:00 40 04/01/17 03:39 96 40 04/01/17 02:00 109 04/01/17 00:42 93 40 04/01/17 00:00 102 04/01/17 00:00 40 04/01/17 00:00 100.3 102 18 109/58 (75) 94 03/31/17 22:00 101 03/31/17 20:36 92 40 03/31/17 20:00 40 03/31/17 20:00 101.0 98 11 94/58 (70) 94 03/31/17 20:00 98 03/31/17 18:00 101 03/31/17 16:00 40 03/31/17 16:00 106 03/31/17 16:00 101.2 106 18 110/61 (77) 94 I/O 03/31/17 03/31/17 03/31/17 04/01/17 04/01/17 04/01/17 07:00 15:00 23:00 07:00 15:00 23:00 Intake Total 300 ml 550 ml 1330 ml 1288 ml Output Total 900 ml 1800 ml 800 ml 950 ml Balance -600 ml -1250 ml 530 ml 338 ml IV Total 300 ml 250 ml 400 ml 200 ml Tube Feeding 630 ml 488 ml Other 300 ml 300 ml 600 ml Output Urine Total 900 ml 1800 ml 800 ml 950 ml Physical Exam GENERAL: Intubated, sedated SKIN: Warm and dry. HEAD: Normocephalic. EYES: No scleral icterus. No injection or drainage. NECK: Supple, trachea midline. No JVD or lymphadenopathy. CARDIOVASCULAR: Regular rate and rhythm without murmurs, gallops, or rubs. RESPIRATORY: Breath sounds equal bilaterally, distant. No accessory muscle use. GASTROINTESTINAL: Abdomen soft, non-tender, nondistended, obese MUSCULOSKELETAL: No cyanosis, bilat LE edema. Laboratory Laboratory Tests Test 04/01/17 05:34 04/01/17 15:00 White Blood Count 23.1 TH/MM3 Red Blood Count 3.74 MIL/MM3 Hemoglobin 10.3 GM/DL Hematocrit 32.7 % Mean Corpuscular Volume 87.4 FL Mean Corpuscular Hemoglobin 27.4 PG Mean Corpuscular Hemoglobin Concent 31.4 % Red Cell Distribution Width 14.6 % Platelet Count 263 TH/MM3 Mean Platelet Volume 11.3 FL Activated Partial Thromboplast Time 27.6 SEC Blood Urea Nitrogen 44 MG/DL Creatinine 1.19 MG/DL Random Glucose 124 MG/DL Calcium Level 7.9 MG/DL Sodium Level 156 MEQ/L Potassium Level 4.0 MEQ/L Chloride Level 117 MEQ/L Carbon Dioxide Level 31.4 MEQ/L Anion Gap 8 MEQ/L Estimat Glomerular Filtration Rate 47 ML/MIN Assessment and Plan Problem List: (1) Respiratory insufficiency ICD Codes: R06.89 - Other abnormalities of breathing (2) Sepsis ICD Codes: A41.9 - Sepsis, unspecified organism Status: Acute (3) Elevated troponin ICD Codes: R74.8 - Abnormal levels of other serum enzymes Status: Acute (4) Scleroderma ICD Codes: M34.9 - Systemic sclerosis, unspecified (5) Transaminitis ICD Codes: R74.0 - Nonspecific elevation of levels of transaminase and lactic acid dehydrogenase [LDH] (6) Acute kidney injury ICD Codes: N17.9 - Acute kidney failure, unspecified (7) Depression ICD Codes: F32.9 - Major depressive disorder, single episode, unspecified (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 Remains intubated, on the vent in the ICU. Tele with mild ST. Troponin was elevated, but CK MB index nl. Echo showed well preserved LV systolic fx. MYRIAM showed MV vegetation. ID evaluation and management for suspected endocarditis. Continue vent support, wean as tolerated. Continue current program with ICU monitoring. Will sign off. Problem Qualifiers (1) Sepsis: Qualified Codes: A41.9 - Sepsis, unspecified organism (2) Depression: Qualified Codes: F32.9 - Major depressive disorder, single episode, unspecified Kylie Newton MD Apr 01, 2017 15:43
[2017-04-01] MEDS: CHLORHEXIDINE GLUCONATE 2 % 1 PACK (2 CLOTHS) TOP SCH (19:32)
[2017-04-01] MEDS: RESP: ALBUTEROL 2.5 MG/3 ML NEB (PRN) INH (19:49)
[2017-04-02] VITALS (44 sets, daily range): BP systolic 88–138; BP diastolic 44–67; PULSE 85–107; RESP 12–27; TEMP 100.2–102.8; O2SAT 93–100
[2017-04-02] MEDS: ALBUMIN 25% INJ 100 ML IV SCH ×3 (00:48→16:57)
[2017-04-02] MEDS: ceFAZolin 2 GM PREMIX 50 ML IV SCH ×4 (02:01→20:14)
[2017-04-02] MEDS: oxyCODONE HCL ORAL CONC 5 MG/0.25 ML SYRINGE PO SCH ×6 (02:01→23:34)
[2017-04-02] MEDS: FREE WATER G-TUBE SCH ×6 (03:21→23:34)
[2017-04-02] MEDS: RESP: ALBUTEROL 2.5 MG/3 ML NEB (PRN) INH ×2 (04:27→09:44)
[2017-04-02] MEDS: LEVOTHYROXINE SODIUM 75 MCG TAB PO SCH (05:36)
[2017-04-02] MEDS: FAMOTIDINE 20 MG TAB PO SCH (05:36)
[2017-04-02 05:42] LABS: HEMATOCRIT 29.3 % (35.0-46.0); HEMOGLOBIN 8.9 GM/DL (11.6-15.3); MEAN CORPUSCULAR HEMOGLOBIN 27.1 PG (27.0-34.0); MEAN CORPUSCULAR HGB CONC 30.5 % (32.0-36.0); MEAN PLATELET VOLUME 11.8 FL (7.0-11.0); PLATELET COUNT 240 TH/MM3 (150-450); RED BLOOD COUNT 3.29 MIL/MM3 (4.00-5.30); RED CELL DISTRIBUTION WIDTH 14.5 % (11.6-17.2); WHITE BLOOD COUNT 22.7 TH/MM3 (4.0-11.0)
[2017-04-02 06:01] LABS: BICARBONATE 27.9 MEQ/L (21.0-32.0); CREATININE 1.2 MG/DL (0.50-1.00)
[2017-04-02] MEDS: FERROUS SULFATE 300 MG /5ML UDC OG-TUBE SCH (08:19)
[2017-04-02] MEDS: GABAPENTIN 300 MG CAP PO SCH ×3 (08:19→16:57)
[2017-04-02] MEDS: POTASSIUM CHLORIDE 25 MEQ EFFERVESCENT TAB PO PRN (08:19)
[2017-04-02] MEDS: HEPARIN SODIUM - SQ 10,000 UNITS/ML VIAL SQ SCH ×2 (08:19→20:15)
[2017-04-02] MEDS: ESCITALOPRAM OXALATE 20 MG TAB PO SCH (08:20)
[2017-04-02] MEDS: METOPROLOL TARTRATE 25 MG TAB PO SCH ×2 (08:20→20:13)
[2017-04-02] MEDS: ASPIRIN 81 MG CHEW TAB OG-TUBE SCH (08:20)
[2017-04-02] MEDS: SODIUM CHLORIDE 0.9% FLUSH 10 ML FLUSH IV FLUSH SCH ×2 (08:26→20:13)
[2017-04-02] MEDS: CHLORHEXIDINE 0.12% (ORAL KIT) 15 ML CUP MT SCH ×2 (08:27→20:13)
[2017-04-02] MEDS: NYSTATIN 100,000 U/GM PWD 15 GM BTL TOPICAL SCH ×2 (08:27→20:15)
[2017-04-02] MEDS: VENLAFAXINE HCL XR 37.5 MG CAP PO SCH (08:30)
[2017-04-02] MEDS: DOCUSATE SODIUM 50 MG/SENNA 8.6 MG TAB PO SCH ×2 (08:31→20:14)
[2017-04-02] MEDS: ARTIFICIAL TEARS OPTH SOLN 15 ML BTL EACH EYE SCH ×4 (09:00→16:57)
--- NOTE | 2017-04-02 09:14 | HHI.IDPN ---
Subjective Subjective Remarks ID COVERAGE 57 yo F with h/o scleroderma, used to be on Humira, but off x 5 mos Admitted for fever and altered mental status. Has had multiple (+) BC with MSSA TTE negative, but MYRIAM with vegetation in MV, and also with AI Was on BIPAP for respiratory issues, but required intubation 03/29 Notes reviewed D/W RN Continues to be febrile BP ok She is awake and following commands Tolerating weaning Brain MRI with lacunar infarcts No new (+) BC Sputum with Enterobacter WBC still elevated UC negative BC (+) 03/23-03/27 BC 03/28 negative so far Antibiotics Current Medications Ancef Levaquin Diflucan Medications (Trade) Dose Ordered Sig/Bj Route Start Time Stop Time Status Last Admin (Tylenol) 650 mg Q6H PRN PO 03/23/17 22:30 04/02/17 08:20 (Tears Naturale Opth Soln) 1 drop TID EACH EYE 03/24/17 09:00 03/31/17 17:38 (Zofran Inj) 4 mg Q6H PRN IV PUSH 03/23/17 22:30 (Albuterol Neb) 2.5 mg Q2HR NEB PRN INH 03/23/17 22:30 04/02/17 04:27 Miscellaneous Information 1 [id number] XX 03/23/17 22:30 (Chlorhexidine 2% Cloth) Taper DAILY@04 TOP 03/24/17 04:00 03/20/18 03:59 03/28/17 02:16 (Chlorhexidine 2% Cloth) 3 pack UNSCH PRN TOP 03/23/17 22:30 (Mely-Colace) 1 tab BID PO 03/24/17 09:00 04/01/17 20:33 (Milk Of Magnesia Liq) 30 ml Q12H PRN PO 03/23/17 22:30 (Senokot) 17.2 mg Q12H PRN PO 03/23/17 22:30 (Dulcolax Supp) 10 mg DAILY PRN RECTAL 03/23/17 22:30 (Lactulose Liq) 30 ml DAILY PRN PO 03/23/17 22:30 (NS Flush) 2 ml UNSCH PRN IV FLUSH 03/23/17 22:45 (NS Flush) 2 ml BID IV FLUSH 03/24/17 09:00 04/02/17 08:26 (Pepcid) 20 mg DAILY@0600 PO 03/24/17 06:00 04/02/17 05:36 (Lopressor) 12.5 mg Q12HR PO 03/24/17 09:00 04/02/17 08:20 (Lexapro) 20 mg DAILY PO 03/24/17 09:00 04/02/17 08:20 (Neurontin) 600 mg TID PO 03/24/17 09:00 04/02/17 08:19 (Synthroid) 150 mcg DAILY@0700 PO 03/24/17 07:00 04/02/17 05:36 (Ativan) 0.5 mg BID PRN PO 03/24/17 00:45 03/27/17 20:59 (Oramorph Sr) 60 mg Q8HR PO 03/24/17 06:00 Future Hold 03/28/17 06:10 (Effexor Xr) 37.5 mg DAILY PO 03/24/17 09:00 03/27/17 09:35 Potassium Chloride 100 ml @ 50 mls/hr Q2H PRN IV 03/25/17 09:00 Potassium Chloride 100 ml @ 50 mls/hr Q2H PRN IV 03/25/17 09:00 (K-Lyte Cl Eff) 50 meq UNSCH PRN PO 03/25/17 09:00 04/02/17 08:19 Potassium Chloride 100 ml @ 25 mls/hr UNSCH PRN IV 03/25/17 09:00 Potassium Chloride 100 ml @ 50 mls/hr Q2H PRN IV 03/25/17 09:00 03/25/17 20:27 Magnesium Sulfate 4 gm/Sodium Chloride 100 ml @ 50 mls/hr UNSCH PRN IV 03/25/17 09:00 (Mag-Ox) 800 mg UNSCH PRN PO 03/25/17 09:00 Magnesium Sulfate 2 gm/Sodium Chloride 100 ml @ 50 mls/hr UNSCH PRN IV 03/25/17 09:00 (K-Phos) 2,000 mg Q4H PRN PO 03/25/17 09:00 Sodium Phosphate 30 mmol/Sodium Chloride 250 ml @ 42 mls/hr UNSCH PRN IV 03/25/17 09:00 03/28/17 11:50 (K-Phos) 2,000 mg UNSCH PRN PO/TUBE 03/25/17 09:00 Potassium Phosphate 30 mmol/ Sodium Chloride 260 ml @ 42 mls/hr UNSCH PRN IV 03/25/17 09:00 (Heparin Inj) 5,000 units Q12HR SQ 03/26/17 09:00 04/02/17 08:19 Acetaminophen 100 ml @ 400 mls/hr Q6H PRN IV 03/28/17 20:00 04/01/17 01:55 (Peridex 0.12% Liq) 15 ml BID@08,20 MT 03/29/17 20:00 04/02/17 08:27 Fentanyl Citrate 250 ml @ 5 mls/hr TITRATE PRN IV 03/29/17 09:00 03/30/17 00:03 Fluconazole/ Sodium Chloride 50 ml @ 50 mls/hr Q24H IV 03/29/17 14:00 04/01/17 13:54 (Tylenol) 500 mg Q4H PRN PO 03/29/17 12:30 04/01/17 08:22 (Aspirin Chew) 81 mg DAILY OG-TUBE 03/30/17 09:00 04/02/17 08:20 (Ferrous Sulfate Liq) 300 mg DAILY OG-TUBE 03/30/17 09:00 04/02/17 08:19 Levofloxacin/ Dextrose 150 ml @ 100 mls/hr Q24H IV 03/31/17 10:00 04/01/17 10:28 (Free Water) 300 ml Q4HR G-TUBE 03/31/17 12:00 04/02/17 08:00 (Roxicodone Intensol Liq) 20 mg Q4H PO 03/31/17 11:00 04/02/17 02:01 (Mycostatin Powder) 1 applic BID TOPICAL 04/01/17 09:00 04/02/17 08:27 Dextrose 1,000 ml @ 75 mls/hr [id number] IV 04/01/17 08:30 04/01/17 22:48 Albumin Human 100 ml @ 12.5 mls/hr Q8H IV 04/01/17 09:00 04/02/17 08:26 Cefazolin Sodium/ Dextrose 50 ml @ 100 mls/hr Q6H IV 04/01/17 09:00 04/02/17 08:25 Lines PIV Past Medical History Scleroderma unknown if localized versus systemic Thyroid disease unknown type Chronic pain syndrome Elevated BMI Past Surgical History Status post splenectomy Allergies: Coded Allergies: shellfish derived (Verified Allergy, Intermediate, 03/23/17) Objective . Vital Signs Date Time Temp Pulse Resp B/P (MAP) Pulse Ox O2 Delivery O2 Flow Rate FiO2 04/02/17 06:00 107 04/02/17 04:28 100 40 04/02/17 04:00 100.3 97 12 124/58 (80) 97 04/02/17 04:00 97 04/02/17 04:00 40 04/02/17 02:00 105 04/02/17 01:33 100 40 04/02/17 00:00 102 04/02/17 00:00 40 04/02/17 00:00 100.2 102 21 128/59 (82) 100 04/01/17 22:23 100 40 04/01/17 22:00 108 04/01/17 20:00 40 04/01/17 20:00 106 04/01/17 20:00 100.0 106 22 136/69 (91) 100 04/01/17 19:17 100 40 04/01/17 18:00 104 04/01/17 16:12 93 40 04/01/17 16:00 100.5 104 26 123/61 (81) 93 04/01/17 16:00 40 04/01/17 16:00 104 04/01/17 14:00 103 04/01/17 13:10 95 40 04/01/17 12:00 105 04/01/17 12:00 40 04/01/17 12:00 102.3 105 27 118/60 (79) 95 04/01/17 10:00 99 04/01/17 09:47 40 04/01/17 09:43 95 40 . Laboratory Tests Test 04/01/17 05:34 04/02/17 04:10 White Blood Count 23.1 TH/MM3 22.7 TH/MM3 Red Blood Count 3.74 MIL/MM3 3.29 MIL/MM3 Hemoglobin 10.3 GM/DL 8.9 GM/DL Hematocrit 32.7 % 29.3 % Mean Corpuscular Volume 87.4 FL 89.0 FL Mean Corpuscular Hemoglobin 27.4 PG 27.1 PG Mean Corpuscular Hemoglobin Concent 31.4 % 30.5 % Red Cell Distribution Width 14.6 % 14.5 % Platelet Count 263 TH/MM3 240 TH/MM3 Mean Platelet Volume 11.3 FL 11.8 FL Laboratory Tests Test 04/01/17 05:34 04/01/17 15:00 04/02/17 04:10 Blood Urea Nitrogen 44 MG/DL 38 MG/DL Creatinine 1.19 MG/DL 1.20 MG/DL Random Glucose 124 MG/DL 130 MG/DL Calcium Level 7.9 MG/DL 8.0 MG/DL Sodium Level 156 MEQ/L 156 MEQ/L 154 MEQ/L Potassium Level 4.0 MEQ/L 3.4 MEQ/L Chloride Level 117 MEQ/L 120 MEQ/L Carbon Dioxide Level 31.4 MEQ/L 27.9 MEQ/L Anion Gap 8 MEQ/L 6 MEQ/L Estimat Glomerular Filtration Rate 47 ML/MIN 47 ML/MIN Microbiology Date/Time Source Procedure Growth Status 04/01/17 12:25 Blood Peripheral Aerobic Blood Culture Pending Received 04/01/17 12:25 Blood Peripheral Anaerobic Blood Culture Pending Received 04/01/17 12:17 Blood Peripheral Aerobic Blood Culture Pending Received 04/01/17 12:17 Blood Peripheral Anaerobic Blood Culture Pending Received Imaging Lower Extremity MRI 03/29/17 0000 Signed Impressions: Service Date/Time: Wednesday, March 29, 2017 13:04 - CONCLUSION: Cellulitis and shallow ulcerations in the left gluteal region and proximal thigh. No evidence of deep muscular involvement, abscess formation or bone marrow edema. Kurt Hairston MD Chest X-Ray 03/29/17 0000 Signed Impressions: Service Date/Time: Wednesday, March 29, 2017 09:57 - CONCLUSION: Satisfactory position of endotracheal and nasogastric tubes. Extensive bilateral airspace disease. Kurt Hairston MD Chest CT 03/29/17 0000 Signed Impressions: Service Date/Time: Wednesday, March 29, 2017 23:31 - CONCLUSION: Extensive air space process bilaterally could represent pulmonary edema, however pneumonia is not excluded. Marquise Leonardo MD Brain MRI 03/29/17 0000 Signed Impressions: Service Date/Time: Wednesday, March 29, 2017 13:04 - CONCLUSION: Tiny bilateral areas of probable subacute lacunar infarction. Patchy mild nonspecific white matter signal changes. Gerson Vegas MD Liver Ultrasound 03/24/17 0000 Signed Impressions: Service Date/Time: March 16:41 - CONCLUSION: 1. Limited examination due to body habitus and patient's inability to tolerate the procedure. Unfortunately, the gallbladder is not sufficiently visualized for further evaluation of abnormality noted on CT scan. If there is continued clinical concern regarding acute cholecystitis, consider HIDA scan to evaluate for cystic duct patency. 2. Diffusely heterogeneous and mildly enlarged liver consistent with hepatic steatosis versus medical liver disease. Shlomo Mesa MD Head CT 03/23/171923 Signed Impressions: Service Date/Time: Thursday, March 23, 2017 20:45 - CONCLUSION: No acute findings in the brain. David Weiss MD Abdomen/Pelvis CT 03/23/171923 Signed Impressions: Service Date/Time: Thursday, March 23, 2017 20:48 - CONCLUSION: 1. Multiple gallstones, some of which are noncalcified. 2. Spleen is not identified. 3. Mildly prominent left inguinal David Weiss MD Chest X-Ray 03/29/17 0000 Signed Impressions: Service Date/Time: Wednesday, March 29, 2017 09:57 - CONCLUSION: Satisfactory position of endotracheal and nasogastric tubes. Extensive bilateral airspace disease. Kurt Hairston MD Chest X-Ray 03/27/17 0000 Signed Impressions: Service Date/Time: Monday, March 27, 2017 14:54 - CONCLUSION: Persistent cardiac silhouette enlargement with new bilateral diffuse pulmonary opacity primarily interstitial likely representing pulmonary edema. Ronnie Max MD Chest X-Ray 03/27/17 0000 Signed Impressions: Service Date/Time: Monday, March 27, 2017 14:54 - CONCLUSION: Persistent cardiac silhouette enlargement with new bilateral diffuse pulmonary opacity primarily interstitial likely representing pulmonary edema. Ronnie Max MD Liver Ultrasound 03/24/17 0000 Signed Impressions: Service Date/Time: March 16:41 - CONCLUSION: 1. Limited examination due to body habitus and patient's inability to tolerate the procedure. Unfortunately, the gallbladder is not sufficiently visualized for further evaluation of abnormality noted on CT scan. If there is continued clinical concern regarding acute cholecystitis, consider HIDA scan to evaluate for cystic duct patency. 2. Diffusely heterogeneous and mildly enlarged liver consistent with hepatic steatosis versus medical liver disease. Shlomo Mesa MD Head CT 03/23/171923 Signed Impressions: Service Date/Time: Thursday, March 23, 2017 20:45 - CONCLUSION: No acute findings in the brain. David Weiss MD Abdomen/Pelvis CT 03/23/171923 Signed Impressions: Service Date/Time: Thursday, March 23, 2017 20:48 - CONCLUSION: 1. Multiple gallstones, some of which are noncalcified. 2. Spleen is not identified. 3. Mildly prominent left inguinal David Weiss MD Physical Exam GENERAL: NAD, on CPAP. Awake, responding SKIN: multiple SQ nodules, chronic appearing wounds on L thigh. Has dry scabs on both LE, not infected. warm, dry EYES: Pupils equal and round and reactive. Extraocular motions intact. No scleral icterus. No injection or drainage. NECK: supple ENT: Nose without bleeding or purulent drainage. Orally intubated CARDIOVASCULAR: Regular rate and rhythm. + 2-3/6 harsh murmur L precordium RESPIRATORY/CHEST: Scattered rhonchi GASTROINTESTINAL: Abdomen soft, obese, not tender. Bowel sounds present. GENITOURINARY: Florez catheter in place with clear yellow urine MUSCULOSKELETAL: Extremities without clubbing, cyanosis, or edema. No mottling or clubbing. NEUROLOGICAL: Awake, following commands, moves all extremities PSYCHIATRIC: Cooperative, calm : Florez in place LINE: No evidence of infection Assessment & Plan Remarks IMPRESSION [place] valve endocarditis, MV - MYRIAM + - also with AI MSSA bacteremia, high grade NSTEMI Scleroderma Immunosuppressed S/P splenectomy Respiratory failuire Enterobacter PNA Persistent fevers and worsening leukocytosis Multiple lacunar infarcts of MRI Persistent fevers and leukocytosis - nothing new on C/S that is not adequately covered - ?non-infectious PLAN: Continue ANcef Change Levaquin to Merem - ?if Enterobacter PNA causing her persistent fevers Continue Diflucan Repeat BC Monitor temps Monitor progress Follow CBC Weaning per [facility] D/W RN D/W Dr Vazquez ([facility]) Haven Abreu MD Apr 02, 2017 09:14
[2017-04-02] MEDS ORDERED: ASP: Other exception documentation: ( ) PRN (09:15)
[2017-04-02] MEDS ORDERED: MISCELLANEOUS PHARMACY INFORMATION XX PRN (09:15)
[2017-04-02] MEDS: MEROPENEM INJ 1,000 MG in SODIUM CHLORIDE 0.9% INJ 100 ML IV SCH ×2 (09:53→18:51)
[2017-04-02] MEDS ORDERED: IRR IRRIGATION ONE (11:15)
[2017-04-02] MEDS ORDERED: SODIUM CHLORIDE 0.9% IRRIGATION ONE (11:15)
[2017-04-02] MEDS: DEXTROSE 5% IN WATE 1000ML INJ 1,000 ML IV SCH (12:50)
[2017-04-02] MEDS: FLUCONAZOLE 100 MG PREMIX BAG 50 ML IV SCH (12:53)
--- NOTE | 2017-04-02 15:53 | HHI.CCPN ---
Subjective Remarks/Hospital Course This is a 57-year-old female. Admission 03/23/2017.past medical history includes scleroderma, thyroid disease, status post splenectomy in the past and elevated BMI. Initial presentation occurred Tuesday with lethargy, sleeping, and fever. The patient also had one episode of vomiting with several episodes of diarrhea. The states she has been no recent international travel, hospitalizations, or history of chronic infections. She did have similar symptoms 2 years ago per the 's report with the patient had low oxygen levels and had altered mental status. The patient is seen by pain management as well as her primary physician who is located in [place], [place]. Dr. Estrada The states the patient's mental status seems to wax and wane over the last several days, she'll be awake and alert, and that she will fall asleep and be slightly lethargic and confused. She will lie in bed for several days at a time. The patient denies any chest pain or shortness of breath. She does complain of abdominal pain over the skin secondary to her scleroderma. She also has a history of an open lesion secondary to scleroderma of the lateral left thigh which has been present for several years per the 's report. Received patient was treated with Humira for scleroderma however not taking for the past 5 months. She is on morphine and Dilaudid for chronic pain management from her Dr. Dominguez in [place] CT abdomen/ revealed gallstones without obstruction. Status post splenectomy. Morbid obesity. Chest x-ray revealed no signs of pneumonia. CT brain negative. Patient received 2 L normal saline added ED. She was noted to have a elevated troponin of 15. Denies chest pain. EKG shows nonspecific ST-T changes. CPK 2100. Creatinine 1.7. Leukocytosis 20,000 and elevated transaminases with low sodium and albumin. Her febrile is abated. She is currently awake and oriented to person place and time. 03/24 Patient is lying in bed in [facility]. Afebrile. Renal function is improving with Cr: 1.10 from 1.73. On Heparin drip for elevated trop. 03/25 No events overnight. Remains on Heparin drip. Renal function is now within normal. Afebrile. 03/26 s/p MYRIAM yesterday which shoed vegetation on mitral valve She was on BIPAP overnight now on 4L oxygen. Given Lasix 40mg x 1 yesterday with good response in UOP. Afebrile. off Heparin drip.. 03/27 No events overnight. On BIPAP 15/ with 35% FIO2 overnight. Afebrile. 03/28: Remains on BiPAP with full facemask. 03/29: Patient was intubated and placed on mechanical ventilation as she was requiring BiPAP and continued to have increased work of breathing and needed to get imaging studies for further evaluation. 03/30: Remains sedated, orally intubated on mechanical ventilation. Head CT done on 03/29 revealed small lacunar infarcts (probably secondary to septic emboli). 03/31: remains febrile. intubated. blood cultures 03/29 NGTD still. follows commands. off sedation. on PSV 20/10/40%, but does not tolerate weaning of pressure support. CXR with persistent pulmonary edema. 04/01: remains febrile. wbc still elevated. blood cultures from 03/29 still NGTD. still not tolerating weaning attempts. Cr rising with diuresis, although still appears volume overloaded on exam and with valvular lesions, will need aggressive diuresis. 04/02: Orally intubated on mechanical ventilation, off all sedation. Arousable Objective Vital Signs Date Time Temp Pulse Resp B/P (MAP) Pulse Ox O2 Delivery O2 Flow Rate FiO2 04/02/17 15:11 97 40 04/02/17 14:30 91 22 101/53 (69) 04/02/17 12:00 102.0 03/30/17 01:19 Ventilator Intake and Output 04/02/17 04/02/17 04/03/17 08:00 16:00 00:00 Intake Total 1450 ml Output Total 1200 ml Balance 250 ml Result Diagram: 04/02/17 0410 04/02/17 0410 Imaging Last Impressions Liver Ultrasound 03/24/17 0000 Signed Impressions: Service Date/Time: March 16:41 - CONCLUSION: 1. Limited examination due to body habitus and patient's inability to tolerate the procedure. Unfortunately, the gallbladder is not sufficiently visualized for further evaluation of abnormality noted on CT scan. If there is continued clinical concern regarding acute cholecystitis, consider HIDA scan to evaluate for cystic duct patency. 2. Diffusely heterogeneous and mildly enlarged liver consistent with hepatic steatosis versus medical liver disease. Shlomo Mesa MD Head CT 03/23/171923 Signed Impressions: Service Date/Time: Thursday, March 23, 2017 20:45 - CONCLUSION: No acute findings in the brain. David Weiss MD Chest X-Ray 03/23/171923 Signed Impressions: Service Date/Time: Thursday, March 23, 2017 19:49 - CONCLUSION: Cardiomegaly. The lungs are clear. David Weiss MD Abdomen/Pelvis CT 03/23/171923 Signed Impressions: Service Date/Time: Thursday, March 23, 2017 20:48 - CONCLUSION: 1. Multiple gallstones, some of which are noncalcified. 2. Spleen is not identified. 3. Mildly prominent left inguinal David Weiss MD Objective Remarks GENERAL: 57-year-old female laying in bed, orally intubated on mechanical ventilation HEAD: Atraumatic. Normocephalic. EYES: Pupils equal and round about 3 mm bilaterally and reactive. No scleral icterus. No injection or drainage. ENT: No nasal bleeding or discharge. Mucous membranes pink and moist. Orally intubated NECK: Trachea midline. No JVD. CARDIOVASCULAR: Tachycardic RR. sinus by tele. RESPIRATORY: Orally intubated on mechanical ventilation, Breath sounds equal bilaterally. GASTROINTESTINAL: morbidly obese, abdomen soft, non-tender, nondistended. no guarding. MUSCULOSKELETAL: Extremities with multiple open areas/calcifications bilateral lower extremities. Largest is in the left gluteal region about 6 x 8 cm. Stage II decubiti. NEUROLOGICAL: Sedated, orally intubated on mechanical ventilation, moves all 4 extremities. follows commands. A/P Assessment and Plan Assessment: 57yF with mitral valve endocarditis, healthcare associated pneumonia , persistent fevers, clinical decline. remains critically ill without any improvement in any organ system today. continue forced diuresis for pulmonary edema, despite rising Cr. fevers and leukocytosis are concerning. may need to consider MRI spine. remains critically ill without improvements, off pathway, at risk of and with ongoing major organ failure. Neuro/Psych: Encephalopathy Multiple lacunar infarcts Chronic pain syndrome/low back pain Chronic narcotic use Depression Chronic benzodiazepine use Propofol/fentanyl for sedation/analgesia while intubated with daily sedation vacation. Currently off sedation consolidate pain meds: d/c morphine and dilaudid. start oxycodone 20mg per tube q4h scheduled. Tizanidine 4 mg 3 times a day has been held Escitalopram 20 mg daily has been continued Lorazepam 0.5 mg twice a day has been continued Venlafaxine 37.5 mg daily has been continued CV: Severe sepsis with multisystem organ failure Mitral valve endocarditis Moderate Mitral regurgitation Moderate Aortic Regurgitation Mild Tricuspid regurgitation Elevated troponin Hypertension Lactic acidosis (resolved) Monitor HR and BP keep MAP>65mmHg ASA 81 mg daily Lopressor 12.5 mg by mouth twice a day No lipid-lowering agents due to elevated transaminases Cards is following-Dr. Newton Echo showed EF 60-65%. MYRIAM showed vegetation on MV Resp: Acute hypoxic respiratory failure on mechanical ventilation ALI Pulmonary Edema Bronchodilators. Intubated and placed on mechanical ventilation on 03/29 s/p short course steroids for wheezing ( 4 doses were given). CT chest with bilateral airspace disease with infiltrates - probably acute lung injury pattern from sepsis and possible pneumonia Vent bundle, daily C Pap trials GI: Elevated transaminases/total bilirubin Hypoalbuminemia CT abdomen/pelvis revealed cholelithiasis. No other acute findings. Monitor LFTs ( trending disease), Hepatitis profile is negative US Liver: Limited examination due to body habitus and patient's inability to tolerate the procedure. Unfortunately, the gallbladder is not sufficiently visualized. Diffusely heterogeneous and mildly enlarged liver consistent with hepatic steatosis vs medical liver disease. Lipase level 122, NH4 level 19. / Renal: NATTY Hypernatremia Free water deficit Acute intravascular volume overload Monitor renal function, I/O's, electrolytes replacement per protocol. Free water for hypernatremia started 03/30, 300mL q4h. diamox 500mg iv q8h x 3 doses albumin 25% iv q8h d5w @ 75cc/hr. Endo/Rheum: Hyperglycemia Hypothyroidism Scleroderma - localized versus systemic Rheumatoid arthritis? Sliding-scale insulin to maintain euglycemia TSH level: 4.5, continue levothyroxine 150 mg by mouth daily/home dose in the interim Heme: Leukocytosis Monitor CBC daily. Follow trends. Continue ferrous sulfate 325 mg by mouth daily ID: Severe sepsis Staph Aureus Bacteremia Mitral valve endocarditis UTI Enterobacter HCAP pneumonia Continue abx per ID ( Oxacillin) monitor for signs of infections ( Fever, WBC) Will need 6 weeks abx once BC is sterile. BC 03/23, 03/24: Staph Aureus bacteremia. MYRIAM vegetation on MV Blood cultures 03/25: 2/4 bottles: S aureus BC 03/27: S aureus ID is following. Patient has persistent staph aureus bacteremia despite antibiotics. MRI brain with multiple lacunar infarcts possibly secondary to septic emboli. CT chest with bilateral airspace disease/infiltrates. Discussed with Dr. Villegas on 03/29 AM prior to intubation. May require CT surgery evaluation if bacteremia not clearing to evaluate for valve replacement. MSK: Lower extremity ulcerations BMI 55 Wound care evaluate and treat Weight loss encouraged PT evaluate and treat Access - Utilize peripheral IV. Prophylaxis - GI - famotidine - DVT - SCD/heparin SQ Critical care time: 35 minutes, exclusive of separately billable procedures. Usman Vazquez MD Apr 02, 2017 15:53
[2017-04-02] MEDS: ACETAMINOPHEN 1000 MG/100 ML 100 ML IV PRN (20:38)
[2017-04-03] VITALS (37 sets, daily range): BP systolic 101–136; BP diastolic 52–102; PULSE 86–101; RESP 17–114; TEMP 100.1–100.7; O2SAT 93–100
[2017-04-03] MEDS: ALBUMIN 25% INJ 100 ML IV SCH ×3 (01:44→17:54)
[2017-04-03] MEDS: ceFAZolin 2 GM PREMIX 50 ML IV SCH ×4 (01:45→20:08)
[2017-04-03] MEDS: DEXTROSE 5% IN WATE 1000ML INJ 1,000 ML IV SCH ×2 (01:45→17:55)
[2017-04-03] MEDS: oxyCODONE HCL ORAL CONC 5 MG/0.25 ML SYRINGE PO SCH ×5 (03:02→17:54)
[2017-04-03] MEDS: MEROPENEM INJ 1,000 MG in SODIUM CHLORIDE 0.9% INJ 100 ML IV SCH ×3 (03:03→17:54)
[2017-04-03] MEDS: FREE WATER G-TUBE SCH ×5 (03:03→20:07)
[2017-04-03] MEDS: CHLORHEXIDINE GLUCONATE 2 % 1 PACK (2 CLOTHS) TOP SCH (04:00)
[2017-04-03] MEDS: LEVOTHYROXINE SODIUM 75 MCG TAB PO SCH (05:12)
[2017-04-03] MEDS: FAMOTIDINE 20 MG TAB PO SCH (05:12)
[2017-04-03 05:29] LABS: HEMATOCRIT 27.1 % (35.0-46.0); HEMOGLOBIN 8.5 GM/DL (11.6-15.3); MEAN CELL VOLUME 88.9 FL (80.0-100.0); MEAN CORPUSCULAR HGB CONC 31.5 % (32.0-36.0); MEAN PLATELET VOLUME 12.1 FL (7.0-11.0); PLATELET COUNT 210 TH/MM3 (150-450); RED BLOOD COUNT 3.05 MIL/MM3 (4.00-5.30); RED CELL DISTRIBUTION WIDTH 14.7 % (11.6-17.2); WHITE BLOOD COUNT 20.1 TH/MM3 (4.0-11.0)
[2017-04-03 05:52] LABS: BICARBONATE 27.3 MEQ/L (21.0-32.0); CREATININE 1.15 MG/DL (0.50-1.00)
[2017-04-03] MEDS: GABAPENTIN 300 MG CAP PO SCH ×3 (08:28→17:54)
[2017-04-03] MEDS: ASPIRIN 81 MG CHEW TAB OG-TUBE SCH (08:28)
[2017-04-03] MEDS: METOPROLOL TARTRATE 25 MG TAB PO SCH ×2 (08:28→20:08)
[2017-04-03] MEDS: ESCITALOPRAM OXALATE 20 MG TAB PO SCH (08:28)
[2017-04-03] MEDS: VENLAFAXINE HCL XR 37.5 MG CAP PO SCH (08:29)
[2017-04-03] MEDS: HEPARIN SODIUM - SQ 10,000 UNITS/ML VIAL SQ SCH ×2 (08:29→20:08)
[2017-04-03] MEDS: DOCUSATE SODIUM 50 MG/SENNA 8.6 MG TAB PO SCH ×2 (08:29→20:08)
[2017-04-03] MEDS: SODIUM CHLORIDE 0.9% FLUSH 10 ML FLUSH IV FLUSH SCH ×2 (08:29→20:08)
[2017-04-03] MEDS: FERROUS SULFATE 300 MG /5ML UDC OG-TUBE SCH (08:29)
[2017-04-03] MEDS: NYSTATIN 100,000 U/GM PWD 15 GM BTL TOPICAL SCH ×2 (08:30→20:09)
[2017-04-03] MEDS: ARTIFICIAL TEARS OPTH SOLN 15 ML BTL EACH EYE SCH ×3 (08:30→17:56)
[2017-04-03] MEDS: CHLORHEXIDINE 0.12% (ORAL KIT) 15 ML CUP MT SCH ×2 (08:31→20:08)
--- NOTE | 2017-04-03 10:20 | HHI.CCPN ---
Subjective Remarks/Hospital Course This is a 57-year-old female. Admission 03/23/2017.past medical history includes scleroderma, thyroid disease, status post splenectomy in the past and elevated BMI. Initial presentation occurred Tuesday with lethargy, sleeping, and fever. The patient also had one episode of vomiting with several episodes of diarrhea. The states she has been no recent international travel, hospitalizations, or history of chronic infections. She did have similar symptoms 2 years ago per the 's report with the patient had low oxygen levels and had altered mental status. The patient is seen by pain management as well as her primary physician who is located in [place], [place]. Dr. Estrada The states the patient's mental status seems to wax and wane over the last several days, she'll be awake and alert, and that she will fall asleep and be slightly lethargic and confused. She will lie in bed for several days at a time. The patient denies any chest pain or shortness of breath. She does complain of abdominal pain over the skin secondary to her scleroderma. She also has a history of an open lesion secondary to scleroderma of the lateral left thigh which has been present for several years per the 's report. Received patient was treated with Humira for scleroderma however not taking for the past 5 months. She is on morphine and Dilaudid for chronic pain management from her Dr. Dominguez in [place] CT abdomen/ revealed gallstones without obstruction. Status post splenectomy. Morbid obesity. Chest x-ray revealed no signs of pneumonia. CT brain negative. Patient received 2 L normal saline added ED. She was noted to have a elevated troponin of 15. Denies chest pain. EKG shows nonspecific ST-T changes. CPK 2100. Creatinine 1.7. Leukocytosis 20,000 and elevated transaminases with low sodium and albumin. Her febrile is abated. She is currently awake and oriented to person place and time. 03/24 Patient is lying in bed in [facility]. Afebrile. Renal function is improving with Cr: 1.10 from 1.73. On Heparin drip for elevated trop. 03/25 No events overnight. Remains on Heparin drip. Renal function is now within normal. Afebrile. 03/26 s/p MYRIAM yesterday which shoed vegetation on mitral valve She was on BIPAP overnight now on 4L oxygen. Given Lasix 40mg x 1 yesterday with good response in UOP. Afebrile. off Heparin drip.. 03/27 No events overnight. On BIPAP 15/ with 35% FIO2 overnight. Afebrile. 03/28: Remains on BiPAP with full facemask. 03/29: Patient was intubated and placed on mechanical ventilation as she was requiring BiPAP and continued to have increased work of breathing and needed to get imaging studies for further evaluation. 03/30: Remains sedated, orally intubated on mechanical ventilation. Head CT done on 03/29 revealed small lacunar infarcts (probably secondary to septic emboli). 03/31: remains febrile. intubated. blood cultures 03/29 NGTD still. follows commands. off sedation. on PSV 20/10/40%, but does not tolerate weaning of pressure support. CXR with persistent pulmonary edema. 04/01: remains febrile. wbc still elevated. blood cultures from 03/29 still NGTD. still not tolerating weaning attempts. Cr rising with diuresis, although still appears volume overloaded on exam and with valvular lesions, will need aggressive diuresis. 04/02: Orally intubated on mechanical ventilation, off all sedation. Arousable 04/03: Drowsy, arousable, orally intubated on mechanical ventilation. Still having temperature spikes. Blood culture from 04/01 growing gram-positive cocci 2 sets. Objective Vital Signs Date Time Temp Pulse Resp B/P (MAP) Pulse Ox O2 Delivery O2 Flow Rate FiO2 04/03/17 07:28 97 40 04/03/17 06:00 97 04/03/17 05:00 19 127/66 (86) 04/03/17 04:00 100.5 04/02/17 19:46 Ventilator Intake and Output 04/03/17 04/03/17 04/04/17 08:00 16:00 00:00 Intake Total 8298 ml Output Total 1600 ml Balance 6698 ml Result Diagram: 04/03/17 0406 04/03/17 0403 Imaging Last Impressions Liver Ultrasound 03/24/17 0000 Signed Impressions: Service Date/Time: March 16:41 - CONCLUSION: 1. Limited examination due to body habitus and patient's inability to tolerate the procedure. Unfortunately, the gallbladder is not sufficiently visualized for further evaluation of abnormality noted on CT scan. If there is continued clinical concern regarding acute cholecystitis, consider HIDA scan to evaluate for cystic duct patency. 2. Diffusely heterogeneous and mildly enlarged liver consistent with hepatic steatosis versus medical liver disease. Shlomo Mesa MD Head CT 03/23/171923 Signed Impressions: Service Date/Time: Thursday, March 23, 2017 20:45 - CONCLUSION: No acute findings in the brain. David Weiss MD Chest X-Ray 03/23/171923 Signed Impressions: Service Date/Time: Thursday, March 23, 2017 19:49 - CONCLUSION: Cardiomegaly. The lungs are clear. David Weiss MD Abdomen/Pelvis CT 03/23/171923 Signed Impressions: Service Date/Time: Thursday, March 23, 2017 20:48 - CONCLUSION: 1. Multiple gallstones, some of which are noncalcified. 2. Spleen is not identified. 3. Mildly prominent left inguinal David Weiss MD Objective Remarks GENERAL: 57-year-old female laying in bed, orally intubated on mechanical ventilation HEAD: Atraumatic. Normocephalic. EYES: Pupils equal and round about 3 mm bilaterally and reactive. No scleral icterus. No injection or drainage. ENT: No nasal bleeding or discharge. Mucous membranes pink and moist. Orally intubated NECK: Trachea midline. No JVD. CARDIOVASCULAR: Tachycardic RR. sinus by tele. RESPIRATORY: Orally intubated on mechanical ventilation, Breath sounds equal bilaterally. GASTROINTESTINAL: morbidly obese, abdomen soft, non-tender, nondistended. no guarding. MUSCULOSKELETAL: Extremities with multiple open areas/calcifications bilateral lower extremities. Largest is in the left gluteal region about 6 x 8 cm. Stage II decubiti. NEUROLOGICAL: Drowsy, arousable, orally intubated on mechanical ventilation, moves all 4 extremities. follows commands. A/P Assessment and Plan Assessment: 57yF with mitral valve endocarditis, healthcare associated pneumonia , persistent fevers, clinical decline. remains critically ill without any improvement in any organ system today. continue forced diuresis for pulmonary edema, despite rising Cr. fevers and leukocytosis are concerning. may need to consider MRI spine. remains critically ill without improvements, off pathway, at risk of and with ongoing major organ failure. Neuro/Psych: Encephalopathy Multiple lacunar infarcts Chronic pain syndrome/low back pain Chronic narcotic use Depression Chronic benzodiazepine use Propofol/fentanyl for sedation/analgesia while intubated with daily sedation vacation. Currently off sedation consolidate pain meds: d/c morphine and dilaudid. start oxycodone 20mg per tube q4h scheduled. Tizanidine 4 mg 3 times a day has been held Escitalopram 20 mg daily has been continued Lorazepam 0.5 mg twice a day has been continued Venlafaxine 37.5 mg daily has been continued CV: Severe sepsis with multisystem organ failure Mitral valve endocarditis Moderate Mitral regurgitation Moderate Aortic Regurgitation Mild Tricuspid regurgitation Elevated troponin Hypertension Lactic acidosis (resolved) Monitor HR and BP keep MAP>65mmHg ASA 81 mg daily Lopressor 12.5 mg by mouth twice a day No lipid-lowering agents due to elevated transaminases Cards is following-Dr. Newton Echo showed EF 60-65%. MYRIAM showed vegetation on MV Resp: Acute hypoxic respiratory failure on mechanical ventilation ALI Pulmonary Edema Bronchodilators. Intubated and placed on mechanical ventilation on 03/29 s/p short course steroids for wheezing ( 4 doses were given). CT chest with bilateral airspace disease with infiltrates - probably acute lung injury pattern from sepsis and possible pneumonia Vent bundle, daily C Pap trials GI: Elevated transaminases/total bilirubin Hypoalbuminemia CT abdomen/pelvis revealed cholelithiasis. No other acute findings. Monitor LFTs ( trending disease), Hepatitis profile is negative US Liver: Limited examination due to body habitus and patient's inability to tolerate the procedure. Unfortunately, the gallbladder is not sufficiently visualized. Diffusely heterogeneous and mildly enlarged liver consistent with hepatic steatosis vs medical liver disease. Lipase level 122, NH4 level 19. / Renal: NATTY Hypernatremia Free water deficit Acute intravascular volume overload Monitor renal function, I/O's, electrolytes replacement per protocol. Free water for hypernatremia started 03/30, 300mL q4h. diamox 500mg iv q8h x 3 doses albumin 25% iv q8h d5w @ 75cc/hr. Endo/Rheum: Hyperglycemia Hypothyroidism Scleroderma - localized versus systemic Rheumatoid arthritis? Sliding-scale insulin to maintain euglycemia TSH level: 4.5, continue levothyroxine 150 mg by mouth daily/home dose in the interim Heme: Leukocytosis Monitor CBC daily. Follow trends. Continue ferrous sulfate 325 mg by mouth daily ID: Severe sepsis Staph Aureus Bacteremia Mitral valve endocarditis UTI Enterobacter HCAP pneumonia Continue abx per ID ( Oxacillin) monitor for signs of infections ( Fever, WBC) Will need 6 weeks abx once BC is sterile. BC 03/23, 03/24: Staph Aureus bacteremia. MYRIAM vegetation on MV Blood cultures 03/25: 2/ bottles: S aureus BC 03/27: S aureus Blood cultures 04/01 05/06 with GPC ID is following. Patient has persistent staph aureus bacteremia despite antibiotics. MRI brain with multiple lacunar infarcts possibly secondary to septic emboli. CT chest with bilateral airspace disease/infiltrates. Discussed with Dr. Villegas on 03/29 AM prior to intubation. May require MRI spine, CT surgery evaluation if bacteremia not clearing to evaluate for valve replacement. MSK: Lower extremity ulcerations BMI 55 Wound care evaluate and treat Weight loss encouraged PT evaluate and treat Access - Utilize peripheral IV. Prophylaxis - GI - famotidine - DVT - SCD/heparin SQ Critical care time: 35 minutes, exclusive of separately billable procedures. Usman Vazquez MD Apr 03, 2017 10:20
--- NOTE | 2017-04-03 12:53 | HHI.IDPN ---
Subjective Subjective Remarks ID COVERAGE 57 yo F with h/o scleroderma, used to be on Humira, but off x 5 mos Admitted for fever and altered mental status. Has had multiple (+) BC with MSSA TTE negative, but MYRIAM with vegetation in MV, and also with AI Was on BIPAP for respiratory issues, but required intubation 03/29 Notes reviewed D/W RN Continues to be febrile Has new BC with GPC 04/01 BP ok She is awake and following commands Brain MRI with lacunar infarcts Sputum with Enterobacter WBC still elevated UC negative BC (+) 03/23-03/27 BC 03/28 negative so far No central lines Has diarrhea Antibiotics Current Medications Ancef Meropenem Diflucan Medications (Trade) Dose Ordered Sig/Bj Route Start Time Stop Time Status Last Admin (Tylenol) 650 mg Q6H PRN PO 03/23/17 22:30 04/02/17 08:20 (Tears Naturale Opth Soln) 1 drop TID EACH EYE 03/24/17 09:00 04/03/17 08:30 (Zofran Inj) 4 mg Q6H PRN IV PUSH 03/23/17 22:30 (Albuterol Neb) 2.5 mg Q2HR NEB PRN INH 03/23/17 22:30 04/02/17 09:44 Miscellaneous Information 1 Q361D XX 03/23/17 22:30 (Chlorhexidine 2% Cloth) Taper DAILY@04 TOP 03/24/17 04:00 03/20/18 03:59 03/28/17 02:16 (Chlorhexidine 2% Cloth) 3 pack UNSCH PRN TOP 03/23/17 22:30 (Mely-Colace) 1 tab BID PO 03/24/17 09:00 04/01/17 20:33 (Milk Of Magnesia Liq) 30 ml Q12H PRN PO 03/23/17 22:30 (Senokot) 17.2 mg Q12H PRN PO 03/23/17 22:30 (Dulcolax Supp) 10 mg DAILY PRN RECTAL 03/23/17 22:30 (Lactulose Liq) 30 ml DAILY PRN PO 03/23/17 22:30 04/02/17 23:33 (NS Flush) 2 ml UNSCH PRN IV FLUSH 03/23/17 22:45 (NS Flush) 2 ml BID IV FLUSH 03/24/17 09:00 04/03/17 08:29 (Pepcid) 20 mg DAILY@0600 PO 03/24/17 06:00 04/03/17 05:12 (Lopressor) 12.5 mg Q12HR PO 03/24/17 09:00 04/03/17 08:28 (Lexapro) 20 mg DAILY PO 03/24/17 09:00 04/03/17 08:28 (Neurontin) 600 mg TID PO 03/24/17 09:00 04/03/17 08:28 (Synthroid) 150 mcg DAILY@0700 PO 03/24/17 07:00 04/03/17 05:12 (Ativan) 0.5 mg BID PRN PO 03/24/17 00:45 03/27/17 20:59 (Oramorph Sr) 60 mg Q8HR PO 03/24/17 06:00 Future Hold 03/28/17 06:10 (Effexor Xr) 37.5 mg DAILY PO 03/24/17 09:00 03/27/17 09:35 Potassium Chloride 100 ml @ 50 mls/hr Q2H PRN IV 03/25/17 09:00 Potassium Chloride 100 ml @ 50 mls/hr Q2H PRN IV 03/25/17 09:00 (K-Lyte Cl Eff) 50 meq UNSCH PRN PO 03/25/17 09:00 04/02/17 08:19 Potassium Chloride 100 ml @ 25 mls/hr UNSCH PRN IV 03/25/17 09:00 Potassium Chloride 100 ml @ 50 mls/hr Q2H PRN IV 03/25/17 09:00 03/25/17 20:27 Magnesium Sulfate 4 gm/Sodium Chloride 100 ml @ 50 mls/hr UNSCH PRN IV 03/25/17 09:00 (Mag-Ox) 800 mg UNSCH PRN PO 03/25/17 09:00 Magnesium Sulfate 2 gm/Sodium Chloride 100 ml @ 50 mls/hr UNSCH PRN IV 03/25/17 09:00 (K-Phos) 2,000 mg Q4H PRN PO 03/25/17 09:00 Sodium Phosphate 30 mmol/Sodium Chloride 250 ml @ 42 mls/hr UNSCH PRN IV 03/25/17 09:00 03/28/17 11:50 (K-Phos) 2,000 mg UNSCH PRN PO/TUBE 03/25/17 09:00 Potassium Phosphate 30 mmol/ Sodium Chloride 260 ml @ 42 mls/hr UNSCH PRN IV 03/25/17 09:00 (Heparin Inj) 5,000 units Q12HR SQ 03/26/17 09:00 04/03/17 08:29 Acetaminophen 100 ml @ 400 mls/hr Q6H PRN IV 03/28/17 20:00 04/02/17 20:38 (Peridex 0.12% Liq) 15 ml BID@08,20 MT 03/29/17 20:00 04/03/17 08:31 Fentanyl Citrate 250 ml @ 5 mls/hr TITRATE PRN IV 03/29/17 09:00 03/30/17 00:03 Fluconazole/ Sodium Chloride 50 ml @ 50 mls/hr Q24H IV 03/29/17 14:00 04/02/17 12:53 (Tylenol) 500 mg Q4H PRN PO 03/29/17 12:30 04/01/17 08:22 (Aspirin Chew) 81 mg DAILY OG-TUBE 03/30/17 09:00 04/03/17 08:28 (Ferrous Sulfate Liq) 300 mg DAILY OG-TUBE 03/30/17 09:00 04/03/17 08:29 (Free Water) 300 ml Q4HR G-TUBE 03/31/17 12:00 04/03/17 12:00 (Roxicodone Intensol Liq) 20 mg Q4H PO 03/31/17 11:00 04/03/17 11:03 (Mycostatin Powder) 1 applic BID TOPICAL 04/01/17 09:00 04/03/17 08:30 Dextrose 1,000 ml @ 75 mls/hr [id number] IV 04/01/17 08:30 04/03/17 01:45 Albumin Human 100 ml @ 12.5 mls/hr Q8H IV 04/01/17 09:00 04/03/17 08:28 Cefazolin Sodium/ Dextrose 50 ml @ 100 mls/hr Q6H IV 04/01/17 09:00 04/03/17 08:28 Meropenem 1000 mg/ Sodium Chloride 100 ml @ 200 mls/hr Q8H IV 04/02/17 11:00 04/03/17 11:00 Lines PIV Past Medical History Scleroderma unknown if localized versus systemic Thyroid disease unknown type Chronic pain syndrome Elevated BMI Past Surgical History Status post splenectomy Allergies: Coded Allergies: shellfish derived (Verified Allergy, Intermediate, 03/23/17) Objective . Vital Signs Date Time Temp Pulse Resp B/P (MAP) Pulse Ox O2 Delivery O2 Flow Rate FiO2 04/03/17 11:23 94 40 04/03/17 07:28 97 40 04/03/17 06:00 97 04/03/17 05:00 94 19 127/66 (86) 97 04/03/17 04:00 94 04/03/17 04:00 40 04/03/17 04:00 100.5 97 22 129/102 (111) 97 04/03/17 03:00 90 20 118/58 (78) 98 04/03/17 02:00 92 04/03/17 02:00 92 20 116/60 (78) 97 04/03/17 01:36 97 40 04/03/17 01:00 89 19 105/56 (72) 96 04/03/17 00:00 40 04/03/17 00:00 89 04/03/17 00:00 100.7 90 18 112/56 (74) 98 04/02/17 23:30 93 21 117/61 (79) 97 04/02/17 23:24 97 40 04/02/17 23:00 92 26 109/55 (73) 95 04/02/17 22:30 93 20 106/56 (73) 96 04/02/17 22:00 100.8 92 19 110/57 (74) 97 04/02/17 22:00 92 04/02/17 22:00 92 19 110/57 (74) 97 04/02/17 21:30 85 18 97/52 (67) 95 04/02/17 21:00 91 20 104/56 (72) 94 04/02/17 20:30 104 19 120/65 (83) 95 04/02/17 20:00 40 04/02/17 20:00 90 04/02/17 20:00 102.4 101 19 117/56 (76) 95 04/02/17 19:46 95 40 04/02/17 19:46 95 Ventilator 40 04/02/17 18:00 99 19 116/57 (76) 93 04/02/17 17:30 94 21 108/54 (72) 95 04/02/17 17:00 93 19 108/56 (73) 95 04/02/17 16:30 96 20 109/58 (75) 94 04/02/17 16:00 40 04/02/17 16:00 101.1 91 20 104/51 (68) 98 04/02/17 15:30 94 20 109/56 (73) 97 04/02/17 15:11 97 40 04/02/17 15:00 97 21 118/60 (79) 96 04/02/17 14:30 91 22 101/53 (69) 100 04/02/17 14:00 90 20 102/52 (69) 100 04/02/17 13:30 90 21 101/50 (67) 100 04/02/17 13:00 93 20 105/54 (71) 100 . Laboratory Tests Test 04/02/17 04:10 04/03/17 04:06 White Blood Count 22.7 TH/MM3 20.1 TH/MM3 Red Blood Count 3.29 MIL/MM3 3.05 MIL/MM3 Hemoglobin 8.9 GM/DL 8.5 GM/DL Hematocrit 29.3 % 27.1 % Mean Corpuscular Volume 89.0 FL 88.9 FL Mean Corpuscular Hemoglobin 27.1 PG 28.0 PG Mean Corpuscular Hemoglobin Concent 30.5 % 31.5 % Red Cell Distribution Width 14.5 % 14.7 % Platelet Count 240 TH/MM3 210 TH/MM3 Mean Platelet Volume 11.8 FL 12.1 FL Laboratory Tests Test 04/01/17 15:00 04/02/17 04:10 04/03/17 04:03 Sodium Level 156 MEQ/L 154 MEQ/L 148 MEQ/L Blood Urea Nitrogen 38 MG/DL 39 MG/DL Creatinine 1.20 MG/DL 1.15 MG/DL Random Glucose 130 MG/DL 130 MG/DL Calcium Level 8.0 MG/DL 8.0 MG/DL Potassium Level 3.4 MEQ/L 3.6 MEQ/L Chloride Level 120 MEQ/L 116 MEQ/L Carbon Dioxide Level 27.9 MEQ/L 27.3 MEQ/L Anion Gap 6 MEQ/L 5 MEQ/L Estimat Glomerular Filtration Rate 47 ML/MIN 49 ML/MIN Microbiology Date/Time Source Procedure Growth Status 04/01/17 12:25 Blood Peripheral Aerobic Blood Culture - Preliminary Gram Positive Cocci Resulted 04/01/17 12:25 Blood Peripheral Anaerobic Blood Culture - Preliminary NO GROWTH IN 2 DAYS Resulted 04/01/17 12:17 Blood Peripheral Aerobic Blood Culture - Preliminary Gram Positive Cocci Resulted 04/01/17 12:17 Blood Peripheral Anaerobic Blood Culture - Preliminary NO GROWTH IN 2 DAYS Resulted Imaging Lower Extremity MRI 03/29/17 0000 Signed Impressions: Service Date/Time: Wednesday, March 29, 2017 13:04 - CONCLUSION: Cellulitis and shallow ulcerations in the left gluteal region and proximal thigh. No evidence of deep muscular involvement, abscess formation or bone marrow edema. Kurt Hairston MD Chest X-Ray 03/29/17 0000 Signed Impressions: Service Date/Time: Wednesday, March 29, 2017 09:57 - CONCLUSION: Satisfactory position of endotracheal and nasogastric tubes. Extensive bilateral airspace disease. Kurt Hairston MD Chest CT 03/29/17 0000 Signed Impressions: Service Date/Time: Wednesday, March 29, 2017 23:31 - CONCLUSION: Extensive air space process bilaterally could represent pulmonary edema, however pneumonia is not excluded. Marquise Leonardo MD Brain MRI 03/29/17 0000 Signed Impressions: Service Date/Time: Wednesday, March 29, 2017 13:04 - CONCLUSION: Tiny bilateral areas of probable subacute lacunar infarction. Patchy mild nonspecific white matter signal changes. Gerson Vegas MD Liver Ultrasound 03/24/17 0000 Signed Impressions: Service Date/Time: March 16:41 - CONCLUSION: 1. Limited examination due to body habitus and patient's inability to tolerate the procedure. Unfortunately, the gallbladder is not sufficiently visualized for further evaluation of abnormality noted on CT scan. If there is continued clinical concern regarding acute cholecystitis, consider HIDA scan to evaluate for cystic duct patency. 2. Diffusely heterogeneous and mildly enlarged liver consistent with hepatic steatosis versus medical liver disease. Shlomo Mesa MD Head CT 03/23/171923 Signed Impressions: Service Date/Time: Thursday, March 23, 2017 20:45 - CONCLUSION: No acute findings in the brain. David Weiss MD Abdomen/Pelvis CT 03/23/171923 Signed Impressions: Service Date/Time: Thursday, March 23, 2017 20:48 - CONCLUSION: 1. Multiple gallstones, some of which are noncalcified. 2. Spleen is not identified. 3. Mildly prominent left inguinal David Weiss MD Chest X-Ray 03/29/17 0000 Signed Impressions: Service Date/Time: Wednesday, March 29, 2017 09:57 - CONCLUSION: Satisfactory position of endotracheal and nasogastric tubes. Extensive bilateral airspace disease. Kurt Hairston MD Chest X-Ray 03/27/17 0000 Signed Impressions: Service Date/Time: Monday, March 27, 2017 14:54 - CONCLUSION: Persistent cardiac silhouette enlargement with new bilateral diffuse pulmonary opacity primarily interstitial likely representing pulmonary edema. Ronnie Max MD Chest X-Ray 03/27/17 0000 Signed Impressions: Service Date/Time: Monday, March 27, 2017 14:54 - CONCLUSION: Persistent cardiac silhouette enlargement with new bilateral diffuse pulmonary opacity primarily interstitial likely representing pulmonary edema. Ronnie Max MD Liver Ultrasound 03/24/17 0000 Signed Impressions: Service Date/Time: March 16:41 - CONCLUSION: 1. Limited examination due to body habitus and patient's inability to tolerate the procedure. Unfortunately, the gallbladder is not sufficiently visualized for further evaluation of abnormality noted on CT scan. If there is continued clinical concern regarding acute cholecystitis, consider HIDA scan to evaluate for cystic duct patency. 2. Diffusely heterogeneous and mildly enlarged liver consistent with hepatic steatosis versus medical liver disease. Shlomo Mesa MD Head CT 03/23/171923 Signed Impressions: Service Date/Time: Thursday, March 23, 2017 20:45 - CONCLUSION: No acute findings in the brain. David Weiss MD Abdomen/Pelvis CT 03/23/171923 Signed Impressions: Service Date/Time: Thursday, March 23, 2017 20:48 - CONCLUSION: 1. Multiple gallstones, some of which are noncalcified. 2. Spleen is not identified. 3. Mildly prominent left inguinal David Weiss MD Physical Exam GENERAL: NAD, on CPAP. SKIN: chronic appearing wounds on L thigh. Has dry scabs on both LE, not infected. warm, dry EYES: Pupils equal and round and reactive. Extraocular motions intact. No scleral icterus. No injection or drainage. NECK: supple ENT: Nose without bleeding or purulent drainage. Orally intubated CARDIOVASCULAR: Regular rate and rhythm. + 2-3/6 harsh murmur L precordium RESPIRATORY/CHEST: Scattered rhonchi GASTROINTESTINAL: Abdomen soft, obese, not tender. Bowel sounds present. GENITOURINARY: Florez catheter in place with clear yellow urine MUSCULOSKELETAL: Extremities without clubbing, cyanosis, or edema. No mottling or clubbing. NEUROLOGICAL: Awake, following commands, moves all extremities PSYCHIATRIC: Cooperative, calm : Florez in place LINE: No evidence of infection Assessment & Plan Remarks IMPRESSION [place] valve endocarditis, MV - MYRIAM + - also with AI - has new (+) BC, ?MSSA or different Staph MSSA bacteremia, high grade NSTEMI Scleroderma Immunosuppressed S/P splenectomy Respiratory failuire Enterobacter PNA Persistent fevers and worsening leukocytosis Multiple lacunar infarcts of MRI Persistent fevers and leukocytosis - nothing new on C/S that is not adequately covered - ?non-infectious PLAN: Continue Ancef Continue Merem Continue Diflucan Repeat BC CT A/P to look for metastatic focus - prob do MRI spine next Monitor temps Give dose of Vanco Monitor progress Follow C/S Weaning per [facility] D/W Haven Thomas MD Apr 03, 2017 12:53
[2017-04-03] MEDS: FLUCONAZOLE 100 MG PREMIX BAG 50 ML IV SCH (13:05)
[2017-04-03] MEDS ORDERED: VANCOMYCIN INJ 1,500 MG in SODIUM CHLORID 0.9% 500 ML INJ 500 ML IV ONE (14:00)
[2017-04-03] MEDS ORDERED: DIATRIZOATE MEGLUM/DIATRIZOATE SOD 9 ML CUP PO ONE (14:45)
[2017-04-03] MEDS ORDERED: IOHEXOL 350 MG/ML 10 ML VIAL (for RAD DIAG) IVCONTRAST ONE (21:27)
--- NOTE | 2017-04-03 22:25 | RADRPT ---
EXAM DATE/TIME: 04/03/2017 21:23 [place] COMPARISON: CT ABDOMEN & PELVIS W/O CONTRAST, March 23, 2017, 20:48. CT THORAX W/O CON TRAST, March 29, 2017, 23:31. INDICATIONS : Abdominal pain; possible abscess. IV CONTRAST: 97 cc Omnipaque 350 (iohexol) IV ORAL CONTRAST: Prescribed oral contrast ingested. RADIATION DOSE: CTDIvol (mGy) MEDICAL HISTORY : None SURGICAL HISTORY : Splenectomy. ENCOUNTER: Initial ACUITY: 1 day PAIN SCALE: Non-responsive LOCATION: abdomen TECHNIQUE: Volumetric scanning of the abdomen and pelvis was performed. Using automated exposure control and adjustment of the mA and/or kV according to patient size, radiation dose was kept as low as reasonably achievable to obtain optimal diagnostic quality images. DICOM format image data is av ailable electronically for review and comparison. FINDINGS: CT Abdomen: The pancreas, kidneys, adrenals are unremarkable. 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 There is no evidence for any appreciable pathological adenopathy, free fluid, or bowel obstruction. The ga llbladder is contracted and may have stones within it. Fairly extensive airspace process is seen in b ilateral lower present on the prior chest CT andoverall appearance has not significantly changed. T he left hepatic lobe appears enlarged not significantly changed measures almost 17.2 cm in size. Is t here a history of cirrhosis? CT pelvis: There is no evidence for mass, abscess formation, or any significant adenopathy within the pelvis. There are benign-appearing lymph nodes in bilateral groin and the one that measured 1.9 cm o n the prior exam measures 1.7 cm in size. There is minimal fluid within the pelvis. Rectal packing is identified. CONCLUSION: 1. Extensive bibasilar airspace consolidation discussed on the patient's prior chest CT. 2. Enlargement of the left hepatic lobe and is there a history of cirrhosis? 3. Possible cholelithiasis. Marquise Leonardo MD on April 03, 2017 at 22:16 Board Certified Radiologist. This report was verified electronically.
[2017-04-04] VITALS (27 sets, daily range): BP systolic 92–132; BP diastolic 45–70; PULSE 80–99; RESP 22–127; TEMP 98.4–99.4; O2SAT 93–97
[2017-04-04] MEDS: ALBUMIN 25% INJ 100 ML IV SCH ×2 (00:15→08:59)
[2017-04-04] MEDS: oxyCODONE HCL ORAL CONC 5 MG/0.25 ML SYRINGE PO SCH ×7 (00:15→23:57)
[2017-04-04] MEDS: ceFAZolin 2 GM PREMIX 50 ML IV SCH ×4 (02:42→20:38)
[2017-04-04] MEDS: MEROPENEM INJ 1,000 MG in SODIUM CHLORIDE 0.9% INJ 100 ML IV SCH ×3 (02:42→20:37)
[2017-04-04] MEDS: CHLORHEXIDINE GLUCONATE 2 % 1 PACK (2 CLOTHS) TOP SCH ×2 (04:00→19:28)
[2017-04-04] MEDS: FAMOTIDINE 20 MG TAB PO SCH (05:03)
[2017-04-04] MEDS: LEVOTHYROXINE SODIUM 75 MCG TAB PO SCH (05:03)
[2017-04-04] MEDS: FREE WATER G-TUBE SCH ×6 (05:04→20:00)
[2017-04-04 06:32] LABS: HEMATOCRIT 26.8 % (35.0-46.0); HEMOGLOBIN 8.2 GM/DL (11.6-15.3); MEAN CORPUSCULAR HEMOGLOBIN 27.5 PG (27.0-34.0); MEAN CORPUSCULAR HGB CONC 30.6 % (32.0-36.0); MEAN PLATELET VOLUME 11.9 FL (7.0-11.0); PLATELET COUNT 221 TH/MM3 (150-450); RED BLOOD COUNT 2.98 MIL/MM3 (4.00-5.30); RED CELL DISTRIBUTION WIDTH 14.9 % (11.6-17.2); WHITE BLOOD COUNT 15.2 TH/MM3 (4.0-11.0)
[2017-04-04 06:47] LABS: BICARBONATE 24.8 MEQ/L (21.0-32.0); CALCIUM 7.9 MG/DL (8.5-10.1); CREATININE 0.89 MG/DL (0.50-1.00)
[2017-04-04] MEDS: CHLORHEXIDINE 0.12% (ORAL KIT) 15 ML CUP MT SCH ×2 (07:34→20:37)
[2017-04-04] MEDS: POTASSIUM CHLORIDE 25 MEQ EFFERVESCENT TAB PO PRN (07:34)
[2017-04-04] MEDS: SODIUM CHLORIDE 0.9% FLUSH 10 ML FLUSH IV FLUSH SCH ×2 (08:59→20:38)
[2017-04-04] MEDS: GABAPENTIN 300 MG CAP PO SCH ×3 (08:59→16:25)
[2017-04-04] MEDS: HEPARIN SODIUM - SQ 10,000 UNITS/ML VIAL SQ SCH ×2 (08:59→20:38)
[2017-04-04] MEDS: FERROUS SULFATE 300 MG /5ML UDC OG-TUBE SCH (08:59)
[2017-04-04] MEDS: DOCUSATE SODIUM 50 MG/SENNA 8.6 MG TAB PO SCH ×2 (08:59→20:38)
[2017-04-04] MEDS: ESCITALOPRAM OXALATE 20 MG TAB PO SCH (09:00)
[2017-04-04] MEDS: ASPIRIN 81 MG CHEW TAB OG-TUBE SCH (09:00)
[2017-04-04] MEDS: ARTIFICIAL TEARS OPTH SOLN 15 ML BTL EACH EYE SCH ×3 (09:00→16:25)
[2017-04-04] MEDS: VENLAFAXINE HCL XR 37.5 MG CAP PO SCH (09:00)
[2017-04-04] MEDS: NYSTATIN 100,000 U/GM PWD 15 GM BTL TOPICAL SCH ×2 (09:00→20:39)
[2017-04-04] MEDS: METOPROLOL TARTRATE 25 MG TAB PO SCH ×2 (09:00→20:38)
--- NOTE | 2017-04-04 10:44 | HHI.IDPN ---
Subjective Subjective Remarks ID COVERAGE 57 yo F with h/o scleroderma, used to be on Humira, but off x 5 mos Admitted for fever and altered mental status. Has had multiple (+) BC with MSSA TTE negative, but MYRIAM with vegetation in MV, and also with AI Was on BIPAP for respiratory issues, but required intubation 03/29 Notes reviewed Temps better this morning BP ok New BC Coag Neg Staph CT A/P no intraabdominal seeding Did not tolerate CPAP this morning Brain MRI with lacunar infarcts Sputum with Enterobacter WBC still elevated UC negative BC (+) 03/23-03/27 BC 03/28 negative so far BC 04/01 Coag Neg Staph No central lines Has diarrhea Antibiotics Current Medications Ancef Meropenem Diflucan Vanco x 1 dose 04/03 Medications (Trade) Dose Ordered Sig/Bj Route Start Time Stop Time Status Last Admin (Tylenol) 650 mg Q6H PRN PO 03/23/17 22:30 04/02/17 08:20 (Tears Naturale Opth Soln) 1 drop TID EACH EYE 03/24/17 09:00 04/04/17 09:00 (Zofran Inj) 4 mg Q6H PRN IV PUSH 03/23/17 22:30 (Albuterol Neb) 2.5 mg Q2HR NEB PRN INH 03/23/17 22:30 04/02/17 09:44 Miscellaneous Information 1 Q361D XX 03/23/17 22:30 (Chlorhexidine 2% Cloth) Taper DAILY@04 TOP 03/24/17 04:00 03/20/18 03:59 03/28/17 02:16 (Chlorhexidine 2% Cloth) 3 pack UNSCH PRN TOP 03/23/17 22:30 (Mely-Colace) 1 tab BID PO 03/24/17 09:00 04/04/17 08:59 (Milk Of Magnesia Liq) 30 ml Q12H PRN PO 03/23/17 22:30 (Senokot) 17.2 mg Q12H PRN PO 03/23/17 22:30 (Dulcolax Supp) 10 mg DAILY PRN RECTAL 03/23/17 22:30 (Lactulose Liq) 30 ml DAILY PRN PO 03/23/17 22:30 04/02/17 23:33 (NS Flush) 2 ml UNSCH PRN IV FLUSH 03/23/17 22:45 04/04/17 02:43 (NS Flush) 2 ml BID IV FLUSH 03/24/17 09:00 04/04/17 08:59 (Pepcid) 20 mg DAILY@0600 PO 03/24/17 06:00 04/04/17 05:03 (Lopressor) 12.5 mg Q12HR PO 03/24/17 09:00 04/04/17 09:00 (Lexapro) 20 mg DAILY PO 03/24/17 09:00 04/04/17 09:00 (Neurontin) 600 mg TID PO 03/24/17 09:00 04/04/17 08:59 (Synthroid) 150 mcg DAILY@0700 PO 03/24/17 07:00 04/04/17 05:03 (Ativan) 0.5 mg BID PRN PO 03/24/17 00:45 03/27/17 20:59 (Oramorph Sr) 60 mg Q8HR PO 03/24/17 06:00 Future Hold 03/28/17 06:10 (Effexor Xr) 37.5 mg DAILY PO 03/24/17 09:00 03/27/17 09:35 Potassium Chloride 100 ml @ 50 mls/hr Q2H PRN IV 03/25/17 09:00 Potassium Chloride 100 ml @ 50 mls/hr Q2H PRN IV 03/25/17 09:00 (K-Lyte Cl Eff) 50 meq UNSCH PRN PO 03/25/17 09:00 04/04/17 07:34 Potassium Chloride 100 ml @ 25 mls/hr UNSCH PRN IV 03/25/17 09:00 Potassium Chloride 100 ml @ 50 mls/hr Q2H PRN IV 03/25/17 09:00 03/25/17 20:27 Magnesium Sulfate 4 gm/Sodium Chloride 100 ml @ 50 mls/hr UNSCH PRN IV 03/25/17 09:00 (Mag-Ox) 800 mg UNSCH PRN PO 03/25/17 09:00 Magnesium Sulfate 2 gm/Sodium Chloride 100 ml @ 50 mls/hr UNSCH PRN IV 03/25/17 09:00 (K-Phos) 2,000 mg Q4H PRN PO 03/25/17 09:00 Sodium Phosphate 30 mmol/Sodium Chloride 250 ml @ 42 mls/hr UNSCH PRN IV 03/25/17 09:00 03/28/17 11:50 (K-Phos) 2,000 mg UNSCH PRN PO/TUBE 03/25/17 09:00 Potassium Phosphate 30 mmol/ Sodium Chloride 260 ml @ 42 mls/hr UNSCH PRN IV 03/25/17 09:00 (Heparin Inj) 5,000 units Q12HR SQ 03/26/17 09:00 04/04/17 08:59 Acetaminophen 100 ml @ 400 mls/hr Q6H PRN IV 03/28/17 20:00 04/02/17 20:38 (Peridex 0.12% Liq) 15 ml BID@08,20 MT 03/29/17 20:00 04/04/17 07:34 Fentanyl Citrate 250 ml @ 5 mls/hr TITRATE PRN IV 03/29/17 09:00 03/30/17 00:03 Fluconazole/ Sodium Chloride 50 ml @ 50 mls/hr Q24H IV 03/29/17 14:00 04/03/17 13:05 (Tylenol) 500 mg Q4H PRN PO 03/29/17 12:30 04/01/17 08:22 (Aspirin Chew) 81 mg DAILY OG-TUBE 03/30/17 09:00 04/04/17 09:00 (Ferrous Sulfate Liq) 300 mg DAILY OG-TUBE 03/30/17 09:00 04/04/17 08:59 (Free Water) 300 ml Q4HR G-TUBE 03/31/17 12:00 04/04/17 07:34 (Roxicodone Intensol Liq) 20 mg Q4H PO 03/31/17 11:00 04/04/17 07:34 (Mycostatin Powder) 1 applic BID TOPICAL 04/01/17 09:00 04/04/17 09:00 Dextrose 1,000 ml @ 75 mls/hr [id number] IV 04/01/17 08:30 04/03/17 17:55 Albumin Human 100 ml @ 12.5 mls/hr Q8H IV 04/01/17 09:00 04/04/17 08:59 Cefazolin Sodium/ Dextrose 50 ml @ 100 mls/hr Q6H IV 04/01/17 09:00 04/04/17 08:59 Meropenem 1000 mg/ Sodium Chloride 100 ml @ 200 mls/hr Q8H IV 04/02/17 11:00 04/04/17 02:42 Lines PIV Past Medical History Scleroderma unknown if localized versus systemic Thyroid disease unknown type Chronic pain syndrome Elevated BMI Past Surgical History Status post splenectomy Allergies: Coded Allergies: shellfish derived (Verified Allergy, Intermediate, 03/23/17) Objective . Vital Signs Date Time Temp Pulse Resp B/P (MAP) Pulse Ox O2 Delivery O2 Flow Rate FiO2 04/04/17 10:33 96 35 04/04/17 10:00 90 04/04/17 08:49 35 04/04/17 08:49 40 04/04/17 08:00 40 04/04/17 08:00 99.4 96 24 117/56 (76) 96 04/04/17 08:00 96 04/04/17 07:08 95 35 04/04/17 06:00 91 04/04/17 04:57 90 04/04/17 04:57 40 04/04/17 04:07 97 40 04/04/17 04:00 98.5 89 29 109/58 (75) 97 04/04/17 02:00 86 26 93 04/04/17 02:00 84 04/04/17 01:00 99.0 80 30 92/49 (63) 94 04/04/17 00:13 95 40 04/04/17 00:01 87 127 102/45 (64) 95 04/04/17 00:00 82 04/04/17 00:00 40 04/03/17 22:00 100 04/03/17 22:00 100 22 124/57 (79) 95 04/03/17 21:19 95 100 04/03/17 21:00 89 17 106/55 (72) 96 04/03/17 21:00 96 35 04/03/17 20:00 90 04/03/17 20:00 100.1 90 17 106/55 (72) 93 04/03/17 20:00 40 04/03/17 19:00 90 18 105/58 (74) 94 04/03/17 18:30 90 19 104/52 (69) 95 04/03/17 18:00 91 34 108/58 (75) 96 04/03/17 17:30 90 24 107/57 (74) 98 04/03/17 17:00 87 44 107/57 (74) 98 04/03/17 16:30 86 50 107/54 (71) 98 04/03/17 16:14 98 35 04/03/17 16:00 40 04/03/17 16:00 100.3 90 73 110/58 (75) 98 04/03/17 15:00 92 70 112/58 (76) 100 04/03/17 14:30 92 101 114/57 (76) 100 04/03/17 14:00 94 114 115/59 (77) 96 04/03/17 13:47 98 57 117/56 (76) 94 04/03/17 13:00 92 20 121/58 (79) 95 04/03/17 12:30 93 22 125/61 (82) 97 04/03/17 12:00 40 04/03/17 12:00 100.1 96 26 129/70 (89) 100 04/03/17 11:30 90 24 123/58 (79) 95 04/03/17 11:23 94 40 04/03/17 11:00 87 22 118/56 (76) 97 . Laboratory Tests Test 04/03/17 04:06 04/04/17 05:33 White Blood Count 20.1 TH/MM3 15.2 TH/MM3 Red Blood Count 3.05 MIL/MM3 2.98 MIL/MM3 Hemoglobin 8.5 GM/DL 8.2 GM/DL Hematocrit 27.1 % 26.8 % Mean Corpuscular Volume 88.9 FL 90.0 FL Mean Corpuscular Hemoglobin 28.0 PG 27.5 PG Mean Corpuscular Hemoglobin Concent 31.5 % 30.6 % Red Cell Distribution Width 14.7 % 14.9 % Platelet Count 210 TH/MM3 221 TH/MM3 Mean Platelet Volume 12.1 FL 11.9 FL Laboratory Tests Test 04/03/17 04:03 04/04/17 05:33 Blood Urea Nitrogen 39 MG/DL 30 MG/DL Creatinine 1.15 MG/DL 0.89 MG/DL Random Glucose 130 MG/DL 120 MG/DL Calcium Level 8.0 MG/DL 7.9 MG/DL Sodium Level 148 MEQ/L 142 MEQ/L Potassium Level 3.6 MEQ/L 3.4 MEQ/L Chloride Level 116 MEQ/L 111 MEQ/L Carbon Dioxide Level 27.3 MEQ/L 24.8 MEQ/L Anion Gap 5 MEQ/L 6 MEQ/L Estimat Glomerular Filtration Rate 49 ML/MIN 66 ML/MIN Microbiology Date/Time Source Procedure Growth Status 04/04/17 05:33 Blood Peripheral Aerobic Blood Culture Pending Received 04/04/17 05:33 Blood Peripheral Anaerobic Blood Culture Pending Received 04/03/17 14:00 Blood Peripheral Aerobic Blood Culture Pending Received 04/03/17 14:00 Blood Peripheral Anaerobic Blood Culture Pending Received 04/01/17 12:25 Blood Peripheral Aerobic Blood Culture - Preliminary Staph Sp Coagulase Negative Resulted 04/01/17 12:25 Blood Peripheral Anaerobic Blood Culture - Preliminary NO GROWTH IN 2 DAYS Resulted 04/01/17 12:17 Blood Peripheral Aerobic Blood Culture - Preliminary Staphylococcus Epidermidis Resulted 04/01/17 12:17 Blood Peripheral Anaerobic Blood Culture - Preliminary NO GROWTH IN 2 DAYS Resulted Imaging Abdomen/Pelvis CT 04/03/17 0000 Signed Impressions: Service Date/Time: Monday, April 03, 2017 21:23 - CONCLUSION: 1. Extensive bibasilar airspace consolidation discussed on the patient's prior chest CT. 2. Enlargement of the left hepatic lobe and is there a history of cirrhosis? 3. Possible cholelithiasis. Marquise Leonardo MD Lower Extremity MRI 03/29/17 0000 Signed Impressions: Service Date/Time: Wednesday, March 29, 2017 13:04 - CONCLUSION: Cellulitis and shallow ulcerations in the left gluteal region and proximal thigh. No evidence of deep muscular involvement, abscess formation or bone marrow edema. Kurt Hairston MD Chest X-Ray 03/29/17 0000 Signed Impressions: Service Date/Time: Wednesday, March 29, 2017 09:57 - CONCLUSION: Satisfactory position of endotracheal and nasogastric tubes. Extensive bilateral airspace disease. Kurt Hairston MD Chest CT 03/29/17 0000 Signed Impressions: Service Date/Time: Wednesday, March 29, 2017 23:31 - CONCLUSION: Extensive air space process bilaterally could represent pulmonary edema, however pneumonia is not excluded. Marquise Leonardo MD Brain MRI 03/29/17 0000 Signed Impressions: Service Date/Time: Wednesday, March 29, 2017 13:04 - CONCLUSION: Tiny bilateral areas of probable subacute lacunar infarction. Patchy mild nonspecific white matter signal changes. Gerson Vegas MD Liver Ultrasound 03/24/17 0000 Signed Impressions: Service Date/Time: March 16:41 - CONCLUSION: 1. Limited examination due to body habitus and patient's inability to tolerate the procedure. Unfortunately, the gallbladder is not sufficiently visualized for further evaluation of abnormality noted on CT scan. If there is continued clinical concern regarding acute cholecystitis, consider HIDA scan to evaluate for cystic duct patency. 2. Diffusely heterogeneous and mildly enlarged liver consistent with hepatic steatosis versus medical liver disease. Shlomo Mesa MD Head CT [id number] Signed Impressions: Service Date/Time: Thursday, March 23, 2017 20:45 - CONCLUSION: No acute findings in the brain. David Weiss MD Abdomen/Pelvis CT [id number] Signed Impressions: Service Date/Time: Thursday, March 23, 2017 20:48 - CONCLUSION: 1. Multiple gallstones, some of which are noncalcified. 2. Spleen is not identified. 3. Mildly prominent left inguinal David Weiss MD Chest X-Ray 03/29/17 0000 Signed Impressions: Service Date/Time: Wednesday, March 29, 2017 09:57 - CONCLUSION: Satisfactory position of endotracheal and nasogastric tubes. Extensive bilateral airspace disease. Kurt Hairston MD Chest X-Ray 03/27/17 0000 Signed Impressions: Service Date/Time: Monday, March 27, 2017 14:54 - CONCLUSION: Persistent cardiac silhouette enlargement with new bilateral diffuse pulmonary opacity primarily interstitial likely representing pulmonary edema. Ronnie Max MD Chest X-Ray 03/27/17 0000 Signed Impressions: Service Date/Time: Monday, March 27, 2017 14:54 - CONCLUSION: Persistent cardiac silhouette enlargement with new bilateral diffuse pulmonary opacity primarily interstitial likely representing pulmonary edema. Ronnie Max MD Liver Ultrasound 03/24/17 0000 Signed Impressions: Service Date/Time: March 16:41 - CONCLUSION: 1. Limited examination due to body habitus and patient's inability to tolerate the procedure. Unfortunately, the gallbladder is not sufficiently visualized for further evaluation of abnormality noted on CT scan. If there is continued clinical concern regarding acute cholecystitis, consider HIDA scan to evaluate for cystic duct patency. 2. Diffusely heterogeneous and mildly enlarged liver consistent with hepatic steatosis versus medical liver disease. Shlomo Mesa MD Head CT [id number] Signed Impressions: Service Date/Time: Thursday, March 23, 2017 20:45 - CONCLUSION: No acute findings in the brain. David Weiss MD Abdomen/Pelvis CT [id number] Signed Impressions: Service Date/Time: Thursday, March 23, 2017 20:48 - CONCLUSION: 1. Multiple gallstones, some of which are noncalcified. 2. Spleen is not identified. 3. Mildly prominent left inguinal David Weiss MD Physical Exam GENERAL: On the vent, tachypneic. SKIN: chronic appearing wounds on L thigh. Has dry scabs on both LE, not infected. warm, dry EYES: Pupils equal and round and reactive. Extraocular motions intact. No scleral icterus. No injection or drainage. NECK: supple ENT: Nose without bleeding or purulent drainage. Orally intubated CARDIOVASCULAR: Regular rate and rhythm. + 2-3/6 harsh murmur L precordium RESPIRATORY/CHEST: Scattered rhonchi GASTROINTESTINAL: Abdomen soft, obese, not tender. Bowel sounds present. GENITOURINARY: Florez catheter in place with clear yellow urine MUSCULOSKELETAL: Extremities without clubbing, cyanosis, or edema. No mottling or clubbing. 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
[2017-04-04] MEDS ORDERED: Vancomycin Consult Pharmacy 1 EA OTHER SCH (10:45)
--- NOTE | 2017-04-04 12:04 | HHI.CCPN ---
Subjective Remarks/Hospital Course This is a 57-year-old female. Admission 03/23/2017.past medical history includes scleroderma, thyroid disease, status post splenectomy in the past and elevated BMI. Initial presentation occurred Tuesday with lethargy, sleeping, and fever. The patient also had one episode of vomiting with several episodes of diarrhea. The states she has been no recent international travel, hospitalizations, or history of chronic infections. She did have similar symptoms 2 years ago per the 's report with the patient had low oxygen levels and had altered mental status. The patient is seen by pain management as well as her primary physician who is located in [place], [place]. Dr. Estrada The states the patient's mental status seems to wax and wane over the last several days, she'll be awake and alert, and that she will fall asleep and be slightly lethargic and confused. She will lie in bed for several days at a time. The patient denies any chest pain or shortness of breath. She does complain of abdominal pain over the skin secondary to her scleroderma. She also has a history of an open lesion secondary to scleroderma of the lateral left thigh which has been present for several years per the 's report. Received patient was treated with Humira for scleroderma however not taking for the past 5 months. She is on morphine and Dilaudid for chronic pain management from her Dr. Dominguez in [place] CT abdomen/ revealed gallstones without obstruction. Status post splenectomy. Morbid obesity. Chest x-ray revealed no signs of pneumonia. CT brain negative. Patient received 2 L normal saline added ED. She was noted to have a elevated troponin of 15. Denies chest pain. EKG shows nonspecific ST-T changes. CPK 2100. Creatinine 1.7. Leukocytosis 20,000 and elevated transaminases with low sodium and albumin. Her febrile is abated. She is currently awake and oriented to person place and time. 03/24 Patient is lying in bed in [facility]. Afebrile. Renal function is improving with Cr: 1.10 from 1.73. On Heparin drip for elevated trop. 03/25 No events overnight. Remains on Heparin drip. Renal function is now within normal. Afebrile. 03/26 s/p MYRIAM yesterday which shoed vegetation on mitral valve She was on BIPAP overnight now on 4L oxygen. Given Lasix 40mg x 1 yesterday with good response in UOP. Afebrile. off Heparin drip.. 03/27 No events overnight. On BIPAP 15/ with 35% FIO2 overnight. Afebrile. 03/28: Remains on BiPAP with full facemask. 03/29: Patient was intubated and placed on mechanical ventilation as she was requiring BiPAP and continued to have increased work of breathing and needed to get imaging studies for further evaluation. 03/30: Remains sedated, orally intubated on mechanical ventilation. Head CT done on 03/29 revealed small lacunar infarcts (probably secondary to septic emboli). 03/31: remains febrile. intubated. blood cultures 03/29 NGTD still. follows commands. off sedation. on PSV 20/10/40%, but does not tolerate weaning of pressure support. CXR with persistent pulmonary edema. 04/01: remains febrile. wbc still elevated. blood cultures from 03/29 still NGTD. still not tolerating weaning attempts. Cr rising with diuresis, although still appears volume overloaded on exam and with valvular lesions, will need aggressive diuresis. 04/02: Orally intubated on mechanical ventilation, off all sedation. Arousable 04/03: Drowsy, arousable, orally intubated on mechanical ventilation. Still having temperature spikes. Blood culture from 04/01 growing gram-positive cocci 2 sets. 04/04: Drowsy, easily arousable, orally intubated on mechanical ventilation. Tolerating tube feeds. Lasted about 2 hours on C Pap trials yesterday. Objective Vital Signs Date Time Temp Pulse Resp B/P (MAP) Pulse Ox O2 Delivery O2 Flow Rate FiO2 04/04/17 10:33 96 35 04/04/17 10:00 90 04/04/17 08:00 99.4 24 117/56 (76) 04/02/17 19:46 Ventilator Intake and Output 04/04/17 04/04/17 04/04/17 07:59 15:59 23:59 Intake Total 2310 ml 412 ml Output Total 1200 ml Balance 1110 ml 412 ml Result Diagram: 04/04/17 0533 04/04/17 0533 Imaging Last Impressions Liver Ultrasound 03/24/17 0000 Signed Impressions: Service Date/Time: March 16:41 - CONCLUSION: 1. Limited examination due to body habitus and patient's inability to tolerate the procedure. Unfortunately, the gallbladder is not sufficiently visualized for further evaluation of abnormality noted on CT scan. If there is continued clinical concern regarding acute cholecystitis, consider HIDA scan to evaluate for cystic duct patency. 2. Diffusely heterogeneous and mildly enlarged liver consistent with hepatic steatosis versus medical liver disease. Shlomo Mesa MD Head CT 03/23/171923 Signed Impressions: Service Date/Time: Thursday, March 23, 2017 20:45 - CONCLUSION: No acute findings in the brain. David Weiss MD Chest X-Ray 03/23/171923 Signed Impressions: Service Date/Time: Thursday, March 23, 2017 19:49 - CONCLUSION: Cardiomegaly. The lungs are clear. David Weiss MD Abdomen/Pelvis CT 03/23/171923 Signed Impressions: Service Date/Time: Thursday, March 23, 2017 20:48 - CONCLUSION: 1. Multiple gallstones, some of which are noncalcified. 2. Spleen is not identified. 3. Mildly prominent left inguinal David Weiss MD Objective Remarks GENERAL: 57-year-old female laying in bed, orally intubated on mechanical ventilation HEAD: Atraumatic. Normocephalic. EYES: Pupils equal and round about 3 mm bilaterally and reactive. No scleral icterus. No injection or drainage. ENT: No nasal bleeding or discharge. Mucous membranes pink and moist. Orally intubated NECK: Trachea midline. No JVD. CARDIOVASCULAR: S1-S2 regular, no gallop or murmur appreciated RESPIRATORY: Orally intubated on mechanical ventilation, Breath sounds equal bilaterally. GASTROINTESTINAL: morbidly obese, abdomen soft, non-tender, nondistended. no guarding. MUSCULOSKELETAL: Extremities with multiple open areas/calcifications bilateral lower extremities. Largest is in the left gluteal region about 6 x 8 cm. Stage II decubiti. NEUROLOGICAL: Drowsy, arousable, orally intubated on mechanical ventilation, moves all 4 extremities. follows commands. A/P Assessment and Plan Assessment: 57yF with mitral valve endocarditis, healthcare associated pneumonia , persistent fevers, clinical decline. remains critically ill without any improvement in any organ system today. continue forced diuresis for pulmonary edema, despite rising Cr. fevers and leukocytosis are concerning. may need to consider MRI spine. remains critically ill without improvements, off pathway, at risk of and with ongoing major organ failure. Neuro/Psych: Encephalopathy Multiple lacunar infarcts Chronic pain syndrome/low back pain Chronic narcotic use Depression Chronic benzodiazepine use Propofol/fentanyl for sedation/analgesia while intubated with daily sedation vacation. Currently off sedation consolidate pain meds: d/c morphine and dilaudid. start oxycodone 20mg per tube q4h scheduled. Tizanidine 4 mg 3 times a day has been held Escitalopram 20 mg daily has been continued Lorazepam 0.5 mg twice a day has been continued Venlafaxine 37.5 mg daily has been continued CV: Severe sepsis with multisystem organ failure Mitral valve endocarditis Moderate Mitral regurgitation Moderate Aortic Regurgitation Mild Tricuspid regurgitation Elevated troponin Hypertension Lactic acidosis (resolved) Monitor HR and BP keep MAP>65mmHg ASA 81 mg daily Lopressor 12.5 mg by mouth twice a day No lipid-lowering agents due to elevated transaminases Cards is following-Dr. Newton Echo showed EF 60-65%. MYRIAM showed vegetation on MV Resp: Acute hypoxic respiratory failure on mechanical ventilation ALI Pulmonary Edema Bronchodilators. Intubated and placed on mechanical ventilation on 03/29 s/p short course steroids for wheezing ( 4 doses were given). CT chest with bilateral airspace disease with infiltrates - probably acute lung injury pattern from sepsis and possible pneumonia Vent bundle, daily C Pap trials GI: Elevated transaminases/total bilirubin Hypoalbuminemia CT abdomen/pelvis revealed cholelithiasis. No other acute findings. Monitor LFTs ( trending disease), Hepatitis profile is negative US Liver: Limited examination due to body habitus and patient's inability to tolerate the procedure. Unfortunately, the gallbladder is not sufficiently visualized. Diffusely heterogeneous and mildly enlarged liver consistent with hepatic steatosis vs medical liver disease. Lipase level 122, NH4 level 19. / Renal: NATTY Hypernatremia Free water deficit Acute intravascular volume overload Monitor renal function, I/O's, electrolytes replacement per protocol. Free water for hypernatremia started 03/30, 300mL q4h. diamox 500mg iv q8h x 3 doses Discontinue IV albumin Discontinue D5 water Endo/Rheum: Hyperglycemia Hypothyroidism Scleroderma - localized versus systemic Rheumatoid arthritis? Sliding-scale insulin to maintain euglycemia TSH level: 4.5, continue levothyroxine 150 mg by mouth daily/home dose in the interim Heme: Leukocytosis Monitor CBC daily. Follow trends. Continue ferrous sulfate 325 mg by mouth daily ID: Severe sepsis Staph Aureus Bacteremia Mitral valve endocarditis UTI Enterobacter HCAP pneumonia Continue abx per ID : On Ancef/meropenem/vancomycin/Diflucan IV Will need 6 weeks abx once BC is sterile. BC 03/23, 03/24: Staph Aureus bacteremia. MYRIAM vegetation on MV Blood cultures 03/25: 2/4 bottles: S aureus BC 03/27: S aureus Blood cultures 04/01 05/06 with [facility] ID is following. Patient has persistent staph aureus bacteremia despite antibiotics. MRI brain with multiple lacunar infarcts possibly secondary to septic emboli. CT chest with bilateral airspace disease/infiltrates. Discussed with Dr. Villegas on 03/29 AM prior to intubation. May require MRI spine, CT surgery evaluation if bacteremia not clearing to evaluate for valve replacement. MSK: Lower extremity ulcerations BMI 55 Wound care evaluate and treat Weight loss encouraged PT evaluate and treat Access - Utilize peripheral IV. Prophylaxis - GI - famotidine - DVT - SCD/heparin SQ Critical care time: 35 minutes, exclusive of separately billable procedures. Usman Vazquez MD Apr 04, 2017 12:04
[2017-04-04] MEDS: VANCOMYCIN INJ 2,500 MG in SODIUM CHLORID 0.9% 500 ML INJ 500 ML IV SCH (12:08)
[2017-04-04] MEDS: FLUCONAZOLE 100 MG PREMIX BAG 50 ML IV SCH (14:20)
[2017-04-05] VITALS (18 sets, daily range): BP systolic 119–133; BP diastolic 61–81; PULSE 93–108; RESP 18–35; TEMP 98.8–99.7; O2SAT 86–98
[2017-04-05] MEDS: VANCOMYCIN INJ 2,500 MG in SODIUM CHLORID 0.9% 500 ML INJ 500 ML IV SCH ×2 (00:03→12:14)
[2017-04-05] MEDS: FREE WATER G-TUBE SCH ×5 (03:51→15:18)
[2017-04-05] MEDS: oxyCODONE HCL ORAL CONC 5 MG/0.25 ML SYRINGE PO SCH ×4 (03:51→15:18)
[2017-04-05] MEDS: ceFAZolin 2 GM PREMIX 50 ML IV SCH ×3 (03:51→15:18)
[2017-04-05] MEDS: MEROPENEM INJ 1,000 MG in SODIUM CHLORIDE 0.9% INJ 100 ML IV SCH ×2 (03:51→11:16)
--- NOTE | 2017-04-05 04:57 | RADRPT ---
EXAM DATE/TIME: 04/05/2017 04:02 [facility] COMPARISON: CHEST SINGLE AP, March 29, 2017, 9:57. INDICATIONS : Short of breath. MEDICAL HISTORY : Hypothyroidism. Chronic obstructive pulmonary disease. SURGICAL HISTORY : Splenectomy. ENCOUNTER: Subsequent ACUITY: 1 week PAIN SCORE: 0/10 LOCATION: Bilateral chest FINDINGS: A single portable frontal view the chest shows worsening intra-alveolar infiltrates bilaterally. No e ffusions. Mild cardiomegaly. Endotracheal tube tip 2 cm from the italo. Nasogastric tube courses off the inferior margin of the film. CONCLUSION: Worsening bilateral pulmonary infiltrates. David Pendleton Jr., MD on April 05, 2017 at 4:55 Board Certified Radiologist. This report was verified electronically.
[2017-04-05 05:21] LABS: HEMATOCRIT 29.2 % (35.0-46.0); HEMOGLOBIN 9.1 GM/DL (11.6-15.3); MEAN CORPUSCULAR HEMOGLOBIN 27.8 PG (27.0-34.0); MEAN CORPUSCULAR HGB CONC 31.3 % (32.0-36.0); MEAN PLATELET VOLUME 11.8 FL (7.0-11.0); PLATELET COUNT 265 TH/MM3 (150-450); RED BLOOD COUNT 3.28 MIL/MM3 (4.00-5.30); RED CELL DISTRIBUTION WIDTH 14.6 % (11.6-17.2); WHITE BLOOD COUNT 16.5 TH/MM3 (4.0-11.0)
[2017-04-05 05:42] LABS: BICARBONATE 24.7 MEQ/L (21.0-32.0); CALCIUM 7.7 MG/DL (8.5-10.1); CREATININE 0.77 MG/DL (0.50-1.00)
[2017-04-05] MEDS: LEVOTHYROXINE SODIUM 75 MCG TAB PO SCH (06:31)
[2017-04-05] MEDS: FAMOTIDINE 20 MG TAB PO SCH (06:31)
[2017-04-05] MEDS: FERROUS SULFATE 300 MG /5ML UDC OG-TUBE SCH (07:55)
[2017-04-05] MEDS: DOCUSATE SODIUM 50 MG/SENNA 8.6 MG TAB PO SCH (07:55)
[2017-04-05] MEDS: VENLAFAXINE HCL XR 37.5 MG CAP PO SCH (07:56)
[2017-04-05] MEDS: GABAPENTIN 300 MG CAP PO SCH ×3 (07:56→17:23)
[2017-04-05] MEDS: NYSTATIN 100,000 U/GM PWD 15 GM BTL TOPICAL SCH (07:56)
[2017-04-05] MEDS: METOPROLOL TARTRATE 25 MG TAB PO SCH (07:56)
[2017-04-05] MEDS: ARTIFICIAL TEARS OPTH SOLN 15 ML BTL EACH EYE SCH ×3 (07:56→17:23)
[2017-04-05] MEDS: ESCITALOPRAM OXALATE 20 MG TAB PO SCH (07:56)
[2017-04-05] MEDS: ASPIRIN 81 MG CHEW TAB OG-TUBE SCH (07:56)
[2017-04-05] MEDS: HEPARIN SODIUM - SQ 10,000 UNITS/ML VIAL SQ SCH (07:56)
[2017-04-05] MEDS: SODIUM CHLORIDE 0.9% FLUSH 10 ML FLUSH IV FLUSH SCH (07:56)
[2017-04-05] MEDS: CHLORHEXIDINE 0.12% (ORAL KIT) 15 ML CUP MT SCH (07:57)
--- NOTE | 2017-04-05 12:31 | PD.CONS ---
Consult Service Palliative Care Consult Requested By Dr. Bo . Primary Care Physician Dr. Estrada . Reason for Consultation a. To assist with evaluation and management of symptoms including: Dyspnea, pain, anxiety b. To assist medical decision maker(s) with: better understanding of current medical conditions; weighing benefits/burdens of medical treatment options; making medical treatment decisions. HPI History of Present Illness This is a 57-year-old female who was admitted to [facility] 03/23/2017 with a past medical history including scleroderma, hypothyroidism, status post splenectomy, leukemia, nonhealing wound on left lateral thigh, morbid obesity and chronic pain syndrome with lethargy, diarrhea and fever. She was found to meet sepsis criteria with temperature of 102.0, heart rate 113 and WBCs 19.8. Her reports altered mental status and hypoxia. She had previously been treated with Humira, but had not taken it for the prior 5 months. The also stated she had similar symptoms 2 years ago with low oxygen levels and altered mental status. She chronically follows with pain management in [place] and is receiving morphine and Dilaudid. ED course: * Laboratory: WBC 19.8, hemoglobin 14.1, hematocrit 44.0, platelet 163, sodium 125, potassium 4.1, BUN 37, creatinine 1.73, AST 322, ALT 83, total bilirubin 1.6, lactic acid 9.8, total creatinine kinase 2170, CK-MB 26.1, CK-MB percent 1.2, troponin 15.2, lipase 442. Urinalysis showed a dark yellow hazy specimen with a pH 6.0, specific gravity of 1.021, protein 100, large occult blood, negative ketones and trace leukocyte esterase, rare bacteria. VBG shows pH 7.35 , PCO2 35, PaO2 46, HCO3 19, base excess -6 on 3 L nasal cannula. * Radiology: CT of the abdomen and pelvis shows enlarged lymph node in the left inguinal area, possibly secondary to the lateral left leg wound. CT of the brain showed no acute findings. Chest x-ray showed cardiomegaly with clear lungs. Subsequent liver ultrasound did not sufficiently visualize the gallbladder for further evaluation. Diffusely heterogeneous and mildly enlarged liver consistent with hepatic steatosis versus medical liver disease. Subsequent chest x-ray showed developing pulmonary edema. Brain MRI done 03/29/17 shows tiny bilateral areas of probable subacute lacunar infarction with patchy mild nonspecific white matter signal changes. Transesophageal echocardiogram indicated a mobile vegetation attached to the anterior leaflet of the mitral valve measuring 0.5 x 0.7 cm. There was evidence of moderate mitral regurgitation with a posterior direction of the jet , no mitral stenosis and moderate aortic insufficiency without aortic stenosis. Her dyspnea increased and she required BiPAP ventilation and eventually endotracheal intubation on 03/29/17. Consultations: * Infectious disease: Antibiotic management, currently on Ancef, meropenem, Diflucan, vancomycin. No temps greater than 99 in prior 24-hours. Urine culture negative. Blood culture shows continued staph epidermis. * Cardiology: Completed transesophageal echocardiogram as above, did not feel that elevated troponin was related to acute coronary syndrome. Cardiology signed off. At this evaluation she is seen intubated, arousable, not sedated. This is a morbidly obese female, intubated in no acute distress. No family is at bedside. Call was placed to the and number of left with contact information for call back. Discussed case with Dr. Bo. Patient will need decision on trach and PEG in the next few days. . Function/Cognitive Trajectory reports that at baseline the patient has been becoming more sedentary and intermittent altered mental status state. She has a history of chronic open nonhealing lesions secondary to scleroderma left lateral thigh which has been present for several years. She uses a rolling walker for ambulation and a scooter for further distances. Initial physical therapy assessment showed 3/5 strength in both upper and lower extremities. Her mobility is limited by pain and weakness. This is her second episode in 2 years of this type of illness. . Review of Systems ROS Limitations: Intubated Past Family Social History Coded Allergies: shellfish derived (Verified Allergy, Intermediate, 03/23/17) Past Medical History Scleroderma Hypothyroidism Morbid obesity History of leukemia Chronic pain syndrome . 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 . Reported Medications Reported Meds & Active Scripts Active Reported Hydromorphone (Hydromorphone HCl) 4 Mg Tab 4 Mg PO Q6H PRN Morphabond ER 12 HR (Morphine Sulfate) 60 Mg Tab 60 Mg PO Q8HR Gabapentin 600 Mg Tab 600 Mg PO TID Escitalopram (Escitalopram Oxalate) 20 Mg Tab 20 Mg PO DAILY Levothyroxine (Levothyroxine Sodium) 150 Mcg Tab 150 Mcg PO DAILY Ferrous Sulfate 325 Mg (65 Mg Iron) Tablet 325 Mg PO DAILY Effexor (Venlafaxine HCl) 37.5 Mg Tab 37.5 Mg PO DAILY Tizanidine (Tizanidine HCl) 4 Mg Cap 4 Mg PO TID Lorazepam 0.5 Mg Tab 0.5 Mg PO BID PRN Current Medications Medications (Trade) Dose Ordered Sig/Bj Route Start Time Stop Time Status Last Admin (Tylenol) 650 mg Q6H PRN PO 03/23/17 22:30 04/02/17 08:20 (Tears Naturale Opth Soln) 1 drop TID EACH EYE 03/24/17 09:00 04/05/17 07:56 (Zofran Inj) 4 mg Q6H PRN IV PUSH 03/23/17 22:30 (Albuterol Neb) 2.5 mg Q2HR NEB PRN INH 03/23/17 22:30 04/02/17 09:44 Miscellaneous Information 1 Q361D XX 03/23/17 22:30 (Chlorhexidine 2% Cloth) Taper DAILY@04 TOP 03/24/17 04:00 03/20/18 03:59 03/28/17 02:16 (Chlorhexidine 2% Cloth) 3 pack UNSCH PRN TOP 03/23/17 22:30 (Mely-Colace) 1 tab BID PO 03/24/17 09:00 04/05/17 07:55 (Milk Of Magnesia Liq) 30 ml Q12H PRN PO 03/23/17 22:30 (Senokot) 17.2 mg Q12H PRN PO 03/23/17 22:30 (Dulcolax Supp) 10 mg DAILY PRN RECTAL 03/23/17 22:30 (Lactulose Liq) 30 ml DAILY PRN PO 03/23/17 22:30 04/02/17 23:33 (NS Flush) 2 ml UNSCH PRN IV FLUSH 03/23/17 22:45 04/04/17 02:43 (NS Flush) 2 ml BID IV FLUSH 03/24/17 09:00 04/05/17 07:56 (Pepcid) 20 mg DAILY@0600 PO 03/24/17 06:00 04/05/17 06:31 (Lopressor) 12.5 mg Q12HR PO 03/24/17 09:00 04/05/17 07:56 (Lexapro) 20 mg DAILY PO 03/24/17 09:00 04/05/17 07:56 (Neurontin) 600 mg TID PO 03/24/17 09:00 04/05/17 07:56 (Synthroid) 150 mcg DAILY@0700 PO 03/24/17 07:00 04/05/17 06:31 (Ativan) 0.5 mg BID PRN PO 03/24/17 00:45 03/27/17 20:59 (Oramorph Sr) 60 mg Q8HR PO 03/24/17 06:00 Future Hold 03/28/17 06:10 (Effexor Xr) 37.5 mg DAILY PO 03/24/17 09:00 03/27/17 09:35 Potassium Chloride 100 ml @ 50 mls/hr Q2H PRN IV 03/25/17 09:00 Potassium Chloride 100 ml @ 50 mls/hr Q2H PRN IV 03/25/17 09:00 (K-Lyte Cl Eff) 50 meq UNSCH PRN PO 03/25/17 09:00 04/04/17 07:34 Potassium Chloride 100 ml @ 25 mls/hr UNSCH PRN IV 03/25/17 09:00 Potassium Chloride 100 ml @ 50 mls/hr Q2H PRN IV 03/25/17 09:00 03/25/17 20:27 Magnesium Sulfate 4 gm/Sodium Chloride 100 ml @ 50 mls/hr UNSCH PRN IV 03/25/17 09:00 (Mag-Ox) 800 mg UNSCH PRN PO 03/25/17 09:00 Magnesium Sulfate 2 gm/Sodium Chloride 100 ml @ 50 mls/hr UNSCH PRN IV 03/25/17 09:00 (K-Phos) 2,000 mg Q4H PRN PO 03/25/17 09:00 Sodium Phosphate 30 mmol/Sodium Chloride 250 ml @ 42 mls/hr UNSCH PRN IV 03/25/17 09:00 03/28/17 11:50 (K-Phos) 2,000 mg UNSCH PRN PO/TUBE 03/25/17 09:00 Potassium Phosphate 30 mmol/ Sodium Chloride 260 ml @ 42 mls/hr UNSCH PRN IV 03/25/17 09:00 (Heparin Inj) 5,000 units Q12HR SQ 03/26/17 09:00 1/2/18 07:56 Acetaminophen 100 ml @ 400 mls/hr Q6H PRN IV 03/28/17 20:00 04/02/17 20:38 (Peridex 0.12% Liq) 15 ml BID@08,20 MT 03/29/17 20:00 04/05/17 07:57 Fentanyl Citrate 250 ml @ 5 mls/hr TITRATE PRN IV 03/29/17 09:00 03/30/17 00:03 Fluconazole/ Sodium Chloride 50 ml @ 50 mls/hr Q24H IV 03/29/17 14:00 04/04/17 14:20 (Tylenol) 500 mg Q4H PRN PO 03/29/17 12:30 04/01/17 08:22 (Aspirin Chew) 81 mg DAILY OG-TUBE 03/30/17 09:00 04/05/17 07:56 (Ferrous Sulfate Liq) 300 mg DAILY OG-TUBE 03/30/17 09:00 04/05/17 07:55 (Free Water) 300 ml Q4HR G-TUBE 03/31/17 12:00 04/05/17 10:20 (Roxicodone Intensol Liq) 20 mg Q4H PO 03/31/17 11:00 04/05/17 10:20 (Mycostatin Powder) 1 applic BID TOPICAL 04/01/17 09:00 04/05/17 07:56 Cefazolin Sodium/ Dextrose 50 ml @ 100 mls/hr Q6H IV 04/01/17 09:00 04/05/17 07:54 Pharmacy Profile Note 0 ml @ 0 mls/hr UNSCH OTHER 04/04/17 10:45 Vancomycin HCl 2500 mg/Sodium Chloride 525 ml @ 257.5 mls/ hr Q12H IV 04/04/17 12:00 04/05/17 00:03 Miscellaneous Information SPECIFIC LAB TO BE GOPI... ONCE ONCE .XX 04/05/17 23:45 04/05/17 23:46 Meropenem 1000 mg/ Sodium Chloride 100 ml @ 200 mls/hr Q8H IV 04/04/17 20:00 04/05/17 03:51 . Family History Positive for diabetes and heart disease. . Substance Use Tobacco: Quit smoking 15 years ago. Alcohol: Social use. Prescription med abuse: On chronic narcotics via pain management without history of abuse. Illicits: No history of illicit drug use. . Psychosocial History Born and raised in [place], she moved to [place] when she was 20. She worked as a hairdresser/auto research engineer. She her 26 years ago on [employer] day. She was diagnosed with scleroderma in 1999. She never had any children. . Spiritual/Cultural Factors Raised Gnosticist, she now attends a [employer] in [place]. Her housing and residence life director is visiting at bedside. . Living Will: Never completed Health Care Surrogate: Never completed Durable Power of Supervisor Alteration Workroom: Never completed Physical Exam Vital Signs Date Time Temp Pulse Resp B/P (MAP) Pulse Ox O2 Delivery O2 Flow Rate FiO2 04/05/17 10:00 94 04/05/17 08:00 104 04/05/17 08:00 35 04/05/17 08:00 99.0 104 35 131/81 (98) 95 04/05/17 07:54 35 04/05/17 07:53 35 04/05/17 07:32 98 35 04/05/17 07:32 98 Ventilator 35 04/05/17 06:00 94 04/05/17 04:41 96 35 04/05/17 04:00 99 04/05/17 04:00 99 27 133/75 (94) 96 04/05/17 04:00 35 04/05/17 02:00 93 04/05/17 00:40 96 35 04/05/17 00:00 40 04/05/17 00:00 98.9 95 26 119/63 (81) 96 04/05/17 00:00 95 04/04/17 23:30 95 04/04/17 23:30 95 26 121/60 (80) 95 04/04/17 23:00 92 04/04/17 23:00 92 25 117/56 (76) 95 04/04/17 22:30 91 24 120/58 (78) 95 04/04/17 22:30 91 04/04/17 22:00 89 23 121/59 (79) 95 04/04/17 22:00 89 04/04/17 21:30 88 23 117/56 (76) 95 04/04/17 21:30 88 04/04/17 21:09 95 35 04/04/17 21:00 90 04/04/17 21:00 90 22 109/61 (77) 95 04/04/17 20:30 99 25 131/66 (87) 95 04/04/17 20:30 99 04/04/17 20:00 99.0 98 23 132/63 (86) 95 04/04/17 20:00 98 04/04/17 20:00 40 04/04/17 18:00 99 04/04/17 16:00 40 04/04/17 16:00 99.4 95 22 123/60 (81) 95 04/04/17 16:00 96 04/04/17 15:02 96 35 04/04/17 14:00 94 04/04/17 12:00 98.4 96 26 126/70 (88) 96 04/04/17 12:00 96 04/04/17 12:00 40 Exam CONSTITUTIONAL/GENERAL: This is a morbidly obese female intubated, arousable, in no acute distress. TUBES/LINES/DRAINS: PIV 3. SKIN: Scaly rash seen on all extremities. HEAD: Atraumatic. Normocephalic. EYES: Pupils equal and round and reactive. Extraocular motions intact. No scleral icterus. No injection or drainage. Fundi not examined. ENT: Hearing grossly normal. Nose without bleeding or purulent drainage. NECK: Trachea midline. Orally intubated. Supple, nontender. CARDIOVASCULAR: S1, S2, 2/6 KEELEY at RSB RESPIRATORY/CHEST: Coarse rhonchi throughout all lung henao. Rare wheeze, bibasilar crackles. GASTROINTESTINAL: Abdomen soft, obese, nondistended. Bowel sounds present. GENITOURINARY: Without palpable bladder distension. Florez catheter in place. MUSCULOSKELETAL: Extremities without clubbing, cyanosis, or edema. No joint tenderness or effusion noted. NEUROLOGICAL: Lethargic, arousable, intubated. PSYCHIATRIC: Calm, arousable. . Diagnostic Tests Laboratory Laboratory Tests Test 04/03/17 04:03 04/03/17 04:06 04/04/17 05:33 04/05/17 03:28 Activated Partial Thromboplast Time 26.1 SEC (24.3-30.1) 34.5 SEC (24.3-30.1) 32.6 SEC (24.3-30.1) Blood Urea Nitrogen 39 MG/DL (7-18) 30 MG/DL (7-18) 26 MG/DL (7-18) Creatinine 1.15 MG/DL (0.50-1.00) 0.89 MG/DL (0.50-1.00) 0.77 MG/DL (0.50-1.00) Random Glucose 130 MG/DL (74-106) 120 MG/DL (74-106) 122 MG/DL (74-106) Calcium Level 8.0 MG/DL (8.5-10.1) 7.9 MG/DL (8.5-10.1) 7.7 MG/DL (8.5-10.1) Sodium Level 148 MEQ/L (136-145) 142 MEQ/L (136-145) 144 MEQ/L (136-145) Potassium Level 3.6 MEQ/L (3.5-5.1) 3.4 MEQ/L (3.5-5.1) 3.9 MEQ/L (3.5-5.1) Chloride Level 116 MEQ/L (98-107) 111 MEQ/L (98-107) 113 MEQ/L (98-107) Carbon Dioxide Level 27.3 MEQ/L (21.0-32.0) 24.8 MEQ/L (21.0-32.0) 24.7 MEQ/L (21.0-32.0) Anion Gap 5 MEQ/L (5-15) 6 MEQ/L (5-15) 6 MEQ/L (5-15) Estimat Glomerular Filtration Rate 49 ML/MIN (>89) 66 ML/MIN (>89) 78 ML/MIN (>89) White Blood Count 20.1 TH/MM3 (4.0-11.0) 15.2 TH/MM3 (4.0-11.0) 16.5 TH/MM3 (4.0-11.0) Red Blood Count 3.05 MIL/MM3 (4.00-5.30) 2.98 MIL/MM3 (4.00-5.30) 3.28 MIL/MM3 (4.00-5.30) Hemoglobin 8.5 GM/DL (11.6-15.3) 8.2 GM/DL (11.6-15.3) 9.1 GM/DL (11.6-15.3) Hematocrit 27.1 % (35.0-46.0) 26.8 % (35.0-46.0) 29.2 % (35.0-46.0) Mean Corpuscular Volume 88.9 FL (80.0-100.0) 90.0 FL (80.0-100.0) 89.0 FL (80.0-100.0) Mean Corpuscular Hemoglobin 28.0 PG (27.0-34.0) 27.5 PG (27.0-34.0) 27.8 PG (27.0-34.0) Mean Corpuscular Hemoglobin Concent 31.5 % (32.0-36.0) 30.6 % (32.0-36.0) 31.3 % (32.0-36.0) Red Cell Distribution Width 14.7 % (11.6-17.2) 14.9 % (11.6-17.2) 14.6 % (11.6-17.2) Platelet Count 210 TH/MM3 (150-450) 221 TH/MM3 (150-450) 265 TH/MM3 (150-450) Mean Platelet Volume 12.1 FL (7.0-11.0) 11.9 FL (7.0-11.0) 11.8 FL (7.0-11.0) Result Diagram: 04/05/17 0328 04/05/17 0328 Microbiology Microbiology Date/Time Source Procedure Growth Status 04/04/17 05:33 Blood Peripheral Aerobic Blood Culture - Preliminary NO GROWTH IN 1 DAY Resulted 04/04/17 05:33 Blood Peripheral Anaerobic Blood Culture - Preliminary NO GROWTH IN 1 DAY Resulted 04/03/17 14:00 Blood Peripheral Aerobic Blood Culture - Preliminary NO GROWTH IN 2 DAYS Resulted 04/03/17 14:00 Blood Peripheral Anaerobic Blood Culture - Preliminary NO GROWTH IN 2 DAYS Resulted Imaging Last Impressions Chest X-Ray 04/05/17 0600 Signed Impressions: Service Date/Time: Wednesday, April 05, 2017 04:02 - CONCLUSION: Worsening bilateral pulmonary infiltrates. David Pendleton Jr., MD Abdomen/Pelvis CT 04/03/17 0000 Signed Impressions: Service Date/Time: Monday, April 03, 2017 21:23 - CONCLUSION: 1. Extensive bibasilar airspace consolidation discussed on the patient's prior chest CT. 2. Enlargement of the left hepatic lobe and is there a history of cirrhosis? 3. Possible cholelithiasis. Marquise Leonardo MD Lower Extremity MRI 03/29/17 0000 Signed Impressions: Service Date/Time: Wednesday, March 29, 2017 13:04 - CONCLUSION: Cellulitis and shallow ulcerations in the left gluteal region and proximal thigh. No evidence of deep muscular involvement, abscess formation or bone marrow edema. Kurt Hairston MD Chest CT 03/29/17 0000 Signed Impressions: Service Date/Time: Wednesday, March 29, 2017 23:31 - CONCLUSION: Extensive air space process bilaterally could represent pulmonary edema, however pneumonia is not excluded. Marquise Leonardo MD Brain MRI 03/29/17 0000 Signed Impressions: Service Date/Time: Wednesday, March 29, 2017 13:04 - CONCLUSION: Tiny bilateral areas of probable subacute lacunar infarction. Patchy mild nonspecific white matter signal changes. Gerson Vegas MD Liver Ultrasound 03/24/17 0000 Signed Impressions: Service Date/Time: March 16:41 - CONCLUSION: 1. Limited examination due to body habitus and patient's inability to tolerate the procedure. Unfortunately, the gallbladder is not sufficiently visualized for further evaluation of abnormality noted on CT scan. If there is continued clinical concern regarding acute cholecystitis, consider HIDA scan to evaluate for cystic duct patency. 2. Diffusely heterogeneous and mildly enlarged liver consistent with hepatic steatosis versus medical liver disease. Shlomo Mesa MD Head CT 03/23/17 192 Signed Impressions: Service Date/Time: Thursday, March 23, 2017 20:45 - CONCLUSION: No acute findings in the brain. David Weiss MD . Procedures 03/29/17: Orotracheal intubation. . Patient/Family Conference Present at Family Conference: Spoke with , Zenon, via telephone. Reviewed patient's clinical course and pertinent findings. Per that discussion he states his would not wish to have a tracheostomy or PEG tube placement. At this time his is failing CPAP trials and has been ventilated for 7 days. As we are approaching time for decision regarding trach and PEG, it is Mr. George's determination that he would prefer compassionate withdrawal from ventilator support. A meeting has been scheduled for 6 PM today to discuss with family. He has requested that exhibits be completed by the physicians prior to his arrival and states he will sign the exhibits when he comes in for the meeting. 18:00 Spoke with , sister, niece and nephew in conference room and reviewed clinical findings and prognosis. Family agreed to pursue comfort measures and compassionate withdrawal of ventilator. . Family Conference Time (mins): 10 (minutes) Family Conference Location: Telephone Issues Discussed: * Palliative care role, purpose, approach * Additional medical, psychosocial, and spiritual history * Patients general health, functional status, and cognitive changes in the months leading up to the current hospitalization * Patient/family understanding of the current medical problems * Patient/family understanding of prognosis * Patients goals of care as best understood from advance directives and/or conversations and/or values * Current medical treatment options and benefits/burdens of those options * Likely scenarios comparing ongoing aggressive care with a transition to comfort measures only * Questions answered to the best of my ability * Palliative care contact information provided Assessment and Plan Disease Oriented Problem List: (1) Lactic acidosis (2) Sepsis (3) Elevated troponin (4) Pyrexia (5) Rhabdomyolysis (6) Scleroderma (7) Respiratory insufficiency (8) Mitral valve vegetation Symptom Scale: (1) Dyspnea and respiratory abnormalities (2) Pain, generalized (3) Anxiety Pertinent Non-Medical Issues Psychosocial:Born and raised in [place], she moved to [place] when she was 20. 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 She was diagnosed with scleroderma in 1999. She never had any children. . Spiritual:Raised Gnosticist, she attends a [employer] in [place]. . Legal:None. Ethical issues impacting care:None. . Important Contacts : Zenon George . Prognosis Her prognosis is poor. 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 She has developed pulmonary edema and respiratory insufficiency now requiring intubation and is not tolerating CPAP. She has been intubated for 7 days and will soon require a decision regarding tracheostomy and PEG tube placement. Given her comorbidities, immunosuppression and long-term nonhealing wounds she would be a poor surgical candidate for valve replacement. . Code Status: No Code Plan PLAN: Legal decision maker: At this time she is intubated and unable to make decisions for herself. Per [place] statutes her , Zenon, would be the legal healthcare proxy. GOALS: Comfort oriented. CODE STATUS: DNR SYMPTOMS: * Dyspnea: Chest x-ray shows significant pulmonary edema and she now has healthcare associated pneumonia. Infectious disease managing antibiotics. She has failed BiPAP mask and is now ventilated. Tolerated CPAP trials for 2 hours 04/03. She is receiving albuterol nebulizers as needed. She is remaining critically ill without improvement. Ongoing discussion with family to determine goals of care. * Pain: She has a long history of chronic pain and is currently receiving oxycodone 20 mg every 4 hours via OG tube. She appears to be resting comfortably, arousable, without grimacing or clinical signs of discomfort. * Anxiety: No signs or symptoms of anxiety at this evaluation. She is receiving Lexapro 20 mg daily and has Ativan 0.5 mg twice a day as needed for anxiety. She has not taken any doses of abscesses 03/27. Summary: This is a 57-year-old morbidly obese female with scleroderma, history of leukemia, MSSA bacteremia, mitral valve vegetation with regurgitation, severe sepsis, healthcare associated pneumonia failing to wean from ventilator. She has a multiple year history of nonhealing wounds. She is currently under treatment by infectious disease and not tolerating spontaneous breathing trials well. It is the opinion of the leak detector that she will require tracheostomy and PEG placement if aggressive care is continued. Given her multiple comorbidities, history of nonhealing wounds and bacteremia it is not felt that she would do well with valve replacement surgery. Family initially indicated that she would not wish to continue this quality of life and would not want to undergo a major surgery from which she has a high chance of not recovering. There is also some concern that she would be on amenable from the ventilator. Awaiting conversation with family to ascertain goals of care. She would be hospice appropriate if goals were consistent. ADDENDUM: Family determined that it would be most consistent with patient's wishes to withdraw ventilator support. Consents and exhibits signed. Orders placed, Dr. Bo notified. Palliative care will continue to follow the patient during hospital course as condition evolves, to assist patient/decision-maker with understanding of their medical conditions, weighing benefits/burdens of treatment options, for clarification of goals of treatment. Additionally will assist with any symptoms of palliative concern. . Thank you for the opportunity to participate in the care of Ms. George. Attestation To help prompt me to consider important information that might be impacting today's encounter and assessment, information from prior notes written by myself or my colleagues may have been "brought forward" into today's note. My signature on this note, however, is an attestation that I personally performed the exam, history, and/or decision-making noted today, and, unless otherwise indicated, the interactions with patient, family, and staff as well as the review of records all occurred today. I also attest that the listed assessment and stated plan reflect my best clinical judgment today based on the combination of historical information, prior notes, and today's exam/ interactions. When time spent is documented, it refers only to time spent today by the signer, or if indicated, combined time spent today by collaborating physician/nurse practitioner. . Ellen Bond Apr 05, 2017 12:15
--- NOTE | 2017-04-05 12:51 | HHI.IDPN ---
Subjective Subjective Remarks ID COVERAGE 57 yo F with h/o scleroderma, used to be on Humira, but off x 5 mos Admitted for fever and altered mental status. Has had multiple (+) BC with MSSA TTE negative, but MYRIAM with vegetation in MV, and also with AI Was on BIPAP for respiratory issues, but required intubation 03/29 Notes reviewed D/W RN Temps better overnight BP ok Palliative medicine evaluating patient BC with Staph epi - has different susceptibility results CT A/P no intraabdominal seeding Not tolerating weaning Brain MRI with lacunar infarcts Sputum with Enterobacter WBC still elevated UC negative BC (+) 03/23-03/27 BC 03/28 negative so far BC 04/01 Coag Neg Staph No central lines Has diarrhea Antibiotics Current Medications Ancef Meropenem Diflucan Vanco x 1 dose 04/03 Medications (Trade) Dose Ordered Sig/Bj Route Start Time Stop Time Status Last Admin (Tylenol) 650 mg Q6H PRN PO 03/23/17 22:30 04/02/17 08:20 (Tears Naturale Opth Soln) 1 drop TID EACH EYE 03/24/17 09:00 04/05/17 12:14 (Zofran Inj) 4 mg Q6H PRN IV PUSH 03/23/17 22:30 (Albuterol Neb) 2.5 mg Q2HR NEB PRN INH 03/23/17 22:30 04/02/17 09:44 Miscellaneous Information 1 Q361D XX 03/23/17 22:30 (Chlorhexidine 2% Cloth) Taper DAILY@04 TOP 03/24/17 04:00 03/20/18 03:59 03/28/17 02:16 (Chlorhexidine 2% Cloth) 3 pack UNSCH PRN TOP 03/23/17 22:30 (Mely-Colace) 1 tab BID PO 03/24/17 09:00 04/05/17 07:55 (Milk Of Magnesia Liq) 30 ml Q12H PRN PO 03/23/17 22:30 (Senokot) 17.2 mg Q12H PRN PO 03/23/17 22:30 (Dulcolax Supp) 10 mg DAILY PRN RECTAL 03/23/17 22:30 (Lactulose Liq) 30 ml DAILY PRN PO 03/23/17 22:30 04/02/17 23:33 (NS Flush) 2 ml UNSCH PRN IV FLUSH 03/23/17 22:45 04/04/17 02:43 (NS Flush) 2 ml BID IV FLUSH 03/24/17 09:00 04/05/17 07:56 (Pepcid) 20 mg DAILY@0600 PO 03/24/17 06:00 04/05/17 06:31 (Lopressor) 12.5 mg Q12HR PO 03/24/17 09:00 04/05/17 07:56 (Lexapro) 20 mg DAILY PO 03/24/17 09:00 04/05/17 07:56 (Neurontin) 600 mg TID PO 03/24/17 09:00 04/05/17 12:14 (Synthroid) 150 mcg DAILY@0700 PO 03/24/17 07:00 04/05/17 06:31 (Ativan) 0.5 mg BID PRN PO 03/24/17 00:45 03/27/17 20:59 (Oramorph Sr) 60 mg Q8HR PO 03/24/17 06:00 Future Hold 03/28/17 06:10 (Effexor Xr) 37.5 mg DAILY PO 03/24/17 09:00 03/27/17 09:35 Potassium Chloride 100 ml @ 50 mls/hr Q2H PRN IV 03/25/17 09:00 Potassium Chloride 100 ml @ 50 mls/hr Q2H PRN IV 03/25/17 09:00 (K-Lyte Cl Eff) 50 meq UNSCH PRN PO 03/25/17 09:00 04/04/17 07:34 Potassium Chloride 100 ml @ 25 mls/hr UNSCH PRN IV 03/25/17 09:00 Potassium Chloride 100 ml @ 50 mls/hr Q2H PRN IV 03/25/17 09:00 03/25/17 20:27 Magnesium Sulfate 4 gm/Sodium Chloride 100 ml @ 50 mls/hr UNSCH PRN IV 03/25/17 09:00 (Mag-Ox) 800 mg UNSCH PRN PO 03/25/17 09:00 Magnesium Sulfate 2 gm/Sodium Chloride 100 ml @ 50 mls/hr UNSCH PRN IV 03/25/17 09:00 (K-Phos) 2,000 mg Q4H PRN PO 03/25/17 09:00 Sodium Phosphate 30 mmol/Sodium Chloride 250 ml @ 42 mls/hr UNSCH PRN IV 03/25/17 09:00 03/28/17 11:50 (K-Phos) 2,000 mg UNSCH PRN PO/TUBE 03/25/17 09:00 Potassium Phosphate 30 mmol/ Sodium Chloride 260 ml @ 42 mls/hr UNSCH PRN IV 03/25/17 09:00 (Heparin Inj) 5,000 units Q12HR SQ 03/26/17 09:00 04/05/17 07:56 Acetaminophen 100 ml @ 400 mls/hr Q6H PRN IV 03/28/17 20:00 04/02/17 20:38 (Peridex 0.12% Liq) 15 ml BID@08,20 MT 03/29/17 20:00 04/05/17 07:57 Fentanyl Citrate 250 ml @ 5 mls/hr TITRATE PRN IV 03/29/17 09:00 03/30/17 00:03 Fluconazole/ Sodium Chloride 50 ml @ 50 mls/hr Q24H IV 03/29/17 14:00 04/04/17 14:20 (Tylenol) 500 mg Q4H PRN PO 03/29/17 12:30 04/01/17 08:22 (Aspirin Chew) 81 mg DAILY OG-TUBE 03/30/17 09:00 04/05/17 07:56 (Ferrous Sulfate Liq) 300 mg DAILY OG-TUBE 03/30/17 09:00 04/05/17 07:55 (Free Water) 300 ml Q4HR G-TUBE 03/31/17 12:00 04/05/17 10:20 (Roxicodone Intensol Liq) 20 mg Q4H PO 03/31/17 11:00 04/05/17 10:20 (Mycostatin Powder) 1 applic BID TOPICAL 04/01/17 09:00 04/05/17 07:56 Cefazolin Sodium/ Dextrose 50 ml @ 100 mls/hr Q6H IV 04/01/17 09:00 04/05/17 07:54 Pharmacy Profile Note 0 ml @ 0 mls/hr UNSCH OTHER 04/04/17 10:45 Vancomycin HCl 2500 mg/Sodium Chloride 525 ml @ 257.5 mls/ hr Q12H IV 04/04/17 12:00 04/05/17 12:14 Miscellaneous Information SPECIFIC LAB TO BE GOPI... ONCE ONCE .XX 04/05/17 23:45 04/05/17 23:46 Meropenem 1000 mg/ Sodium Chloride 100 ml @ 200 mls/hr Q8H IV 04/04/17 20:00 04/05/17 11:16 Lines PIV Past Medical History Scleroderma unknown if localized versus systemic Thyroid disease unknown type Chronic pain syndrome Elevated BMI Past Surgical History Status post splenectomy Allergies: Coded Allergies: shellfish derived (Verified Allergy, Intermediate, 03/23/17) Objective . Vital Signs Date Time Temp Pulse Resp B/P (MAP) Pulse Ox O2 Delivery O2 Flow Rate FiO2 04/05/17 11:34 92 35 04/05/17 10:00 94 04/05/17 08:00 104 04/05/17 08:00 35 04/05/17 08:00 99.0 104 35 131/81 (98) 95 04/05/17 07:54 35 04/05/17 07:53 35 04/05/17 07:32 98 35 04/05/17 07:32 98 Ventilator 35 04/05/17 06:00 94 04/05/17 04:41 96 35 04/05/17 04:00 99 04/05/17 04:00 99 27 133/75 (94) 96 04/05/17 04:00 35 04/05/17 02:00 93 04/05/17 00:40 96 35 04/05/17 00:00 40 04/05/17 00:00 98.9 95 26 119/63 (81) 96 04/05/17 00:00 95 04/04/17 23:30 95 04/04/17 23:30 95 26 121/60 (80) 95 04/04/17 23:00 92 04/04/17 23:00 92 25 117/56 (76) 95 04/04/17 22:30 91 24 120/58 (78) 95 04/04/17 22:30 91 04/04/17 22:00 89 23 121/59 (79) 95 04/04/17 22:00 89 04/04/17 21:30 88 23 117/56 (76) 95 04/04/17 21:30 88 04/04/17 21:09 95 35 04/04/17 21:00 90 04/04/17 21:00 90 22 109/61 (77) 95 04/04/17 20:30 99 25 131/66 (87) 95 04/04/17 20:30 99 04/04/17 20:00 99.0 98 23 132/63 (86) 95 04/04/17 20:00 98 04/04/17 20:00 40 04/04/17 18:00 99 04/04/17 16:00 40 04/04/17 16:00 99.4 95 22 123/60 (81) 95 04/04/17 16:00 96 04/04/17 15:02 96 35 04/04/17 14:00 94 04/05/17 04/05/17 04/06/17 15:00 23:00 07:00 Intake Total 150 ml Balance 150 ml IV Total 150 ml . Laboratory Tests Test 04/04/17 05:33 04/05/17 03:28 White Blood Count 15.2 TH/MM3 16.5 TH/MM3 Red Blood Count 2.98 MIL/MM3 3.28 MIL/MM3 Hemoglobin 8.2 GM/DL 9.1 GM/DL Hematocrit 26.8 % 29.2 % Mean Corpuscular Volume 90.0 FL 89.0 FL Mean Corpuscular Hemoglobin 27.5 PG 27.8 PG Mean Corpuscular Hemoglobin Concent 30.6 % 31.3 % Red Cell Distribution Width 14.9 % 14.6 % Platelet Count 221 TH/MM3 265 TH/MM3 Mean Platelet Volume 11.9 FL 11.8 FL Laboratory Tests Test 04/04/17 05:33 04/05/17 03:28 Blood Urea Nitrogen 30 MG/DL 26 MG/DL Creatinine 0.89 MG/DL 0.77 MG/DL Random Glucose 120 MG/DL 122 MG/DL Calcium Level 7.9 MG/DL 7.7 MG/DL Sodium Level 142 MEQ/L 144 MEQ/L Potassium Level 3.4 MEQ/L 3.9 MEQ/L Chloride Level 111 MEQ/L 113 MEQ/L Carbon Dioxide Level 24.8 MEQ/L 24.7 MEQ/L Anion Gap 6 MEQ/L 6 MEQ/L Estimat Glomerular Filtration Rate 66 ML/MIN 78 ML/MIN Microbiology Date/Time Source Procedure Growth Status 04/04/17 05:33 Blood Peripheral Aerobic Blood Culture - Preliminary NO GROWTH IN 1 DAY Resulted 04/04/17 05:33 Blood Peripheral Anaerobic Blood Culture - Preliminary NO GROWTH IN 1 DAY Resulted 04/03/17 14:00 Blood Peripheral Aerobic Blood Culture - Preliminary NO GROWTH IN 2 DAYS Resulted 04/03/17 14:00 Blood Peripheral Anaerobic Blood Culture - Preliminary NO GROWTH IN 2 DAYS Resulted Imaging Abdomen/Pelvis CT 04/03/17 0000 Signed Impressions: Service Date/Time: Monday, April 03, 2017 21:23 - CONCLUSION: 1. Extensive bibasilar airspace consolidation discussed on the patient's prior chest CT. 2. Enlargement of the left hepatic lobe and is there a history of cirrhosis? 3. Possible cholelithiasis. Marquise Leonardo MD Lower Extremity MRI 03/29/17 0000 Signed Impressions: Service Date/Time: Wednesday, March 29, 2017 13:04 - CONCLUSION: Cellulitis and shallow ulcerations in the left gluteal region and proximal thigh. No evidence of deep muscular involvement, abscess formation or bone marrow edema. Kurt Hairston MD Chest X-Ray 03/29/17 0000 Signed Impressions: Service Date/Time: Wednesday, March 29, 2017 09:57 - CONCLUSION: Satisfactory position of endotracheal and nasogastric tubes. Extensive bilateral airspace disease. Kurt Hairston MD Chest CT 03/29/17 0000 Signed Impressions: Service Date/Time: Wednesday, March 29, 2017 23:31 - CONCLUSION: Extensive air space process bilaterally could represent pulmonary edema, however pneumonia is not excluded. Marquise Leonardo MD Brain MRI 03/29/17 0000 Signed Impressions: Service Date/Time: Wednesday, March 29, 2017 13:04 - CONCLUSION: Tiny bilateral areas of probable subacute lacunar infarction. Patchy mild nonspecific white matter signal changes. Gerson Vegas MD Liver Ultrasound 03/24/17 0000 Signed Impressions: Service Date/Time: March 16:41 - CONCLUSION: 1. Limited examination due to body habitus and patient's inability to tolerate the procedure. Unfortunately, the gallbladder is not sufficiently visualized for further evaluation of abnormality noted on CT scan. If there is continued clinical concern regarding acute cholecystitis, consider HIDA scan to evaluate for cystic duct patency. 2. Diffusely heterogeneous and mildly enlarged liver consistent with hepatic steatosis versus medical liver disease. Shlomo Mesa MD Head CT 03/23/171923 Signed Impressions: Service Date/Time: Thursday, March 23, 2017 20:45 - CONCLUSION: No acute findings in the brain. David Weiss MD Abdomen/Pelvis CT 03/23/171923 Signed Impressions: Service Date/Time: Thursday, March 23, 2017 20:48 - CONCLUSION: 1. Multiple gallstones, some of which are noncalcified. 2. Spleen is not identified. 3. Mildly prominent left inguinal David Weiss MD Chest X-Ray 03/29/17 0000 Signed Impressions: Service Date/Time: Wednesday, March 29, 2017 09:57 - CONCLUSION: Satisfactory position of endotracheal and nasogastric tubes. Extensive bilateral airspace disease. Kurt Hairston MD Chest X-Ray 03/27/17 0000 Signed Impressions: Service Date/Time: Monday, March 27, 2017 14:54 - CONCLUSION: Persistent cardiac silhouette enlargement with new bilateral diffuse pulmonary opacity primarily interstitial likely representing pulmonary edema. Ronnie Max MD Chest X-Ray 03/27/17 0000 Signed Impressions: Service Date/Time: Monday, March 27, 2017 14:54 - CONCLUSION: Persistent cardiac silhouette enlargement with new bilateral diffuse pulmonary opacity primarily interstitial likely representing pulmonary edema. Ronnie Max MD Liver Ultrasound 03/24/17 0000 Signed Impressions: Service Date/Time: March 16:41 - CONCLUSION: 1. Limited examination due to body habitus and patient's inability to tolerate the procedure. Unfortunately, the gallbladder is not sufficiently visualized for further evaluation of abnormality noted on CT scan. If there is continued clinical concern regarding acute cholecystitis, consider HIDA scan to evaluate for cystic duct patency. 2. Diffusely heterogeneous and mildly enlarged liver consistent with hepatic steatosis versus medical liver disease. Shlomo Mesa MD Head CT 03/23/171923 Signed Impressions: Service Date/Time: Thursday, March 23, 2017 20:45 - CONCLUSION: No acute findings in the brain. David Weiss MD Abdomen/Pelvis CT 03/23/171923 Signed Impressions: Service Date/Time: Thursday, March 23, 2017 20:48 - CONCLUSION: 1. Multiple gallstones, some of which are noncalcified. 2. Spleen is not identified. 3. Mildly prominent left inguinal David Weiss MD Physical Exam GENERAL: On the vent, NAD SKIN: Stable wounds on L thigh. Has dry scabs on both LE, not infected. warm , dry EYES: Pupils equal and round and reactive. Extraocular motions intact. No scleral icterus. No injection or drainage. NECK: supple ENT: Nose without bleeding or purulent drainage. Orally intubated CARDIOVASCULAR: Regular rate and rhythm. + 2-3/6 harsh murmur L precordium RESPIRATORY/CHEST: Scattered rhonchi GASTROINTESTINAL: Abdomen soft, obese, not tender. Bowel sounds present. GENITOURINARY: Florez catheter in place with clear yellow urine MUSCULOSKELETAL: Extremities without clubbing, cyanosis, or edema. No mottling or clubbing. NEUROLOGICAL: Awake, following commands, moves all extremities PSYCHIATRIC: Cooperative, calm : Florez in place LINE: No evidence of infection Assessment & Plan Remarks IMPRESSION [place] valve endocarditis, MV - MYRIAM + - also with AI MSSA bacteremia, high grade 2 BC with Staph epi, ?significance, no lines NSTEMI Scleroderma Immunosuppressed S/P splenectomy Respiratory failuire Enterobacter PNA Persistent fevers and worsening leukocytosis Multiple lacunar infarcts of MRI Persistent fevers and leukocytosis - ?better since Ortiz stated PLAN: Continue Ancef Continue Merem - give 7 days Continue Diflucan Continue Vancomycin Follow new C/S Palliative medicine evaluating patient Monitor temps Monitor progress D/W Haven Thomas MD Apr 05, 2017 12:51
[2017-04-05] MEDS: FLUCONAZOLE 100 MG PREMIX BAG 50 ML IV SCH (14:14)
--- NOTE | 2017-04-05 16:51 | HHI.CCPN ---
Subjective Remarks/Hospital Course This is a 57-year-old female. Admission 03/23/2017.past medical history includes scleroderma, thyroid disease, status post splenectomy in the past and elevated BMI. Initial presentation occurred Tuesday with lethargy, sleeping, and fever. The patient also had one episode of vomiting with several episodes of diarrhea. The states she has been no recent international travel, hospitalizations, or history of chronic infections. She did have similar symptoms 2 years ago per the 's report with the patient had low oxygen levels and had altered mental status. The patient is seen by pain management as well as her primary physician who is located in [place], [place]. Dr. Estrada The states the patient's mental status seems to wax and wane over the last several days, she'll be awake and alert, and that she will fall asleep and be slightly lethargic and confused. She will lie in bed for several days at a time. The patient denies any chest pain or shortness of breath. She does complain of abdominal pain over the skin secondary to her scleroderma. She also has a history of an open lesion secondary to scleroderma of the lateral left thigh which has been present for several years per the 's report. Received patient was treated with Humira for scleroderma however not taking for the past 5 months. She is on morphine and Dilaudid for chronic pain management from her Dr. Dominguez in [place] CT abdomen/ revealed gallstones without obstruction. Status post splenectomy. Morbid obesity. Chest x-ray revealed no signs of pneumonia. CT brain negative. Patient received 2 L normal saline added ED. She was noted to have a elevated troponin of 15. Denies chest pain. EKG shows nonspecific ST-T changes. CPK 2100. Creatinine 1.7. Leukocytosis 20,000 and elevated transaminases with low sodium and albumin. Her febrile is abated. She is currently awake and oriented to person place and time. 03/24 Patient is lying in bed in [facility]. Afebrile. Renal function is improving with Cr: 1.10 from 1.73. On Heparin drip for elevated trop. 03/25 No events overnight. Remains on Heparin drip. Renal function is now within normal. Afebrile. 03/26 s/p MYRIAM yesterday which shoed vegetation on mitral valve She was on BIPAP overnight now on 4L oxygen. Given Lasix 40mg x 1 yesterday with good response in UOP. Afebrile. off Heparin drip.. 03/27 No events overnight. On BIPAP 15/ with 35% FIO2 overnight. Afebrile. 03/28: Remains on BiPAP with full facemask. 03/29: Patient was intubated and placed on mechanical ventilation as she was requiring BiPAP and continued to have increased work of breathing and needed to get imaging studies for further evaluation. 03/30: Remains sedated, orally intubated on mechanical ventilation. Head CT done on 03/29 revealed small lacunar infarcts (probably secondary to septic emboli). 03/31: remains febrile. intubated. blood cultures 03/29 NGTD still. follows commands. off sedation. on PSV 20/10/40%, but does not tolerate weaning of pressure support. CXR with persistent pulmonary edema. 04/01: remains febrile. wbc still elevated. blood cultures from 03/29 still NGTD. still not tolerating weaning attempts. Cr rising with diuresis, although still appears volume overloaded on exam and with valvular lesions, will need aggressive diuresis. 04/02: Orally intubated on mechanical ventilation, off all sedation. Arousable 04/03: Drowsy, arousable, orally intubated on mechanical ventilation. Still having temperature spikes. Blood culture from 04/01 growing gram-positive cocci 2 sets. 04/04: Drowsy, easily arousable, orally intubated on mechanical ventilation. Tolerating tube feeds. Lasted about 2 hours on C Pap trials yesterday. 04/05: Tmax 99.0. Lasted approximately less than one hour while on CPAP yesterday , and only 5 minutes this a.m.. in the room requesting possible comfort care measures be instituted, as patient would not desire tracheostomy or be placed on mechanical ventilation for indefinite period of time. Palliative medicine consulted at family's request. Objective Vital Signs Date Time Temp Pulse Resp B/P (MAP) Pulse Ox O2 Delivery O2 Flow Rate FiO2 04/05/17 16:00 99.0 98 19 128/76 (93) 94 04/05/17 16:00 35 04/05/17 07:32 Ventilator Intake and Output 04/05/17 04/05/17 04/06/17 08:00 16:00 00:00 Intake Total 1675 ml 710 ml Output Total 825 ml Balance 850 ml 710 ml Result Diagram: 04/05/17 0328 04/05/17 0328 Imaging Last Impressions Liver Ultrasound 03/24/17 0000 Signed Impressions: Service Date/Time: March 16:41 - CONCLUSION: 1. Limited examination due to body habitus and patient's inability to tolerate the procedure. Unfortunately, the gallbladder is not sufficiently visualized for further evaluation of abnormality noted on CT scan. If there is continued clinical concern regarding acute cholecystitis, consider HIDA scan to evaluate for cystic duct patency. 2. Diffusely heterogeneous and mildly enlarged liver consistent with hepatic steatosis versus medical liver disease. Shlomo Mesa MD Head CT 03/23/171923 Signed Impressions: Service Date/Time: Thursday, March 23, 2017 20:45 - CONCLUSION: No acute findings in the brain. David Weiss MD Chest X-Ray 03/23/171923 Signed Impressions: Service Date/Time: Thursday, March 23, 2017 19:49 - CONCLUSION: Cardiomegaly. The lungs are clear. David Weiss MD Abdomen/Pelvis CT 03/23/171923 Signed Impressions: Service Date/Time: Thursday, March 23, 2017 20:48 - CONCLUSION: 1. Multiple gallstones, some of which are noncalcified. 2. Spleen is not identified. 3. Mildly prominent left inguinal David Weiss MD Objective Remarks GENERAL: 57-year-old female laying in bed, orally intubated on mechanical ventilation HEAD: Atraumatic. Normocephalic. EYES: Pupils equal and round about 3 mm bilaterally and reactive. No scleral icterus. No injection or drainage. ENT: No nasal bleeding or discharge. Mucous membranes pink and moist. Orally intubated NECK: Trachea midline. No JVD. CARDIOVASCULAR: S1-S2 regular, no gallop or murmur appreciated RESPIRATORY: Orally intubated on mechanical ventilation, Breath sounds equal bilaterally. GASTROINTESTINAL: morbidly obese, abdomen soft, non-tender, nondistended. no guarding. MUSCULOSKELETAL: Extremities with multiple open areas/calcifications bilateral lower extremities. Largest is in the left gluteal region about 6 x 8 cm. Multiple stage II decubiti. NEUROLOGICAL: Drowsy, arousable, orally intubated on mechanical ventilation, moves all 4 extremities. follows commands. A/P Assessment and Plan Assessment: 57yF with mitral valve endocarditis, healthcare associated pneumonia , persistent fevers, clinical decline. remains critically ill without any improvement in any organ system today. continue forced diuresis for pulmonary edema, despite rising Cr. fevers and leukocytosis are concerning. may need to consider MRI spine. remains critically ill without improvements, off pathway, at risk of and with ongoing major organ failure. Neuro/Psych: Encephalopathy Multiple lacunar infarcts Chronic pain syndrome/low back pain Chronic narcotic use Depression Chronic benzodiazepine use Propofol/fentanyl for sedation/analgesia while intubated with daily sedation vacation. Currently off all sedation consolidate pain meds: d/c morphine and dilaudid. start oxycodone 20mg per tube q4h scheduled. Tizanidine 4 mg 3 times a day has been held Escitalopram 20 mg daily has been continued Lorazepam 0.5 mg twice a day has been continued Venlafaxine 37.5 mg daily has been continued CV: Severe sepsis with multisystem organ failure Mitral valve endocarditis Moderate Mitral regurgitation Moderate Aortic Regurgitation Mild Tricuspid regurgitation Elevated troponin Hypertension Lactic acidosis (resolved) Monitor HR and BP keep MAP>65mmHg ASA 81 mg daily Lopressor 12.5 mg by mouth twice a day No lipid-lowering agents due to elevated transaminases Cards is following-Dr. Newton Echo showed EF 60-65%. MYRIAM showed vegetation on MV Resp: Acute hypoxic respiratory failure on mechanical ventilation ALI Pulmonary Edema Bronchodilators. Intubated and placed on mechanical ventilation on 03/29 s/p short course steroids for wheezing ( 4 doses were given). CT chest with bilateral airspace disease with infiltrates - probably acute lung injury pattern from sepsis and possible pneumonia Vent bundle, continue daily C Pap trials GI: Elevated transaminases/total bilirubin Hypoalbuminemia CT abdomen/pelvis revealed cholelithiasis. No other acute findings. Monitor LFTs ( trending disease), Hepatitis profile is negative US Liver: Limited examination due to body habitus and patient's inability to tolerate the procedure. Unfortunately, the gallbladder is not sufficiently visualized. Diffusely heterogeneous and mildly enlarged liver consistent with hepatic steatosis vs medical liver disease. Lipase level 122, NH4 level 19. / Renal: NATTY Hypernatremia Free water deficit Acute intravascular volume overload Monitor renal function, I/O's, electrolytes replacement per protocol. Free water for hypernatremia started 03/30, 300mL q4h. diamox 500mg iv q8h x 3 doses Discontinue IV albumin Discontinue D5 water Endo/Rheum: Hyperglycemia Hypothyroidism Scleroderma - localized versus systemic Rheumatoid arthritis? Sliding-scale insulin to maintain euglycemia TSH level: 4.5, continue levothyroxine 150 mg by mouth daily/home dose in the interim Heme: Leukocytosis Monitor CBC daily. Follow trends. Continue ferrous sulfate 325 mg by mouth daily ID: Severe sepsis Staph Aureus Bacteremia Mitral valve endocarditis UTI Enterobacter HCAP pneumonia Persistent leukocytosis Continue abx per ID : On Ancef/meropenem/vancomycin/Diflucan IV Will need 6 weeks abx once BC is sterile. BC 03/23, 03/24: Staph Aureus bacteremia. MYRIAM vegetation on MV Blood cultures 03/25: 2/ bottles: S aureus BC 03/27: S aureus Blood cultures 04/01 05/06 with [facility] ID is following. Patient has persistent staph aureus bacteremia despite antibiotics. MRI brain with multiple lacunar infarcts possibly secondary to septic emboli. CT chest with bilateral airspace disease/infiltrates. Discussed with Dr. Villegas on 03/29 AM prior to intubation. May require MRI spine, CT surgery evaluation if bacteremia not clearing to evaluate for valve replacement. MSK: Lower extremity ulcerations BMI 55 Wound care evaluate and treat Weight loss encouraged PT evaluate and treat Access - Utilize peripheral IV. Prophylaxis - GI - famotidine - DVT - SCD/heparin SQ Dispo: D/W Mr. George, COMMODITY MANAGEMENT SPECIALIST at bedside and Ms. Bond, Palliative Care crab steamer. Family requesting possible comfort care measures planned meeting with palliative care team for schedule for 1800 today. my billing statement This patient remains critically ill with one or more organ systems which are or may become a threat to life. I have spent in excess of 34 minutes discontinuously in the care and management of this patient. This time is exclusive of procedures, and includes, but is not limited to, evaluation of the patient, review of the medical record, discussions with family, consultants, nursing staff, or respiratory therapy, and documentation in the medical record. Physician Catalina Casarez MD Apr 05, 2017 16:51
[2017-04-05] MEDS ORDERED: HYOSCYAMINE 0.5 MG/ML AMP IV PUSH ONE (18:45)
[2017-04-05] MEDS ORDERED: LORazepam 2 MG/ML VIAL IV PUSH ONE ×2 (18:45→19:00)
[2017-04-05] MEDS ORDERED: MORPHINE SULFATE 2 MG/ML INJ IV ONE (19:00)
[2017-04-05] MEDS ORDERED: LORazepam 2 MG/ML VIAL IV PUSH PRN ×2 (19:15)
[2017-04-05] MEDS ORDERED: HYOSCYAMINE 0.5 MG/ML AMP IV PUSH PRN (19:15)
[2017-04-05] MEDS: LORazepam 2 MG/ML VIAL IV PUSH SCH ×3 (20:00→23:18)
[2017-04-05] MEDS: MORPHINE SULFATE 2 MG/ML INJ IV SCH ×2 (20:00→23:18)
[2017-04-05] MEDS: fentaNYL DRIP 250 ML IV PRN (20:01)
[2017-04-05] MEDS: FUROSEMIDE 20 MG/2 ML VIAL IV PUSH PRN (21:07)
[2017-04-05] MEDS ORDERED: PHARMACY ORDERED LAB ONE (23:45)
[2017-04-06] VITALS (13 sets, daily range): BP systolic 93–106; BP diastolic 51–62; PULSE 0–124; RESP 16–23; O2SAT 82–84
[2017-04-06] MEDS: MORPHINE SULFATE 2 MG/ML INJ IV SCH ×8 (02:20→22:15)
[2017-04-06] MEDS: LORazepam 2 MG/ML VIAL IV PUSH SCH ×12 (02:20→23:03)
[2017-04-06] MEDS: MORPHINE SULFATE 2 MG/ML INJ IV PRN ×9 (06:58→20:25)
[2017-04-06] MEDS: FUROSEMIDE 20 MG/2 ML VIAL IV PUSH PRN (07:20)
[2017-04-06] MEDS: ARTIFICIAL TEARS OPTH SOLN 15 ML BTL EACH EYE SCH ×3 (08:14→17:50)
[2017-04-06] MEDS: fentaNYL DRIP 250 ML IV PRN ×2 (09:53→17:09)
--- NOTE | 2017-04-06 11:25 | HHI.HCPN ---
Reason for visit a. To assist with evaluation and management of symptoms including: Dyspnea, pain, anxiety b. To assist medical decision maker(s) with: better understanding of current medical conditions; weighing benefits/burdens of medical treatment options; making medical treatment decisions. Subjective/Interval History Patient seen and examined in [facility]. Patient is unresponsive, looks comfortable and has apneic intervals. Patient on Fentanyl infusion at 350mcg/hour. ST on monitor 117, BP 106/62 and O2 saturation 83% on RA. Case discussed with bedside RN. Telephone conversation with patient`s Zenon Pager. Reintroduced hospice philosophy and benefits. Patient`s and family does not want hospice at this time and does not wish to transfer patient out of the hospital to any other facility. He wishes for patient to be kept comfortable in the hospital. Requested patient`s current vital signs. Updated on vital signs. . Family/friend interactions Telephone conversation with patient`s Zenon Pager. . Advance Directives Living Will: Never completed Health Care Surrogate: Never completed Durable Power of Controlled Atmospheric Furnace Brazer: Never completed Objective Vital Signs Date Time Temp Pulse Resp B/P (MAP) Pulse Ox O2 Delivery O2 Flow Rate FiO2 04/06/17 10:00 118 04/06/17 08:00 118 23 106/62 (77) 84 04/06/17 08:00 118 04/06/17 06:00 111 04/06/17 04:00 108 04/06/17 02:00 108 04/06/17 00:00 108 04/05/17 23:22 86 04/05/17 22:00 108 04/05/17 21:11 30 04/05/17 20:55 Room Air 04/05/17 20:00 99.7 96 18 120/61 (80) 94 04/05/17 20:00 96 04/05/17 18:00 97 04/05/17 16:00 99.0 98 19 128/76 (93) 94 04/05/17 16:00 98 04/05/17 16:00 35 04/05/17 14:46 94 35 04/05/17 14:00 96 04/05/17 12:00 95 04/05/17 12:00 35 04/05/17 12:00 98.8 95 23 130/66 (87) 92 04/05/17 11:34 92 35 Intake & Output 04/06/17 04/06/17 06:59 18:59 Intake Total 301 ml Output Total 1050 ml Balance -749 ml IV Total 137 ml Tube Feeding 164 ml Output Urine Total 950 ml Stool Total 100 ml Physical Exam CONSTITUTIONAL/GENERAL: This is a morbidly obese female in no acute distress. TUBES/LINES/DRAINS: PIV 3. SKIN: Scaly rash seen on all extremities. Dusky appearance HEAD: Atraumatic. Normocephalic. EYES:Eyes closed, did not force open for assessment. ENT: Unable to assess hearing. Nose without bleeding or purulent drainage. NECK: Trachea midline. CARDIOVASCULAR: S1, S2, 2/6 KEELEY at RSB RESPIRATORY/CHEST: Coarse rhonchi throughout all lung henao. Rare wheeze, bibasilar crackles. GASTROINTESTINAL: Abdomen soft, obese, nondistended. Hypoactive BS. GENITOURINARY: Without palpable bladder distension. Florez catheter in place. MUSCULOSKELETAL: Extremities without clubbing, cyanosis, or edema. No joint tenderness or effusion noted. NEUROLOGICAL: Unresponsive PSYCHIATRIC: Calm . Diagnostic Tests Laboratory Laboratory Tests Test 04/04/17 05:33 04/05/17 03:28 White Blood Count 15.2 TH/MM3 (4.0-11.0) 16.5 TH/MM3 (4.0-11.0) Red Blood Count 2.98 MIL/MM3 (4.00-5.30) 3.28 MIL/MM3 (4.00-5.30) Hemoglobin 8.2 GM/DL (11.6-15.3) 9.1 GM/DL (11.6-15.3) Hematocrit 26.8 % (35.0-46.0) 29.2 % (35.0-46.0) Mean Corpuscular Volume 90.0 FL (80.0-100.0) 89.0 FL (80.0-100.0) Mean Corpuscular Hemoglobin 27.5 PG (27.0-34.0) 27.8 PG (27.0-34.0) Mean Corpuscular Hemoglobin Concent 30.6 % (32.0-36.0) 31.3 % (32.0-36.0) Red Cell Distribution Width 14.9 % (11.6-17.2) 14.6 % (11.6-17.2) Platelet Count 221 TH/MM3 (150-450) 265 TH/MM3 (150-450) Mean Platelet Volume 11.9 FL (7.0-11.0) 11.8 FL (7.0-11.0) Activated Partial Thromboplast Time 34.5 SEC (24.3-30.1) 32.6 SEC (24.3-30.1) Blood Urea Nitrogen 30 MG/DL (7-18) 26 MG/DL (7-18) Creatinine 0.89 MG/DL (0.50-1.00) 0.77 MG/DL (0.50-1.00) Random Glucose 120 MG/DL (74-106) 122 MG/DL (74-106) Calcium Level 7.9 MG/DL (8.5-10.1) 7.7 MG/DL (8.5-10.1) Sodium Level 142 MEQ/L (136-145) 144 MEQ/L (136-145) Potassium Level 3.4 MEQ/L (3.5-5.1) 3.9 MEQ/L (3.5-5.1) Chloride Level 111 MEQ/L (98-107) 113 MEQ/L (98-107) Carbon Dioxide Level 24.8 MEQ/L (21.0-32.0) 24.7 MEQ/L (21.0-32.0) Anion Gap 6 MEQ/L (5-15) 6 MEQ/L (5-15) Estimat Glomerular Filtration Rate 66 ML/MIN (>89) 78 ML/MIN (>89) Result Diagram: 04/05/17 0328 04/05/17 0328 Microbiology Microbiology Date/Time Source Procedure Growth Status 04/04/17 05:33 Blood Peripheral Aerobic Blood Culture - Preliminary NO GROWTH IN 1 DAY Resulted 04/04/17 05:33 Blood Peripheral Anaerobic Blood Culture - Preliminary NO GROWTH IN 1 DAY Resulted 04/03/17 14:00 Blood Peripheral Aerobic Blood Culture - Preliminary NO GROWTH IN 2 DAYS Resulted 04/03/17 14:00 Blood Peripheral Anaerobic Blood Culture - Preliminary NO GROWTH IN 2 DAYS Resulted Procedures 03/29/17: Orotracheal intubation. . Assessment and Plan Disease Oriented Problem List: (1) Lactic acidosis (2) Sepsis (3) Elevated troponin (4) Pyrexia (5) Rhabdomyolysis (6) Scleroderma (7) Respiratory insufficiency (8) Mitral valve vegetation Symptom Scale: (1) Dyspnea and respiratory abnormalities 0-10 Scale: Unable to quantify (2) Pain, generalized 0-10 Scale: Unable to quantify (3) Anxiety 0-10 Scale: Unable to quantify Pertinent Non-Medical Issues Psychosocial:Born and raised in [place], she moved to [place] when she was 20. She worked as a hairdresser/transport engineer. She her 26 years ago on . She was diagnosed with scleroderma in 1999. She never had any children. . Spiritual:Raised Hinduism, she attends a [employer] in [place]. . Legal:None. Ethical issues impacting care:None. . Important Contacts : Zenon George home ; cell . Prognosis Her prognosis is poor. 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 She has developed pulmonary edema and respiratory insufficiency now requiring intubation and is not tolerating CPAP. She has been intubated for 7 days and will soon require a decision regarding tracheostomy and PEG tube placement. Given her comorbidities, immunosuppression and long-term nonhealing wounds she would be a poor surgical candidate for valve replacement. . Code Status: No Code Plan PLAN: Legal decision maker: At this time she is intubated and unable to make decisions for herself. Per [place] statutes her , Zenon, would be the legal healthcare proxy. GOALS: Comfort oriented. CODE STATUS: DNR SYMPTOMS: * Dyspnea: Compassionately withdrawn from life support. Morphine Sulfate 6mg IV ATC and PRN available. Lorazepam, Albuterol nebs and Hycosamine prn available * Pain: She has a long history of chronic pain and is currently receiving oxycodone 20 mg every 4 hours via OG tube. She appears to be comfortable. Currently on Fentanyl infusion at 350mcg/hr. Morphine Sulfate 6mg IV ATC and PRN available * Anxiety: No signs or symptoms of anxiety at this evaluation. Patient on Lorazepam ATC and prn Summary: This is a 57-year-old morbidly obese female with scleroderma, history of leukemia, MSSA bacteremia, mitral valve vegetation with regurgitation, severe sepsis, healthcare associated pneumonia failing to wean from ventilator. She has a multiple year history of nonhealing wounds. She is currently under treatment by infectious disease and not tolerating spontaneous breathing trials well. Given her multiple comorbidities, history of nonhealing wounds and bacteremia it is not felt that she would do well with valve replacement surgery. Patient was compassionately withdrawn from life support on 04/05/2017. Per telephone conversation with patient`s Zenon Rogerio who indicated that he has discussed with family regarding hospice and does not want hospice at this time, does not wish to transfer patient out of the hospital to any other facility. He wishes for patient to be kept comfortable in the hospital. Palliative care will continue to follow the patient during hospital course as condition evolves, to assist patient/decision-maker with understanding of their medical conditions, weighing benefits/burdens of treatment options, for clarification of goals of treatment. Additionally will assist with any symptoms of palliative concern. . Sean Ma Apr 06, 2017 11:25
[2017-04-06] MEDS: LORazepam 2 MG/ML VIAL IV PUSH PRN ×2 (14:31→20:25)
--- NOTE | 2017-04-06 17:52 | HHI.CCPN ---
Subjective Remarks/Hospital Course This is a 57-year-old female. Admission 03/23/2017.past medical history includes scleroderma, thyroid disease, status post splenectomy in the past and elevated BMI. Initial presentation occurred Tuesday with lethargy, sleeping, and fever. The patient also had one episode of vomiting with several episodes of diarrhea. The states she has been no recent international travel, hospitalizations, or history of chronic infections. She did have similar symptoms 2 years ago per the 's report with the patient had low oxygen levels and had altered mental status. The patient is seen by pain management as well as her primary physician who is located in [place], [place]. Dr. Estrada The states the patient's mental status seems to wax and wane over the last several days, she'll be awake and alert, and that she will fall asleep and be slightly lethargic and confused. She will lie in bed for several days at a time. The patient denies any chest pain or shortness of breath. She does complain of abdominal pain over the skin secondary to her scleroderma. She also has a history of an open lesion secondary to scleroderma of the lateral left thigh which has been present for several years per the 's report. Received patient was treated with Humira for scleroderma however not taking for the past 5 months. She is on morphine and Dilaudid for chronic pain management from her Dr. Dominguez in [place] CT abdomen/ revealed gallstones without obstruction. Status post splenectomy. Morbid obesity. Chest x-ray revealed no signs of pneumonia. CT brain negative. Patient received 2 L normal saline added ED. She was noted to have a elevated troponin of 15. Denies chest pain. EKG shows nonspecific ST-T changes. CPK 2100. Creatinine 1.7. Leukocytosis 20,000 and elevated transaminases with low sodium and albumin. Her febrile is abated. She is currently awake and oriented to person place and time. 03/24 Patient is lying in bed in [facility]. Afebrile. Renal function is improving with Cr: 1.10 from 1.73. On Heparin drip for elevated trop. 03/25 No events overnight. Remains on Heparin drip. Renal function is now within normal. Afebrile. 03/26 s/p MYRIAM yesterday which shoed vegetation on mitral valve She was on BIPAP overnight now on 4L oxygen. Given Lasix 40mg x 1 yesterday with good response in UOP. Afebrile. off Heparin drip.. 03/27 No events overnight. On BIPAP 15/5 with 35% FIO2 overnight. Afebrile. 03/28: Remains on BiPAP with full facemask. 03/29: Patient was intubated and placed on mechanical ventilation as she was requiring BiPAP and continued to have increased work of breathing and needed to get imaging studies for further evaluation. 03/30: Remains sedated, orally intubated on mechanical ventilation. Head CT done on 03/29 revealed small lacunar infarcts (probably secondary to septic emboli). 03/31: remains febrile. intubated. blood cultures 03/29 NGTD still. follows commands. off sedation. on PSV 20/10/40%, but does not tolerate weaning of pressure support. CXR with persistent pulmonary edema. 04/01: remains febrile. wbc still elevated. blood cultures from 03/29 still NGTD. still not tolerating weaning attempts. Cr rising with diuresis, although still appears volume overloaded on exam and with valvular lesions, will need aggressive diuresis. 04/02: Orally intubated on mechanical ventilation, off all sedation. Arousable 04/03: Drowsy, arousable, orally intubated on mechanical ventilation. Still having temperature spikes. Blood culture from 04/01 growing gram-positive cocci 2 sets. 04/04: Drowsy, easily arousable, orally intubated on mechanical ventilation. Tolerating tube feeds. Lasted about 2 hours on C Pap trials yesterday. 04/05: Tmax 99.0. Lasted approximately less than one hour while on CPAP yesterday , and only 5 minutes this a.m.. in the room requesting possible comfort care measures be instituted, as patient would not desire tracheostomy or be placed on mechanical ventilation for indefinite period of time. Palliative medicine consulted at family's request. 04/06: Comfort care measures/ventilator withdrawal was initiated at 2050 5 PM on . The patient continues on fentanyl infusion at 350 mics Objective Vital Signs Date Time Temp Pulse Resp B/P (MAP) Pulse Ox O2 Delivery O2 Flow Rate FiO2 04/06/17 16:00 124 04/06/17 08:00 23 106/62 (77) 84 04/05/17 20:55 Room Air 04/05/17 20:00 99.7 04/05/17 16:00 35 Intake and Output 04/06/17 04/06/17 04/07/17 08:00 16:00 00:00 Intake Total 137 ml 113 ml Output Total 1050 ml Balance -913 ml 113 ml Result Diagram: 04/05/17 0328 04/05/17 0328 Imaging Last Impressions Liver Ultrasound 03/24/17 0000 Signed Impressions: Service Date/Time: March 16:41 - CONCLUSION: 1. Limited examination due to body habitus and patient's inability to tolerate the procedure. Unfortunately, the gallbladder is not sufficiently visualized for further evaluation of abnormality noted on CT scan. If there is continued clinical concern regarding acute cholecystitis, consider HIDA scan to evaluate for cystic duct patency. 2. Diffusely heterogeneous and mildly enlarged liver consistent with hepatic steatosis versus medical liver disease. Shlomo Mesa MD Head CT 03/23/171923 Signed Impressions: Service Date/Time: Thursday, March 23, 2017 20:45 - CONCLUSION: No acute findings in the brain. David Weiss MD Chest X-Ray 03/23/171923 Signed Impressions: Service Date/Time: Thursday, March 23, 2017 19:49 - CONCLUSION: Cardiomegaly. The lungs are clear. David Weiss MD Abdomen/Pelvis CT 03/23/171923 Signed Impressions: Service Date/Time: Thursday, March 23, 2017 20:48 - CONCLUSION: 1. Multiple gallstones, some of which are noncalcified. 2. Spleen is not identified. 3. Mildly prominent left inguinal David Weiss MD Objective Remarks GENERAL: 57-year-old female laying in bed, extubated HEAD: Atraumatic. Normocephalic. EYES: Pupils equal and round about 3 mm bilaterally and reactive. No scleral icterus. No injection or drainage. ENT: No nasal bleeding or discharge. Mucous membranes pink and moist. NECK: Trachea midline. No JVD. CARDIOVASCULAR: S1-S2 regular, no gallop or murmur appreciated. Telemetry ST RESPIRATORY: Orally intubated on mechanical ventilation, Breath sounds equal bilaterally. O2 saturation 84% GASTROINTESTINAL: morbidly obese, abdomen soft, non-tender, nondistended. no guarding. MUSCULOSKELETAL: Extremities with multiple open areas/calcifications bilateral lower extremities. Largest is in the left gluteal region about 6 x 8 cm. Multiple stage II decubiti. NEUROLOGICAL: Nonresponsive , comfort care measures instituted at 8 PM last evenin A/P Assessment and Plan Assessment: 57yF with mitral valve endocarditis, healthcare associated pneumonia , persistent fevers, clinical decline. remains critically ill without any improvement in any organ system today. continue forced diuresis for pulmonary edema, despite rising Cr. fevers and leukocytosis are concerning. may need to consider MRI spine. remains critically ill without improvements, off pathway, at risk of and with ongoing major organ failure. Neuro/Psych: Encephalopathy Multiple lacunar infarcts Chronic pain syndrome/low back pain Chronic narcotic use Depression Chronic benzodiazepine use Fentanyl infusion for comfort Comfort care measures instituted CV: Severe sepsis with multisystem organ failure Mitral valve endocarditis Moderate Mitral regurgitation Moderate Aortic Regurgitation Mild Tricuspid regurgitation Elevated troponin Hypertension Lactic acidosis (resolved) Telemetry sinus tachycardia No lipid-lowering agents due to elevated transaminases Cards is following-Dr. Newton Echo showed EF 60-65%. MYRIAM showed vegetation on MV Resp: Acute hypoxic respiratory failure on mechanical ventilation ALI Pulmonary Edema Bronchodilators. Intubated and placed on mechanical ventilation on 03/29. Unrelated withdrawal 04/05/16 s/p short course steroids for wheezing ( 4 doses were given). CT chest with bilateral airspace disease with infiltrates - probably acute lung injury pattern from sepsis and possible pneumonia GI: Elevated transaminases/total bilirubin Hypoalbuminemia CT abdomen/pelvis revealed cholelithiasis. No other acute findings. Monitor LFTs ( trending disease), Hepatitis profile is negative US Liver: Limited examination due to body habitus and patient's inability to tolerate the procedure. Unfortunately, the gallbladder is not sufficiently visualized. Diffusely heterogeneous and mildly enlarged liver consistent with hepatic steatosis vs medical liver disease. Lipase level 122, NH4 level 19. / Renal: NATTY Hypernatremia Free water deficit Acute intravascular volume overload Maintain Florez catheter Endo/Rheum: Hyperglycemia Hypothyroidism Scleroderma - localized versus systemic Rheumatoid arthritis? Sliding-scale insulin to maintain euglycemia TSH level: 4.5, continue levothyroxine 150 mg by mouth daily/home dose in the interim Heme: Leukocytosis Monitor CBC daily. Follow trends. Continue ferrous sulfate 325 mg by mouth daily ID: Severe sepsis Staph Aureus Bacteremia Mitral valve endocarditis UTI Enterobacter HCAP pneumonia Persistent leukocytosis Continue abx per ID : On Ancef/meropenem/vancomycin/Diflucan IV Will need 6 weeks abx once BC is sterile. BC 03/23, 03/24: Staph Aureus bacteremia. MYRIAM vegetation on MV Blood cultures 03/25: 2/4 bottles: S aureus BC 03/27: S aureus Blood cultures 04/01 05/06 with [facility] ID is following. Patient has persistent staph aureus bacteremia despite antibiotics. MRI brain with multiple lacunar infarcts possibly secondary to septic emboli. CT chest with bilateral airspace disease/infiltrates. Discussed with Dr. Villegas on 03/29 AM prior to intubation. May require MRI spine, CT surgery evaluation if bacteremia not clearing to evaluate for valve replacement. MSK: Lower extremity ulcerations BMI 55 Wound care evaluate and treat Weight loss encouraged PT evaluate and treat Access - Utilize peripheral IV. Prophylaxis - GI - famotidine - DVT - SCD/heparin SQ Dispo: D/W Mr. George, comfort care measures/ventilator withdrawal instituted 04/05/17 at 2055 , family does not want to transfer to hospice at this time. Level III follow-up Physician Catalina Casarez MD Apr 06, 2017 17:52
--- NOTE | 2017-04-07 09:45 | HHI.DS ---
Summary Note Date of : Apr 06, 2017 Time Of : 2036 Admission Date Mar 23, 2017 at 22:10 Admitting Diagnosis sepsis, left leg wound, lactic acidosis, elevated troponin Diagnosis at Time of : (1) Hyponatremia ICD Code: E87.1 - Hypo-osmolality and hyponatremia Diagnosis: Principal (2) Hypoalbuminemia ICD Code: E88.09 - Other disorders of plasma-protein metabolism, not elsewhere classified Diagnosis: Principal (3) Transaminitis ICD Code: R74.0 - Nonspecific elevation of levels of transaminase and lactic acid dehydrogenase [LDH] Diagnosis: Principal (4) Pyrexia ICD Code: R50.9 - Fever, unspecified Diagnosis: Principal (5) Acute kidney injury ICD Code: N17.9 - Acute kidney failure, unspecified Diagnosis: Principal (6) Scleroderma ICD Code: M34.9 - Systemic sclerosis, unspecified Diagnosis: Secondary (7) Severe sepsis ICD Code: A41.9 - Sepsis, unspecified organism; R65.20 - Severe sepsis without septic shock Diagnosis: Principal (8) Elevated troponin ICD Code: R74.8 - Abnormal levels of other serum enzymes Diagnosis: Principal (9) Lactic acidosis ICD Code: E87.2 - Acidosis Diagnosis: Principal (10) Left leg cellulitis ICD Code: L03.116 - Cellulitis of left lower limb Diagnosis: Principal (11) Hyperglycemia ICD Code: R73.9 - Hyperglycemia, unspecified Diagnosis: Secondary (12) Rhabdomyolysis ICD Code: M62.82 - Rhabdomyolysis Diagnosis: Principal (13) Gallstones ICD Code: K80.20 - Calculus of gallbladder without cholecystitis without obstruction Diagnosis: Principal (14) BMI 50.0-59.9, adult ICD Code: Z68.43 - Body mass index (BMI) 50-59.9 , adult Diagnosis: Principal (15) Chronic narcotic use ICD Code: F11.90 - Opioid use, unspecified, uncomplicated Diagnosis: Principal (16) Chronic prescription benzodiazepine use ICD Code: Z79.899 - Other usp (current) drug therapy Diagnosis: Principal (17) Depression ICD Code: F32.9 - Major depressive disorder, single episode, unspecified Diagnosis: Secondary (18) Hypothyroidism ICD Code: E03.9 - Hypothyroidism, unspecified Diagnosis: Principal Brief History This is a 57-year-old female. Admission 03/23/2017.past medical history includes scleroderma, thyroid disease, status post splenectomy in the past and elevated BMI. Initial presentation occurred Lauri with lethargy, sleeping, and fever. The patient also had one episode of vomiting with several episodes of diarrhea. The states she has been no recent international travel, hospitalizations, or history of chronic infections. She did have similar symptoms 2 years ago per the 's report with the patient had low oxygen levels and had altered mental status. The patient is seen by pain management as well as her primary physician who is located in [place], [place]. Dr. Estrada The states the patient's mental status seems to wax and wane over the last several days, she'll be awake and alert, and that she will fall asleep and be slightly lethargic and confused. She will lie in bed for several days at a time. The patient denies any chest pain or shortness of breath. She does complain of abdominal pain over the skin secondary to her scleroderma. She also has a history of an open lesion secondary to scleroderma of the lateral left thigh which has been present for several years per the 's report. Received patient was treated with Humira for scleroderma however not taking for the past 5 months. She is on morphine and Dilaudid for chronic pain management from her Dr. Dominguez in [place] abdomen/12 revealed gallstones without obstruction. Status post splenectomy. Morbid obesity. Chest x-ray revealed no signs of pneumonia. CT brain negative. Patient received 2 L normal saline added ED. She was noted to have a elevated troponin of 15. Denies chest pain. EKG shows nonspecific ST-T changes. CPK 2100. Creatinine 1.7. Leukocytosis 20,000 and elevated transaminases with low sodium and albumin. Her febrile is abated. She is currently awake and oriented to person place and time. CBC/BMP: 04/05/17 0328 04/05/17 0328 Significant Findings Laboratory Tests Test 04/05/17 03:28 White Blood Count 16.5 TH/MM3 (4.0-11.0) Red Blood Count 3.28 MIL/MM3 (4.00-5.30) Hemoglobin 9.1 GM/DL (11.6-15.3) Hematocrit 29.2 % (35.0-46.0) Mean Corpuscular Hemoglobin Concent 31.3 % (32.0-36.0) Mean Platelet Volume 11.8 FL (7.0-11.0) Activated Partial Thromboplast Time 32.6 SEC (24.3-30.1) Blood Urea Nitrogen 26 MG/DL (7-18) Random Glucose 122 MG/DL (74-106) Calcium Level 7.7 MG/DL (8.5-10.1) Chloride Level 113 MEQ/L (98-107) Estimat Glomerular Filtration Rate 78 ML/MIN (>89) Imaging Last Impressions Liver Ultrasound 03/24/17 0000 Signed Impressions: Service Date/Time: March 16:41 - CONCLUSION: 1. Limited examination due to body habitus and patient's inability to tolerate the procedure. Unfortunately, the gallbladder is not sufficiently visualized for further evaluation of abnormality noted on CT scan. If there is continued clinical concern regarding acute cholecystitis, consider HIDA scan to evaluate for cystic duct patency. 2. Diffusely heterogeneous and mildly enlarged liver consistent with hepatic steatosis versus medical liver disease. Shlomo Mesa MD Head CT 03/23/171923 Signed Impressions: Service Date/Time: Thursday, March 23, 2017 20:45 - CONCLUSION: No acute findings in the brain. David Weiss MD Chest X-Ray 03/23/171923 Signed Impressions: Service Date/Time: Thursday, March 23, 2017 19:49 - CONCLUSION: Cardiomegaly. The lungs are clear. David Weiss MD Abdomen/Pelvis CT 03/23/171923 Signed Impressions: Service Date/Time: Thursday, March 23, 2017 20:48 - CONCLUSION: 1. Multiple gallstones, some of which are noncalcified. 2. Spleen is not identified. 3. Mildly prominent left inguinal David Weiss MD Hospital Course This is a 57-year-old female. Admission 03/23/2017.past medical history includes scleroderma, thyroid disease, status post splenectomy in the past and elevated BMI. Initial presentation occurred Tuesday with lethargy, sleeping, and fever. The patient also had one episode of vomiting with several episodes of diarrhea. The states she has been no recent international travel, hospitalizations, or history of chronic infections. She did have similar symptoms 2 years ago per the 's report with the patient had low oxygen levels and had altered mental status. The patient is seen by pain management as well as her primary physician who is located in [place], [place]. Dr. Estrada The states the patient's mental status seems to wax and wane over the last several days, she'll be awake and alert, and that she will fall asleep and be slightly lethargic and confused. She will lie in bed for several days at a time. The patient denies any chest pain or shortness of breath. She does complain of abdominal pain over the skin secondary to her scleroderma. She also has a history of an open lesion secondary to scleroderma of the lateral left thigh which has been present for several years per the 's report. Received patient was treated with Humira for scleroderma however not taking for the past 5 months. She is on morphine and Dilaudid for chronic pain management from her Dr. Phan? in [place] CT abdomen/ revealed gallstones without obstruction. Status post splenectomy. Morbid obesity. Chest x-ray revealed no signs of pneumonia. CT brain negative. Patient received 2 L normal saline added ED. She was noted to have a elevated troponin of 15. Denies chest pain. EKG shows nonspecific ST-T changes. CPK 2100. Creatinine 1.7. Leukocytosis 20,000 and elevated transaminases with low sodium and albumin. Her febrile is abated. She is currently awake and oriented to person place and time. 03/24 Patient is lying in bed in NAD. Afebrile. Renal function is improving with Cr: 1.10 from 1.73. On Heparin drip for elevated trop. 03/25 No events overnight. Remains on Heparin drip. Renal function is now within normal. Afebrile. 03/26 s/p MYRIAM yesterday which shoed vegetation on mitral valve She was on BIPAP overnight now on 4L oxygen. Given Lasix 40mg x 1 yesterday with good response in UOP. Afebrile. off Heparin drip.. 03/27 No events overnight. On BIPAP 15/5 with 35% FIO2 overnight. Afebrile. 03/28: Remains on BiPAP with full facemask. 03/29: Patient was intubated and placed on mechanical ventilation as she was requiring BiPAP and continued to have increased work of breathing and needed to get imaging studies for further evaluation. 03/30: Remains sedated, orally intubated on mechanical ventilation. Head CT done on 03/29 revealed small lacunar infarcts (probably secondary to septic emboli). 03/31: remains febrile. intubated. blood cultures 03/29 NGTD still. follows commands. off sedation. on PSV 20/10/40%, but does not tolerate weaning of pressure support. CXR with persistent pulmonary edema. 04/01: remains febrile. wbc still elevated. blood cultures from 03/29 still NGTD. still not tolerating weaning attempts. Cr rising with diuresis, although still appears volume overloaded on exam and with valvular lesions, will need aggressive diuresis. 04/02: Orally intubated on mechanical ventilation, off all sedation. Arousable 04/03: Drowsy, arousable, orally intubated on mechanical ventilation. Still having temperature spikes. Blood culture from 04/01 growing gram-positive cocci 2 sets. 04/04: Drowsy, easily arousable, orally intubated on mechanical ventilation. Tolerating tube feeds. Lasted about 2 hours on C Pap trials yesterday. 04/05: Tmax 99.0. Lasted approximately less than one hour while on CPAP yesterday , and only 5 minutes this a.m.. in the room requesting possible comfort care measures be instituted, as patient would not desire tracheostomy or be placed on mechanical ventilation for indefinite period of time. Palliative medicine consulted at family's request. 04/06: Comfort care measures/ventilator withdrawal was initiated at 2050 5 PM on . The patient continues on fentanyl infusion at 350 mics 04/06/2017: With at bedside, patient 2036. Catalina Bo MD Apr 07, 2017 09:45
== END 2017-04-06 20:37 | disposition expired | DRG 870 ==
LOC: NEPE 19:05 → NEDA 22:10 → NEDH 03-24 02:10 → HIMN 03-24 04:45
PROVIDERS: ADMIT Internal Medicine Critical Care Medicine; ATTEND Internal Medicine Critical Care Medicine
PROC: 3E0F7GC Introduction of Other Therapeutic Substance into Respiratory Tract, Via Natural or Artificial Opening (ICD-10-PCS; principal; 2017-03-23)
PROC: B246ZZ4 Ultrasonography of Right and Left Heart, Transesophageal (ICD-10-PCS; 2017-03-25)
PROC: 5A09457 Assistance with Respiratory Ventilation, 24-96 Consecutive Hours, Continuous Positive Airway Pressure (ICD-10-PCS; 2017-03-25)
PROC: 5A1955Z Respiratory Ventilation, Greater than 96 Consecutive Hours (ICD-10-PCS; 2017-03-29)
PROC: 0BH17EZ Insertion of Endotracheal Airway into Trachea, Via Natural or Artificial Opening (ICD-10-PCS; 2017-03-29)
DX: A41.9 Sepsis, unspecified organism (principal); I21.4 Non-ST elevation (NSTEMI) myocardial infarction; I33.0 Acute and subacute infective endocarditis; G93.40 Encephalopathy, unspecified; J81.1 Chronic pulmonary edema; J96.01 Acute respiratory failure with hypoxia; J96.02 Acute respiratory failure with hypercapnia; I76 Septic arterial embolism; J15.6 Pneumonia due to other Gram-negative bacteria; N17.9 Acute kidney failure, unspecified; E87.2 Acidosis; M62.82 Rhabdomyolysis; E87.1 Hypo-osmolality and hyponatremia; L03.116 Cellulitis of left lower limb; Z68.43 Body mass index [BMI] 50.0-59.9, adult; L97.909 Non-pressure chronic ulcer of unspecified part of unspecified lower leg with unspecified severity; E87.0 Hyperosmolality and hypernatremia; N39.0 Urinary tract infection, site not specified; I08.3 Combined rheumatic disorders of mitral, aortic and tricuspid valves; E88.09 Other disorders of plasma-protein metabolism, not elsewhere classified; R59.9 Enlarged lymph nodes, unspecified; K80.20 Calculus of gallbladder without cholecystitis without obstruction; R00.0 Tachycardia, unspecified; R19.7 Diarrhea, unspecified; M54.5 Low back pain; R74.0 Nonspecific elevation of levels of transaminase and lactic acid dehydrogenase [LDH]; R73.9 Hyperglycemia, unspecified; Z79.899 Other long term (current) drug therapy; F13.90 Sedative, hypnotic, or anxiolytic use, unspecified, uncomplicated; F32.9 Major depressive disorder, single episode, unspecified; E03.9 Hypothyroidism, unspecified; E66.01 Morbid (severe) obesity due to excess calories; G89.4 Chronic pain syndrome; Z85.6 Personal history of leukemia; Z51.5 Encounter for palliative care; Z66 Do not resuscitate; L94.0 Localized scleroderma [morphea]; B35.6 Tinea cruris; I10 Essential (primary) hypertension; R06.89 Other abnormalities of breathing; Z79.891 Long term (current) use of opiate analgesic; Z90.81 Acquired absence of spleen; Z87.891 Personal history of nicotine dependence; Z83.3 Family history of diabetes mellitus; Z82.49 Family history of ischemic heart disease and other diseases of the circulatory system; E65 Localized adiposity; B95.61 Methicillin susceptible Staphylococcus aureus infection as the cause of diseases classified elsewhere; F41.9 Anxiety disorder, unspecified; Y95 Nosocomial condition; E87.70 Fluid overload, unspecified; S31.809A Unspecified open wound of unspecified buttock, initial encounter; X58.XXXA Exposure to other specified factors, initial encounter
CPT/HCPCS: 31500; 36600; 51702; 70450; 70553; 71010; 71045; 71250; 73720; 74176; 74177; 76705; 76937; 80048; 80053; 80061; 80074; 81001; 82140; 82150; 82533; 82550; 82552; 82805; 83036; 83605; 83690; 83735; 83930; 83935; 84100; 84295; 84300; 84443; 84484; 84550; 85007; 85025; 85027; 85610; 85730; 86140; 86403; 87040; 87070; 87077; 87086; 87147; 87186; 87205; 87641; 87804; 93005; 93306; 93312; 93320; 93325; 94002; 94003; 94150; 94640; 94664; 96361; 96365; A9579; J0131; J0330; J0690; J0692; J1120; J1450; J1644; J1940; J1956; J1980; J2060; J2185; J2250; J2270; J2543; J2700; J2920; J3010; J3370; J3480; J7030; J7040; J7050; J7070; J7613; P9047; Q9963; Q9967